=== PATIENT | male | born 1950 | race Caucasian/White ===

== ENCOUNTER 2024-08-08 12:09 | Outpatient (OUT) | payer MEDICARE, SELFPAY ==
--- NOTE | 2024-08-08 12:26 | ECG_ITS ---
The [facility] Test Date: 2024-08-08 Pat Name: SARINA MAGUIRE Department: Room: - Gender: Male [employer]: : 1950 Requested By: ROLY KEE Order Number: [id number] Reading MD: ANDRÉS MAHER Measurements Intervals [place] Rate: 75 P: 56 TX: 168 QRS: -17 QRSD: 109 T: 26 QT: 374 QTc: 418 Interpretive Statements SINUS RHYTHM INCOMPLETE RIGHT BUNDLE BRANCH BLOCK [90+ ms QRS DURATION, TERMINAL R IN V1/V2, 40+ ms S IN I/aVL/V4/V5/V6] No previous ECG available for comparison Electronically Signed On 08-09-2024 18:56:16 EDT by ANDRÉS MAHER
--- NOTE | 2024-08-08 12:26 | XR_ITS ---
The [address] [address] Patient Name: SARINA MAGUIRE MRN: [id number] date: 1950 Sex: M Assigned Patient Location: [facility] Current Patient Location: [facility] Accession/Order Number: [id number] Exam Date: 08/08/2024 13:22 Report Date: 08/08/2024 13:56 At the request of: ROLY KEE Procedure: XR chest 2V EXAM: XR chest 2V HISTORY: Preop exam COMPARISON: 01/12/2020 TECHNIQUE: Upright PA and lateral chest x-ray FINDINGS: Chronic pleural or parenchymal changes are seen at the left lung base. No acute infiltrate, effusion or pneumothorax is identified. The heart is not enlarged and the vasculature is not distended. The osseous structures are grossly intact. XR/XR chest 2V IMPRESSION: Some chronic changes are seen at the left lung base. There is no evidence of an acute infiltrate or cardiac decompensation, the overall appearance of the chest is essentially unchanged. Electronically authenticated by: LILI NELSON Date: 08/08/2024 13:56
[2024-08-08 13:25] LABS: Basophils Percent Auto 0.4 % (0.2-2.0); Eosinophils Absolute Auto 0.1 10^3/uL (0.0-0.7); Eosinophils Percent Auto 1.2 % (0.9-7.0); Hematocrit 42.4 % (42.0-54.0); Hemoglobin 13.9 g/dL (14.0-18.0); Immature Granulocytes Abs Auto 0.01 10^3/uL (0.00-0.03); Immature Granulocytes Pct Auto 0.1 % (0.0-0.5); Lymphocytes Absolute Auto 1.8 10^3/uL (1.2-3.8); Lymphocytes Percent Auto 24.1 % (20.5-60.0); Mean Corpuscular HGB Conc 32.8 g/dL (29.9-35.2); Mean Corpuscular Hemoglobin 30.5 pg (25.9-34.0); Monocytes Absolute Auto 0.6 10^3/uL (0.3-0.8); Monocytes Percent Auto 8.3 % (1.7-12.0); Neutrophils Absolute Auto 4.9 10^3/uL (1.4-6.5); Neutrophils Percent Auto 65.9 % (43.0-75.0); Platelet Count 260 10^3/uL (150-450); Red Blood Count 4.56 10^6/uL (4.70-6.10); Red Cell Distribution Width 13.4 % (11.0-15.0); White Blood Count 7.4 10^3/uL (4.0-11.0)
--- NOTE | 2024-08-08 13:28 | P.GSHP_ITS ---
History of Present Illness History of Present Illness Chief complaint: bph, hx prostate ca, hematuria Narrative: Patient presents for preadmission testing. The patient reports a history of prostate cancer with brachytherapy. The patient states he had an episode of gross hematuria followed by a cystoscopy and is now scheduled for a TURP. The patient states the hematuria has resolved and he denies dysuria, abdominal pain, nausea, vomiting, fever, or any other complaints. Review of Systems ROS Narrative REVIEW OF SYSTEMS: Negative except as stated in HPI, ten or more systems reviewed. Constitutional: No fever, chills, weakness ENT: No sore throat or epistaxis Cardiovascular: No edema, chest pain, palpitations, or activity intolerance Respiratory: No shortness of breath, cough, or wheezing Musculoskeletal: No joint pain or swelling Gastrointestinal: No abdominal pain, constipation, diarrhea, or vomiting Neurological: No numbness, tingling, weakness, or headache Psychiatric: No mood changes PFSH [facility] Medical History (Updated 08/08/24 @ 13:27 by Roslyn Matt NP) Trigger finger ?M65.30 - Trigger finger, unspecified finger (ICD-10) Spondylosis of lumbar region without myelopathy or radiculopathy ?M47.816 - Spondylosis without myelopathy or radiculopathy, lumbar region (ICD-10) Sacroiliitis ?M46.1 - Sacroiliitis, not elsewhere classified (ICD-10) Osteoarthritis ?M19.90 - Unspecified osteoarthritis, unspecified site (ICD-10) Nocturia ?R35.1 - Nocturia (ICD-10) Lumbar stenosis ?M48.061 - Spinal stenosis, lumbar region without neurogenic claudication (ICD-10) Depression ?F32.A - Depression, unspecified (ICD-10) Gross hematuria ?R31.0 - Gross hematuria (ICD-10) Urinary frequency ?R35.0 - Frequency of micturition (ICD-10) Erectile dysfunction ?N52.9 - Male erectile dysfunction, unspecified (ICD-10) Degenerative disc disease Chronic back pain ?M54.9 - Dorsalgia, unspecified (ICD-10) ?G89.29 - Other chronic pain (ICD-10) Prostate cancer ?C61 - Malignant neoplasm of prostate (ICD-10) Arthritis ?M19.90 - Unspecified osteoarthritis, unspecified site (ICD-10) Anemia ?D64.9 - Anemia, unspecified (ICD-10) COVID-19 ?U07.1 - COVID-19 (ICD-10) Asthma ?J45.909 - Unspecified asthma, uncomplicated (ICD-10) BPH with obstruction/lower urinary tract symptoms ?N40.1 - Benign prostatic hyperplasia with lower urinary tract symptoms (ICD- 10) ?N13.8 - Other obstructive and reflux uropathy (ICD-10) Kidney stones ?N20.0 - Calculus of kidney (ICD-10) Seasonal allergies ?J30.2 - Other seasonal allergic rhinitis (ICD-10) GERD (gastroesophageal reflux disease) ?K21.9 - Gastro-esophageal reflux disease without esophagitis (ICD-10) High cholesterol ?E78.00 - Pure hypercholesterolemia, unspecified (ICD-10) Hypertension ?I10 - Essential (primary) hypertension (ICD-10) Coronary artery disease ?I25.10 - Atherosclerotic heart disease of [place] coronary artery without angina pectoris (ICD-10) Pilonidal cyst ?L05.91 - Pilonidal cyst without abscess (ICD-10) History of brachytherapy ?Z92.3 - Personal history of irradiation (ICD-10) Sciatica ?M54.30 - Sciatica, unspecified side (ICD-10) Surgical History (Updated 08/08/24 @ 13:27 by Roslyn Matt NP) H/O cystoscopy ?Z98.890 - Other specified postprocedural states (ICD-10) History of colonoscopy ?Z98.890 - Other specified postprocedural states (ICD-10) History of tonsillectomy ?Z90.89 - Acquired absence of other organs (ICD-10) H/O removal of cyst ?Z98.890 - Other specified postprocedural states (ICD-10) History of heart artery stent (2004) ?Z95.5 - Presence of coronary angioplasty implant and graft (ICD-10) Hx of prostate biopsy ?Z98.890 - Other specified postprocedural states (ICD-10) History of hernia repair ?Z98.890 - Other specified postprocedural states (ICD-10) ?Z87.19 - Personal history of other diseases of the digestive system (ICD-10) History of arthroscopy of knee ?Z98.890 - Other specified postprocedural states (ICD-10) H/O radiofrequency ablation (RFA) of nerve of lumbar spine ?Z98.890 - Other specified postprocedural states (ICD-10) S/P epidural steroid injection ?Z92.241 - Personal history of systemic steroid therapy (ICD-10) History of carpal tunnel release ?Z98.890 - Other specified postprocedural states (ICD-10) History of repair of rotator cuff ?Z98.890 - Other specified postprocedural states (ICD-10) H/O hand surgery ?Z98.890 - Other specified postprocedural states (ICD-10) Family History (Updated 08/08/24 @ 13:01 by Roslyn Matt NP) Other Family history of Alzheimer's disease Family history of diabetes mellitus Family history of hypertension Family history of myocardial infarction Family history of prostate cancer Family history of stroke Social History (Updated 08/08/24 @ 12:49 by Roslyn Matt NP) Within the past year, how often did you have a drink containing alcohol: 2-4 times a month Smoking status: Never smoker Non-prescribed substance use: denies use Highest level of school completed/degree received: high school graduate Meds Home Medications and Allergies Home Medications ?Medication ?Instructions ?Recorded ?Confirmed ?Type albuterol sulfate 90 mcg/actuation 2 inh inhalation Q6H PRN shortness 08/08/24 08/08/24 History aerosol inhaler of breath or wheezing allopurinol 300 mg tablet 300 mg PO DAILY 08/08/24 08/08/24 History amlodipine 5 mg tablet 5 mg PO DAILY 08/08/24 08/08/24 History ascorbic acid (vitamin C) 1,000 mg 1 g PO DAILY 08/08/24 08/08/24 History capsule aspirin 81 mg tablet,delayed 81 mg PO DAILY 08/08/24 08/08/24 History release (Adult Aspirin Regimen) atorvastatin 20 mg tablet 20 mg PO DAILY 08/08/24 08/08/24 History cholecalciferol (vitamin D3) 125 5,000 unit PO DAILY PRN Low 08/08/24 08/08/24 History mcg (5,000 unit) capsule vitamin D diclofenac sodium 75 mg 75 mg PO Q12H 08/08/24 08/08/24 History tablet,delayed release duloxetine 60 mg capsule,delayed 60 mg PO BID 08/08/24 08/08/24 History release fluticasone furoate 200 1 inh inhalation Q24H 08/08/24 08/08/24 History mcg-vilanterol 25 mcg/dose inhalation powder (Breo Ellipta) fluticasone propionate 50 1 spray intranasal DAILY 08/08/24 08/08/24 History mcg/actuation nasal spray,suspension levocetirizine 5 mg tablet (Xyzal) 5 mg PO DAILY 08/08/24 08/08/24 History lisinopril 10 mg tablet 10 mg PO DAILY 08/08/24 08/08/24 History mecobalamin (vitamin B12) 5,000 2,500 mcg PO .Thursday08/08/24 08/08/24 History mcg disintegrating tablet montelukast 10 mg tablet 10 mg PO DAILY 08/08/24 08/08/24 History multivitamin (Daily Multi-Vitamin 1 tab PO DAILY 08/08/24 08/08/24 History tablet) omeprazole 40 mg capsule,delayed 40 mg PO DAILY 08/08/24 08/08/24 History release pregabalin 100 mg capsule 100 mg PO TID 08/08/24 08/08/24 History pyridoxine (vitamin B6) 100 mg 100 mg PO DAILY 08/08/24 08/08/24 History tablet Allergies Allergy/AdvReac Type Severity Reaction Status Date / Time No Known Drug Allergies Allergy Verified 08/08/24 12:45 Exam Narrative Exam Narrative: Constitutional: Awake, alert, comfortable, well-appearing, nontoxic, interactive, vital signs as charted Head: Normocephalic, atraumatic Neck: Supple, normal appearance, normal range of motion, no meningeal signs, no lymphadenopathy Respiratory: No respiratory distress, breath sounds clear Cardiovascular: Regular rate and rhythm, strong and regular heart tones Abdomen: Nontender, normal bowel sounds, soft, no CVA tenderness Musculoskeletal: Normal gait, no swelling or edema Skin: No rashes or induration, no lesions, only visible skin inspected Neuro: No neurological deficits, normal sensation Psychiatric: Oriented ?3, normal affect Assessment and Plan Assessment and Plan (1) BPH with obstruction/lower urinary tract symptoms: (2) Prostate cancer: Plan Cystoscopy/TURP with fulguration scheduled with Dr. Grey August 18, 2024.
[2024-08-08 13:33] LABS: Anion Gap 8.2; Calcium 9.4 mg/dL (8.5-10.1); Chloride 106 mmol/L (98-107); Estimated GFR (African America >60 (>=60); Estimated GFR (Non-African Ame >60 (>=60); Glucose 109 mg/dL (74-106); Potassium 4.2 mmol/L (3.5-5.1); Sodium 138 mmol/L (136-145)
[2024-08-08 13:46] LABS: INR 1.04; Partial Thromboplastin Time 29.7 sec (22.3-36.2)
== END 2024-08-08 12:10 | disposition home or self-care (01) ==
LOC: PST 12:14
PROVIDERS: PCP Family Medicine; Visit Provider Urology
DX: Z01.810 Encounter for preprocedural cardiovascular examination (principal); Z01.812 Encounter for preprocedural laboratory examination; Z01.818 Encounter for other preprocedural examination; N40.1 Benign prostatic hyperplasia with lower urinary tract symptoms; C61 Malignant neoplasm of prostate; J45.909 Unspecified asthma, uncomplicated; E78.00 Pure hypercholesterolemia, unspecified; K21.9 Gastro-esophageal reflux disease without esophagitis
CPT/HCPCS: 71046; 80048; 85025; 85610; 85730; 93005; G0463

== ENCOUNTER 2024-10-07 13:10 | Outpatient (OUT) | payer MEDICARE, SELFPAY ==
--- OUTSIDE RECORDS SUMMARY | 2024-10-07 13:15 | XMS_ITS | CCD ---
Author Organization [facility] ion [facility] Care Team Providers Care Eap Clinician Name Role Phone MAGO RODARTE Attending Unavailable CAYDEN, MAGO Referring Unavailable MAGO RODARTE Attending Unavailable MAGO RODARTE Referring Unavailable RAHRSHANA, MAGO Attending Unavailable PATTERSON III, JULIA R Referring Unavailabl e CLINKER, YESENIA Mckeon Attending Unavailable PATTERSON III, JULIA R Referring Unavailabl e CLINKERYESENIA L Attending Unavailable Daniela GAUTAM Referring Unavailable MAGO RODARTE Attending Unavailable CAYDEN, MAGO Referring Unavailable Daniela GAUTAM Attending Unavailable DAIN ARosalind LEYVA Referring Unavailable PATTERSON III, JULIA R Primary Care Unavailabl e RAHRSHANA, MAGO Attending Unavailable MAGO RODARTE Referring Unavailable Patterson, Julia R Primary Care Provider Patterson, Julia R Primary Care Provider [phone] Patterson, Julia R Primary Care Provider [phone] Patterson, Julia R Primary Care Provider [phone] Unavailable Unavailable Rigo Hassan Unavailable Patterson, Julia R Unavailable Patterson, Julia R Primary Care Provider [phone] JIGNESH PIZANO Referring Unavail able PATTERSON, JULIA R Primary Care Unavailable PIERRE DEL ROSARIO Referring Unavailab le PATTERSON, JULIA R Primary Care Unavailable PIERRE DEL ROSARIO Referring Unavailab le PATTERSON, JULIA R Primary Care Unavailable Leonardo BEAULIEU, Dr. Julia Newby Primary Care Olga Pizano II, Dr. Jignesh Dunham Referring Unavailable Jerica VALADEZ, Dr. Jignesh Dunham Attending Unavailable Patterson III, Julia R Primary Care Physician DO Efrem Esquivel Attending Provider Orzech, Samantha X Admitting Unavailable Orzech, Samantha X Attending Unavailable Orzech, Samantha X Referring Unavailable JAJA MARTINEZ Attending Unavailable MICHELLE, JAJA SIDDIQUI Admitting Unavailable Orzech, Samantha X Attending Unavailable Orzech, Samantha X Admitting Unavailable Orzech, Samantha X Attending Unavailable Lucas, Pascale L Referring Unavailable KEE, Cam R Attending Unavailable Lucas, Pascale L Admitting Unavailable Lucas, Pascale L Attending Unavailable Patterson DO, Julia R Primary Care Provider [phone] FROYLAN CASTANON Referring Unavailable PATTERSON, JULIA R Primary Care Unavailable FROYLAN CATSANON Referring Unavailable PATTERSON, JULIA R Primary Care Unavailable Patterson III, DO Julia R Primary Care Provider MD Froylan Castanon Attending Provider Froylan Castanon Attending Unavailable Froylan Castanon Admitting Unavailable Patterson III, Julia R Primary Care Unavailabl e Jojo Melendrez Primary Care Physician [phone] FROYLAN CASTANON Attending Unavailable PATTERSON, JULIA R Primary Care Unavailable KEEAnitaCam R Attending Unavailable KEE, Cam R Referring Unavailable KEE, Cam R Admitting Unavailable Jojo Melendrez Admitting Unavailable Jojo Melendrez Attending Unavailable Orzech, Samantha X Admitting Unavailable Orzech, Samantha X Attending Unavailable Orzech, Samantha X Referring Unavailable KEE Cam R Attending Unavailable KEE, Cam R Attending Unavailable KEE, Cam R Attending Unavailable KEE, Cam R Attending Unavailable KEE, Cam R Attending Unavailable Allergies Allergy Classification Reported Allergen(s) Allergy Type Date of Onset Reaction(s) Facility (1 source) *Seasonal Propensity to adverse reactions to substance 8 [facility] (3 sources) Hmg-Coa Reductase Inhibitors (Statins); Translations: [statins] Propensity to adverse reactions (disorder) [facility] (1 source) ALLERGIES NOT ON FILE; Translations: [ALLERGIES NOT ON FILE] Propensity to adverse reactions (disorder) [facility] Repository Medications Current Medications Medication Drug Class(es) Dates Sig (Normalized) Sig (Original) [id number] 200 actuat albuterol 0.09 mg/actuat metered dose inhaler (20 sources) beta2-Adrenergic Agonist Start: 04-06-2024 End: 04-25-2024 Albuterol Sulfate Active 2 INH INHALATION Four times daily 3 90 April 25, 2024 8:59am Start: 04-06-2024 End: 04-06-2024 take 2 puff(s) by inhalation four times daily as needed Albuterol Sulfate Discontinued INHALATION April 06, 2024 12:00am April 06, 2024 11:00am FreeTextSi puffs as needed Inhalation up to 4 times/day; Note: Source Status: Continue; Refills: 3; Provider: Sonya Quinteros Start: 04-22-2022 take 2 puff(s) by in halation twice daily albuterol 90 mcg/actuation inhaler Inhale 2 puffs 2 times a day. 04/22/2022 Active Start: 04-22-2022 take 2 puff(s) by in halation four times daily as needed Albuterol Sulfate HFA 108 (90 Base) MCG/ACT 2 puffs as needed Inhalation up to 4 times/day for 90 days Apr, Active Albuterol Sulfat e (PROAIR HFA IN) Inhale 2 puffs into the lungs as needed 0 Active take 1 puff(s) by in halation every six hours as needed for wheezing albuterol 108 (90 Base) MCG/ACT Aero Soln inhaler Inhale 1 puff every 6 hours as needed for Wheezing. 0 Active allopurinol 300 mg oral tablet (20 sources) Xanthine Oxidase Inhibitor Start: 04-21-2022 End: 04-06-2024 take 1 tablet by mouth once daily allopurinol (Zyloprim) 300 mg tablet Take 1 tablet (300 mg) by mouth once daily. 04/21/2022 Active Start: 03-03-2011 allopurinol 30 0 mg, Daily, Refills(s) 0 Start Date: 03/03/11 Status: Ordered amLODIPine 5 mg oral tablet (20 sources) Dihydropyridine Calcium Channel Gautam Start: 04-21-2018 End: 05-13-2025 amLODIPine 5 mg Tab Refills(s) 0 Start Date: 08/28/20 Status: Ordered Ascorbic Acid (20 sources) Vitamin C Start: 06-28-2024 take 1 tablet by mouth once daily Ascorbic Acid (Vitamin C) Active 1 TAB PO Daily June 28, 2024 12:00am FreeTextSi tablet Orally Once a day; Note: Source Status: Taking; Provider: Sonya Sierra ( ) Start: 03-03-2011 Vitamin C 1,00 0 mg, Daily, Refills(s) 0, Prophylaxis Start Date: 03/03/11 Status: Ordered take 1 tablet by juan pablo th once daily ascorbic acid (Vitamin C) 1,000 mg tablet Take 1 tablet (1,000 mg) by mouth once daily. Active take 2 tablets by mo uth once daily Ascorbic Acid (VITAMIN C) 500 MG tablet Take 1,000 mg by mouth daily 0 Active ascorbic acid 60 mg / beta carotene 5000 unt / copper sulfate 40 mg / dl-alpha tocopheryl acetate 30 unt / sodium selenite 0.04 mg / zinc oxide 40 mg oral tablet (2 sources) Vitamin C take 0.5 tablet by mouth twice daily Multiple Vitamins-Minerals (THERAPEUTIC MULTIVITAMIN-MINERALS) tablet Take 0.5 tablets by mouth 2 times daily 0 Active aspirin 81 mg delayed release oral tablet (20 sources) Platelet Aggregation Inhibitor, Nonsteroidal Anti-inflammatory Drug Start: End: 024 take 81 mg by mouth once daily Aspirin Active 81 MG PO Daily April 06, 2024 10:58am Start: 07-01-2017 Delicia Aspirin 81 mg, Oral, MonWedFri, Refills(s) 0, Prophylaxis Start Date: 07/01/17 Status: Ordered take 1 tablet by juan pablo th once daily Aspirin 81 81 MG 1 tablet Orally Once a day Active aspirin 81 MG Ta b Take 81 mg by mouth daily. 3 times a week Thursday, Thursday and Thursday in PM 0 Active atorvastatin 20 mg oral tablet (20 sources) HMG-CoA Reductase Inhibitor Start: 08-08-2013 End: 03-21-2025 take 1 tablet by mouth once daily at bedtime Lipitor 20 mg Tab 20 mg = 1 tab(s), Oral, Once a day (at bedtime), Refills(s) 0, High cholesterol Start Date: 08/08/13 Status: Ordered Breo Ellipta 200 mcg-25 mcg/inh inhalation powder (7 sources) Start: 08-28-2020 Breo Ellipta 200 mcg-25 mcg/inh inhalation powder Refill(s) 0 Start Date: 08/28/20 Status: Ordered Calcium + D 500-1000-40 MG-UNT-MCG (1 source) Calcium + D 500-1000-40 MG-UNT-MCG Orally Active Calcium Carbonate / Vitamin D (12 sources) take 600 mg by mouth once daily Calcium Carbonate-Vitamin D (CALCIUM + D PO) Take 600 mg by mouth nightly 0 Active cholecalciferol 0.125 mg oral capsule (20 sources) Vitamin D Start: 06-28-2024 take 125 ug by mouth once daily Cholecalciferol (Vitamin D3) Active 125 MCG PO Daily June 28, 2024 12:00am takes . and . take 1 capsule by mo uth two times weekly cholecalciferol (Vitamin D-3) 50,000 uni t capsule Take 1 capsule (50,000 Units) by mouth 2 times a week. Active take 1 capsule by mo uth three times weekly cholecalciferol (Vitamin D-3) 50,000 uni t capsule Take 1 capsule (50,000 Units) by mouth 3 (three) times a week. Active Cholecalciferol (VITAMIN D3) 5000 units TABS Take by mouth Twice a Week Takes on . & . 0 Active diclofenac sodium 75 mg delayed release oral tablet (20 sources) Nonsteroidal Anti-inflammatory Drug Start: 08-28-2020 diclofenac sodium 75 mg Oral EC Tab Refills(s) 0 Start Date: 08/28/20 Status: Ordered Diclofenac & Diet Manage Prod 75 mg (1 source) take 2 tablets by mouth twice daily Diclofenac & Diet Manage Prod 75 mg 2 tab Orally bid Active docosahexaenoic acid 120 mg / eicosapentaenoic acid 180 mg oral capsule (5 sources) take 1 capsule by mouth once daily Ivor-3 Fatty Acids (FISH OIL) 1000 MG CAPS Take 1,000 mg by mouth daily 0 Active docosahexaenoic acid 1000 mg / omega-3 acid ethyl esters (prison) 300 mg delayed release oral capsule (1 source) Ivor-3 Fatty Acids (FISH OIL) [address] Take 1 tablet by mouth. 0 Active DULoxetine 60 mg delayed release oral capsule (3 sources) Serotonin and Norepinephrine Reuptake Inhibitor Start: 06-28-2024 take 1 capsule by mouth twice daily DULoxetine (Cymbalta) [address] capsule Take 1 capsule (60 mg) by mouth 2 times a day. 06/28/2024 Active Fluticasone Furoate-Vilanterol (19 sources) Corticosteroid, beta2-Adrenergic Agonist Start: 04-25-2024 Fluticasone Furoate-Vilante rol (Breo Ellipta) 200-25 mcg/dose blister with device Active 1 INH INHALATION Daily 3 90 April 25, 2024 8:56am Start: 04-06-2024 End: 04-25-2024 Fluticasone Furoate-Vilanter ol (Breo Ellipta) 200-25 mcg/dose blister with device Discontinued 1 INH INHALATION Daily April 06, 2024 10:58am April 25, 2024 9:00am Start: 04-06-2024 End: 04-06-2024 take 1 puff(s) by inhalation once daily Fluticasone Furoate-Vilanterol (Breo Ellipta) 200-25 mcg/dose blister with device Discontinued 1 PUFF INHALATION Daily April 06, 2024 12:00am April 06, 2024 11:00am FreeTextSi puff Inhalation Once a day; Note: Source Status: Refill; Refills: 3; Provider: Sonya Quinteros Start: 11-21-2021 take 1 puff(s) by in halation once daily fluticasone furoate-vilanteroL (Breo Ellipta) 200-25 mcg/dose inhaler Inhale 1 puff once daily. 11/21/2021 Active Start: 11-21-2021 fluticasone fu roate-vilanteroL (Breo Ellipta) 200-25 mcg/dose inhaler Inhale once daily. 11/21/2021 Active Start: 08-01-2019 take 1 puff(s) by in halation once daily Breo Ellipta 200-25 MCG/INH 1 puff Inhalation Once a day Jul, Active Fluticasone Furoate-Vilanterol (BREO ELLIPTA IN) (10 sources) Fluticasone Furoate-Vilanterol (BREO ELLIPTA IN) Inhale into the lungs 0 Active levocetirizine dihydrochloride 5 mg oral tablet (20 sources) Histamine-1 Receptor Antagonist Start: 024 take 1 tablet by mouth once daily Levocetirizine (Xyzal) 5 mg tablet Active 5 MG PO Daily June 28, 2024 12:00am Start: 09-28-2017 Xyzal 5 mg, Or al, qPM, Refill(s) 0, Allergy symptoms Start Date: 09/28/17 Status: Ordered take 1 tablet by juan pablo once daily Levocetirizine Dihydrochloride (XYZAL PO) Take 1 tablet by mouth daily. 0 Active 10 ml lidocaine hydrochloride 20 mg/ml injection (2 sources) Antiarrhythmic, Amide Local Anesthetic Start: 03-22-2019 lidocaine 1% (PF) (XYLOCAINE MPF) 1 % injection 5 mL Start: 03-22-2019 lidocaine (PF) 2 % injection 10 mL lisinopril 10 mg oral tablet (20 sources) Angiotensin Converting Enzyme Inhibitor Start: 04-04-2014 End: 03-21-2025 take 1 tablet by mouth once daily lisinopril 10 mg Tab 10 mg = 1 tab(s), Oral, Daily, High blood pressure Start Date: 04/04/14 Status: Ordered montelukast 10 mg oral tablet (20 sources) Leukotriene Receptor Antagonist Start: 04-18-2024 End: 04-25-2024 take 1 tablet by mouth once daily in the evening Montelukast Discontinued 0 .ROUTE .COMPLEX 90 April 18, 2024 8:45am April 25, 2024 9:00am TAKE 1 TABLET BY MOUTH ONCE DAILY IN THE EVENING Start: 05-23-2015 End: 04-18-2024 montelukast 10 mg Tab Refill s(s) 0 Start Date: 08/28/20 Status: Ordered Multi Vitamin+ (7 sources) Start: 12-30-2018 take 1 tablet by mouth once daily Multi Vitamin+ 1 tab, Oral, Daily, Refill(s) 0, Prophylaxis Start Date: 12/30/18 Status: Ordered Multiple Vitamins-Minerals (THERAPEUTIC MULTIVITAMIN-MINERA LS) tablet (10 sources) take 0.5 tablet by mouth twice daily Multiple Vitamins-Minerals (THERAPEUTIC MULTIVITAMIN-MINERA LS) tablet Take 0.5 tablets by mouth 2 times daily 0 Active multivitamin tablet (1 source) take 1 tablet by mouth once daily multivitamin tablet Take 1 tablet by mouth once daily. Active omega-3 acid ethyl esters (prison) 1000 mg oral capsule (7 sources) take 1 capsule by mouth once daily Ivor-3 Fatty Acids (FISH OIL) 1000 MG CAPS Take 1,000 mg by mouth daily 0 Active omeprazole 40 mg delayed release oral capsule (20 sources) Proton Pump Inhibitor Start: 04-06-2024 End: 04-06-2024 take 40 mg by mouth once daily Omeprazole Active 40 MG PO Daily April 06, 2024 11:00am Start: 12-18-2021 take 2 capsules by m outh once daily omeprazole (PriLOSEC) [address] capsule Take 2 capsules (40 mg) by mouth once daily. 12/18/2021 Active Start: 08-28-2020 omeprazole 20 mg Cap-DR Refills(s) 0 Start Date: 08/28/20 Status: Ordered take 1 capsule by mo uth once daily Omeprazole 40 MG Oral Capsule Delayed Release TAKE 1 CAPSULE Daily Quantity: 90 Refills: 3 Ordered: 08-Jul-2023 DO Active pregabalin 100 mg oral capsule (3 sources) Start: 06-28-2024 take 100 mg by mouth three times daily Pregabalin Active 100 MG PO Three times daily June 28, 2024 12:00am ProAir HFA 90 mcg/inh inhalation aerosol (7 sources) Start: 03-20-2020 take 2 puff(s) by inhalation every four hours for wheezing ProAir HFA 90 mcg/inh inhalation aerosol 2 puff(s), Inhalation, q4hr for wheezing, Shortness of breath or wheezing Start Date: 03/20/20 Status: Ordered raNITIdine 150 mg oral tablet (13 sources) Histamine-2 Receptor Antagonist take 1 tablet by mouth twice daily ranitidine (ZANTAC) 150 MG tablet Take 150 mg by mouth 2 times daily 0 Active Senior Tabs (1 source) Senior Tabs Oral ly Active vitamin b12 2.5 mg sublingual tablet (16 sources) Vitamin B12 Start: 06-28-2024 Cyanocobalamin (Vitamin B-12) (Vitamin B-12) 2,500 mcg tablet, sublingual Active 2500 MCG SUBLINGUAL .M-W-F June 28, 2024 12:00am Start: 12-30-2018 Vitamin B12 2, 500 microgram, SubLingual, MonWedFri, Refills(s) 0, Prophylaxis Start Date: 12/30/18 Status: Ordered take 1 tablet by juan pablo th three times weekly cyanocobalamin (Vitamin B-12) 100 mcg tablet Take 1 tablet (100 mcg) by mouth 3 (three) times a week. Active take 1 tablet by juan pablo th every twenty-four hours Vitamin B-12 2500 MCG 1 tablet Orally Once a day Active vitamin b6 100 mg oral tablet (20 sources) Start: 12-30-2018 take 100 mg by mouth once daily Vitamin B6 100 mg, Oral, Daily, Refills(s) 0, Prophylaxis Start Date: 12/30/18 Status: Ordered Vitamin B6 200 MG (1 source) take 1 tablet by mouth once daily Vitamin B6 200 MG 1 tablet Orally Once a day for 30 day(s) 100 mg Active Vitamin C 1000 MG (1 source) take 1 tablet by mouth once daily Vitamin C 1000 MG 1 tablet Orally Once a day Active Vitamin D 63637 U (1 source) Vitamin D 36043 U 1 null Orally for 30 day(s) 5000 MG Active Vitamin D3 (7 sources) Start: 12-30-2018 Vitamin D3 5,0 00 International_Unit, Oral, TueThu, Refills(s) 0 Start Date: 12/30/18 Status: Ordered Completed/Discontinued Medications Medication Drug Class(es) Dates Sig (Normalized) Sig (Original) acetaminophen 325 mg / HYDROcodone bitartrate 5 mg oral tablet (15 sources) Opioid Agonist Start: 03-20-2020 [place] 325 mg-5 mg oral tablet See Instructions, for pain, 12 tab(s), Refill(s) 0, 1-2 tab(s) Oral q4hr PRN Pain. Duration 7 days., [facility] [employer] [facility] #[facility], 167.8, cm, 03/21/20 10:17:00 EDT, Height/Length Measured, 86.3, kg, 03/21/20 10:17:00 EDT, Weight Measured Start Date: 03/21/20 Status: Ordered Start: 06-28-2018 take 1-2 tablets by mouth every four hours as needed for pain hydroCODone-acetaminophen 5-325 MG Tab tablet TAKE 1 TO 2 TABLETS BY MOUTH EVERY 4 HOURS NEEDED FOR PAIN 0 06/28/2018 Active ciprofloxacin 500 mg oral tablet (2 sources) Quinolone Antimicrobial Start: 07-12-2024 take 1 tablet by mouth once daily Cipro 500 mg Tab 500 mg = 1 tab(s), Oral, Daily, Take 1 tablet the day before the procedure and 1 tablet after the procedure, # 2 tab(s), Refills(s) 0, Pharmacy: [facility] #[facility], 167, cm, 06/24/24 13:03:00 EDT, Height/Length Dosing, 88, kg, 06/24/24 13:03:00 EDT, Weight Dosing Start Date: 07/12/24 Status: Ordered fluticasone propionate 0.05 mg/actuat metered dose nasal spray (20 sources) Corticosteroid Start: 04-06-2024 End: 04-06-2024 take 2 spray(s) nasal route once daily Fluticasone Propionate Discontinued 2 SPRAY INTRANASAL Daily April 06, 2024 12:00am April 06, 2024 11:00am FreeTextSi spray in each nostril Nasally Once a day; Note: Source Status: Refill; Refills: 3; Provider: Sonya Quinteros Start: 04-22-2022 End: 04-25-2024 take 1 spray(s) nasal route once daily fluticasone (Flonase) 50 mcg/actuation nasal spray Administer 1 spray into affected nostril(s) once daily. 04/22/2022 Active Start: 04-22-2022 take 1 spray(s) nasa l route once daily Fluticasone Propionate 50 MCG/ACT Nasal Suspension USE 1 SPRAY IN EACH NOSTRIL ONCE DAILY. Quantity: 0 Refills: 0 Ordered: 22-Apr-2022 DO Start : 22-Apr-2022 Active Start: 04-21-2018 fluticasone 50 MCG/ACT Suspension nasal spray Start: 04-24-2015 Flonase 1 spra y(s), Nasal, Daily, Refill(s) 0, Allergy symptoms Start Date: 04/24/15 Status: Ordered Start: 03-14-2015 take 2 spray(s) nasa l route once daily Fluticasone Propionate 50 MCG/ACT 2 spray in each nostril Nasally Once a day for 90 days March, Active 60 actuat fluticasone propionate 0.5 mg/actuat / salmeterol 0.05 mg/actuat dry powder inhaler (2 sources) Corticosteroid, beta2-Adrenergic Agonist End: 01-12-2020 take 1 puff(s) by inhalation every twelve hours fluticasone-salmeterol (ADVAIR) 500-50 MCG/DOSE diskus inhaler Inhale 1 puff into the lungs every 12 hours 0 01/12/2020 Discontinued (Therapy completed) Multi Vitamin Oral Tablet (6 sources) take 1 tablet by mouth once daily Multi Vitamin Oral Tablet TAKE 1 TABLET DAILY. Quantity: 0 Refills: 0 Ordered: 04-Jul-2022 DO Active regadenoson (Lexiscan) injection 0.4 mg (1 source) Start: 08-11-2024 End: 08-11-2024 0.4 mg, intravenous, Once, On Oliva 08/11/24 at 1415, For 1 dose sildenafil 100 mg oral tablet (7 sources) Phosphodiesterase 5 Inhibitor Start: 07-29-2023 take 1 tablet by mouth every hour, then take 1 tablet by mouth every twenty-four hours sildenafil 100 mg Tab 100 mg = 1 tab(s), Oral, As Directed, Take 1 tab by mouth one hour prior to sexual activity. Do NOT exceed 100 mg in 24 hours., # 30 tab(s), Refills(s) 3, Pharmacy: [facility] #16, 167, cm, 07/29/23 13:47:00 EDT, Height/Length Dosing, 88, kg, 07/29/23 13:47:00 EDT, Weight Dosing Start Date: 07/29/23 Status: Ordered Tc-99m tetrofosmin (Myoview) injection 10.6 millicurie (1 source) Start: 08-11-2024 End: 08-11-2024 10.6 millicurie, intravenous, Once in imaging, Starting on Oliva 08/11/24 at 1211, For 1 dose, Administer 45 to 90 minutes prior to imaging unless otherwise indicated. Tc-99m tetrofosmin (Myoview) injection 35.5 millicurie (1 source) Start: 08-11-2024 End: 08-11-2024 35.5 millicurie, intravenous, Once in imaging, Starting on Oliva 08/11/24 at 1411, For 1 dose, Administer 45 to 90 minutes prior to imaging unless otherwise indicated. traMADol hydrochloride 50 mg oral tablet (2 sources) Opioid Agonist End: 01-12-2020 take 2 tablets by mouth every six hours as needed for pain traMADol (ULTRAM) 50 MG tablet Take 100 mg by mouth every 6 hours as needed for Pain 0 01/12/2020 Discontinued (Therapy completed) take 1 tablet by juan pablo th every six hours as needed traMADol 50 MG Tab tablet Take 50 mg by mouth every 6 hours as needed. 0 Active Vitamin B12 TABS (6 sources) Vitamin B12 TABS 1 tablet 3 times a week Quantity: 0 Refills: 0 Ordered: 04-Jul-2022 DO Active Vitamin D3 CAPS (6 sources) Vitamin D3 CAPS 1 tablet 3 times a week Quantity: 0 Refills: 0 Ordered: 04-Jul-2022 DO Active Problems Active Problems Problem Classification Problem Date Documented Date Episodic/Chronic Asthma (13 sources) Moderate persistent asthma; Translations: [Moderate persistent asthma, uncomplicated] Onset: 2 Resolved: 2 Chronic Calculus of urinary tract (7 sources) History of calculus of kidney 09-26-2011 Episodic Cancer of prostate (7 sources) Malignant tumor of prostate 09-26-2011 Chronic Cancer of prostate (8 sources) History of malignant neoplasm of prostate; Translations: [Personal history of malignant neoplasm of prostate] Onset: 4 08-28-2020 Episodic Coronary atherosclerosis and other heart disease (20 sources) Arteriosclerotic vascular disease; Translations: [Cardiovascular disease, unspecified] Onset: 4 04-04-2014 Chronic Coronary atherosclerosis and other heart disease (4 sources) Coronary angioplasty status; Translations: [Coronary angioplasty status] Onset: 4 Episodic Disorders of lipid metabolism (17 sources) Hyperlipidemia; Translations: [Other and unspecified hyperlipidemia] Onset: 4 02-01-2024 Chronic Esophageal disorders (13 sources) Gastroesophageal reflux disease; Translations: [Gastro-esophageal reflux disease without esophagitis] Onset: 2 Resolved: 2 Chronic Essential hypertension (20 sources) Essential hypertension; Translations: [Unspecified essential hypertension] Onset: 4 04-04-2014 Chronic Genitourinary symptoms and ill-defined conditions (20 sources) Increased frequency of urination; Translations: [Nocturia] Onset: 4 08-28-2020 Episodic Hyperplasia of prostate (15 sources) Benign prostatic hypertrophy with outflow obstruction; Translations: [Large prostate ] Onset: 4 08-27-2021 Chronic Osteoarthritis (20 sources) Degenerative joint disease of shoulder region; Translations: [Osteoarthritis of knee] Onset: 8 01-27-2018 Chronic Other connective tissue disease (7 sources) H/O: arthritis 04-04-2014 Episodic Other connective tissue disease (7 sources) Acquired trigger finger 04-04-2014 Episodic Comment on above: left ring finger Other connective tissue disease (1 source) Trigger thumb of left hand; Translations: [Trigger finger of left thumb] Other diseases of kidney and ureters (1 source) Urinary tract obstruction; Translations: [Other obstructive and reflux uropathy] Onset: 4 Episodic Other male genital disorders (15 sources) Impotence; Translations: [Male erectile dysfunction, unspecified] Onset: 4 07-29-2023 Chronic Other nutritional; endocrine; and metabolic disorders (7 sources) Body mass index 30+ - obesity 08-28-2020 Chronic Other nutritional; endocrine; and metabolic disorders (1 source) Body mass index 25-29 - overweight; Translations: [Body Mass Index 26.0-26.9, adult] Episodic Other nutritional; endocrine; and metabolic disorders (2 sources) Overweight; Translations: [Overweight] Episodic Other nutritional; endocrine; and metabolic disorders (9 sources) Overweight in adulthood with body mass index of 25 or more but less than 30; Translations: [Body Mass Index 26.0-26.9, adult] Onset: 4 09-16-2024 Episodic Other nutritional; endocrine; and metabolic disorders (7 sources) History of hypercholesterolemia 04-04-2014 Episodic Other nutritional; endocrine; and metabolic disorders (2 sources) Body mass index (BMI) 28.0-28.9, adult; Translations: [Body mass index (BMI) 28.0-28.9, adult] Onset: 4 Episodic Other screening for suspected conditions (not mental disorders or infectious disease) (1 source) Abnormal result of other cardiovascular function study; Translations: [Abnormal result of other cardiovascular function study] Onset: 4 Episodic Other upper respiratory disease (3 sources) Allergic rhinitis; Translations: [Allergic rhinitis, unspecified] 04-15-2024 Chronic Other upper respiratory disease (3 sources) Allergic rhinitis, unspecified; Translations: [Allergic rhinitis, cause unspecified] Onset: 2 Resolved: 2 Chronic Residual codes; unclassified (1 source) Pain; Translations: [Pain, unspecified] Episodic Residual codes; unclassified (7 sources) Chronic pain 06-09-2017 Episodic Residual codes; unclassified (2 sources) Never smoked tobacco; Translations: [Other specified health status] Onset: 4 09-16-2024 Episodic Residual codes; unclassified (2 sources) Other specified health status; Translations: [Other specified health status] Onset: 4 Episodic Spondylosis; intervertebral disc disorders; other back problems (20 sources) Sacroiliitis, not elsewhere classified; Translations: [Degeneration of lumbar intervertebral disc] Onset: 9 05-27-2017 Chronic Spondylosis; intervertebral disc disorders; other back problems (20 sources) Low back pain; Translations: [Sacrococcygeal disorders, not elsewhere classified] Onset: 8 05-27-2017 Episodic Spondylosis; intervertebral disc disorders; other back problems (2 sources) Spinal stenosis, lumbar region with neurogenic claudication; Translations: [Spinal stenosis, lumbar region with neurogenic claudication] Onset: 8 Unclassified (9 sources) Acute tear of medial meniscus of right knee; Translations: [Acute medial meniscus tear of right knee] Onset: 8 06-16-2018 Unclassified (1 source) Patient encounter status; Translations: [Pre-op chest exam] Unclassified (7 sources) Pre diabetes 1 Onset: 1 04-04-2014 Comment on above: controlle by diet Past or Other Problems Problem Classification Problem Date Documented Da te Episodic/Chronic Joint disorders and dislocations; trauma-related (3 sources) Acute tear of medial meniscus of right knee; Translations: [Other tear of medial meniscus, current injury, right knee, initial encounter] Onset: 06-16-2018 06-16-2018 Episodic Other aftercare (2 sources) Surgical follow-up; Translations: [Surgical Follow-up] Onset: 09-21-2018 Episodic Other connective tissue disease (20 sources) Triggering of digit; Translations: [Trigger finger, right middle finger] Onset: 02-06-2016 02-06-2016 Episodic Other connective tissue disease (12 sources) Full thickness rotator cuff tear; Translations: [Complete rotator cuff tear or rupture of right shoulder, not specified as traumatic] Onset: 01-27-2018 01-27-2018 Episodic Unclassified (6 sources) Never smoked tobacco; Translations: [Never a smoker] Unclassified (1 source) Onset: 09-16-2024 09-16-2024 Results Test Name Value Interpretation Reference Range Facility XR Hip 2-3 Views Lefton 09-10 XR Hip 2-3 Views Left Exam Date/Time: 09/26/2024 12:06 EST Reason for Exam: M54.32 Report IMPRESSION: Advanced degenerative changes left hip. EXAMINATION/TECHNIQUE: XR Hip 2-3 Views Left HISTORY: Left hip pain. COMPARISON: CT 07/04/2024. RESULT: No evidence for acute fracture. No dislocation. Advanced degenerative changes left hip with extensive subchondral cystic change, subchondral sclerosis, and severe joint narrowing superiorly. Degenerative changes are similar to the CT from 07/04/2024. Pubic symphysis is intact. Metallic densities projecting over the prostate. Soft tissues unremarkable. No other significant abnormality. Ordering Provider: Jojo Melendrez FINAL REPORT Dictated: 09/28/2024 1:12 pm Rigoberto Vanessa MD Signed (Electronic Signature): 09/28/2024 1:12 pm Signed by: Rigoberto Vanessa MD Transcribed by: LIBBY Technologist: DIMITRY Technical Comments Radiation Dose: Ka,r in mGy = na DAP = na Normal [facility] XR Spine Lumbosacral Minimum 4 Viewson 09-28-2024 XR Spine Lumbosacral Minimum 4 Views Exam Date/Time: 09/26/2024 12:06 EST Reason for Exam: M54.32 Report IMPRESSION: No acute osseous findings. Multilevel degenerative changes. EXAMINATION/TECHNIQUE: XR Spine Lumbosacral Minimum 4 Views HISTORY: Left-sided hip pain. Back pain. COMPARISON: Radiographs 06/01/2017. RESULT: Lumbar spine: Counting reference of L4-L5 nearest the iliac crest. Mild to moderate dextroscoliosis of the lumbar spine. Straightening of the lumbar lordosis. Grade 1 anterolisthesis of L3 on L4. No evidence for acute fracture. Vertebral body heights appear maintained. Multilevel degenerative changes, especially involving the L3-L4 and L4-L5 levels, with severe disc height loss at these levels, with degenerative changes overall worsened from 2017. Visualized sacrum intact. SI joints grossly intact. Metallic densities projecting over the prostate. Vascular calcifications. Advanced degenerative changes left hip. No other significant abnormality. Ordering Provider: Jojo Melendrez FINAL REPORT Dictated: 09/28/2024 1:09 pm Rigoberto Vanessa MD Signed (Electronic Signature): 09/28/2024 1:09 pm Signed by: Rigoberto Vanessa MD Transcribed by: LIBBY Technologist: DIMITRY Technical Comments Radiation Dose: Ka,r in mGy = na DAP = na Normal [facility] Activated partial thrombopla stin time (aPTT) in platelet poor plasma by coagulation aOrdered By: Froylan Castanon on 08-25-2024 aPTT Coag (PPP) [Time] 35.0 s 25.1-36.5 [facility] Comment on above: A hematocrit value g reater than 55% may lead to inaccurate results in coagulation testing. Patients having hematocrit values >55% require a special collection tube for coagulation studies. Please contact the laboratory at [phone] for redraw instructions. Automated basophil %Ordered By: Froylan Castanon on 08-25-2024 Basophils/100 WBC (Bld) 0.4 % Normal . [facility] Comment on above: Performed By: #### L YTES, LIPID, CREAT, PP, CBC, BUN #### [address] Automated basophil countOrde red By: Froylan Castanon on 08-25-2024 Basophils (Bld) [#/Vol] 0.0 10*3/uL Normal 0.0-0.2 [facility] Comment on above: Result Comment: PERF ORMED BY: [place] [address] PATHOLOGIST [employer] INTERVIEWER REMY KENNEDY M.D. Performed By: #### L YTES, LIPID, CREAT, PP, CBC, BUN #### [address] Automated blood monocyte cou ntOrdered By: Froylan Castanon on 08-25-2024 Monocytes (Bld) [#/Vol] 0.6 10*3/uL Normal 0.0-0.8 [facility] Comment on above: Performed By: #### L YTES, LIPID, CREAT, PP, CBC, BUN #### [address] Automated eosinophil %Ordere d By: Froylan Castanon on 08-25-2024 Eosinophils/100 WBC (Bld) 1.0 % Normal . [facility] Comment on above: Performed By: #### L YTES, LIPID, CREAT, PP, CBC, BUN #### [address] Automated eosinophil countOr dered By: Froylan Castanon on 08-25-2024 Eosinophils (Bld) [#/Vol] 0.1 10*3/uL Normal 0.0-0.45 [facility] Comment on above: Performed By: #### L YTES, LIPID, CREAT, PP, CBC, BUN #### [address] Automated monocyte %Ordered By: Froylan Castanon on 08-25-2024 Monocytes/100 WBC (Bld) 10.2 % Normal . [facility] Comment on above: Performed By: #### L YTES, LIPID, CREAT, PP, CBC, BUN #### [address] Automated neutrophil %Ordere d By: Froylan Castanon on 08-25-2024 Neutrophils/100 WBC (Bld) 66.3 % Normal . [facility] Comment on above: Performed By: #### L YTES, LIPID, CREAT, PP, CBC, BUN #### [address] Carbon dioxide, total [Moles /volume] in Serum or PlasmaOrdered By: Froylan Castanon on 08-25-2024 CO2 [Moles/Vol] 22.6 mmol/L Normal 21.0-31.0 [facility] Comment on above: Performed By: #### L YTES, LIPID, CREAT, PP, CBC, BUN #### [facility] [address] [place] [address] [place] Chloride [Moles/volume] in S divina or PlasmaOrdered By: Froylan Castanon on 08-25-2024 Chloride [Moles/Vol] 110 mmol/L High 98-107 [facility] Comment on above: Performed By: #### L YTES, LIPID, CREAT, PP, CBC, BUN #### [facility] [address] [place] [address] [place] Cholesterol [Mass/volume] in Serum or PlasmaOrdered By: Froylan Castanon on 08-25-2024 Cholesterol [Mass/Vol] 115 mg/dL Low 140-200 [facility] Comment on above: Chol less than 200 m g/dl low riskChol 201-239 mg/dl borderline riskChol 240 mg/dl and greater high risk Result Comment: Chol less than 200 mg/dl low risk Chol 201-239 mg/dl borderline risk Chol 240 mg/dl and greater high risk Performed By: #### L YTES, LIPID, CREAT, PP, CBC, BUN #### [facility] [address] [place] [address] [place] Cholesterol in LDL Calc [Mas s/Vol]Ordered By: Froylan Castanon on 08-25-2024 Cholesterol in LDL [Mass/Vol] 57 mg/dL 0-100 [facility] Comment on above: LDL ATP III CLASSIFI CATIONLDL less than 100 mg/dL OptimalLDL 100-129 mg/dL Near or above optimalLDL 130-159 mg/dL Borderline highLDL 160-189 mg/dL HighLDL greater than 189 mg/dL Very high Cholesterol in VLDL Calc [Ma ss/Vol]Ordered By: Froylan Castanon on 08-25-2024 Cholesterol in VLDL [Mass/Vol] 10 mg/dL [facility] Coagulation Profileon 2023 aPTT Coag (Bld) [Time] 35.0 s Normal 25.1-36.5 [facility] Comment on above: Result Comment: A he matocrit value greater than 55% may lead to inaccurate results in coagulation testing. Patients having hematocrit values >55% require a special collection tube for coagulation studies. Please contact the laboratory at [phone] for redraw instructions. PERFORMED BY: [place] [address] PATHOLOGIST [employer] INTERVIEWER REMY KENNEDY M.D. Performed By: #### L YTES, LIPID, CREAT, PP, CBC, BUN #### [address] Complete Blood Count Auto Di ffon 08-25-2024 Mean Corpuscular HGB Conc 33.7 g/dL Normal 32.5-35.6 [facility] Comment on above: Performed By: #### L YTES, LIPID, CREAT, PP, CBC, BUN #### [address] NRBC% 0.1 /100{WBC} Normal 0-0.5 [facility] Comment on above: Performed By: #### L YTES, LIPID, CREAT, PP, CBC, BUN #### [address] Creatinineon 08-25-2024 Creatinine Clr Calc Pharmacy 80.08 Normal [facility] Comment on above: Performed By: #### L YTES, LIPID, CREAT, PP, CBC, BUN #### [address] GFR/1.73 sq M.predicted MDRD (S/P/Bld) [Vol rate/Area] mL/min/{1.73_m2} Normal [facility] Comment on above: Performed By: #### L YTES, LIPID, CREAT, PP, CBC, BUN #### [address] Creatinine [Mass/volume] in Serum or PlasmaOrdered By: Froylan Castanon on 08-25-2024 Creatinine [Mass/Vol] 0.91 mg/dL Normal 0.70-1.30 [facility] Comment on above: Performed By: #### L YTES, LIPID, CREAT, PP, CBC, BUN #### [facility] [address] ECG 12 lead ECGon 08-25-2024 ECG 12 lead ECG [facility] Main [place] [address] [place] [address] Electrocardiograph Report Signed Patient: Sarina Justice MR#: [id number] : 1950 Acct:[id number] Age/Sex: 74 / M ADM Date: 08/25/24 Loc: Room: Type: [facility] Attending Dr: Froylan Castanon MD Ordering Provider: Froylan Castanon MD, [facility] Date of Service: 08/25/24 ECG/ECG 12 lead ECG: [facility] Copies to: Test Reason : Blood Pressure : */* mmHG Vent. Rate : 94 BPM Atrial Rate : 94 BPM P-R Int : 148 ms QRS Dur : 94 ms QT Int : 366 ms P-R-T Axes : 37 -20 20 degrees QTcB Int : 457 ms Normal sinus rhythm Normal ECG Confirmed by LG QUILES [facility], FROYLAN ([id number]) on 08/25/2024 4:36:04 PM Referred By: Electronically Signed By: FROYLAN CASTANON MD [facility] Transcribed By: MUS Signed By Froylan Castanon MD, [facility] 08/25/24 1636 Normal [facility] Erythrocyte distribution wid th [Ratio] by Automated countOrdered By: Froylan Castanon on 08-25-2024 Erythrocyte distribution width (RBC) [Ratio] 13.9 % Normal 12.0-14.8 [facility] Comment on above: Performed By: #### L YTES, LIPID, CREAT, PP, CBC, BUN #### [facility] [address] Erythrocytes [#/volume] in B lood by Automated countOrdered By: Froylan Castanon on 08-25-2024 RBC (Bld) [#/Vol] 4.55 10*6/uL Normal 3.90-5.60 [facility] Comment on above: Performed By: #### L YTES, LIPID, CREAT, PP, CBC, BUN #### [address] Hematocrit [Volume Fraction] of Blood by Automated countOrdered By: Froylan Castanon on 08-25-2024 Hematocrit (Bld) [Volume fraction] 41.1 % Normal 38.8-50.0 [facility] Comment on above: Performed By: #### L YTES, LIPID, CREAT, PP, CBC, BUN #### [address] Hemoglobin [Mass/volume] in BloodOrdered By: Froylan Castanon on 08-25-2024 Hemoglobin (Bld) [Mass/Vol] 13.8 g/dL Normal 13.0-17.0 [facility] Comment on above: Performed By: #### L YTES, LIPID, CREAT, PP, CBC, BUN #### [address] INR in Platelet poor plasma by Coagulation assayOrdered By: Froylan Castanon on 08-25-2024 INR Coag (PPP) [Relative time] 1.1 {INR} Normal [facility] Comment on above: INR Therapeutic Rang e A) Pre- and Peroperative OAT started two weeks before surgery. NOT HIP SURGERY: 1.5 - 2.5 HIP SURGERY: 2 - 3B) Primary and secondary prevention of venous THROMBOSIS: 2 - 3C) Active venous thrombosis, pulmonary embolismand prevention of recurrent venous thrombosis: 2 - 3D) Prevention of arterial thromboembolismincluding patients with mechanical heart valves: 3 - 4.5 Result Comment: INR Therapeutic Range A) Pre- and Peroperative OAT started two weeks before surgery. NOT HIP SURGERY: 1.5 - 2.5 HIP SURGERY: 2 - 3 B) Primary and secondary prevention of venous THROMBOSIS: 2 - 3 C) Active venous thrombosis, pulmonary embolism and prevention of recurrent venous thrombosis: 2 - 3 D) Prevention of arterial thromboembolism including patients with mechanical heart valves: 3 - 4.5 Performed By: #### L YTES, LIPID, CREAT, PP, CBC, BUN #### [place] [address] [place] Leukocytes [#/volume] correc evie for nucleated erythrocytes in Blood by Automated counOrdered By: Froylan Castanon on 08-25-2024 WBC corrected for nucl RBC Auto (Bld) [#/Vol] 5.9 10*3/uL 4.1-10.5 [facility] Leukocytes [#/volume] in Blo od by Automated countOrdered By: Froylan Castanon on 08-25-2024 WBC (Bld) [#/Vol] 5.9 10*3/uL Normal 4.1-10.5 [facility] Comment on above: Performed By: #### L YTES, LIPID, CREAT, PP, CBC, BUN #### [facility] [address] Lipid Panelon 08-25-2024 LDL Cholesterol,Calculated 57 mg/dL Normal 0-100 [facility] Comment on above: Result Comment: LDL ATP III CLASSIFICATION LDL less than 100 mg/dL Optimal LDL 100-129 mg/dL Near or above optimal LDL 130-159 mg/dL Borderline high LDL 160-189 mg/dL High LDL greater than 189 mg/dL Very high Performed By: #### L YTES, LIPID, CREAT, PP, CBC, BUN #### [facility] [address] Triglyceride w/Reflex 53 mg/dL Normal 0-149 [facility] Comment on above: Result Comment: TRIG ATP III CLASSIFICATION TRIG less than 150 mg/dL Normal TRIG 150-199 mg/dL Borderline high TRIG 200-500 mg/dL High TRIG greater than 500 mg/dL Very high Standard traceable to the Center for Disease Conrtrol and Prevention (CDC) test method. Performed By: #### L YTES, LIPID, CREAT, PP, CBC, BUN #### [facility] [address] [place] [id number] [facility] VLDL CHOLESTEROL 10 mg/dL Normal [facility] Comment on above: Performed By: #### L YTES, LIPID, CREAT, PP, CBC, BUN #### [facility] [address] [place] [id number] [place] Lymphocytes [#/volume] in Bl ood by Automated countOrdered By: Froylan Castanon on 08-25-2024 Lymphocytes (Bld) [#/Vol] 1.3 10*3/uL Normal 1.00-4.8 [facility] Comment on above: Performed By: #### L YTES, LIPID, CREAT, PP, CBC, BUN #### [address] Lymphocytes/100 leukocytes i n Blood by Automated countOrdered By: Froylan Castanon on 08-25-2024 Lymphocytes/100 WBC (Bld) 22.1 % Normal . [facility] Comment on above: Performed By: #### L YTES, LIPID, CREAT, PP, CBC, BUN #### [address] MCH [Entitic mass] by Automa evie countOrdered By: Froylan Castanon on 08-25-2024 MCH (RBC) [Entitic mass] 30.4 pg Normal 27.5-35.2 [facility] Comment on above: Performed By: #### L YTES, LIPID, CREAT, PP, CBC, BUN #### [address] MCHC Auto (RBC) [Mass/Vol]Or dered By: Froylan Castanon on 08-25-2024 MCHC (RBC) [Mass/Vol] 33.7 g/dL 32.5-35.6 [facility] MCV [Entitic volume] by Auto mated countOrdered By: Froylan Castanon on 08-25-2024 MCV (RBC) [Entitic vol] 90.3 fL Normal 83.5-101 [facility] Comment on above: Performed By: #### L YTES, LIPID, CREAT, PP, CBC, BUN #### [facility] [address] [place] [address] Neutrophils [#/volume] in Bl ood by Automated countOrdered By: Froylan Castanon on 08-25-2024 Neutrophils (Bld) [#/Vol] 3.9 10*3/uL Normal 1.8-7.7 [facility] Comment on above: Performed By: #### L YTES, LIPID, CREAT, PP, CBC, BUN #### [facility] [address] No Panel InformationOrdered By: Froylan Castanon on 08-25-2024 Estimated GFR (CKD-EPI) > 60.0 mL/Min [facility] Creatinine Clearance (Chem 80.08 [facility] Nucleated erythrocytes [Pres ence] in Blood by Automated countOrdered By: Froylan Castanon on 08-25-2024 Nucleated RBC Auto Ql (Bld) 0.1 /100{WBC} 0-0.5 [facility] Platelet mean volume [Entiti c volume] in Blood by Automated countOrdered By: Froylan Castanon on 08-25-2024 Platelet mean volume (Bld) [Entitic vol] 7.4 fL Normal 6.6-10.1 [facility] Comment on above: Performed By: #### L YTES, LIPID, CREAT, PP, CBC, BUN #### [facility] [address] [place] [address] Platelets [#/volume] in Bloo d by Automated countOrdered By: Froylan Castanon on 08-25-2024 Platelets (Bld) [#/Vol] 250 10*3/uL Normal 150-450 [facility] Comment on above: Performed By: #### L YTES, LIPID, CREAT, PP, CBC, BUN #### [facility] [address] [place] [address] Potassium [Moles/volume] in Serum or PlasmaOrdered By: Froylan Castanon on 08-25-2024 Potassium [Moles/Vol] 4.2 mmol/L Normal 3.5-5.1 [facility] Comment on above: Performed By: #### L YTES, LIPID, CREAT, PP, CBC, BUN #### [facility] [address] [place] [address] Prothrombin time (PT)Ordered By: Froylan Castanon on 08-25-2024 PT Coag (PPP) [Time] 12.0 s Normal 9.0-12.9 [facility] Comment on above: A hematocrit value g reater than 55% may lead to inaccurate results in coagulation testing. Patients having hematocrit values >55% require a special collection tube for coagulation studies. Please contact the laboratory at [phone] for redraw instructions. Result Comment: A he matocrit value greater than 55% may lead to inaccurate results in coagulation testing. Patients having hematocrit values >55% require a special collection tube for coagulation studies. Please contact the laboratory at [phone] for redraw instructions. Performed By: #### L YTES, LIPID, CREAT, PP, CBC, BUN #### [facility] [address] [place] [address] Serum or plasma anion gap de terminationOrdered By: Froylan Castanon on 08-25-2024 Anion gap [Moles/Vol] 10.6 mmol/L Normal 6.0-15.0 [facility] Comment on above: Performed By: #### L YTES, LIPID, CREAT, PP, CBC, BUN #### [facility] [address] [place] [address] Serum or plasma high density lipoprotein (HDL) cholesterol measurementOrdered By: Froylan Castanon on 08-25-2024 Cholesterol in HDL [Mass/Vol] 47 mg/dL Normal 23-92 [facility] Comment on above: HDL CHOL ATP-III CLA SSIFICATION Cardiovascular RiskHDL > or equal to 60 mg/dL LOWHDL < 40 mg/dL HIGH Result Comment: HDL CHOL ATP-III CLASSIFICATION Cardiovascular Risk HDL > or equal to 60 mg/dL LOW HDL < 40 mg/dL HIGH Performed By: #### L YTES, LIPID, CREAT, PP, CBC, BUN #### [facility] [address] [place] [address] Serum or plasma total choles terol/high density lipoprotein (HDL) cholesterol mass ratOrdered By: Froylan Castanon on 08-25-2024 Cholesterol.total/Chol esterol in HDL [Mass ratio] 2.4 {ratio} Normal <5.0 [facility] Comment on above: Result Comment: PERF ORMED BY: [place] [address] PATHOLOGIST [employer] INTERVIEWER REMY KENNEDY M.D. Performed By: #### L YTES, LIPID, CREAT, PP, CBC, BUN #### [facility] [address] Sodium [Moles/volume] in Ser um or PlasmaOrdered By: Froylan Castanon on 08-25-2024 Sodium [Moles/Vol] 139 mmol/L Normal 136-145 [facility] Comment on above: Performed By: #### L YTES, LIPID, CREAT, PP, CBC, BUN #### [facility] [address] Triglyceride [Mass/volume] i n Serum or PlasmaOrdered By: Froylan Castanon on 08-25-2024 Triglyceride [Mass/Vol] 53 mg/dL 0-149 [facility] Comment on above: TRIG ATP III CLASSIF ICATIONTRIG less than 150 mg/dL NormalTRIG 150-199 mg/dL Borderline highTRIG 200-500 mg/dL High TRIG greater than 500 mg/dL Very highStandard traceable to the Center for Disease Conrtrol and Prevention (CDC) test method. Urea nitrogen [Mass/volume] in Serum or PlasmaOrdered By: Froylan Castanon on 08-25-2024 Urea nitrogen [Mass/Vol] 32 mg/dL High 7-25 [facility] Comment on above: Performed By: #### L YTES, LIPID, CREAT, PP, CBC, BUN #### [facility] [address] [place] Heart Perfusion W stress and W radionuclide Alexi 08-11-2024 Abnormal Lexiscan My oview cardiac perfusion stress test. Small area of moderate ischemia of the infero apical myocardial ischemia by perfusion imaging. No myocardial infarction by perfusion imaging. Normal left ventricular systolic function. Left ventricular ejection fraction 59 %. With abnormal TID index of 1.3 which might reflect more advanced coronary artery disease When compared to previous study the infero apical ischemia and the abnormal TID index are new. Technically suboptimal study secondary to extracardiac tracer uptake and soft tissue attenuation of the inferior wall in addition there may be a technical issue of choosing the apex and the the base when comparing rest and stress images which might create a falsely abnormal TID index Signed by: Sandro Blake 08/11/2024 5:56 PM Dictation workstation: [id number] Interpreted By: Sandro Blake and Beal Gina STUDY: MYOCARDIAL PERFUSION STRESS TEST WITH LEXISCAN Performing facility: [facility] Provider: Froylan Castanon MD, [facility] PCP: Dr. Etta PATTERSON Supervising provider: Sandro Blake MD INDICATION: Pre-operative risk assessment for TURP scheduled at [facility] on 08/18/24. ASCVD, Hx PTCA HISTORY: Gender: M; Age: 74 y/o ; Height: HT 180.3 cm cm; Weight: WT 85.276 kg kg. CAD; High Cholesterol; HTN; Denies smoking. Cardiac catheterization 2004. PTCA 2004. COMPARISON: Previous nuclear testing completed 2007 at [facility]. ACCESSION NUMBER(S): [id number] ORDERING CLINICIAN: FROYLAN CASTANON TECHNIQUE: ONE DAY protocol. Stress injection: Date:08/11/24, 35.5 mCi of Myoview IV 20 seconds after rapid injection of Lexiscan. Rest injection: Date: 08/11/24, 10.6 mCi of Myoview IV at rest. The patient had a rapid injection of 0.4 mg of Lexiscan IV over 10 seconds. Imaging was performed by gated tomographic technique. Reason for Lexiscan: Difficulty on treadmill STRESS TEST DATA: Resting heart rate was 73 BPM. Resting blood pressure was 124/76 mmHg. Peak blood pressure was 122/72 mmHg. Peak heart rate was 93 BPM. TEST TERMINATED DUE TO: Protocol completed FINDINGS: STRESS TEST RESULTS: Resting electrocardiogram revealed normal sinus rhythm. There were no significant ischemic ECG changes or dysrhythmias. The patient did not have chest pains/symptoms during procedure. There was a normal recovery phase. IMAGING RESULTS: Image quality was suboptimal. Rest and stress tomographic images were reviewed and revealed abnormal perfusion. There was evidence of perfusion abnormality with small area of moderate which is reversible on rest images consistent with inferoapical ischemia. There was no evidence myocardial infarction There was not left ventricular dilatation with stress. Overall left ventricular systolic function appeared to be normal LVEF was 59%. TID is 1.3 and is abnormal. There was evidence of diaphragmatic attenuation artifact. [facility] Sandro Blake MD - 08/11/2024 Interpreted By: Sandro Blake and Beal Gina STUDY: MYOCARDIAL PERFUSION STRESS TEST WITH LEXISCAN Performing facility: [facility] Provider: Froylan Castanon MD, [facility] PCP: Dr. Etta PATTERSON Supervising provider: Sandro Blake MD INDICATION: Pre-operative risk assessment for TURP scheduled at [facility] on 08/18/24. ASCVD, Hx PTCA HISTORY: Gender: M; Age: 74 y/o ; Height: HT 180.3 cm cm; Weight: WT 85.276 kg kg. CAD; High Cholesterol; HTN; Denies smoking. Cardiac catheterization 2004. PTCA 2004. COMPARISON: Previous nuclear testing completed 2007 at [facility]. ACCESSION NUMBER(S): [id number] ORDERING CLINICIAN: FROYLAN CASTANON TECHNIQUE: ONE DAY protocol. Stress injection: Date:08/11/24, 35.5 mCi of Myoview IV 20 seconds after rapid injection of Lexiscan. Rest injection: Date: 08/11/24, 10.6 mCi of Myoview IV at rest. The patient had a rapid injection of 0.4 mg of Lexiscan IV over 10 seconds. Imaging was performed by gated tomographic technique. Reason for Lexiscan: Difficulty on treadmill STRESS TEST DATA: Resting heart rate was 73 BPM. Resting blood pressure was 124/76 mmHg. Peak blood pressure was 122/72 mmHg. Peak heart rate was 93 BPM. TEST TERMINATED DUE TO: Protocol completed FINDINGS: STRESS TEST RESULTS: Resting electrocardiogram revealed normal sinus rhythm. There were no significant ischemic ECG changes or dysrhythmias. The patient did not have chest pains/symptoms during procedure. There was a normal recovery phase. IMAGING RESULTS: Image quality was suboptimal. Rest and stress tomographic images were reviewed and revealed abnormal perfusion. There was evidence of perfusion abnormality with small area of moderate which is reversible on rest images consistent with inferoapical ischemia. There was no evidence myocardial infarction There was not left ventricular dilatation with stress. Overall left ventricular systolic function appeared to be normal LVEF was 59%. TID is 1.3 and is abnormal. There was evidence of diaphragmatic attenuation artifact. IMPRESSION: Abnormal Lexiscan Myoview cardiac perfusion stress test. Small area of moderate ischemia of the infero apical myocardial ischemia by perfusion imaging. No myocardial infarction by perfusion imaging. Normal left ventricular systolic function. Left ventricular ejection fraction 59 %. With abnormal TID index of 1.3 which might reflect more advanced coronary artery disease When compared to previous study the infero apical ischemia and the abnormal TID index are new. Technically suboptimal study secondary to extracardiac tracer uptake and soft tissue attenuation of the inferior wall in addition there may be a technical issue of choosing the apex and the the base when comparing rest and stress images which might create a falsely abnormal TID index Signed by: Sandro Blake 08/11/2024 5:56 PM Dictation workstation: [id number] [facility] Work Phone: Radiology Study observation (narrative) [facility] Work Phone: NM Heart Perfusion W stress and W radionuclide IVOrdered By: Sandro Blake on 08-11-2024 [facility] Work Phone: NUCLEAR STRESS TESTon 2023 NUCLEAR STRESS TEST Interpreted By: Sandro Blake and Beal Gina STUDY: MYOCARDIAL PERFUSION STRESS TEST WITH LEXISCAN Performing facility: [facility] Provider: Froylan Castanon MD, [facility] PCP: Dr. Etta PATTERSON Supervising provider: Sandro Blake MD INDICATION: Pre-operative risk assessment for TURP scheduled at [facility] on 08/18/24. ASCVD, Hx PTCA HISTORY: Gender: M; Age: 74 y/o ; Height: HT 180.3 cm cm; Weight: WT 85.276 kg kg. CAD; High Cholesterol; HTN; Denies smoking. Cardiac catheterization 2004. PTCA 2004. COMPARISON: Previous nuclear testing completed 2007 at [facility]. ACCESSION NUMBER(S): [id number] ORDERING CLINICIAN: FROYLAN CASTANON TECHNIQUE: ONE DAY protocol. Stress injection: Date:08/11/24, 35.5 mCi of Myoview IV 20 seconds after rapid injection of Lexiscan. Rest injection: Date: 08/11/24, 10.6 mCi of Myoview IV at rest. The patient had a rapid injection of 0.4 mg of Lexiscan IV over 10 seconds. Imaging was performed by gated tomographic technique. Reason for Lexiscan: Difficulty on treadmill STRESS TEST DATA: Resting heart rate was 73 BPM. Resting blood pressure was 124/76 mmHg. Peak blood pressure was 122/72 mmHg. Peak heart rate was 93 BPM. TEST TERMINATED DUE TO: Protocol completed FINDINGS: STRESS TEST RESULTS: Resting electrocardiogram revealed normal sinus rhythm. There were no significant ischemic ECG changes or dysrhythmias. The patient did not have chest pains/symptoms during procedure. There was a normal recovery phase. IMAGING RESULTS: Image quality was suboptimal. Rest and stress tomographic images were reviewed and revealed abnormal perfusion. There was evidence of perfusion abnormality with small area of moderate which is reversible on rest images consistent with inferoapical ischemia. There was no evidence myocardial infarction There was not left ventricular dilatation with stress. Overall left ventricular systolic function appeared to be normal LVEF was 59%. TID is 1.3 and is abnormal. There was evidence of diaphragmatic attenuation artifact. IMPRESSION: Abnormal Lexiscan Myoview cardiac perfusion stress test. Small area of moderate ischemia of the infero apical myocardial ischemia by perfusion imaging. No myocardial infarction by perfusion imaging. Normal left ventricular systolic function. Left ventricular ejection fraction 59 %. With abnormal TID index of 1.3 which might reflect more advanced coronary artery disease When compared to previous study the infero apical ischemia and the abnormal TID index are new. Technically suboptimal study secondary to extracardiac tracer uptake and soft tissue attenuation of the inferior wall in addition there may be a technical issue of choosing the apex and the the base when comparing rest and stress images which might create a falsely abnormal TID index Signed by: Sandro Blake 08/11/2024 5:56 PM Dictation workstation: [id number] [facility] Main OR Intraoperative Recor thu 08-02-2024 Main OR Intraoperative Record Main OR Intraoperative Record IntraOp Document Type FTURO Summary Primary Physician: Cam KEE MD Finalized Date/Time: 08/02/24 13:48:04 Pt. Name: SARINA JUSTICE/Sex: 1950 Male Med Rec #: [id number] Physician: Cam KEE MD Financial #: [id number] Pt. Type: O Room/Bed: / Admit/Disch: 08/02/24 12:18:59 - Institution: Case Times FTURO Entry 1 Patient Times In Room 08/02/24 13:29:00 Out Room 08/02/24 13:50:00 Procedure Times Start 08/02/24 13:36:00 Stop 08/02/24 13:45:00 Anesthesia Times Last Modified By: Sherry BURCH, Florina Sutton 08/02/24 13:45:46 Case Attendance FTURO Entry 1 Entry 2 Entry 3 Case Attendee CHILANGO QUILES, Cam Powell RN, Florina Matta CST, Trinidad Sutton Role Performed Surgeon - Primary Stationary Engineer Supervisor - Primary Scrub - Primary Time In 08/02/24 13:29:00 08/02/24 13:29:00 08/02/24 13:29:00 Time Out 08/02/24 13:50:00 08/02/24 13:50:00 08/02/24 13:50:00 Procedure CYSTOSCOPY LOCAL(.) CYSTOSCOPY LOCAL(.) CYSTOSCOPY LOCAL(.) Comments Last Modified By: Sherry BURCH, Florina Powell RN, Florina Powell RN, Florina Sutton 08/02/24 Carole Sutton 08/02/24 Carole Sutton 08/02/24 13:45:50 13:45:50 13:45:50 Surgical Procedures FTURO Entry 1 Procedure Description Procedure CYSTOSCOPY LOCAL Modifiers . Surgeon Description CYSTOSCOPY Primary Procedure Yes Primary Surgeon CHILANGO QUILES, Cam Newby Start 08/02/24 13:36:00 Stop 08/02/24 13:45:00 Anesthesia Type Local Surgical Service Urology Wound Class 2 - Clean-Contaminated Last Modified By: Sherry BURCH, Florina Sutton 08/02/24 13:45:49 General Case Data FTURO Pre-Care Text: Classifies surgical wound, implements aseptic technique, initiates traffic control Entry 1 Case Information OR URO 1 FT Case Level None Wound Class 2 - Clean-Contaminated Specialty Urology Preop Diagnosis GROSS HEMATURIA Postop Same As Preop Yes Postop Diagnosis GROSS HEMATURIA Outcomes Met? Yes Last Modified By: Sherry BURCH, Florina Sutton 08/02/24 13:29:42 Post-Care Text: The patient is free from signs and symptoms of infection EU IntraOp - FTURO Pre-Care Text: Implements protective measures prior to operative or invasive procedure, confirms identity before the operative or invasive procedure, verifies operative procedure, surgical site, and laterality Entry 1 EU Perioperative Protocols Procedure(s) CYSTOSCOPY LOCAL(.) Patient Identity Birthday, ID Band Verified (select at Check, Patient least 2): Participation Consents / H and P H&P, Surgery/Procedure Operative Site N/A Verified Consent Marking Verified Surgical Site Yes Laterality Verified n/a Verified Procedure Verified Yes Correct Patient Yes Position Verified Availability Equipment, Medication Time Out Cam KEE MD, Verified (If Participants Florina Powell RN Applicable) Carole Sutton, Trinidad Matta CST Time Out Complete 08/02/24 13:35:00 Allergies Reviewed? Yes Allergies Reviewed Self/Patient With Body Position Supine Prep Area PENIS Prep Agents Betadine Solution Skin. Condition Unable to Visualize Description PARTIALLY CLOTHED Additional None Specimens Collected Vitals - EU Blood Pressure 132/78 Pulse 85 bpm Respirations 18 br/min SPO2 96 % I&O - EU Outcomes Met? Yes Last Modified By: Florina Powell RN 08/02/24 13:35:30 Post-Care Text: The patient is free from signs and symptoms of injury caused by extraneous objects Sign Out FTURO Entry 1 Before Patient Leaves OR Nurse verbally Yes Nurse verbally Yes confirms with the confirms with the team the name of team that the procedure(s) instrument, sponge, recorded and needle counts are correct (or N/A) Nurse verbally n/a Nurse verbally n/a confirms with the confirms with the team how the team whether there specimen is labeled are any equipment (including patient problems to be name), if applicable addressed Sign Out Complete 08/02/24 13:45:00 Last Modified By: Florina Powell RN 08/02/24 13:45:48 Case Comments Finalized By: Florina Powell RN Document Signatures Signed By: Florina Powell RN 08/02/24 13:48 Normal [facility] Main OR Preoperative Recordo n 08-02-2024 Main OR Preoperative Record Main OR Preoperative Record Holding Area Document Type FTURO Summary Primary Physician: Cam KEE MD Finalized Date/Time: 08/02/24 13:14:27 Pt. Name: SARINA JUSTICE D.O.B./Sex: 1950 Male Med Rec #: [id number] Physician: Cam KEE MD Financial #: [id number] Pt. Type: O Room/Bed: / Admit/Disch: 08/02/24 12:18:59 - Institution: Case Times Holding FTURO Pre-Care Text: Verifies consent for planned procedure, identifies individual values and wishes concerning care, includes family members in perioperative teaching Secures patient's records' belongings, and valuables, maintains patient's dignity and privacy, and maintains patient confidentiality Entry 1 In Holding 08/02/24 13:09:00 Outcomes Met? Yes Last Modified By: Norma Mast LPN 08/02/24 13:09:40 Post-Care Text: The patient participates in decisions affecting his or her perioperative plan of care The patient's right to privacy is maintained Surgery Checklist FTURO Entry 1 Patient Birthday, ID Band Procedure History and Physical, Identification: Check, Patient Verification: Surgical Consent, With Participation Patient NPO after Midnight: n/a Personal Items: Glasses Limitations: up ad marya Complaints of Pain: No Skin Integrity Intact, Croom, Warm, & Dry Vitals - EU Blood Pressure 132/78 Pulse 85 bpm Respirations 18 br/min SPO2 96 % Additional None Specimens Collected Last Modified By: Norma Mast LPN 08/02/24 13:14:19 Finalized By: Norma Mast LPN Document Signatures Signed By: Norma Mast LPN 08/02/24 13:14 Normal [facility] Operative Reporton Operative Report Operative Report Patient: SARINA JUSTICE Age: 74 years Sex: Male : 1950 Associated Diagnoses: None Author: Cam KEE MD Procedure Operative Information Details: Date/ Time: 08/02/2024 13:53:00. Pre-Op Dx: Gross Hematuria - R31.0, Hx of Prostate CA - Z85.46. Post-Op Dx: Same. Anesthesia Type: Local. Procedure: Local Cystoscopy. Complications: None. Risks/Benefits/Informed Consent: Surgical risks, benefits, details of the procedure have been explained to the patient, Full informed consent has been obtained. Intraoperative Information Prepped: Patient is brought back to the endoscopy suite, Patient is placed in supine position, Patient prepped in the usual fashion with Betadine solution, 2% Xylocaine Jelly is placed per Urethra, After waiting several minutes the Cystoscope is introduced. The Urethra is: Normal. The Prostatic Urethra is: Moderate bilobar regrowth. Patchy friable areas that are bleeding.. The Bladder is: Trabeculated (Moderate (2), No bladder tumors., Prostate nodules protruding into the bladder). The ureteral orifices: Show efflux of clear urine. Devices Implanted: None. Removal: Cystoscope is removed, The patient tolerated it well. Postoperative Information Discharge: Patient is discharged home with antibiotic coverage, Follow up arranged. He is getting scheduled for cystoscopy and transurethral resection of prostate lesions and fulguration. Normal [facility] Comment on above: Result Comment: Elec tronically Signed By: CHILANGO QUILES, Cam De Leon.[email or web address]\Date and Time Signed: 08/02/24 13:56 EDT Reminderson 08-02-2024 Reminders Reminders From: Slime Ayala To: EU - Recalls [place]; Sent: 08/02/2024 14:51:32 EDT Show up: 05/09/2025 14:51:00 EDT Subject: KUB Due Date/Time: 06/05/2025 14:51:00 EDT Reminder/Recall Patient had Cysto 08/02/24, PRW wanted to check KUB 07/2025 due to kidney stone ([facility]) Normal [facility] Reminders Reminders From: Slime Ayala To: EU - Recalls [place]; Sent: 08/02/2024 14:50:44 EDT Show up: 11/09/2024 14:50:00 EST Subject: ct scan of chest Due Date/Time: 12/05/2024 14:50:00 EST Reminder/Recall Pt needs Ct scan of chest at [facility] due to lung nodule in January 2025 Normal [facility] CT Urogramon 07-08-2024 CT Urogram Exam Date/Time: 07/04/2024 13:55 EDT Reason for Exam: R31.0;Hematuria Report IMPRESSION: NONSPECIFIC AREA OF IRREGULARITY OF THE URINARY BLADDER WALL ADJACENT TO THE PROSTATE MAY REPRESENT THE NODULAR PROSTATE INDENTING UPON THE URINARY BLADDER HOWEVER BLADDER WALL MALIGNANCY CANNOT BE EXCLUDED. 4 MM NONOBSTRUCTING LEFT RENAL CALCULUS. NONSPECIFIC 7 MM LEFT LOWER LOBE NODULE. FOLLOW-UP CT OF THE CHEST WITHOUT CONTRAST IN 6 MONTHS IS RECOMMENDED. EXAM: CT Urogram History: Hematuria. History of prostate cancer. Technique: Multiple contiguous axial images were obtained of the abdomen and pelvis from the level of the lung bases through the ischial tuberosities without and with contrast. Multiplanar reformats were obtained. Delayed images were obtained. Unless otherwise stated, incidental findings identified in this report do not require routine follow-up imaging. Comparison: None available Findings: Nonspecific 7 mm left lower lobe nodule as seen on axial series 5 image 10. The liver, gallbladder, spleen, stomach, pancreas, and adrenal glands are within normal limits. Precontrast images demonstrated a 4 mm nonobstructing left renal calculus. The kidneys enhance uniformly. No enhancing solid or cystic renal lesion. The kidneys excrete contrast symmetrically. No hydronephrosis. Urinary bladder is well distended. Prostate brachytherapy seeds are present. The prostate measures approximately 3.7 x 5.7 x 4 cm. There is an area irregularity of the urinary bladder wall adjacent to the prostate that may represent prostate nodules indenting upon the urinary bladder however urinary bladder mass cannot be excluded. Abdominal aorta is nonaneurysmal. Atherosclerotic calcification of the abdominal aorta. No retroperitoneal or abdominal/pelvic lymphadenopathy. No small bowel obstruction. No overt colonic mass or pericolonic inflammation. Appendix is within normal limits. No free fluid or free air. No acute osseous abnormality. Dextroscoliosis and degenerative changes of the lumbar Report spine. Advanced degenerative changes of the left hip. No definitive bone lesion. All CT scans at this facility use dose modulation, iterative reconstruction, and/or weight based dosing when appropriate to reduce radiation dose to as low as reasonably achievable. Ordering Provider: Samantha Keyes FINAL REPORT Dictated: 07/08/2024 10:28 am Danny Albert DO Signed (Electronic Signature): 07/08/2024 10:28 am Signed by: Danny Albert DO Transcribed by: LIBBY Technologist: FENG Technical Comments GFR (mL/min/1/73m2) 69 Contrast: Isovue 300 Contrast amount in ml's: 100 Normal [facility] CHEMISTRYOrdered By: SYSTEM SYSTEM on 07-04-2024 Creatinine [Mass/Vol] 1.1 mg/dL Normal 0.5 - 1.3 mg/dL Remisol Chem eGFR 69 mL/min/1.73 m2 Normal >=59mL/min /1.73 m2 Remisol Chem Creatinineon 07-04-2024 Creatinine [Mass/Vol] 1.1 mg/dL Normal 0.5-1.3 [facility] Comment on above: Performed By: #### 2 [id number] #### [facility] [address] [place] [address] eGFRon 07-04-2024 eGFR 69 mL/min/1.73 m2 Normal >=59 [facility] Comment on above: Order Comment: Order added by Discern Expert. Performed By: #### 1 [id number] #### [facility] [address] [id number] [facility] Fish and Urine Cyt o ([facility])on 07-01-2024 UVFISH & UC Diagnosis Info Invalid Interpretation Code [facility] Comment on above: Result Comment: A:Ur ine,Urine:Voided Diagnosis Summary - Negative for dysplastic cells or malignancy. Reactive urothelial cells present. Adequate but limited cellularity for evaluation. Diagnosis Summary - The [facility] FISH study detected normal copy numbers for chromosomes 3, 7, 17, and 9p21. No evidence of aneuploidy for chromosomes 3, 7, or 17 or deletion of the 9p21 locus was found in cells present in this specimen. These findings should be correlated with cytology and cystoscopy results.* Microscopic Notes - Microscopic Notes - Abnormal cells 9p21 deletions: Abnormal cells aneploid events: Total cells analyzed: Hematuria: Gross Description Site ID:A color Yellow fixative Alcohol Received 90 mls of clear yellow fluid with the patient's name and, Urine on the vial. Electronically signed by : on: 07/01/2024 16:16:49 Performed By: #### 1 [id number] #### [facility] [address] [place] [address] Ambulatory Visit Summaryon 0 06-24-2024 Ambulatory Visit Summary Ambulatory Visit Summary SARINA JUSTICE :1950 Visit Date:06/24/2024 Ambulatory Visit Instructions Your Diagnosis Frequency of urination Nocturia Gross hematuria Your Care Team Attending Physician - JOSE DE JESUS Keyes APRN, Samantha Mathis Primary Care Physician - Julia Patterson III, DO Referring Physician - Pascale Lucas CNP This Is Your Medications List Contact prescribing physician if questions or concerns acetaminophen-hydrocodone ([place] 325 mg-5 mg oral tablet) acetaminophen-hydrocodone ([place] 325 mg-5 mg oral tablet) albuterol (ProAir HFA 90 mcg/inh inhalation aerosol) allopurinol amlodipine (amLODIPine 5 mg Tab) ascorbic acid (Vitamin C) aspirin (Delicia Aspirin) atorvastatin (Lipitor 20 mg Tab) cholecalciferol (Vitamin D3) cyanocobalamin (Vitamin B12) diclofenac (diclofenac sodium 75 mg Oral EC Tab) fluticasone nasal (Flonase) fluticasone-vilanterol (Breo Ellipta 200 mcg-25 mcg/inh inhalation powder) levocetirizine (Xyzal) lisinopril (lisinopril 10 mg Tab) montelukast (montelukast 10 mg Tab) multivitamin (Multi Vitamin+) omeprazole (omeprazole 20 mg Cap-DR) pyridoxine (Vitamin B6) sildenafil (sildenafil 100 mg Tab) Procedures Performed Release of trigger finger (03/21/2020), Repair of rotator cuff of shoulder (01/27/2018), transforaminal epidural steroid injection (01/11/2018), Left Transforaminal Epidural Steroid Injection (12/21/2017), Left L3 L4 Transforminal epidural steroid injection (09/28/2017), TFESI (06/17/2017), Injection of sacroiliac joint using fluoroscopic guidance (11/17/2016), right middle and ring finger trigger finger release (02/06/2016), Injection of sacroiliac joint using fluoroscopic guidance (06/08/2015), Injection of sacroiliac joint using fluoroscopic guidance (01/01/2015), Injection of sacroiliac joint using fluoroscopic guidance (12/06/2014), Injection of facet joint using fluoroscopic guidance (11/06/2014), Injection of facet joint using fluoroscopic guidance (09/11/2014), Epidural injection of lumbar spine using fluoroscopic guidance (07/19/2014), left ring finger trigger release (04/17/2014), Brachytherapy implant (10/10/2011), Epidural injection of lumbar spine using fluoroscopic guidance (07/16/2011), Epidural injection of cervical spine using fluoroscopic guidance (03/10/2011), Repair of right inguinal hernia (05/2007), prostate surgery (2006), heart stent (2004), Bilateral inguinal hernia repair, Colonoscopy, Hernia Surgery x3, History of coronary artery disease with stent placement, Pilonidal cyst.., Release of Carpal Tunnel, Tonsillectomy. Discharge Vitals Blood Pressure 126/80 Height 167 cm Height 66 in Weight 88 kg Weight 193.6 lb BMI 31.55 Medications What How Much When Why Instructions Unchanged acetaminophen-hydrocodone ([place] 325 mg-5 mg oral tablet) See instructions Trigger finger, left middle finger 1-2 tab(s) Oral q4hr PRN Pain. Duration 7 days. Contact prescribing physician if questions or concerns Unchanged acetaminophen-hydrocodone ([place] 325 mg-5 mg oral tablet) See instructions Trigger finger, left middle finger 1-2 tab(s) Oral q4hr PRN Pain. Duration 7 days. Contact prescribing physician if questions or concerns Unchanged albuterol (ProAir HFA 90 mcg/ inh inhalation aerosol) 2 Puffs Inhalation Every 4 hours as needed for for wheezing Contact prescribing physician if questions or concerns Unchanged allopurinol 300 Milligram Every day Contact prescribing physician if questions or concerns Unchanged amlodipine (amLODIPine 5 mg Tab) Contact prescribing physician if questions or concerns Unchanged ascorbic acid (Vitamin C) 1,000 Milligram Every day Contact prescribing physician if questions or concerns Unchanged aspirin (Delicia Aspirin) 81 Milligram By Mouth Thursday Contact prescribing physician if questions or concerns Unchanged atorvastatin (Lipitor 20 mg Tab) 1 Tablets By Mouth Once a day (at bedtime) Contact prescribing physician if questions or concerns Unchanged cholecalciferol (Vitamin D3) 5,000 International unit By Mouth Thursday & Contact prescribing physician if questions or concerns Unchanged cyanocobalamin (Vitamin B12) 2,500 Microgram Sublingual Thursday Contact prescribing physician if questions or concerns Unchanged diclofenac (diclofenac sodium 75 mg Oral EC Tab) Contact prescribing physician if questions or concerns Unchanged fluticasone nasal (Flonase) 1 Sprays Nasal Inhalation Every day Contact prescribing physician if questions or concerns Unchanged fluticasone-vilanterol (Breo Ellipta 200 mcg-25 mcg/ inh inhalation powder) Contact prescribing physician if questions or concerns Unchanged levocetirizine (Xyzal) 5 Milligram By Mouth Once a day (in the evening) Contact prescribing physician if questions or concerns Unchanged lisinopril (lisinopril 10 mg Tab) 1 Tablets By Mouth Every day Contact prescribing physician if questions o (more content not included)... Normal [facility] Fish and Urine Cyt o ([facility])on 06-24-2024 [facility] Method of Extraction Voided Normal [facility] Comment on above: Performed By: #### 1 [id number] #### [facility] [address] [place] [address] [facility]UC Number of Jars 1 Invalid Interpretation Code [facility] Comment on above: Performed By: #### 1 [id number] #### [facility] [address] [place] [address] [facility] Specimen Clean Catch Normal [facility] Comment on above: Performed By: #### 1 [id number] #### [facility] [address] [place] [address] UVUC Type of Service Technical Only Normal [facility] Comment on above: Performed By: #### 1 [id number] #### [facility] [address] [place] [address] XR Abdomen 1 Viewon 05-31-20 24 XR Abdomen 1 View Exam Date/Time: 05/27/2024 14:38 EDT Reason for Exam: R31.0 Report IMPRESSION: POSSIBLE TINY LEFT RENAL CALCULI. EXAMINATION: XR Abdomen 1 View HISTORY: Kidney stones TECHNIQUE: Frontal view of the abdomen and pelvis COMPARISON: FINDINGS: A few tiny foci of increased density project over the expected location of the left renal shadow which is obscured by bowel contents. No calcifications identified along the expected course of either ureter or over the right renal shadow. Prostate brachytherapy seeds are noted. Nonobstructive bowel gas pattern. No evidence of free air. No acute osseous abnormality. Degenerative changes of the spine Ordering Provider: Pascale Lucas FINAL REPORT Dictated: 05/31/2024 5:07 pm Danny Albert DO Signed (Electronic Signature): 05/31/2024 5:07 pm Signed by: Danny Albert DO Transcribed by: LIBBY Technologist: SHANDA Technical Comments Radiation Dose: Ka,r in mGy = . DAP = . Normal [facility] Elida 09-07-2023 ALT No additional P-5'-P [Catalytic activity/Vol] 30 Int._Unit/L Normal 6-46 [facility] Comment on above: Performed By: #### 2 [id number], 0101169, [id number], [id number], [id number] #### [facility] [address] [place] [address] April 09-07-2023 AST [Catalytic activity/Vol] 22 Int._Unit/L Normal 5-43 [facility] Comment on above: Performed By: #### 2 069568, 1952470, [id number], 6593708, 8498037 #### [facility] [address] [place] [address] BMPon 09-07-2023 Anion gap [Moles/Vol] 6 mmol/L Normal 6-16 [facility] Comment on above: Performed By: #### 2 104434, 1712332, [id number], 7292757, 6157296 #### [facility] [address] [place] [address] Calcium [Mass/Vol] 9.4 mg/dL Normal 8.9-11.1 [facility] Comment on above: Performed By: #### 2 460871, 1439719, 45354494, 2369427, 8696815 #### [facility] [address] [place] [address] Chloride [Moles/Vol] 109 mmol/L Normal 101-111 [facility] Comment on above: Performed By: #### 2 695845, 0590435, 89381700, 6285851, 4390825 #### [facility] [address] [place] [address] CO2 [Moles/Vol] 26 mmol/L Normal 21-31 [facility] Comment on above: Performed By: #### 2 928102, 0825535, 93428681, 8292015, 3550842 #### [facility] [address] [place] [address] Creatinine [Mass/Vol] 0.8 mg/dL Normal 0.5-1.3 [facility] Comment on above: Performed By: #### 2 566024, 4670786, 37292704, 1756153, 6058568 #### [facility] [address] [place] [address] Glucose [Mass/Vol] 110 mg/dL Normal 55-199 [facility] Comment on above: Result Comment: If t his glucose result represents a fasting glucose, interpretation should refer to the following reference range: 55-99 mg/dL Performed By: #### 2 366181, 3194353, 83271539, 3556717, 9140756 #### [facility] [address] [place] [address] Potassium [Moles/Vol] 4.1 mmol/L Normal 3.5-5.3 [facility] Comment on above: Performed By: #### 2 480833, 3858079, 42239498, 2578973, 4346301 #### [facility] [address] [place] [address] Sodium [Moles/Vol] 137 mmol/L Normal 135-145 [facility] Comment on above: Performed By: #### 2 467074, 0028203, 37676577, 7886710, 0464710 #### [facility] [address] [place] [address] Urea nitrogen [Mass/Vol] 26 mg/dL High 5-21 [facility] Comment on above: Performed By: #### 2 593468, 2451822, 97340313, 2644835, 2396967 #### [facility] [address] [place] [address] Urea nitrogen/Creatinine [Mass ratio] 32 No Units High 08-28 [facility] Comment on above: Performed By: #### 2 243538, 4488903, 59562797, 7055024, 5845065 #### [facility] [address] [place] [address] CHEMISTRYOrdered By: SYSTEM SYSTEM on 09-07-2023 ALT No additional P-5'-P [Catalytic activity/Vol] 30 [iU]/d Normal 6 - 46 Int._Unit/ L [facility] Anion gap [Moles/Vol] 6 mmol/L Normal 6 - 16 mEq/L [facility] AST [Catalytic activity/Vol] 22 [iU]/d Normal 5 - 43 Int._Unit/ L [facility] Calcium [Mass/Vol] 9.4 mg/dL Normal 8.9 - 11. 1 mg/dL [facility] Chloride [Moles/Vol] 109 mmol/L Normal 101 - 1 11 mmol/L [facility] Cholesterol [Mass/Vol] 151 mg/dL Normal 120 - 200 mg/dL [facility] Cholesterol in HDL [Mass/Vol] 57 mg/dL Invalid Interpretation Code [facility] Comment on above: Interpretive Data: H DL > or equal to 60 mg/dL: Low cardiovascular risk HDL < 40 mg/dL : High cardiovascular risk Cholesterol in LDL [Mass/Vol] 82 mg/dL Normal <=129mg/dL [facility] Cholesterol in VLDL [Mass/Vol] 10 mg/dL Normal 7 - 40 mg/dL [facility] CO2 [Moles/Vol] 26 mmol/L Normal 21 - 31 mmol/L [facility] Creatinine [Mass/Vol] 0.8 mg/dL Normal 0.5 - 1.3 mg/dL [facility] GFR/1.73 sq M.predicted among non-blacks MDRD (S/P/Bld) [Vol rate/Area] 92 mL/min/1.73 m2 Normal >=59mL/min /1.73 m2 [facility] Comment on above: Interpretive Data: C hronic kidney disease could be indicated at eGFR's of less than 60 mL/min/1.73m2. Kidney failure is indicated at less than 15 mL/min/1.73m2. Glucose [Mass/Vol] 110 mg/dL Normal 55 - 199 mg/dL [facility] Comment on above: Interpretive Data: I f this glucose result represents a fasting glucose, interpretation should refer to the following reference range: 55-99 mg/dL Potassium [Moles/Vol] 4.1 mmol/L Normal 3.5 - 5.3 mmol/L [facility] Sodium [Moles/Vol] 137 mmol/L Normal 135 - 145 mmol/L [facility] Triglyceride [Mass/Vol] 52 mg/dL Normal <=149mg/dL [facility] Urea nitrogen [Mass/Vol] 26 mg/dL High 5 - 21 mg/dL [facility] Urea nitrogen/Creatinine [Mass ratio] 32 mg/mg High 10 - 20 [facility] Consent for Treatmenton 08-11 Consent for Treatment [id number] Normal [facility] Lipid Panelon 09-07-2023 Cholesterol [Mass/Vol] 151 mg/dL Normal 120-200 [facility] Comment on above: Performed By: #### 2 978157, 8265977, 33183633, 0382966, 9348489 #### [facility] [address] [place] [address] Cholesterol in HDL [Mass/Vol] 57 mg/dL Invalid Interpretation Code [facility] Comment on above: Result Comment: HDL > or equal to 60 mg/dL: Low cardiovascular risk HDL < 40 mg/dL : High cardiovascular risk Performed By: #### 2 204350, 3989122, 86735635, 0522427, 0491525 #### [facility] [address] [place] [address] Cholesterol in LDL [Mass/Vol] 82 mg/dL Normal <=129 [facility] Comment on above: Performed By: #### 2 253090, 3156933, 38311869, 1217531, 1055758 #### [facility] [address] [place] [address] Cholesterol in VLDL [Mass/Vol] 10 mg/dL Normal 7-40 [facility] Comment on above: Performed By: #### 2 661442, 1912753, 29383648, 3756772, 5055734 #### [facility] [address] [place] [address] Triglyceride [Mass/Vol] 52 mg/dL Normal <=149 [facility] Comment on above: Performed By: #### 2 990052, 4539256, 05407668, 6013494, 8956195 #### [facility] [address] [place] [address] Physician Orderon 09-07-2023 Physician Order [id number] Normal [facility] eGFRon 09-07-2023 GFR/1.73 sq M.predicted among non-blacks MDRD (S/P/Bld) [Vol rate/Area] 92 mL/min/1.73 m2 Normal >=59 [facility] Comment on above: Order Comment: Order added by Discern Expert. Result Comment: Doctor Of [facility] dilan kidney disease could be indicated at eGFR's of less than 60 mL/min/1.73m2. Kidney failure is indicated at less than 15 mL/min/1.73m2. Performed By: #### 2 271841, 3087693, 67880260, 1976327, 1181239 #### [facility] [address] [place] [address] Office Visit (Cardiology)on 07-08-2023 Follow-up visit Diagnoses/Problems Assessed ASCVD (arteriosclerotic cardiovascular disease) (429.2,440.9) (I25.10) History of PTCA (V45.82) (Z98.61) Essential hypertension (401.9) (I10) Hyperlipidemia (272.4) (E78.5) Overweight with body mass index (BMI) of 26 to 26.9 in adult (278.02,V85.22) (E66.3,Z68.26) Never a smoker Orders ASCVD (arteriosclerotic cardiovascular disease) Renew: Aspirin 81 MG Oral Tablet Delayed Release; TAKE 1 TABLET DAILY Essential hypertension Renew: amLODIPine Besylate 5 MG Oral Tablet; Take 1 tablet by mouth daily Renew: Lisinopril 10 MG Oral Tablet; Take 1 tablet daily Hyperlipidemia Renew: Atorvastatin Calcium 20 MG Oral Tablet; TAKE 1 TABLET BY MOUTH AT BEDTIME Overweight with body mass index (BMI) of 26 to 26.9 in adult Healthy Weight Tips; Status:Complete; Done: [id number] Some eating tips that can help you lose weight.; Status:Complete; Done: [id number] SocHx: Never a smoker Tobacco Use Screening; Status:Complete; Done: 14Mxw5605 Patient Instructions Please bring all medicines, vitamins, and herbal supplements with you when you come to the office. Prescriptions will not be filled unless you are compliant with your follow up appointments or have a follow up appointment scheduled as per instruction of your physician. Refills should be requested at the time of your visit. Follow up in 1 year. Chief Complaint SARINA JUSTICE is being seen for an annual follow-up of. History of Present Illness Patient returns in follow-up of problems as noted. In the interim he is done well. I cannot elicit angina CHF or arrhythmia symptomatology. The symptoms of coronary disease that preceded his diagnosis and subsequent PTCA were discussed and he is having no such symptoms and because of this we believe he is stable. Management of risk factors hypertension and hyperlipidemia appears to be satisfactory because of this no adjustments are made. We did as before advocate the merits of diet and weight loss. Surgical History Problems History of Complete colonoscopy History of Hand surgery History of Hernia repair History of Knee surgery History of Shoulder surgery History of Trigger finger repair Current Meds Medication NameInstruction Albuterol Sulfate HFA 108 (90 Base) MCG/ACT Inhalation Aerosol SolutionINHALE 2 PUFFS Twice daily Allopurinol 300 MG Oral TabletTAKE 1 TABLET DAILY. amLODIPine Besylate 5 MG Oral TabletTake 1 tablet by mouth daily Aspirin 81 MG Oral Tablet Delayed ReleaseTAKE 1 TABLET DAILY. Atorvastatin Calcium 20 MG Oral TabletTAKE 1 TABLET BY MOUTH AT BEDTIME Breo Ellipta 200-25 MCG/INH AEPBINHALE 1 PUFFS Daily Diclofenac Sodium 75 MG Oral Tablet Delayed ReleaseTake 1 tablet twice daily Fluticasone Propionate 50 MCG/ACT Nasal SuspensionUSE 1 SPRAY IN EACH NOSTRIL ONCE DAILY. Lisinopril 10 MG Oral TabletTake 1 tablet daily Montelukast Sodium 10 MG Oral TabletTAKE 1 TABLET AT BEDTIME. Multi Vitamin Oral TabletTAKE 1 TABLET DAILY. Omeprazole 40 MG Oral Capsule Delayed ReleaseTAKE 1 CAPSULE Daily Vitamin B12 TABS1 tablet 3 times a week Vitamin B6 100 MG Oral TabletTAKE 1 TABLET DAILY DIRECTED. Vitamin C 1000 MG Oral TabletTAKE 1 TABLET DAILY. Vitamin D3 CAPS1 tablet 3 times a week Xyzal Allergy 24HR 5 MG Oral TabletTAKE 1 TABLET DAILY. Allergies Medication No Known Drug Allergies Recorded By: Kelli Herrmann; 02/18/2022 10:05:06 AM Social History Problems Alcohol use (V49.89) (Z78.9) Caffeine use (V49.89) (Z78.9) Never a smoker No illicit drug use Review of Systems Constitutional: not feeling tired. Eyes: no eyesight problems. ENT: no hearing loss and no nosebleeds. Cardiovascular: no intermittent leg claudication and as noted in HPI. Respiratory: no chronic cough and no shortness of breath. Gastrointestinal: no change in bowel habits and no blood in stools. Genitourinary: no urinary frequency and no hematuria. Skin: no skin rashes. Neurological: no seizures and no frequent falls. Psychiatric: no depression and not suicidal. All other systems have been reviewed and are negative for complaint. Vitals Vital Signs Recorded: [id number] 11:02AM Heart Rate82, R Radial Kvtugdem962, RUE, Sitting Qdwkmxqvd27, RUE, Sitting Height5 ft 11 in Gglwif967 lb BMI Ailwsvgvcb77.22 kg/m2 BSA Calculated2.05 Tobacco Useb) No PHQ-2 #1. Over the last 2 weeks have you felt down, depressed or hopeless? (If yes, answer PHQ-9 below)No PHQ-2 #2. Over the last 2 weeks have you felt little interest or pleasure in doing things? (If yes, answer PHQ-9 below)No Falls Screening (Age 18+)a) No falls within the last year Physical Exam Constitutional: alert and in no acute distress. Eyes: no erythema, swelling or discharge from the eye . Neck: neck is supple, symmetric, trachea midline, no masses and no thyromegaly . Pulmonary: no increased work of breathing or signs of respiratory distress and lungs clear to auscultation. Cardiovascu (more content not included)... Normal [place] Tobacco Screening.on 023 Adult depression screening assessment No [facility] 600 DO Work Phone: Fall risk assessment a) No falls within the last year [facility] FlorentinReuben 600 DO Work Phone: Tobacco use status [facility] b) [facility]: XR HIP 2-3 VW W PELVIS LEFTo n 07-09-2022 XR HIP 2-3 VW W PELVIS LEFT EXAM: XR HIP 2-3 VW W PELVIS LEFT HISTORY: R52. Left hip pain. 72-year-old male. COMPARISON: None. TECHNIQUE: AP pelvis, 2 images. 2 views left hip. FINDINGS: Brachytherapy seed implants in the prostate. Mild degenerative change opposite right hip. Moderate degenerative change left hip with diffuse joint space narrowing. No erosion. Femoral head remains rounded. IMPRESSION: Osteoarthritic changes mainly left hip. Femoral head remains rounded. Interpreted by: Angelo Kay Jr., MD Signed by: Angelo Kay Jr., MD 07/09/22 Final result Normal [facility] Osteoarthritic changes mainly left hip. Femoral head remains rounded. [facility] EXAM: XR HIP 2-3 VW W PELVIS LEFT HISTORY: R52. Left hip pain. 72-year-old male. COMPARISON: None. TECHNIQUE: AP pelvis, 2 images. 2 views left hip. FINDINGS: Brachytherapy seed implants in the prostate. Mild degenerative change opposite right hip. Moderate degenerative change left hip with diffuse joint space narrowing. No erosion. Femoral head remains rounded. [facility] Angelo Kay Jr., MD - 07/09/2022 EXAM: XR HIP 2-3 VW W PELVIS LEFT HISTORY: R52. Left hip pain. 72-year-old male. COMPARISON: None. TECHNIQUE: AP pelvis, 2 images. 2 views left hip. FINDINGS: Brachytherapy seed implants in the prostate. Mild degenerative change opposite right hip. Moderate degenerative change left hip with diffuse joint space narrowing. No erosion. Femoral head remains rounded. IMPRESSION: Osteoarthritic changes mainly left hip. Femoral head remains rounded. [facility] Work Phone: Radiology Study observation (narrative) [employer] Phone: XR HIP 2-3 VW W PELVIS LEFTO rdered By: Angelo Kay on 07-09-2022 [employer] Phone: Tobacco Screening.on 022 Adult depression screening assessment No [facility]ray 600 DO Work Phone: Fall risk assessment a) No falls within the last year [facility] 600 DO Work Phone: Tobacco use status CPHS b) No [facility] 600 DO Work Phone: April 07-24-2021 AST [Catalytic activity/Vol] 17 U/L Normal <40 [facility] Comment on above: Performed By: #### Z FAST, AST #### [facility] [address] [place] [address] Jigman: Godwin Salazar MD #### LIPR #### [facility] [address] [place] [address] Jigman: Rashaad Nielsen MD ASTOrdered By: Jignesh lee on 07-24-2021 AST [Catalytic activity/Vol] 17 U/L <40 [facility] Phone: [facility] Phone: Lipid PanelOrdered By: Mateo Pizano on 07-24-2021 Cholesterol [Mass/Vol] 119 mg/dL <200 [facility] Phone: Comment on above: Cholesterol Guidelines: <200 Desirable 200-240 Borderline >240 Undesirable Cholesterol in HDL [Mass/Vol] 43 mg/dL >40 [facility] Phone: Comment on above: HDL Guidelines: <40 Undesirable 40-59 Borderline >59 Desirable Cholesterol in LDL [Mass/Vol] 63 mg/dL 0 - 130 mg/dL [facility] Phone: Comment on above: LDL Guidelines: <100 Desirable 100-129 Near to/above Desirable 130-159 Borderline >159 Undesirable Direct (measured) LDL and calculated LDL are not interchangeable tests. Cholesterol in VLDL [Mass/Vol] NOT REPORTED 1 - 30 mg/dL [facility] Phone: Cholesterol.total/Chol esterol in HDL [Mass ratio] 2.8 {ratio} <5 [facility] Phone: Triglyceride [Mass/Vol] 63 mg/dL <150 [facility] Phone: Comment on above: Triglyceride Guidelines: <150 Desirable 150-199 Borderline 200-499 High >499 Very high Based on AHA Guidelines for fasting triglyceride, August 2012. [facility] Phone: Lipid Profileon 07-24-2021 Cholesterol [Mass/Vol] 119 mg/dL Normal <200 [facility] Comment on above: Result Comment: Cholesterol Guidelines: <200 Desirable 200-240 Borderline >240 Undesirable Performed By: #### Z FAST, AST #### [facility] [address], [place] [id number] Jigman: Godwin Salazar MD #### LIPR #### [facility], [place] [id number] Jigman: Rashaad Nielsen MD Cholesterol in HDL [Mass/Vol] 43 mg/dL Normal >40 [facility] Comment on above: Result Comment: HDL Guidelines: <40 Undesirable 40-59 Borderline >59 Desirable Performed By: #### Z FAST, AST #### [facility] [address] [place] [address] Jigman: Gdowin Salazar MD #### LIPR #### [facility] [address] [place] [address] [id number] Jigman: Rashaad Nielsen MD Cholesterol in LDL [Mass/Vol] 63 mg/dL Normal 0-130 [facility] Comment on above: Result Comment: LDL Guidelines: <100 Desirable 100-129 Near to/above Desirable 130-159 Borderline >159 Undesirable Direct (measured) LDL and calculated LDL are not interchangeable tests. Performed By: #### Z FAST, AST #### [facility] [address], [place] [id number] Jigman: Godwin Salazar MD #### LIPR #### [facility] [address], [place] [id number] Jigman: Rashaad Nielsen MD Cholesterol.total/Chol esterol in HDL [Mass ratio] 2.8 {ratio} Normal <5 [facility] Comment on above: Performed By: #### [place] FAST, AST #### [facility] [address], [place] [id number] Jigman: Godwin Salazar MD #### LIPR #### [facility] [address], [place] [id number] Jigman: Rashaad Nielsen MD Triglyceride [Mass/Vol] 63 mg/dL Normal <150 [facility] Comment on above: Result Comment: Triglyceride Guidelines: <150 Desirable 150-199 Borderline 200-499 High >499 Very high Based on AHA Guidelines for fasting triglyceride, August 2012. Performed By: #### [place] FAST, AST #### [facility] [address], [place] [id number] Jigman: Godwin Salazar MD #### LIPR #### [facility] [address] [place] [address] Jigman: Rashaad Nielsen MD Cholesterol,VLDL NOT REPORTED Normal 1-30 [facility] Comment on above: Performed By: #### [place] FAST, AST #### [facility] [address], [place] [id number] Jigman: Godwin Salazar MD #### LIPR #### [facility] [address], [place] [id number] Jigman: Rashaad Nielsen MD Patient Fasting?Ordered By: Jignesh Pizano on 07-24-2021 Patient Fasting? yes [facility] Work Phone: [facility] Work Phone: Patient fasting?on 1 Patient fasting? yes Normal [facility] Comment on above: Performed By: #### Z FAST, AST #### [facility] [address] [place] [address] Jigman: Godwin Salazar MD #### LIPR #### [facility] [address] [place] [address] Jigman: Rashaad Nielsen MD Glucose, randomon 09-26-2020 Glucose [Mass/Vol] 106 mg/dL High 70 - 99 mg/dL [place] Interpretation and review of laboratory results Abnormal [place] Basic Metabolic Panelon Anion gap [Moles/Vol] 12 mmol/L 9 - 17 mmol/L [place] Bun/Cre Ratio 29 High [place] Calcium [Mass/Vol] 10.0 mg/dL 8.6 - 10. 4 mg/dL [place] Chloride [Moles/Vol] 105 mmol/L 98 - 10 7 mmol/L [place] CO2 [Moles/Vol] 24 mmol/L 20 - 31 mmol/L [place] Creatinine [Mass/Vol] 1.08 mg/dL 0.7 - 1.2 mg/dL [place] GFR >60 >60 mL/min [place] GFR Non- >60 >60 mL/min [place] GFR/1.73 sq M predicted among non-blacks MDRD (S/P/Bld) [Vol rate/Area] NOT REPORTED [place] GFR/1.73 sq M predicted among non-blacks MDRD (S/P/Bld) [Vol rate/Area] [place] Comment on above: Average GFR for 70 o r more years old: 75 mL/min/1.73sq m Chronic Kidney Disease: <60 mL/min/1.73sq m Kidney failure: <15 mL/min/1.73sq m eGFR calculated using average adult body mass. Additional eGFR calculator available at: http://www.[employer]/multiple_crcl_2012.htm Glucose [Mass/Vol] 141 mg/dL High 70 - 99 mg/dL [place] Interpretation and review of laboratory results Abnormal [place] Potassium [Moles/Vol] 4.3 mmol/L 3.7 - 5.3 mmol/L [place] Sodium [Moles/Vol] 141 mmol/L 135 - 144 mmol/L [place] Urea nitrogen [Mass/Vol] 31 mg/dL High 8 - 23 mg/dL [place] CBCon 01-12-2020 Erythrocyte distribution width (RBC) [Ratio] 14.1 % 12.1 - 15.2 % [place] Hematocrit (Bld) [Volume fraction] 45.8 % 41 - 53 % [place] Hemoglobin (Bld) [Mass/Vol] 15.1 g/dL 13.5 - 17.5 g/dL [place] MCH (RBC) [Entitic mass] 30.4 pg 26 - 34 pg [place] MCHC (RBC) [Mass/Vol] 33.0 g/dL 31 - 3 7 g/dL [place] MCV (RBC) [Entitic vol] 92.1 fL 80 - 100 fL [place] Platelet mean volume (Bld) [Entitic vol] NOT REPORTED 6 - 12 fL [place] Platelets (Bld) [#/Vol] 279 10*3/uL [place] RBC (Bld) [#/Vol] 4.97 10*6/uL 4.5 - 5.9 m/uL [place] WBC (Bld) [#/Vol] NOT REPORTED per 100 WBC [place] WBC (Bld) [#/Vol] 6.3 10*3/uL [place] XR CHEST STANDARD (2 VW)on 0 01-12-2020 No evidence of acute disease in the chest or change from 01/13/2018. [employer] [place] [facility] CHEST, 2 VIEWS, 2019: CLINICAL HISTORY: Pre-op chest radiograph. TECHNIQUE: PA and lateral views of the chest. COMPARISON: 01/13/2018. FINDINGS: Cardiac size is upper range of normal. Pulmonary vascularity is normal. There is mild streaky opacity in the left lung base, unchanged and compatible with scar. The lungs are otherwise clear. The costophrenic angles are sharp. There is moderate atherosclerotic calcification and mild tortuosity of the thoracic aorta, unchanged. [facility] [employer] [place] [facility] [place], M[facility] Incoming Radiant Results From [employer] - 01/12/2020 9:46 PM EST CHEST, 2 VIEWS, 01/12/2020: CLINICAL HISTORY: Pre-op chest radiograph. TECHNIQUE: PA and lateral views of the chest. COMPARISON: 01/13/2018. FINDINGS: Cardiac size is upper range of normal. Pulmonary vascularity is normal. There is mild streaky opacity in the left lung base, unchanged and compatible with scar. The lungs are otherwise clear. The costophrenic angles are sharp. There is moderate atherosclerotic calcification and mild tortuosity of the thoracic aorta, unchanged. IMPRESSION: No evidence of acute disease in the chest or change from 01/13/2018. [facility] [place] [facility] (MIN 3 VIEWS)on 01-11-2020 1. Subtle transverse lucency through the midpole of the scaphoid is suggestive of an underlying acute or subacute fracture without complete fracture healing. Clinical correlation for point tenderness is recommended. 2. Mild degenerative changes in the hand. [employer] [place] EXAM: XR HAND LEFT ( MIN 3 VIEWS) HISTORY: M65.312 COMPARISON: 12/26/2017 wrist radiographs. TECHNIQUE: 4 views of the left hand were obtained. FINDINGS: There is a subtle transverse lucency through the midpole of the scaphoid seen on 2 views which appears to be new when compared to 2018 radiographs. A small sclerotic focus of the radial aspect of the scaphoid is unchanged. There is no significant displacement. Remaining osseous structures are intact without acute fracture or dislocation. Mild joint space narrowing and osteophyte formation is present at the first interphalangeal joint, second and third metacarpophalangeal joints, and additional mild degenerative changes throughout the interphalangeal joints. Osseous structures are diffusely demineralized. Visualized soft tissues appear unremarkable. No radiopaque foreign body. [employer] Tye, Mh[employer] Incoming Radiant Results From [employer] - 01/11/2020 11:27 AM EST EXAM: XR HAND LEFT (MIN 3 VIEWS) HISTORY: M65.312 COMPARISON: 12/26/2017 wrist radiographs. TECHNIQUE: 4 views of the left hand were obtained. FINDINGS: There is a subtle transverse lucency through the midpole of the scaphoid seen on 2 views which appears to be new when compared to 2018 radiographs. A small sclerotic focus of the radial aspect of the scaphoid is unchanged. There is no significant displacement. Remaining osseous structures are intact without acute fracture or dislocation. Mild joint space narrowing and osteophyte formation is present at the first interphalangeal joint, second and third metacarpophalangeal joints, and additional mild degenerative changes throughout the interphalangeal joints. Osseous structures are diffusely demineralized. Visualized soft tissues appear unremarkable. No radiopaque foreign body. IMPRESSION: 1. Subtle transverse lucency through the midpole of the scaphoid is suggestive of an underlying acute or subacute fracture without complete fracture healing. Clinical correlation for point tenderness is recommended. 2. Mild degenerative changes in the hand. [employer], REJI Vital Signs Date Time Vital Sign Value Performing Clinician Tejinderi cynthia 09-16-2024 14:01-0500 Diastolic blood pressure 76 mm[Hg] Froylan Castanon MD Work Phone: [facility] 09-16-2024 14:01-0500 Systolic blood pressure 134 mm[Hg] Froylan Castanon MD Work Phone: [facility] 09-16-2024 13:38-0500 Body height 180.3 cm Froylan Castanon MD Work Phone: [facility] 09-16-2024 13:38-0500 Body mass index (BMI) [Ratio] 28.17 kg/m2 Froylan Castanon MD Work Phone: [facility] 09-16-2024 13:38-0500 Body weight 91.63 kg Froylan Castanon MD Work Phone: [facility] 09-16-2024 13:38-0500 Heart rate 88 /min Froylan Castanon MD Work Phone: [facility] 08-25-2024 16:10-0400 Diastolic blood pressure 74 mm[Hg] DO Julia Patterson III Work Phone: [facility] 08-25-2024 16:10-0400 Heart rate 88 /min DO Julia Patterson III Work Phone: [facility] 08-25-2024 16:10-0400 Respiratory rate 16 /min DO Julia Patterson III Work Phone: [facility] 08-25-2024 16:10-0400 SaO2% (BldA) [Mass fraction] 97 % DO Julia Patterson III Work Phone: [facility] 08-25-2024 16:10-0400 Systolic blood pressure 142 mm[Hg] DO Julia Patterson III Work Phone: [facility] 08-25-2024 11:04-0400 Body height 180.34 cm DO Julia Patterson III Work Phone: [facility] 08-25-2024 11:04-0400 Body temperature 98.8 [degF] DO Julia Patterson III Work Phone: [facility] 08-25-2024 11:04-0400 Body weight 92 kg DO Julia Patterson III Work Phone: [facility] 08-11-2024 12:59-0400 Diastolic blood pressure 76 mm[Hg] Frida 1 [facility] 08-11-2024 12:59-0400 Heart rate 73 /min Frida 1 [facility] 08-11-2024 12:59-0400 Systolic blood pressure 124 mm[Hg] Frida 1 [facility] 06-28-2024 14:03-0400 Body height 180.34 cm DO W Idris Esquivel Work Phone: [facility] 06-28-2024 14:03-0400 Body mass index (BMI) [Ratio] 27.1 kg/m2 DO W Idris Esquivel Work Phone: [facility] 06-28-2024 14:03-0400 Body temperature 98.8 [degF] DO W Idris Schulerdon Work Phone: [facility] 06-28-2024 14:03-0400 Body weight 88.45 kg DO W Idris Schulerdon Work Phone: [facility] 06-28-2024 14:03-0400 Diastolic blood pressure 74 mm[Hg] DO W Idris Schulerdon Work Phone: [facility] 06-28-2024 14:03-0400 Heart rate 99 /min DO W Idris Schulerdon Work Phone: [facility] 06-28-2024 14:03-0400 Respiratory rate 20 /min DO W Idris Esquivel Work Phone: [facility] 06-28-2024 14:03-0400 SaO2% (BldA) [Mass fraction] 95 % DO W Idris Esquivel Work Phone: [facility] 06-28-2024 14:03-0400 Systolic blood pressure 116 mm[Hg] DO W Idris Schulerdon Work Phone: [facility] 06-24-2024 12:59-0400 Blood Pressure Location Samantha Orzech [facility] 06-24-2024 12:59-0400 Diastolic blood pressure 80 mm[Hg] Samantha Orzech [facility] 06-24-2024 12:59-0400 Systolic blood pressure 126 mm[Hg] Samantha Orzech [facility] 07-08-2023 11:02-0400 Body height 180.34 cm Julia R Patterson Work Phone: [facility] 600 DO Work Phone: 07-08-2023 11:02-0400 Body mass index (BMI) [Ratio] 26.22 kg/m2 Julia R Patterson Work Phone: [facility] 600 DO Work Phone: 07-08-2023 11:02-0400 Body surface area Derived from formula 2.05 m2 Julia R Patterson Work Phone: [facility] 600 DO Work Phone: 07-08-2023 11:02-0400 Body weight 85.28 kg Julia R Patterson Work Phone: [facility] 600 DO Work Phone: 07-08-2023 11:02-0400 Diastolic blood pressure 70 mm[Hg] Julia R Patterson Work Phone: [facility] 600 DO Work Phone: 07-08-2023 11:02-0400 Heart rate 82 /min Julia R Patterson Work Phone: [facility] 600 DO Work Phone: 07-08-2023 11:02-0400 Systolic blood pressure 130 mm[Hg] Julia R Patterson Work Phone: [facility] 600 DO Work Phone: 07-04-2022 10:55-0400 Body height 180.34 cm Julia R Patterson Work Phone: [facility] 600 DO Work Phone: 07-04-2022 10:55-0400 Body mass index (BMI) [Ratio] 26.36 kg/m2 Julia R Patterson Work Phone: [facility] 600 DO Work Phone: 07-04-2022 10:55-0400 Body surface area Derived from formula 2.06 m2 Julia Patterson Work Phone: [facility] 600 DO Work Phone: 07-04-2022 10:55-0400 Body weight 85.73 kg Julia Patterson Work Phone: [facility] 600 DO Work Phone: 07-04-2022 10:55-0400 Diastolic blood pressure 78 mm[Hg] Julia Patterson Work Phone: [facility] 600 DO Work Phone: 07-04-2022 10:55-0400 Heart rate 86 /min Julia Patterson Work Phone: [facility] 600 DO Work Phone: 07-04-2022 10:55-0400 Systolic blood pressure 126 mm[Hg] Julia Patterson Work Phone: [facility] 600 DO Work Phone: 04-22-2022 14:15-0400 Body height 177.8 cm Rigo Hassan Other [employer] [facility] Other 04-22-2022 14:15-0400 Body mass index (BMI) [Ratio] 27.26 kg/m2 Rigo Hassan Other [employer] Other 04-22-2022 14:15-0400 Body temperature 97.1 [degF] Rigo Hassan Other [employer] Other 04-22-2022 14:15-0400 Body weight 86.18 kg Rigo Guerrerono Other [employer] Other 04-22-2022 14:15-0400 Diastolic blood pressure 79 mm[Hg] Rigo Hassan Other [facility] Other 04-22-2022 14:15-0400 Respiratory rate 20 /min Rigo Guerrerono Other [employer] Other 04-22-2022 14:15-0400 SaO2% (BldA) [Mass fraction] 95 % Rigo Hassan Other [facility] Other 04-22-2022 14:15-0400 Systolic blood pressure 133 mm[Hg] Rigo Guerrerono Other [employer] Other Encounters Encounter Date Encounter Type Care Provider Facility Start: 09-26-2024 End: 09-26-2024 ambulatory Jojo Melendrez Facility[facility] Start: 09-26-2024 End: 09-26-2024 Patient encounter procedure Jojo Melendrez [facility] Start: 09-16-2024 End: 09-16-2024 Office outpatient visit 25 minutes Froylan Castanon MD Work Phone: [facility] Comment on above: ASCVD (arteriosclero tic cardiovascular disease); Essential hypertension; History of PTCA; Mixed hyperlipidemia; BMI 28.0-28.9,adult; Never smoked tobacco Start: 09-16-2024 End: 09-16-2024 ambulatory FROYLAN CASTANON [facility] Ambulatory Start: 09-09-2024 ambulatory Cam Allan ty:EU Yahir Start: 08-25-2024 End: 08-25-2024 [facility] Work Phone: [facility] Work Phone: Start: 08-25-2024 End: 08-25-2024 ambulatory DO Julia Patterson III Work Phone: [facility] Work Phone: Start: 08-22-2024 ambulatory Cam KEE Facili ty:[facility] Start: 08-11-2024 End: 08-11-2024 Patient encounter status Frida [address] [place] [address] Work Phone: Start: 08-11-2024 End: 08-11-2024 Subsequent hospital visit by physician Frida Gonzalez [place] [facility] Comment on above: Preop cardiovascular exam; ASCVD (arteriosclerotic cardiovascular disease); History of PTCA Start: 08-11-2024 End: 08-11-2024 ambulatory [facility] Start: 08-11-2024 End: 08-11-2024 Encounter for preprocedural cardiovascular examination [facility] Start: 08-02-2024 End: 08-02-2024 ambulatory Cam KEE Facility:[facility] Start: 08-02-2024 End: 08-02-2024 Patient encounter procedure Cam KEE [facility] Start: 07-04-2024 End: 07-04-2024 ambulatory Samantha X Orzech Facility:[facility] Start: 07-04-2024 End: 07-04-2024 Patient encounter procedure Samantha X Orzech [facility] Start: 06-28-2024 End: 06-28-2024 ambulatory DO Efrem Esquivel Work Phone: [facility] Work Phone: Start: 06-28-2024 End: 06-28-2024 Patient encounter procedure DO Efrem Esquivel Work Phone: [facility] Work Phone: Start: 06-24-2024 End: 06-24-2024 ambulatory Samantha X Orzech Facility:[facility] Start: 06-24-2024 End: 06-24-2024 Lab Drop off Samantha X Orzech [facility] Start: 06-24-2024 End: 06-24-2024 ambulatory Samantha X Orzech Facility:[facility] Start: 06-24-2024 End: 06-24-2024 Patient encounter procedure Samantha X Orzech [facility] Start: 05-27-2024 End: 05-27-2024 ambulatory Pascale Lucas Facility:[facility] Start: 05-27-2024 End: 05-27-2024 Patient encounter procedure Pascale Lucas [facility] Start: 09-16-2023 ambulatory Cam Allan ty: Shirin Start: 09-07-2023 End: 09-07-2023 ambulatory JAJA MARTINEZ Facility:[facility] Start: 09-07-2023 End: 09-07-2023 Patient encounter procedure JAJA MARTINEZ [facility] Start: 08-06-2023 AUDIT Julia harkins Work Phone: [facility] 600 DO Work Phone: Start: 07-08-[address] Julia Patterson III Facility: Start: 05-14-2023 Rx Renewal Julai Sher rs Work Phone: [facility] 250 DO Work Phone: Start: 12-30-2022 Rx Renewal Julia Sher rs Work Phone: [facility] 250 DO Work Phone: Start: 10-28-2022 Rx Renewal Julia R Christos rs Work Phone: [facility] 250 DO Work Phone: Start: 07-09-2022 End: 07-12-2022 ambulatory PIERRE DEL ROSARIO [facility] Start: 07-09-2022 End: 07-12-2022 ambulatory PIERRE DEL ROSARIO [facility] Start: 07-09-2022 End: 07-11-2022 Subsequent hospital visit by physician [facility] Additional Xray At [facility] Comment on above: Pain Start: 07-09-2022 End: 07-11-2022 Subsequent hospital visit by physician Julia Patterson Work Phone: [facility] Start: 07-04-2022 Office outpatient vi sit 25 minutes Julia Patterson Work Phone: [facility] 600 DO Work Phone: Start: 06-23-2022 Rx Renewal Jignesh sage MD Work Phone: [facility] 250 DO Work Phone: Start: 04-22-2022 End: 04-22-2022 ambulatory Rigo Hassan Other [facility] Other Start: 04-22-2022 Office outpatient vi sit 15 minutes Rigo Sonya [facility] Start: 04-21-2022 Telephone encounter Jignesh Aguirre MD Work Phone: [facility] 250 DO Work Phone: Start: 02-18-2022 Rx Renewal Jignesh sage MD Work Phone: [facility] 250 DO Work Phone: Start: 07-24-2021 End: 07-25-2021 ambulatory JIGNESH DUNHAM [facility] Start: 07-24-2021 End: 07-24-2021 Subsequent hospital visit by physician Julia Patterson Work Phone: [facility] Start: 09-26-2020 End: 09-26-2020 Subsequent hospital visit by physician Julia Patterson [facility] Start: 05-09-2020 End: 05-09-2020 Subsequent hospital visit by physician Julia Patterson [facility] Start: 01-12-2020 End: 01-14-2020 Subsequent hospital visit by physician Piper Howard [facility] Comment on above: Arrived Pre-op chest exam Start: 01-11-2020 End: 01-13-2020 Subsequent hospital visit by physician Piper Additional Xray At [facility] Comment on above: Trigger finger of le ft thumb; Trigger finger, left middle finger Start: 03-28-2019 End: 03-28-2019 Letter encounter Provider Elvia [facility] Start: 03-07-2019 Patient encounter procedure Daniela LEYVA [facility] Start: 01-21-2019 [facility] Start: 11-19-2018 Patient encounter procedure [facility] Start: 09-21-2018 Patient encounter procedure [facility] Start: 08-31-2018 Patient encounter procedure [facility] Start: 08-24-2018 Patient encounter procedure [facility] Start: 08-03-2018 Patient encounter procedure [facility] Start: 06-29-2018 Patient encounter procedure [facility] Start: 03-07-2005 Evaluation and management of inpatient DO Efrem Esquivel Work Phone: [facility] Short Stay Procedures Date Procedure Procedure Detail Performing Clinician Start: 08-25-2024 CL Coronary Angio DO Jennifer Patterson III Work Phone: Start: 08-11-2024 Cv strs tst xers&/or rx cont ecg trcg only Froylan Castanon MD Work Phone: Start: 02-01-2024 History of percutane ous transluminal coronary angioplasty History of PTCA Frida 1 Start: 07-09-2022 Radex hip unilateral with pelvis 2-3 views Pierre Del Rosario DO Work Phone: Start: 07-24-2021 Lipid panel Jignesh Pizano MD Work Phone: Start: 07-24-2021 PATIENT FASTING? Leigh wilkins Cam Pizano MD Work Phone: Start: 07-24-2021 Transferase aspartat e amino ast sgot Jignesh Pizano MD Work Phone: Start: 09-26-2020 Glucose quantitative blood xcpt reagent strip Julia Patterson Work Phone: Start: 05-09-2020 [object Object] Julia Patterson Comment on above: The Kalina ECLIA as say is used. Results obtained with different assay methods cannot be used interchangeably. Start: 05-09-2020 Assay of prostate sp ecific antigen complexed Danny Brown Work Phone: Start: 03-21-2020 Release of trigger finger JAJA MARTINEZ Comment on above: left middle Start: 01-12-2020 Radiologic exam ches t 2 views Pierre Del Rosario Other Phone: Start: 01-12-2020 Basic metabolic pane l calcium total Pierre Del Rosario Other Phone: Start: 01-12-2020 Blood count complete automated Pierre Del Rosario Other Phone: Start: 01-11-2020 Radex hand minimum 3 views Pierre Del Rosario Other Phone: Start: 01-27-2018 Repair of musculoten dinous cuff of shoulder JAJA MARTINEZ Comment on above: right shoulder Start: 01-11-2018 transforaminal epidu ral steroid injection 3 JAJA MARTINEZ Comment on above: left L3+L4 80% relie f for 2 weeks Start: 12-21-2017 Left Transforaminal Epidural Steroid Injection 4 JAJA MARTINEZ Comment on above: left approx 40-50 % relief Start: 09-28-2017 Left L3 L4 Transform inal epidural steroid injection 5 JAJA MARTINEZ Comment on above: 90% relief and still working Start: 06-17-2017 TFESI 6 JAJA Ridley Comment on above: Left L3-L4--75% reli ef still today. Start: 11-17-2016 Injection of sacroil iac joint using fluoroscopic guidance JAJA MARTINEZ Comment on above: 60% relief B/L Start: 02-06-2016 right middle and rin g finger trigger finger release JAJA MARTINEZ Start: 06-08-2015 Injection of sacroil iac joint using fluoroscopic guidance JAJA MARTINEZ Comment on above: Bilateral SIJI... 70 % relief still at OV Start: 01-01-2015 Injection of sacroil iac joint using fluoroscopic guidance JAJA MARTINEZ Comment on above: BILATERAL Start: 12-06-2014 Injection of sacroil iac joint using fluoroscopic guidance JAJA MARTINEZ Comment on above: BILATERAL Start: 11-06-2014 Injection of facet j oint using fluoroscopic guidance JAJA MARTINEZ Comment on above: BILATERAL L3-S1 Start: 09-11-2014 Injection of facet j oint using fluoroscopic guidance JAJA MARTINEZ Comment on above: BILATERAL L3-S1 Start: 07-19-2014 Epidural injection o f lumbar spine using fluoroscopic guidance JAJA MARTINEZ Comment on above: L5-S1 Start: 04-17-2014 left ring finger tri gger release JAJA MARTINEZ Start: 10-10-2011 Brachytherapy implan t (physical object) JAJA MARTINEZ Start: 07-16-2011 Epidural injection o f lumbar spine using fluoroscopic guidance JAJA MARTINEZ Comment on above: RIGH TL5-S1 Start: 03-10-2011 Epidural injection o f cervical spine using fluoroscopic guidance JAJA MARTINEZ Comment on above: RIGHT C7-T1 Start: 05-09-2007 Repair of right ingu inal hernia JAJA MARTINEZ Start: 11-09-2006 prostate surgery JAJA MARTINEZ Start: 11-09-2004 heart stent JAJA Ridley Bilateral inguinal h ernia repair JAJA MARTINEZ Comment on above: , 1994 Colonoscopy JAJA MARTINEZ Comment on above: 05/2007, 12/31/2018 Cyst - pilonidal (disorder) JAJA MARTINEZ Decompression of med han nerve JAJA MARTINEZ Hernia repair Jignesh sage MD Work Phone: Hernia Surgery x3 JAJA CALIT [place] History of percutane ous transluminal coronary angioplasty History of PTCA Jignesh Pizano MD Work Phone: History of percutane ous transluminal coronary angioplasty History of PTCA Frida 1 History of percutane ous transluminal coronary angioplasty History of PTCA Froylan Castanon MD Work Phone: History of placement of stent for coronary artery disease JAAJ MARTINEZ Comment on above: 2004 Operative procedure on hand Jignesh Pizano MD Work Phone: Operative procedure on knee Jignesh Pizano MD Work Phone: Release of trigger finger Evelin Pizano MD Work Phone: Repair of shoulder Jignesh Garcia MD Work Phone: Tonsillectomy JAJA MARTINEZ Total colonoscopy Jignesh Aguirre MD Work Phone: Plan of Treatment Date Care Activity Detail Author Start: 06-15-2025 End: 06-15-2025 Patient encounter procedure 06/15/2025 10:00 AM EDT Office Visit [place] [address] [place] [id number] Froylan Castanon MD [address] [facility] [address] [place], [place] [id number] [facility] Start: 10-31-2024 ambulatory Ambulatory Facility:E U Yahir Start: 10-21-2024 ambulatory Ambulatory Facility:E U [facility] Start: 10-18-2024 ambulatory Ambulatory Facility:C [id number] Start: 09-16-2024 End: 09-16-2024 Patient encounter procedure 09/16/2024 1:40 PM EST Office Visit [facility] [address] [facility] [address] [place] [id number] Froylan Castanon MD [address] [facility] [address] [place], [place] [id number] [facility] Start: 08-25-2024 End: 08-25-2024 [facility] Start: 07-10-2024 COVID-19 Vaccine ( season) COVID-19 Vaccine ( season) [facility] Start: 07-10-2024 COVID-19 Vaccine ( season) COVID-19 Vaccine ( season) [facility] Start: 07-10-2024 Influenza vaccination Influenza Vacc ine (#1) [facility] Start: 07-06-2024 FUV, Provider: Jignesh Pizano, Status: Pen, Time: 11:40 AM FUV, Provider: Jignesh Pizano, Status: Pen, Time: 11:40 AM [facility] 600 DO Work Phone: Start: 07-08-2023 FUV, Provider: Jignesh Pizano, Status: Pen, Time: 10:20 AM FUV, Provider: Jignesh Pizano, Status: Pen, Time: 10:20 AM [facility] 600 DO Work Phone: Start: 2023 RSV High Risk: (Elde rly (60+) or Population) (1 - 1-dose 75+ series) RSV High Risk: (Elderly (60+) or Population) (1 - 1-dose 75+ series) [facility] Start: 07-24-2022 Lipid panel [facility] Start: 07-10-2022 Influenza vaccination Flu vaccine (# 1) [facility] Start: 07-04-2022 FUV, Provider: Jignesh Pizano, Status: Pen, Time: 10:30 AM FUV, Provider: Jignesh Pizano, Status: Pen, Time: 10:30 AM [facility] 250 DO Work Phone: Start: 06-11-2022 FUV, Provider: Jignesh Pizano, Status: Pen, Time: 11:00 AM FUV, Provider: Jignesh Pizano, Status: Pen, Time: 11:00 AM [facility] 250 DO Work Phone: Start: 02-26-2022 COVID-19 Vaccine (4 - Booster for Pfizer series) COVID-19 Vaccine (4 - Booster for Pfizer series) [facility] Start: 07-10-2021 Influenza vaccination Flu vaccine (# 1) [facility] Work Phone: Start: 01-11-2021 Creatinine measurement Creatinine mo nitoring [place] Start: 01-11-2021 Creatinine monitoring Creatinine mon itoring [place] Start: 01-11-2021 Potassium monitoring Potassium monit oring [place] Start: 07-10-2020 Influenza vaccination Flu vaccine (# 1) [place] Start: 01-25-2020 End: 01-25-2020 Hospital Encounter [facility] Comment on above: 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 Start: 07-10-2019 Influenza vaccination O [facility] Start: 06-17-2019 End: 06-17-2019 Office Visit 06/17/2019 Office Visit Anesthesiology Pain Mgt Yesenia Kimball, ASSOCIATE PROJECT MANAGER-BUFFET WAITER/WAITRESS [address] [place] [address] [phone] [facility] Start: 05-01-2019 Annual Wellness Visi t (AWV) Annual Wellness Visit (AWV) [place] Start: 03-28-2019 End: 03-28-2019 Office Visit 03/28/2019 Office Visit Anesthesiology Pain Mgt Thang Gautam MD [address] [place] [address] Arrived [facility] Procedural Pain Management Comment on above: Arrived Start: 03-26-2016 Pneumococcal 65+ yea rs Vaccine (2 - PCV) Pneumococcal 65+ years Vaccine (2 - PCV) [facility] Start: 03-26-2016 Pneumococcal Vaccine : 65+ Years (2 of 2 - PCV) Pneumococcal Vaccine: 65+ Years (2 of 2 - PCV) [facility] Start: 08-07-2015 Lipid panel Lipid screen [place], [place] Start: 08-07-2015 Lipid screen Lipid screen [place], [place] Start: 2013 Pneumococcal vaccination PNEUMOCOCCAL VACCINE SERIES (1 of 2 - PCV13) [facility] Start: 2008 RSV patient s and/or patients aged 60+ years (1 - 1-dose 60+ series) RSV patients and/or patients aged 60+ years (1 - 1-dose 60+ series) [facility] Start: 1998 Colon cancer screen colonoscopy Colon cancer screen colonoscopy [place], [place] Start: 1998 Prostate specific antigen measurement PROSTATE CANCER SCREENING DISCUSSION [facility] Start: 1998 Protein mass conc COLON CANCER SCREENING DISCUSSION [facility] Start: 1998 Screening for malign ant neoplasm of colon Colon cancer screen colonoscopy [place] Start: 1998 Shingles Vaccine (1 of 2) Shingles Vaccine (1 of 2) [facility] Start: 1998 Zoster vaccine hzv l ady for subcutaneous use ZOSTER (SHINGLES) VACCINE (1 of 2) [facility] Start: 1998 Zoster Vaccines (1 o f 2) Zoster Vaccines (1 of 2) [facility] Start: 1993 Screening for malign ant neoplasm of colon [facility] Start: 1988 Fasting lipid profile LIPID SCREENIN G [facility] Start: 1970 DTaP/Tdap/Td Vaccine s (1 - Tdap) DTaP/Tdap/Td Vaccines (1 - Tdap) [facility] Start: 1967 DTaP/Tdap/Td vaccine (1 - Tdap) DTaP/Tdap/Td vaccine (1 - Tdap) [facility] Start: 1967 Third diphtheria, tetanus and acellular pertussis (DTaP) vaccination TDAP (ADULT) [facility] Start: 1966 Hepatitis C screening Hepatitis C Sc reening [facility] Start: 1966 Tetanus vaccination TETANUS [facility] Start: 1960 COVID-19 Vaccine (1) COVID-19 Vaccin e (1) [facility] Work Phone: Start: 1960 Depression Screen Depression Screen [facility] Start: 1959 DTaP/Tdap/Td vaccine (1 - Tdap) DTaP/Tdap/Td vaccine (1 - Tdap) [facility] Start: 1948 Annual Wellness Visi t (AWV) Annual Wellness Visit (AWV) [facility] Start: 1948 Hepatitis C antibody , confirmatory test HEPATITIS C VIRUS SCREENING [facility] Start: 1948 Lipid panel Lipid Panel [facility] Start: 1948 Medicare Annual Wellness Visit Medicare Annual Wellness Visit (AWV) [facility] EKG 12 lead EKG 12 lead ECG Routine 01/12/2020 11:28 AM EST [facility] Immunizations Immunization Date Immunization Notes Care Provider Cass reyes 08-06-2023 influenza virus vaccine, unspecified formulation Frida 1 [facility] Work Phone: 08-01-2022 Fluzone High-Dose Quadrivalent 0.7 ML Intramuscular Suspension Prefilled Syringe Julia Patterson Work Phone: [facility] [address] DO Work Phone: 08-01-2022 influenza virus vaccine, unspecified formulation JAJA MARTINEZ [facility] 08-01-2022 influenza, high dose seasonal, preservative-free Frida 1 [facility] Work Phone: 10-28-2021 COVID-19 Vaccine Pfi zer - Documentation Purposes Only Rigo Hassan Other [facility] 08-13-2021 influenza virus vaccine, unspecified formulation JAJA MARTINEZ [facility] 08-13-2021 influenza, high dose seasonal, preservative-free Jignesh Pizano MD Work Phone: [facility] 01-04-2021 Pfizer-BioNTech COVID-19 Vacc 30 MCG/0.3ML Intramuscular Suspension Jignesh Pizano MD Work Phone: [facility] 12-14-2020 COVID-19 Vaccine Pfi zer - Documentation Purposes Only Rigo Hassan Other [facility] 08-07-2020 influenza virus vaccine, unspecified formulation JAJA MARTINEZ [facility] 08-07-2020 influenza, high dose seasonal, preservative-free Jignesh Pizano MD Work Phone: [facility] 08-03-2020 influenza virus vaccine, unspecified formulation JAJA MARTINEZ [facility] 07-10-2020 influenza virus vaccine, unspecified formulation Jignesh Pizano MD Work Phone: [facility] 09-23-2019 influenza, high dose seasonal, preservative-free Frida 1 [facility] Work Phone: 08-09-2019 influenza, high dose seasonal, preservative-free Jignesh Pizano MD Work Phone: [place] [address] DO Work Phone: 08-16-2018 influenza virus vaccine, unspecified formulation JAJA MARTINEZ [facility] 08-09-2018 influenza virus vaccine, unspecified formulation Jignesh Pizano MD Work Phone: [place] [address] DO Work Phone: 09-01-2017 influenza, injectabl e, quadrivalent, preservative free Jignesh Pizano MD Work Phone: [place] [address] DO Work Phone: 09-01-2017 influenza virus vaccine, unspecified formulation [facility] 08-11-2017 influenza, high dose seasonal, preservative-free Jignesh Pizano MD Work Phone: [place] [address] DO Work Phone: 09-01-2016 influenza virus vaccine, unspecified formulation JAJA MARTINEZ [facility] 09-01-2016 influenza, injectabl e, quadrivalent, preservative free Jignesh Pizano MD Work Phone: [place] [address] DO Work Phone: 08-09-2016 influenza virus vaccine, unspecified formulation Jignesh Pizano MD Work Phone: [place] [address] DO Work Phone: 08-14-2015 influenza virus vaccine, unspecified formulation JAJA MARTINEZ [facility] 08-09-2015 influenza virus vaccine, unspecified formulation Jignesh Pizano MD Work Phone: [place] [address] DO Work Phone: 03-26-2015 pneumococcal conjuga te vaccine, 7 valent Jignesh Pizano MD Work Phone: [place] [address] DO Work Phone: 03-09-2015 pneumococcal conjuga te vaccine, 7 valent Jignesh Pizano MD Work Phone: [place] [address] DO Work Phone: 11-10-2014 pneumococcal polysaccharide vaccine, 23 valent Rigo Hassan Other [facility] 08-09-2014 influenza virus vaccine, unspecified formulation Jignesh Pizano MD Work Phone: [place] [address] DO Work Phone: 08-08-2014 influenza virus vaccine, unspecified formulation JAJA MARTINEZ [facility] 07-29-2013 influenza virus vaccine, unspecified formulation JAJA MARTINEZ [facility] 07-29-2013 influenza, injectabl e, quadrivalent, preservative free Jignesh Pizano MD Work Phone: [place] [address] DO Work Phone: 07-28-2012 influenza virus vaccine, unspecified formulation JAJA MARTINEZ [facility] 07-28-2012 influenza, injectabl e, quadrivalent, preservative free Jignesh Pizano MD Work Phone: [place] [address] DO Work Phone: 07-30-2011 influenza virus vaccine, unspecified formulation JAJA MARTINEZ [facility] 07-30-2011 influenza, injectabl e, quadrivalent, preservative free Jignesh Pizano MD Work Phone: [facility] 250 DO Work Phone: 10-30-2009 novel [id number], preservative-free, injectable Jignesh Pizano MD Work Phone: [facility] 250 DO Work Phone: influenza virus vaccine, unspecified formulation Jignesh Pizano MD Work Phone: [place] [address] DO Work Phone: Comment on above: 2012Aug [id number] pneumococcal polysaccharide vaccine, 23 valent Jignesh Pizano MD Work Phone: [place] [address] DO Work Phone: Comment on above: 2012 2007 2004 Payers Date Payer Category Payer Self-pay 2023 Medicare supplementa l policy (as second payer) [facility] [id number] 2023 Unknown 2013 Unknown [id number] 2013 Medicare [id number] 2013 Medicare [id number] 2013 Medicare [id number] [id number]. [id number] 2013 Medicare [id number] 1948 Unknown [id number] 2.16.840.1.231029.3.579. 2.983 1948 Unknown [id number] 2.16.840.1.206607.3.579. 2.983 1948 Unknown [id number] 2.16.840.1.389473.3.579. 2.174 1948 Unknown [id number] 2.16.840.1.365415.3.579. 2.174 1948 Unknown [id number] 2.16.840.1.446929.3.579. 2.174 1948 Unknown [id number] 2.16.840.1.971146.3.579. 2.356 1948 Unknown [id number] 2.16.840.1.870669.3.579. 2.727 1948 Unknown [id number] 2.16.840.1.143799.3.579. 2.727 1948 Unknown [id number] 2.16.840.1.482886.3.579. 2.727 1948 Unknown [id number] 2.16.840.1.015630.3.579. 2.727 1948 Unknown [id number] 2.16.840.1.772923.3.579. 2.727 1948 Unknown [id number] 2.16.840.1.774332.3.579. 2.727 1948 Unknown [id number] 2.16.840.1.031888.3.579. 2.1246 1948 Unknown [id number] 2.16.840.1.402743.3.579. 2.1246 1948 Unknown [id number] 2.16.840.1.252870.3.579. 2.1246 1948 Unknown [id number] 2.16.840.1.433066.3.579. 2.1246 1948 Unknown [id number] 2.16.840.1.400199.3.579. 2.1246 1948 Unknown [id number] 2.16.840.1.918187.3.579. 2.1244 1948 Unknown [id number] 2.16.840.1.980084.3.579. 2.727 1948 Unknown [id number] 2.16.840.1.980985.3.579. 2.727 1948 Unknown [id number] 2.16.840.1.970854.3.579. 2.727 1948 Unknown [id number] 2.16.840.1.751679.3.579. 2.727 1948 Unknown [id number] 2.16.840.1.085163.3.579. 2.727 1948 Unknown [id number] 2.16.840.1.234986.3.579. 2.727 Unknown [id number] 2.16.840.1.445933.3.579. 2.531 Social History Date Type Detail Facility Start: 01-21-2019 End: 06-24-2024 Tobacco smoking status NCIS Never smoker [facility] Start: 1950 Sex Assigned At Not on file [facility] Start: 01-12-2020 Alcohol intake Current non-dr services advisor of alcohol (finding) [place] Start: 01-12-2020 End: 09-16-2024 Tobacco use and exposure Never used [place] Start: 09-16-2024 Alcohol use Alcohol use -[place] [facility] DO Work Phone: Start: 09-16-2024 Sex Assigned At F [facility] Tobacco smoking status Never [facility] Start: 1950 Sex Assigned At Male F [facility] Start: 02-01-2024 Tobacco smoking stat us NHIS Tobacco smoking consumption unknown [facility] Work Phone: Start: 08-01-2024 End: 09-16-2024 Exposure to SARS-CoV-2 (event) Not sure [facility] Start: 09-16-2024 Alcoholic beverage intake Ex-drinker (finding) [facility] Work Phone: Medical Equipment Procedure Code Equipment Code Equipment Origin al Text Equipment Identifier Dates [place] Suture [employer]ivel[employer] 4.75 X 19.1 Biocomposite Min 5ea [id number] Start: 01-27-2018 Goals Date Patient Goal Desired Activity /State Functional Status Date Assessment Result Facility 08-02-2024 Functional Status N/A [facility] 06-24-2024 Functional Status N/A [facility] Clinical Notes 04-22-2022 to 09-16-2024 Froylan Castanon MD - 09/16/2024 1:40 PM ESTPatient Instructions Note Date & Type Note Facility 09-16-2024 History of Present illness Narrative Subjective aSrina Justice is a 74 y.o. male Chief Complaint Annual Exam HPI 74-year-old male who has previously followed with Dr. Pizano. Recently had a cardiac catheterization August 2024 for abnormal nuclear stress test which revealed widely patent stent in the left circumflex with no significant disease otherwise noted. He is known to have preserved ejection fraction by nuclear study August 2024 at 59%. Patient has history of hypertension hyperlipidemia which have been under control. He is nondiabetic and non-smoker. His body mass index places him in the mild overweight range. He maintains active lifestyle. He came with his today who is a new patient of mine that I acquired this past summer. They live in [facility]. Review of system is normal physical examination is unremarkable. Medical therapy was reviewed and the cardiac cath findings were reviewed with him and his as well. Assessment/recommendations: 1-CAD status post PCI of the left circumflex. Cardiac catheterization August 2024 revealed widely patent stent no disease otherwise as noted. Ejection fraction normal. Will continue antiplatelet therapy and aggressive lipid management. 2-essential hypertension, currently under control on amlodipine and lisinopril. Renal function is normal. 3-dyslipidemia on 20 mg daily of atorvastatin, LDL cholesterol around 40 mg/dL which is excellent. 4-slight overweight, encouraged the patient for more activities and cutting back on calories to bring his BMI down. Patient was advised to follow-up with me in the office in 9 months Review of Systems All other systems reviewed and are negative. Vitals: 09/16/24 1338 09/16/24 1401 BP: 142/76 134/76 BP Location: Right arm Patient Position: Sitting Pulse: 88 Weight: 91.6 kg (202 lb) Height: 1.803 m (5' 11 ) Objective Physical Exam Constitutional: Appearance: Normal appearance. HENT: Nose: Nose normal. Neck: Vascular: No carotid bruit. Cardiovascular: Rate and Rhythm: Normal rate. Pulses: Normal pulses. Heart sounds: Normal heart sounds. Pulmonary: Effort: Pulmonary effort is normal. Abdominal: General: Bowel sounds are normal. Palpations: Abdomen is soft. Musculoskeletal: General: Normal range of motion. Cervical back: Normal range of motion. Right lower leg: No edema. Left lower leg: No edema. Skin: General: Skin is warm and dry. Neurological: General: No focal deficit present. Mental Status: He is alert. Psychiatric: Mood and Affect: Mood normal. Behavior: Behavior normal. Thought Content: Thought content normal. Judgment: Judgment normal. Allergies Patient has no known allergies. Current Medications Current Outpatient Medications: albuterol 90 mcg/actuation inhaler, Inhale 2 puffs 2 times a day., Disp: , Rfl: allopurinol (Zyloprim) 300 mg tablet, Take 1 tablet (300 mg) by mouth once daily., Disp: , Rfl: amLODIPine (Norvasc) 5 mg tablet, Take 1 tablet (5 mg) by mouth once daily., Disp: 90 tablet, Rfl: 3 ascorbic acid (Vitamin C) 1,000 mg tablet, Take 1 tablet (1,000 mg) by mouth once daily., Disp: , Rfl: aspirin 81 mg EC tablet, Take 1 tablet (81 mg) by mouth once daily., Disp: , Rfl: atorvastatin (Lipitor) 20 mg tablet, Take 1 tablet (20 mg) by mouth once daily at bedtime., Disp: 90 tablet, Rfl: 3 cholecalciferol (Vitamin D-3) 50,000 unit capsule, Take 1 capsule (50,000 Units) by mouth 2 times a week., Disp: , Rfl: cyanocobalamin (Vitamin B-12) 100 mcg tablet, Take 1 tablet (100 mcg) by mouth 3 (three) times a week., Disp: , Rfl: diclofenac (Voltaren) 75 mg EC tablet, Take 1 tablet (75 mg) by mouth 2 times a day., Disp: , Rfl: DULoxetine (Cymbalta) [address] capsule, Take 1 capsule (60 mg) by mouth 2 times a day., Disp: , Rfl: fluticasone (Flonase) 50 mcg/actuation nasal spray, Administer 1 spray into affected nostril(s) once daily., Disp: , Rfl: fluticasone furoate-vilanteroL (Breo Ellipta) 200-25 mcg/dose inhaler, Inhale 1 puff once daily., Disp: , Rfl: levocetirizine (Xyzal) 5 mg tablet, Take 1 tablet (5 mg) by mouth once daily., Disp: , Rfl: lisinopril 10 mg tablet, Take 1 tablet (10 mg) by mouth once daily., Disp: 90 tablet, Rfl: 3 montelukast (Singulair) 10 mg tablet, Take 1 tablet (10 mg) by mouth once daily at bedtime., Disp: , Rfl: multivitamin tablet, Take 1 tablet by mouth once daily., Disp: , Rfl: omeprazole (PriLOSEC) [address] capsule, Take 2 capsules (40 mg) by mouth once daily., Disp: , Rfl: pregabalin (Lyrica) 100 mg capsule, Take 1 capsule (100 mg) by mouth 3 times a day., Disp: , Rfl: pyridoxine (Vitamin B-6) 100 mg tablet, Take 1 tablet (100 mg) by mouth once daily., Disp: , Rfl: Assessment/Plan 1. ASCVD (arteriosclerotic cardiovascular disease) Follow Up In Cardiology 2. Essential hypertension 3. History of PTCA 4. Mixed hyperlipidemia 5. BMI 28.0-28.9,adult 6. Never smoked tobacco Scribe Attestation By signing my name below, Kimberly Alfaro LPN , Scribe attest that this documentation has been prepared under the direction and in the presence of Froylan Castanon MD. Provider Attestation - Scribe documentation All medical record entries made by the Scribe were at my direction and personally dictated by me. I have reviewed the chart and agree that the record accurately reflects my personal performance of the history, physical exam, discussion and plan. documented in this encounter [facility] Work Phone: 09-16-2024 Instructions Kimberly Oconnell LPN - 09/16/2024 1:40 PM EST Please bring all medicines, vitamins, and herbal supplements with you when you come to the office. Prescriptions will not be filled unless you are compliant with your follow up appointments or have a follow up appointment scheduled as per instruction of your physician. Refills should be requested at the time of your visit. BMI was above normal measurement. Current weight: 91.6 kg (202 lb) Weight change since last visit (-) denotes wt loss 14 lbs Weight loss needed to achieve BMI 25: 23.1 Lbs Weight loss needed to achieve BMI 30: -12.6 Lbs Provided instructions on dietary changes Provided instructions on exercise. 5 month visit Same medications documented in this encounter [facility] Work Phone: 08-25-2024 Discharge summary Note Date/Time August 25, 2024 1:28pm [place] [address] Discharge Summary Signed Patient: Sarina Justice MR#: [id number] : 1950 Acct:[id number] Age/Sex: 74 / M Adm Date: 4 Loc: Room: Attending Dr: Froylan Castanon MD Copies to: Froylan Castanon MD, [facility] Julia Patterson III, DO~ Providers Date of Discharge: 08/25/24 Discharging Provider: Froylan Castanon Primary Care Provider: Julia Patterson III Discharge Diagnosis Final Diagnosis Final Discharge Diagnosis: Coronary artery disease with patent stent in the left circumflex Dyslipidemia Essential hypertension Summary Hospital Course Hospital course: Outpatient procedure Time Spent with Patient Time spent providing/coordinating discharge services (# min): 20 Surgeries and Procedures Operation Date: 08/25/24 12:45 Actual Procedures p CL Coronary Angio - Froylan Castanon MD Discharge Plan Discharge Plan Patient Disposition: Home Activity: Ambulate as Tolerated Diet: Low-Fat, Low-Sodium and Low-Cholesterol Additional Instructions: DISCHARGE INSTRUCTIONS FOR CARDIAC ANALYTICAL CHEMISTRY TEACHER PROCEDURE: Heart Cath The following instructions have been prepared to help you care for yourself, or be cared for upon your return home. 1. You were given conscious sedation. Do not operate a vehicle, power tools, make important decisions, or drink alcohol for 24 hours. You might be drowsy orlight headed. Return to the Emergency Room if you have trouble breathing, walking or nausea and vomiting. 2. FOR BLEEDING: Apply continuous pressure to the site and call 911. 3. Operative Site Care: Keep the dressing clean and dry. You may change the dressing only if soiled or wet. You may remove the dressing the following morning. You may wash over the puncture site in the shower. If the puncture site is at the wrist no soaking for 3 days. Some bruising or slight swelling may be present. -Signs of infection are redness, warmth, swelling, getting more sore, colored drainage, fever or chills. -Should the arm or leg become cold, numb, blue or white, call the electrical prospecting observer immediately. 4. ACTIVITY: You are advised to go directly home from the hospital. Restrict your activities for the rest of the day. Resume light or normal activities tomorrow. Do not engage in any activity that will stress the puncture site. Avoid heavy lifting (over 15 lbs.), straining or bending at the catheter site for 48 hours after discharge. If the puncture site is at the wrist do not manipulate wrist for 24 hours and no lifting more than 3 lbs for 3 days. 5. DIET:You may eat your regular diet when you desire. 6. MEDICATIONS: Resume your daily prescription schedule. Prescriptions may be sent with you if needed. Use as directed. When taking pain medications, you may experience dizziness or drowsiness. Do not drink alcohol or drive when taking pain medications. 7. If you should experience episodes of angina e.g. chest discomfort, heaviness, tightness, pressure, burning, with or without radiation to the neck, jaws, arms, or back- Use 1 Nitrostat under your tongue every 5-10 minutes, and up to 3 tablets. If no relief- Call 911 and go to the nearest Emergency Room. -Notify the office for recurrent angina, chest pain or other concerns. You may NOT drive yourself home! Follow the medication instructions provided on your discharge. If the dosages and instructions on this sheet differ from the dosage and instructions on the bottle, follow the instructions on the bottle. [facility] is not responsible for incorrect prescription information provided by thepatient during their visit. Do not stop your medications without consulting your health care provider. Please take the list with you to your next doctor's appointment. Instructions: Know your Meds Prescriptions: Continued fluticasone furoate-vilanterol [Breo Ellipta] 200-25 mcg/dose blister with device 1 inh inhalation DAILY 90 Days Qty: 3 3RF fluticasone propionate 50 mcg/actuation spray,suspension 2 spray intranasal DAILY 90 Days Qty: 3 3RF albuterol sulfate 90 mcg/actuation HFA aerosol inhaler 2 inh inhalation QID PRN (Reason: shortness of breath or wheezing) 90 Days Qty: 3 3RF montelukast 10 mg tablet 10 mg PO DAILY 90 Days Qty: 90 3RF allopurinol 300 mg tablet 300 mg PO DAILY amlodipine 5 mg tablet 5 mg PO DAILY aspirin 81 mg tablet,delayed release (DR/EC) 81 mg PO DAILY atorvastatin 20 mg tablet 20 mg PO DAILY lisinopril 10 mg tablet 10 mg PO DAILY omeprazole 40 mg capsule,delayed release(DR/EC) 40 mg PO DAILY diclofenac sodium 75 mg tablet,delayed release (DR/EC) 75 mg PO BID duloxetine 60 mg capsule,delayed release(DR/EC) 60 mg PO BID pregabalin 100 mg capsule 100 mg PO TID levocetirizine [Xyzal] 5 mg tablet 5 mg PO DAILY cholecalciferol (vitamin D3) 125 mcg (5,000 unit) capsule 125 mcg PO DAILY Rx Instructions: takes . and Thurs. ascorbic acid (vitamin C) 1,000 mg tablet 1 tab PO DAILY Rx Instructions: FreeTextSi tablet Orally Once a day; Note: Source Status: Taking; Provider: Sonya Sierra ( ) cyanocobalamin (vitamin B-12) [Vitamin B-12] 2,500 mcg tablet, sublingual 2,500 mcg sublingual .M-W- pyridoxine (vitamin B6) 100 mg tablet 100 mg PO DAILY Exam Physical Exam Vital Signs: Temp Pulse Resp BP Pulse Ox O2 Del Method 98.8 F 94 18 149/85 H 94 L Room Air 08/25/24 11:04 08/25/24 11:04 08/25/24 11:04 08/25/24 11:04 08/25/24 11:04 08/25/24 11:30 Diagnostic Studies Completed and Pending Studies Pending studies at discharge: 08/25/24 11:02 ECG 12 lead ECG Stat Labs on day of discharge: 08/25/24 11:00: Corrected WBC 5.9, Uncorrected WBC Count 5.9, RBC 4.55, Hgb 13.8, Hct 41.1, MCV 90.3, MCH 30.4, MCHC 33.7, RDW 13.9, Plt Count 250, MPV 7.4,Neut % (Auto) 66.3, Lymph % (Auto) 22.1, [place] % (Auto) 10.2, Eos % (Auto) 1.0, Baso % (Auto) 0.4, Nucleat RBC Rel Count 0.1, Neut # (Auto) 3.9, Lymph # (Auto) 1.3, [place] # (Auto) 0.6, Eos # (Auto) 0.1, Baso # (Auto) 0.0, PT 12.0, INR 1.1, APTT 35.0, PHA Creatinine Clear 80.08, Sodium 139, Potassium 4.2, Chloride 110 H, Carbon Dioxide 22.6, Anion Gap 10.6, BUN 32 H, Creatinine 0.91, Est GFR (CKD-EPI) > 60.0, Triglycerides 53, Cholesterol 115 L, LDL Cholesterol, Calc 57, VLDLCholesterol 10, HDL Cholesterol 47, Cholesterol/HDL Ratio 2.4 Documented By: Froylan Castanon MD, FACC 4 [id number] Signed By: <Electronically signed by MD RADHAMES Castanon> 08/25/24 1328 [facility] Work Phone: [phone] [facility]-24-2024 Hospital Discharge instructions Patient Education 08/02/2024 13:47:43 EU - Cystoscopy Discharge Instructions (CUSTOM) Cystoscopy Voiding after the procedure: there may be some pain, burning, urgency, frequency and blood tinged urine following the procedure. These symptoms usually resolve within 2-5 days. Drink the amount of fluid it takes to keep the urine pink to yellow or clear in color. Drinking enough water and fluids will help to ease any discomfort after your procedure. If you are having problems that seem out of the ordinary, please call. If unable to contact your physician and you feel it is an emergency, go to the nearest emergency room or call 911 Diet you may resume your normal diet. Activity you may resume your normal activities Call if you have a fever over 100 degrees. Follow Up Care 07/15/2024 15:52:56 With:Cam KEE Address: [address] [place] [address] Business (1) When: Unknown Comments:Office will call to schedule follow up [facility] 09-24-2024 NoteProgress Note-Physician Patient: SARINA JUSTICE Age: 74 years Sex: Male : 1950 Associated Diagnoses: None Author: CHILANGO QUILES, Cam Kumari X this gentleman has been having intermittent blood and clots within the urine for the last 2 months. Cystoscopy today revealed bladder nodules near the bladder neck which seem to be originating fromthe prostate. Also regrowth within the prostate lateral lobes has areas that are oozing. Review of Systems ROS reviewed as documented in chart Health Status Allergies: Allergic Reactions (Selected) No Known Allergies Current medications: Home Medications (21) Active allopurinol 300 mg, Daily amLODIPine 5 mg Tab Delicia Aspirin 81 mg, Oral, MonWedFri Breo Ellipta 200 mcg-25 mcg/inh inhalation powder Cipro 500 mg Tab 500 mg = 1 tab(s), Oral, Daily diclofenac sodium 75 mg Oral EC Tab Flonase 1 spray(s), Nasal, Daily Lipitor 20 mg Tab 20 mg = 1 tab(s), Oral, Once a day (at bedtime) lisinopril 10 mg Tab 10 mg = 1 tab(s), Oral, Daily montelukast 10 mg Tab Multi Vitamin+ 1 tab, Oral, Daily [place] 325 mg-5 mg oral tablet See Instructions, PRN [place] 325 mg-5 mg oral tablet See Instructions, PRN omeprazole 20 mg Rico- ProAir HFA 90 mcg/inh inhalation aerosol 2 puff(s), PRN, Inhalation, q4hr sildenafil 100 mg Tab 100 mg = 1 tab(s), Oral, As Directed Vitamin B12 2,500 microgram, SubLingual, MonWedFri Vitamin B6 100 mg, Oral, Daily Vitamin C 1,000 mg, Daily Vitamin D3 5,000 International_Unit, Oral, TueThu Xyzal 5 mg, Oral, qPM Problem list: All Problems Obesity / SNOMED CT [id number] / Possible HTN - Hypertension / SNOMED CT 0185583482 / Confirmed History of hypercholesterolemia / SNOMED CT 2496349138 / Confirmed CAD - Coronary artery disease / SNOMED CT 5728374082 / Confirmed H/O: arthritis / SNOMED CT 786463684 / Confirmed Acid reflux / SNOMED CT 114862327 / Confirmed Asthma / SNOMED CT 338255183 / Confirmed Pre diabetes / Confirmed controlle by diet Trigger finger / SNOMED CT 2130703055 / Confirmed left ring finger Enlarged prostate / SNOMED CT 921951282 / Confirmed Osteoarthritis / SNOMED CT 1747612717 / Confirmed Sacroiliitis / SNOMED CT 3524680379 / Confirmed Spondylosis of lumbar region without myelopathy or radiculopathy / SNOMED CT 97399170 / Confirmed Lumbar radiculitis / SNOMED CT 162395861 / Confirmed DDD (degenerative disc disease), lumbar / SNOMED CT 21005854 / Confirmed Lumbar stenosis / SNOMED CT 77856080 / Confirmed Chronic pain / SNOMED CT 066774513 / Confirmed Personal history of prostate cancer / SNOMED CT 1622497047 / Confirmed BMI 31.0-31.9,adult / SNOMED CT 516985901 / Confirmed Frequency of urination / SNOMED CT 669507844 / Confirmed Nocturia / SNOMED CT 426117896 / Confirmed BPH with urinary obstruction / SNOMED CT 3965878927 / Confirmed ED (erectile dysfunction) / SNOMED CT 6640894776 / Confirmed Erectile dysfunction following radiation therapy / SNOMED CT 8874938887 / Confirmed Gross hematuria / SNOMED CT 955626719 / Confirmed Histories Past Medical History: Active Pre diabetes: Onset on 01/08/2011 at 60 years. Comments: 10/10/2011 EST 7:53 EST - [employer], Libra controlle by diet HTN - Hypertension (5759634714) History of hypercholesterolemia (5936654095) CAD - Coronary artery disease (7927717695) H/O: arthritis (981614945) Acid reflux (151774249) Asthma (782390941) Trigger finger (0245772159) Comments: 04/04/2014 EDT 9:07 EDT - Rona BURCH, BSN, [place] left ring finger Resolved CA - Cancer of prostate (1759999047): Resolved. History of kidney stone (7711239434): Resolved. Family History: Dementia Mother Asthma Brother Hypertension Father Congenital heart disease Father Diabetes mellitus type 2 Mother Osteoporosis Mother Heart failure Mother Migraine Mother Stroke Mother Hyperthyroidism Mother Acute myocardial infarction Father Hyperlipidemia Father Alzheimer's disease Mother Cardiac arrest Father Procedure history: Release of trigger finger (452259606) on 03/21/2020 at 69 Years. Comments: 03/21/2020 15:21 EDT - Mary Ann Moran RN left middle Repair of rotator cuff of shoulder (6932948639) on 01/27/2018 at 67 Years. Comments: 02/02/2018 11:38 EDT Rosita Ceja RN right shoulder transforaminal epidural steroid injection on 01/11/2018 at 67 Years. Comments: 02/02/2018 11:33 Rosita Magaña RN left L3+L4 80% relief for 2 weeks Left Transforaminal Epidural Steroid Injection on 12/21/2017 at 67 Years. Comments: 01/05/2018 9:39 EST - Pascale Samaniego RN left approx 40-50 % relief Left L3 L4 Transforminal epidural steroid injection on 09/28/2017 at 67 Years. Comments: 10/06/2017 9:51 CHICO Norwood RN, Kiki 90% relief and still working TFESI on 06/17/2017 at 67 Years. Comments: 07/01/2017 8:11 EDT - [employer]., (more content not included)...[facility]:Result Comment: Electronically Signed By: Cam KEE MD\.br\Date and Time Signed: 08/02/24 14:00 [id number] Evaluation + Plan noteExtracted from: Title:Urology Progress Note Author:CHILANGO QUILES, Gabino Newby Date:08/02/24 Impression and Plan Impression: #1. This gentleman's gross hematuria seems to be from the prostate itself and possibly the portion of the prostate which is protruding into the bladder. Plan: #1. He is getting scheduled for cystoscopy, fulguration of prostate, transurethral resection of bladder lesions and prostate regrowth under anesthesia. Future Appointments Appointment Date:08/22/2024 10:30:00 AM Scheduled Provider: Location:[facility] Appointment Type:URO Nurse Visit Appointment Date:09/09/2024 10:45:00 AM Scheduled Provider:Cam KEE MD Location:[facility] Appointment Type:URO Office Visit [facility] [id number] NotePatient Education Custom Cystoscopy ? Voiding after the procedure: there may be some pain, burning, urgency, frequency and blood tingedurine following the procedure. These symptoms usually resolve within 2-5 days. Drink the amount of fluid it takes to keep the urine pink to yellow or clear in color. Drinking enough water and fluids will help to ease any discomfort after your procedure. ? If you are having problems that seem out of the ordinary, please call. ? If unable to contact your physician and you feel it is an emergency, go to the nearest emergency room or call 911 ? Diet ? you may resume your normal diet. ? Activity ? you may resume your normal activities ? Call if you have a fever over 100 degrees.[facility] 06-24-2024 Hospital Discharge instructions Patient Education 06/24/2024 13:57:43 Hematuria, Adult Hematuria, Adult Hematuria is blood in the urine. Blood may be visible in the urine, or it may be identified with a test. This condition can be caused by infections of the bladder, urethra, kidney, or prostate. Otherpossible causes include: Kidney stones. Cancer of the urinary tract. Too much calcium in the urine. Conditions that are passed from parent to child (inherited conditions). Exercise that requires a lot of energy. Infections can usually be treated with medicine, and a kidney stone usually will pass through your urine. If neither of these is the cause of your hematuria, more tests may be needed to identify the cause of your symptoms. It is very important to tell your health care provider about any blood in your urine, even if it ispainless or the blood stops without treatment. Blood in the urine, when it happens and then stops and then happens again, can be a symptom of a very serious condition, including cancer. There is no pain in the initial stages of many urinary cancers. Follow these instructions at home: Medicines Take umdl-uyv-uywnlsc and prescription medicines only as told by your health care provider. If you were prescribed an antibiotic medicine, take it as told by your health care provider. Do notstop taking the antibiotic even if you start to feel better. Eating and drinking Drink enough fluid to keep your urine pale yellow. It is recommended that you drink 3 4 quarts (2.83.8 L) a day. If you have been diagnosed with an infection, drinking cranberry juice in addition tolarge amounts of water is recommended. Avoid caffeine, tea, and carbonated beverages. These tend to irritate the bladder. Avoid alcohol because it may irritate the prostate (in males). General instructions If you have been diagnosed with a kidney stone, follow your health care provider's instructions about straining your urine to catch the stone. Empty your bladder often. Avoid holding urine for long periods of time. If you are female: ?After a bowel movement, wipe from front to back and use each piece of toilet paper only once. ?Empty your bladder before and after sex. Pay attention to any changes in your symptoms. Tell your health care provider about any changes or any new symptoms. It is up to you to get the results of any tests. Ask your health care provider, or the department that is doing the test, when your results will be ready. Keep all follow-up visits. This is important. Contact a health care provider if: You develop back pain. You have a fever or chills. You have nausea or vomiting. Your symptoms do not improve after 3 days. Your symptoms get worse. Get help right away if: You develop severe vomiting and are unable to take medicine without vomiting. You develop severe pain in your back or abdomen even though you are taking medicine. You pass a large amount of blood in your urine. You pass blood clots in your urine. You feel very weak or like you might faint. You faint. Summary Hematuria is blood in the urine. It has many possible causes. It is very important that you tell your health care provider about any blood in your urine, even ifit is painless or the blood stops without treatment. Take wpub-xre-lqxntff and prescription medicines only as told by your health care provider. Drink enough fluid to keep your urine pale yellow. This information is not intended to replace advice given to you by your health care provider. Make sure you discuss any questions you have with your health care provider. Document Revised: 06/26/2021 Document Reviewed: 06/26/2021 [employer] Patient Education 2022 [employer]. 06/24/2024 13:57:39 Benign Prostatic Hyperplasia Benign Prostatic Hyperplasia Benign prostatic hyperplasia (BPH) is an enlarged prostate gland that is caused by the normal agingprocess. The prostate may get bigger as a man gets older. The condition is not caused by cancer. The prostate is a walnut-sized gland that is involved in the production of semen. It is located in front of the rectum and below the bladder. The bladder stores urine. The urethra carries stored urine ou t of the body. An enlarged prostate can press on the urethra. This can make it harder to pass urine. The buildup of urine in the bladder can cause infection. Back pressure and infection may progress to bladder damage and kidney (renal) failure. What are the causes? This condition is part of the normal aging process. However, not all men develop problems from thiscondition. If the prostate enlarges away from the urethra, urine flow will not be blocked. If it enlarges toward the urethra and compresses it, there will be problems passing urine. What increases the risk? This condition is more likely to develop in men older than 50 years. What are the signs or symptoms? Symptoms of this condition include: Getting up often during the night to urinate. Needing to urinate frequently during the day. Difficulty starting urine flow. Decrease in size and strength of your urine stream. Leaking (dribbling) after urinating. Inability to pass urine. This needs immediate treatment. Inability to completely empty your bladder. Pain when you pass urine. This is more common if there is also an infection. Urinary tract infection (UTI). How is this diagnosed? This condition is diagnosed based on your medical history, a physical exam, and your symptoms. Tests will also be done, such as: A post-void bladder scan. This measures any amount of urine that may remain in your bladder after you finish urinating. A digital rectal exam. In a rectal exam, your health care provider checks your prostate by putting a lubricated, gloved finger into your rectum to feel the back of your prostate gland. This exam detects the size of your gland and any abnormal lumps or growths. An exam of your urine (urinalysis). A prostate specific antigen (PSA) screening. This is a blood test used to screen for prostate cancer. An ultrasound. This test uses sound waves to electronically produce a picture of your prostate gland. Your health care provider may refer you to a specialist in kidney and prostate diseases (urologist). How is this treated? Once symptoms begin, your health care provider will monitor your condition (active surveillance or watchful waiting). Treatment for this condition will depend on the severity of your condition. Treatment may include: Observation and yearly exams. This may be the only treatment needed if your condition and symptoms are mild. Medicines to relieve your symptoms, including: ?Medicines to shrink the prostate. ?Medicines to relax the muscle of the prostate. Surgery in severe cases. Surgery may include: ?Prostatectomy. In this procedure, the prostate tissue is removed completely through an open incision or with a laparoscope or robotics. ?Transurethral resection of the prostate (TURP). In this procedure, a tool is inserted through the opening at the tip of the penis (urethra). It is used to cut away tissue of the inner core of the prostate. The pieces are removed through the same opening of the penis. This removes the blockage. ?Transurethral incision (TUIP). In this procedure, small cuts are made in the prostate. This lessens the prostate's pressure on the urethra. ?Transurethral microwave thermotherapy (TUMT). This procedure uses microwaves to create heat. The heat destroys and removes a small amount of prostate tissue. ?Transurethral needle ablation (TUNA). This procedure uses radio frequencies to destroy and remove a small amount of prostate tissue. ?Interstitial laser coagulation (ILC). This procedure uses a laser to destroy and remove a small amount of prostate tissue. ?Transurethral electrovaporization (TUVP). This procedure uses electrodes to destroy and remove a small amount of prostate tissue. ?Prostatic urethral lift. This procedure inserts an implant to push the lobes of the prostate away from the urethra. Follow these instructions at home: Take jmks-ilo-vgubxuj and prescription medicines only as told by your health care provider. Monitor your symptoms for any changes. Contact your health care provider with any changes. Avoid drinking large amounts of liquid before going to bed or out in public. Avoid or reduce how much caffeine or alcohol you drink. Give yourself time when you urinate. Keep all follow-up visits. This is important. Contact a health care provider if: You have unexplained back pain. Your symptoms do not get better with treatment. You develop side effects from the medicine you are taking. Your urine becomes very dark or has a bad smell. Your lower abdomen becomes distended and you have trouble passing urine. Get help right away if: You have a fever or chills. You suddenly cannot urinate. You feel light-headed or very dizzy, or you faint. There are large amounts of blood or clots in your urine. Your urinary problems become hard to manage. You develop moderate to severe low back or flank pain. The flank is the side of your body between the ribs and the hip. These symptoms may be an emergency. Get help right away. Call 911. Do not wait to see if the symptoms will go away. Do not drive yourself to the hospital. Summary Benign prostatic hyperplasia (BPH) is an enlarged prostate that is caused by the normal aging process. It is not caused by cancer. An enlarged prostate can press on the urethra. This can make it hard to pass urine. This condition is more likely to develop in men older than 50 years. Get help right away if you suddenly cannot urinate. This information is not intended to replace advice given to you by your health care provider. Make sure you discuss any questions you have with your health care provider. Document Revised: 05/14/2022 Document Reviewed: 05/14/2022 Elsevier Patient Education 2022 [employer]. Follow Up Care 06/20/2024 16:12:54 With:CHILANGO QUILES, Cam Newby, URL Address: [address] [place], [place] [id number]- When: Unknown Comments:Cystoscopy [facility] 08-16-2024 Evaluation + Plan note Future Scheduled Tests Radiology* CT Urogram 06/24/24 [facility] 08-16-2024 Evaluation + Plan note Diagnostic Tests Pending * UroVysion Fish and Urine Cyto ([facility]) 06/24/24 Future Scheduled Tests Radiology* CT Urogram 06/24/24 [facility] 08-16-2024 NoteUrology Office/Clinic Note Chief Complaint referral HPI Staff Pt. Pt was last seen on 07/29/23.pt here with referral, for gross hematuria. Previous DX: BPH w/urinary obstruction, enlarged prostate, nocturia, HX of prostate cancer. S/P Brachytherapy 10/10/11. PSA 0.3 done 08/13/21.Viagra or Cialis? pt states he has been urinating blood, he did get US and was told possible kidney stone. pt describes passing blood clots, he was told to come see urology for further tests Dysuria: _no, just clots Incomplete bladder emptying: _ Hematuria: _yes, pt states he feels he was urinating pure blood. Frequency: _no Urgency: _no Nocturia: _1x Stream: _normal Leaking: _no Post void dripping: _no Wearing pads/ Depends: _no Urge incontinence: _no Stress incontinence: _no Incontinence without Sensory Awareness: _no Abdominal pain: no Flank pain: _no Sexual complaints: _no History of Present Illness I have reviewed and verified the staff HPI to be accurate for this encounter. Portions of this record may have been created with voice recognition artificial intelligence software, specifically [email or web address], [employer] and or [employer] [place]. Substitutions may have occurred due to the inherent limitations of voice recognition and artificial intelligence software. Review of Systems PHQ Score Initial Depression Screen Score: 0 SCORE Physical Exam Vitals & Measurements BP: 126/80 HT: 66 in HT: 167 cm WT: 88 kg WT: 193.6 lb BMI: 31.55 General: Well developed, well nourished, in no acute distress. Genitourinary: Flank Pain: none. Bladder: nonpalpable. Assessment/Plan PRW pt 1. Gross hematuria (R31.0: Gross hematuria) States he started with gross hematuria in mid May, passing small clots. Painless. No significant change in his urinary symptoms at that time. Denies any symptoms of prostatitis. Last time he saw hematuria was last weekend, which was just a few small clots. KUB 05/23/2024 with possible left-sided punctate calculi. No passing of stone that he is aware of. Discussed potential etiologies and implications of hematuria with patient. These include: Prostaticdisease (prostatitis, BPH, cancer), trauma (recent catheterization, etc), Tumor (renal, urothelial,prostatic, urethral, etc), infection/inflammation (UTI, cystitis, recent catheterization, interstitial cystitis, radiation), stones, period/menses (pseudohematuria), obstructive uropathy (urolithiasis, stricture, etc), nephritis (glomeurlonephritis, Alport's syndrome, Mathur's IgA nephropathy, interstitial nephritis, etc), Tuberculosis, thrombosis (renal vein thrombosis, renal infarct, pseudoaneurysm, etc) and hematologic (bleeding disorders, anticoagulation, sickle cells disease, etc) We discussed further workup including additional urine studies, imaging of upper tract, cystoscopy. Patient is willing to move forward The risks and benefits for cystoscopy have been discussed. The risks include bleeding, infection, and irritation of the bladder and urinary channel, among others. The patient, after being informed ofprocedural details and after questions have been answered, wishes to proceed. Will order Local anesthesia. Increase fluid intake, avoid bladder irritants ER for fever, NV, severe flank pain, inability to urinate, urine that is [place] to black in color Patient verbalized understanding -Urine for FISH/cytology today -CTU at [facility] -Schedule cystoscopy with PRW Ordered: Body Mass Index (BMI) documented 3008F CT Urogram Current tobacco non-user 1036F Depression Screening Negative 3352F Influenza immunization status assessed 1030F Medication list documented in medical record 1159F Most recent diastolic blood pressure 80-89 mm Hg 3079F Patient screen for fall risk: no falls in last year or 1 fall with no injury in last year 1101F Review of all meds by a prescribing practitioner or clinical pharmacist documented in EHR 1160F Systolic BP <130 mm Hg (Most Recent) 3074F Urnls Dip Stick Auto w/o Microscopy POC 00728 2. Personal history of prostate cancer (Z85.46: Personal history of malignant neoplasm of prostate) TRUS/bx 08/13/11 - Saltese 6 (3+3) x 2 cores, about 10% involved in each core. HGPIN x 1 core. S/P brachytherapy 10/10/11. [1] Last PSA documented 08/13/21 - 0.3 [2] We did discuss possible prostate related changes causing hematuria secondary to seed implant 3. BPH with urinary obstruction (N40.1: Benign prostatic hyperplasia with lower urinary tract symptoms) IPSS 7 Not currently on any prostate medications 4. ED (erectile dysfunction) (N52.9: Male erectile dysfunction, unspecified) Previously prescribed sildenafil 100 mg as needed Not addressed at today's visit Other obstructive and reflux uropathy (N13.8: Other obstructive and reflux uropathy) Follow-up With When Contact Information CHILANGO QUILES, Cam Newby, URL [address] [place] [address]- Additional Instructions (more content not included)...[facility] HospitalComment on above:Result Comment: Electronically Signed By: JOSE DE JESUS Keyes APRN, Samantha Mathis\.br\Date and Time Signed: 06/24/24 13:58 [id number] Note Patient Education Urology Hematuria, Adult Hematuria is blood in the urine. Blood may be visible in the urine, or it may be identified with a test. This condition can be caused by infections of the bladder, urethra, kidney, or prostate. Otherpossible causes include: ? Kidney stones. ? Cancer of the urinary tract. ? Too much calcium in the urine. ? Conditions that are passed from parent to child (inherited conditions). ? Exercise that requires a lot of energy. Infections can usually be treated with medicine, and a kidney stone usually will pass through your urine. If neither of these is the cause of your hematuria, more tests may be needed to identify the cause of your symptoms. It is very important to tell your health care provider about any blood in your urine, even if it ispainless or the blood stops without treatment. Blood in the urine, when it happens and then stops and then happens again, can be a symptom of a very serious condition, including cancer. There is no pain in the initial stages of many urinary cancers. Follow these instructions at home: Medicines ? Take avuw-dfm-wvigndn and prescription medicines only as told by your health care provider. ? If you were prescribed an antibiotic medicine, take it as told by your health care provider. Do not stop taking the antibiotic even if you start to feel better. Eating and drinking ? Drink enough fluid to keep your urine pale yellow. It is recommended that you drink 3?4 quarts (2.8?3.8 L) a day. If you have been diagnosed with an infection, drinking cranberry juice in addition to large amounts of water is recommended. ? Avoid caffeine, tea, and carbonated beverages. These tend to irritate the bladder. ? Avoid alcohol because it may irritate the prostate (in males). General instructions ? If you have been diagnosed with a kidney stone, follow your health care provider's instructions about straining your urine to catch the stone. ? Empty your bladder often. Avoid holding urine for long periods of time. ? If you are female: ? After a bowel movement, wipe from front to back and use each piece of toilet paper only once. ? Empty your bladder before and after sex. ? Pay attention to any changes in your symptoms. Tell your health care provider about any changes or any new symptoms. ? It is up to you to get the results of any tests. Ask your health care provider, or the departmentthat is doing the test, when your results will be ready. ? Keep all follow-up visits. This is important. Contact a health care provider if: ? You develop back pain. ? You have a fever or chills. ? You have nausea or vomiting. ? Your symptoms do not improve after 3 days. ? Your symptoms get worse. Get help right away if: ? You develop severe vomiting and are unable to take medicine without vomiting. ? You develop severe pain in your back or abdomen even though you are taking medicine. ? You pass a large amount of blood in your urine. ? You pass blood clots in your urine. ? You feel very weak or like you might faint. ? You faint. Summary ? Hematuria is blood in the urine. It has many possible causes. ? It is very important that you tell your health care provider about any blood in your urine, even if it is painless or the blood stops without treatment. ? Take janx-ozu-tnptwhf and prescription medicines only as told by your health care provider. ? Drink enough fluid to keep your urine pale yellow. This information is not intended to replace advice given to you by your health care provider. Make sure you discuss any questions you have with your health care provider. Document Revised: 06/26/2021 Document Reviewed: 06/26/2021 [employer] Patient Education ? 2022 [employer]. Benign Prostatic Hyperplasia Benign prostatic hyperplasia (BPH) is an enlarged prostate gland that is caused by the normal agingprocess. The prostate may get bigger as a man gets older. The condition is not caused by cancer. The prostate is a walnut-sized gland that is involved in the production of semen. It is located in front of the rectum and below the bladder. The bladder stores urine. The urethra carries stored urine ou t of the body. An enlarged prostate can press on the urethra. This can make it harder to pass urine. The buildup of urine in the bladder can cause infection. Back pressure and infection may progress to bladder damage and kidney (renal) failure. What are the causes? This condition is part of the normal aging process. However, not all men develop problems from thiscondition. If the prostate enlarges away from the urethra, urine flow will not be blocked. If it enlarges toward the urethra and compresses it, there will be problems passing urine. What increases the risk? This condition is more likely to develop in men older than 50 years. What are the signs or symptoms? Symptoms of this condition include: ? Getting up (more content not included)...[facility]06-14-2022 Evaluation note* Encounter Date Diagnosis Assessment Notes Treatment Notes Treatment Clinical Notes Apr, Asthma, moderate persistent (ICD-10 - J45.40) Apr, Allergic rhinitis (ICD-10 - J30.9) Apr, Gastroesophageal ref lux disease (ICD-10 - K21.9) garbs Other Evaluation + Plan note No data available for this section [facility] Appointments Appointment Date:10/21/2024 09:00:00 AM Scheduled Provider: [place] [place] Appointment Type:URO Nurse Visit Appointment Date:10/31/2024 10:00:00 AM Scheduled Provider:Cam KEE MD Location:[facility] [place] Appointment Type:URO Office Visit [facility] Evaluation note* Diagnosis Pain Generalized pain documented in this encounter [facility] Work Phone: evaluation note* Diagnosis Onset Date Resolution Status Allergic rhinitis acute Asthma, moderate persistent acute Gastroesophageal reflux disease [facility] Work Phone: Evaluation note* Diagnosis Preop cardiovascular exam Pre-operative cardiovascular examination ASCVD (arteriosclerotic cardiovascular disease) Unspecified cardiovascular disease History of PTCA Postsurgical percutaneous transluminal coronary angioplasty status documented in this encounter [facility] Work Phone: Evaluation note* Diagnosis ASCVD (arteriosclerotic cardiovascular disease) Unspecified cardiovascular disease Essential hypertension Unspecified essential hypertension History of PTCA Postsurgical percutaneous transluminal coronary angioplasty status Mixed hyperlipidemia BMI 28.0-28.9,adult Never smoked tobacco documented in this encounter [facility] Work Phone: History general Narrative - Reported* Type Description Date Medical History allergic rhinitis Medical History asthma Surgical History Procedure:Hernia repair;Disease : 2006 Surgical History shoulder rt. Surgical History Procedure:prostate laser proced ure;Disease: 2006 Surgical History rt. knee arthroscopy Surgical History Procedure:colonoscopy;Disease: 2006 Surgical History Procedure:heart stent;Disease: 2004 Surgical History Procedure:Sinus surgery;Disease : 2008 Surgical History Procedure:hernia repair;Disease : 1994 Surgical History Procedure:hernia repair;Disease : 1983 Surgical History Procedure:cyst removed from bas e of spine;Disease: 1971 Surgical History LRF Trigger Release - MTP 4 Surgical History Rt CTR - MTP 09/11/08 Surgical History Lt CTR - MTP 09/25/08 Surgical History RMF/RRF Trigger Release - MTP Surgical History RT Shoulder Scope w/ RCR- MTP Surgical History Rt Knee Arthroscopy - MTP 8 Surgical History LMF trigger release [facility] [place] Hospital[place] History as above garbs Other History of Present illness NarrativePatient returns in follow-up of problems as noted. He is doing well. He denies any the symptomatology to proceed his original diagnosis of coronary disease and subsequent PTCA. Management of risk factors including hypertension and hyperlipidemia is reviewed and felt to be adequate. He is noted to have a slight increased body mass index and the merits of diet exercise and weight loss were discussed. He is anticipating possible left hip surgery and I advised him to keep us appraised of that circumstance. Advised him that its been 17 years since his coronary disease has been evaluated and if he is going for surgery we may wish to perform a stress test prior to surgery. 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 1. You were given conscious sedation. Do not operate a vehicle, power tools, make important decisions, or drink alcohol for 24 hours. You might be drowsy or light headed. Return to the Emergency Room if you have trouble breathing, walking or nausea and vomiting. 2. FOR BLEEDING: Apply continuous pressure to the site and call 911. 3. Operative Site Care: Keep the dressing clean and dry. You may change the dressing only if soiled or wet. You may remove the dressing the following morning. You may wash over the puncture site in the shower. If the puncture site is at the wrist no soaking for 3 days. Some bruising or slight swelling may be present. -Signs of infection are redness, warmth, swelling, getting more sore, colored drainage, fever or chills. -Should the arm or leg become cold, numb, blue or white, call the electrical prospecting observer immediately. 4. ACTIVITY: You are advised to go directly home from the hospital. Restrict your activities for the rest of the day. Resume light or normal activities tomorrow. Do not engage in any activity that will stress the puncture site. Avoid heavy lifting (over 15 lbs.), straining or bending at the catheter site for 48 hours after discharge. If the puncture site is at the wrist do not manipulate wrist for 24 hours and no lifting more than 3 lbs for 3 days. 5. DIET:You may eat your regular diet when you desire. 6. MEDICATIONS: Resume your daily prescription schedule. Prescriptions may be sent with you if needed. Use as directed. When taking pain medications, you may experience dizziness or drowsiness. Do not drink alcohol or drive when taking pain medications. 7. If you should experience episodes of angina e.g. chest discomfort, heaviness, tightness, pressure, burning, with or without radiation to the neck, jaws, arms, or back- Use 1 Nitrostat under your tongue every 5-10 minutes, and up to 3 tablets. If no relief- Call 911 and go to the nearest Emergency Room. -Notify the office for recurrent angina, chest pain or other concerns. You may NOT drive yourself home! Follow the medication instructions provided on your discharge. If the dosages and instructions on this sheet differ from the dosage and instructions on the bottle, follow the instructions on the bottle. [facility] is not responsible for incorrect prescription information provided by the patient during their visit. Do not stop your medications without consulting your health care provider. Please take the list with you to your next doctor's appointment.[facility] Work Phone: Progress note No data available for this section [facility] Summary Purpose Family History No Family History Records FoundUnknown Family Member Name Dates Details Family history of arterioscl erotic cardiovascular disease: Father(V17.49, Z82.49) Status:Active Unknown Family Member Name Dates Details Family history of arterioscl erotic cardiovascular disease: Father(V17.49, Z82.49) Status:Active Unknown Family Member Name Dates Details Family history of arterioscl erotic cardiovascular disease: Father(V17.49, Z82.49) Status:Active Unknown Family Member Name Dates Details Family history of arterioscl erotic cardiovascular disease: Father(V17.49, Z82.49) Status:Active Unknown Family Member Name Dates Details Family history of arterioscl erotic cardiovascular disease: Father(V17.49, Z82.49) Status:Active Unknown Family Member Name Dates Details Family history of arterioscl erotic cardiovascular disease: Father(V17.49, Z82.49) Status:Active Unknown Family Member Name Dates Details Family history of arterioscl erotic cardiovascular disease: Father(V17.49, Z82.49) Status:Active Unknown Family Member Name Dates Details Family history of arterioscl erotic cardiovascular disease: Father(V17.49, Z82.49) Status:Active Relationship Condition Age at Onset Recorded Date/T miranda father Heart disease Unknown Hypertension Unknown Unknown grandparent Malignant neoplasm Unknown Diabetes mellitus Unknown mother Diabetes mellitus Unknown History of stroke Unknown Advance Directives No Advanced Directives Records FoundDocuments on File Type Date Recorded Patient Personnel Supervisor Expl anation Advance Directives and Living Will Power of Associate Financial Advisor Latest Code Status on File Code Status Date Activated Date Inactivated Comments Full Code 06/16/2018 7:50 AM 06/16/2018 11:13 AM Full Code 06/16/2018 6:11 AM 06/16/2018 7:50 AM Full Code 01/27/2018 1:27 PM 01/27/2018 4:34 PM Full Code 01/27/2018 10:07 AM 01/27/2018 1:27 PM Full Code 02/06/2016 12:12 PM 02/06/2016 2:59 PM Documents on File Type Date Recorded Patient Personnel Supervisor Expl anation ACP-Advance Directive ACP-Power of Associate Financial Advisor Advance Directive Response Recorded Date/ Time Advance Directives No March 11, 2024 9:06am Assessments Diagnosis Trigger finger of left thumb Trigger finger, left middle finger Diagnosis Pre-op chest exam Pre-operative respiratory examination Chief Complaint * WITH SPOUSE. * SARINA JUSTICE is being seen for an annual follow-up of. Chief Complaint and Reason for Visit Chief Complaint ^ 1 year f/u Reason for Visit Allergic rhinitis Asthma, moderate persistent Gastroesophageal reflux disease Chief Complaint ^ 1 year f/u Abnormal Stress, ASCVD Reason for Visit Allergic rhinitis Asthma, moderate persistent Gastroesophageal reflux disease Reason for Referral Specialty Diagnoses / Procedures Referred By Contac t Referred To Contact Radiology Diagnoses Preop cardiovascular exam ASCVD (arteriosclerotic cardiovascular disease) History of PTCA Procedures Nuclear Stress Test CHG MYOCARDIAL SPECT MULTIPLE STUDIES Froylan Castanon MD [address] [facility] [address] [place] [address] Referral ID Status Reason Start Date Expiration Date V isits Requested Visits Authorized [id number] Authorized 08/03/2024 08/03/2025 5 5 Additional Source Comments (unrecognized sect ion and content) No Status Records FoundNo Status Records FoundNo Status Records FoundNo Status Records FoundNo Status Records FoundNo Status Records FoundNo Status Records FoundNo Status Records FoundNo Status Records FoundNo Status Records FoundNo Status Records FoundNo Status Records Found INFORMATION SOURCE (unrecogn ized section and content) DATE CREATED AUTHOR 01/22/2019 [facility] DATE CREATED AUTHOR AUTHOR'S ORGANIZ ATION 03/11/2019 [facility] DATE CREATED AUTHOR AUTHOR'S ORGANIZ ATION 07/12/2022 [facility] DATE CREATED AUTHOR AUTHOR'S ORGANIZ ATION 07/09/2023 [facility] DATE CREATED AUTHOR AUTHOR'S ORGANIZ ATION 07/09/2023 [facility] DATE CREATED AUTHOR AUTHOR'S ORGANIZ ATION 07/05/2024 [facility] DATE CREATED AUTHOR AUTHOR'S ORGANIZ ATION 08/05/2024 [facility] DATE CREATED AUTHOR AUTHOR'S ORGANIZ ATION 08/25/2024 [facility] DATE CREATED AUTHOR AUTHOR'S ORGANIZ ATION 09/08/2024 [facility] DATE CREATED AUTHOR AUTHOR'S ORGANIZ ATION 09/29/2024 [facility] DATE CREATED AUTHOR AUTHOR'S ORGANIZ ATION 10/04/2024 [facility] REASON FOR VISIT (unrecogniz ed section and content) Specialty Diagnoses / Procedures Referred By Contac t Referred To Contact Radiology Diagnoses Preop cardiovascular exam ASCVD (arteriosclerotic cardiovascular disease) History of PTCA Procedures Nuclear Stress Test CHG MYOCARDIAL SPECT MULTIPLE STUDIES Froylan Castanon MD [address] [facility] [address] [place] [address] Referral ID Status Reason Start Date Expiration Date V isits Requested Visits Authorized [id number] Authorized 08/03/2024 08/03/2025 5 5 Reason Comments Annual Exam Care Teams (unrecognized sec tion and content) Eap Clinician Relationship Specialty Start Date End Date Julia Patterson [address] [place] [phone] PCP - General 03/08/13 Eap Clinician Relationship Specialty Start Date End Date Julia Patterson [address] [place] [phone] PCP - General 03/08/13 Team Status: Active Member Role Status Dates Julia Patterson III , Primary Care Provider Active Team Status: Active Member Role Status Dates Efrem Esquivel DO Attending Provider Active S tart: March 07, 2005 Team Status: Inactive Member Role Status Dates Julia Patterson III , Primary Care Provider Active Start: June 28, 2024 End: June 28, 2024 Rigo Hassan MD Attending Provider Active Start: June 28, 2024 End: June 28, 2024 Eap Clinician Relationship Specialty Start Date End Date Julia Patterson DO [address] [place] [phone] PCP - General Family Medicine 08/04/24 Eap Clinician Relationship Specialty Start Date End Date Julia Patterson DO [address] [phone] PCP - General Family Medicine 08/04/24 Eap Clinician Relationship Specialty Start Date End Date Julia Patterson DO [address] [place] [phone] PCP - General Family Medicine 08/04/24 Eap Clinician Relationship Specialty Start Date End Date Julia Patterson DO [address] [place] [phone] PCP - General Family Medicine 08/04/24 Team Status: Inactive Member Role Status Dates Julia Patterson III, DO Primary Care Provider Active Start: August 25, 2024 End: August 25, 2024 Froylan Castanon MD Attending Provider Active St art: August 25, 2024 End: August 25, 2024 Eap Clinician Relationship Specialty Start Date End Date Julia Patterson DO [address] [facility] [place] [phone] PCP - General Family Medicine 08/04/24 Goals (unrecognized section and content) Goals may be documented in a n alternate section FOR RECORDS PERTAINING TO PATIENTS WHO ARE OR HAVE BEEN ENROLLED IN A CHEMICAL DEPENDENCY/SUBSTANCEABUSE PROGRAM, SOME INFORMATION MAY BE OMITTED. This clinical summary was aggregated from multiple sources. Caution should be exercised in using it in the provision of clinical care. This summary normalizes information from multiple sources, and as a consequence, information in this document may materially change the coding, format and clinical context of patient data. In addition, data may be omitted in some cases. CLINICAL DECISIONS SHOULD BE BASED ON THE PRIMARY CLINICAL RECORDS. [facility] [employer] provides no warranty or guarantee of the accuracy or completeness of information in this document.
[2024-10-07 14:26] LABS: Basophils Percent Auto 0.4 % (0.2-2.0); Eosinophils Absolute Auto 0.1 10^3/uL (0.0-0.7); Eosinophils Percent Auto 0.9 % (0.9-7.0); Hematocrit 40.5 % (42.0-54.0); Hemoglobin 13.6 g/dL (14.0-18.0); Immature Granulocytes Abs Auto 0.06 10^3/uL (0.00-0.03); Immature Granulocytes Pct Auto 0.7 % (0.0-0.5); Lymphocytes Absolute Auto 1.5 10^3/uL (1.2-3.8); Lymphocytes Percent Auto 17.9 % (20.5-60.0); Mean Corpuscular HGB Conc 33.6 g/dL (29.9-35.2); Mean Corpuscular Hemoglobin 30.2 pg (25.9-34.0); Mean Platelet Volume 10.1 fL (9.5-13.5); Monocytes Percent Auto 11.9 % (1.7-12.0); Neutrophils Absolute Auto 5.6 10^3/uL (1.4-6.5); Neutrophils Percent Auto 68.2 % (43.0-75.0); Platelet Count 263 10^3/uL (150-450); Red Cell Distribution Width 13.4 % (11.0-15.0); White Blood Count 8.2 10^3/uL (4.0-11.0)
== END 2024-10-07 13:11 | disposition home or self-care (01) ==
LOC: PST 13:12
PROVIDERS: Visit Provider Urology
DX: Z01.812 Encounter for preprocedural laboratory examination (principal); Z01.818 Encounter for other preprocedural examination; N32.89 Other specified disorders of bladder; N40.0 Benign prostatic hyperplasia without lower urinary tract symptoms
CPT/HCPCS: 80048; 85025; 85610; 85730; G0463

== ENCOUNTER 2024-10-18 12:07 | Day surgery (SDC) | payer MEDICARE, SELFPAY ==
[2024-10-07 13:45] VITALS: BP 164/76; PULSE 104; TEMP 36.4; O2SAT 97; BMI 28.1
--- NOTE | 2024-10-07 14:11 | P.GSHP_ITS ---
History of Present Illness History of Present Illness Chief complaint: GROSS HEMATURIA Narrative: Mr. Justice presents to preadmission testing for complaints of gross hematuria he has been evaluated by Dr. Grey and is scheduled on October 18, 2024 to undergo cystoscopy TURP and fulguration. Review of Systems ROS Narrative REVIEW OF SYSTEMS: Negative except as stated in HPI, ten or more systems reviewed. Constitutional: No fever, chills, weakness ENT: No sore throat or epistaxis Cardiovascular: No edema, chest pain, palpitations, or activity intolerance Respiratory: No shortness of breath, cough, or wheezing Musculoskeletal: Complaints of intermittent left sacroiliac joint pain but reports no associated weakness or swelling Gastrointestinal: No abdominal pain, constipation, diarrhea, or vomiting Genitourinary: No complaints of gross hematuria or dysuria at this time Neurological: No numbness, tingling, weakness, or headache Psychiatric: No mood changes [facility] Medical History (Updated 08/08/24 @ 13:27 by Roslyn Matt NP) Trigger finger ?M65.30 - Trigger finger, unspecified finger (ICD-10) Spondylosis of lumbar region without myelopathy or radiculopathy ?M47.816 - Spondylosis without myelopathy or radiculopathy, lumbar region (ICD-10) Sacroiliitis ?M46.1 - Sacroiliitis, not elsewhere classified (ICD-10) Osteoarthritis ?M19.90 - Unspecified osteoarthritis, unspecified site (ICD-10) Nocturia ?R35.1 - Nocturia (ICD-10) Lumbar stenosis ?M48.061 - Spinal stenosis, lumbar region without neurogenic claudication (ICD-10) Depression ?F32.A - Depression, unspecified (ICD-10) Gross hematuria ?R31.0 - Gross hematuria (ICD-10) Urinary frequency ?R35.0 - Frequency of micturition (ICD-10) Erectile dysfunction ?N52.9 - Male erectile dysfunction, unspecified (ICD-10) Degenerative disc disease Chronic back pain ?M54.9 - Dorsalgia, unspecified (ICD-10) ?G89.29 - Other chronic pain (ICD-10) Prostate cancer ?C61 - Malignant neoplasm of prostate (ICD-10) Arthritis ?M19.90 - Unspecified osteoarthritis, unspecified site (ICD-10) Anemia ?D64.9 - Anemia, unspecified (ICD-10) COVID-19 ?U07.1 - COVID-19 (ICD-10) Asthma ?J45.909 - Unspecified asthma, uncomplicated (ICD-10) BPH with obstruction/lower urinary tract symptoms ?N40.1 - Benign prostatic hyperplasia with lower urinary tract symptoms (ICD- 10) ?N13.8 - Other obstructive and reflux uropathy (ICD-10) Kidney stones ?N20.0 - Calculus of kidney (ICD-10) Seasonal allergies ?J30.2 - Other seasonal allergic rhinitis (ICD-10) GERD (gastroesophageal reflux disease) ?K21.9 - Gastro-esophageal reflux disease without esophagitis (ICD-10) High cholesterol ?E78.00 - Pure hypercholesterolemia, unspecified (ICD-10) Hypertension ?I10 - Essential (primary) hypertension (ICD-10) Coronary artery disease ?I25.10 - Atherosclerotic heart disease of [place] coronary artery without ang zara pectoris (ICD-10) Pilonidal cyst ?L05.91 - Pilonidal cyst without abscess (ICD-10) History of brachytherapy ?Z92.3 - Personal history of irradiation (ICD-10) Sciatica ?M54.30 - Sciatica, unspecified side (ICD-10) Surgical History (Updated 08/08/24 @ 13:27 by Roslyn Matt NP) H/O cystoscopy ?Z98.890 - Other specified postprocedural states (ICD-10) History of colonoscopy ?Z98.890 - Other specified postprocedural states (ICD-10) History of tonsillectomy ?Z90.89 - Acquired absence of other organs (ICD-10) H/O removal of cyst ?Z98.890 - Other specified postprocedural states (ICD-10) History of heart artery stent (2004) ?Z95.5 - Presence of coronary angioplasty implant and graft (ICD-10) Hx of prostate biopsy ?Z98.890 - Other specified postprocedural states (ICD-10) History of hernia repair ?Z98.890 - Other specified postprocedural states (ICD-10) ?Z87.19 - Personal history of other diseases of the digestive system (ICD-10) History of arthroscopy of knee ?Z98.890 - Other specified postprocedural states (ICD-10) H/O radiofrequency ablation (RFA) of nerve of lumbar spine ?Z98.890 - Other specified postprocedural states (ICD-10) S/P epidural steroid injection ?Z92.241 - Personal history of systemic steroid therapy (ICD-10) History of carpal tunnel release ?Z98.890 - Other specified postprocedural states (ICD-10) History of repair of rotator cuff ?Z98.890 - Other specified postprocedural states (ICD-10) H/O hand surgery ?Z98.890 - Other specified postprocedural states (ICD-10) Family History (Updated 08/08/24 @ 13:01 by Roslyn Matt NP) Other Family history of Alzheimer's disease Family history of diabetes mellitus Family history of hypertension Family history of myocardial infarction Family history of prostate cancer Family history of stroke Social History (Updated 10/07/24 @ 13:45 by Zhane Zelaya) Within the past year, how often did you have a drink containing alcohol: 2-4 times a month Smoking status: Never smoker Non-prescribed substance use: denies use Previous occupational history: retired Highest level of school completed/degree received: high school graduate Meds Home Medications and Allergies Home Medications ?Medication ?Instructions ?Recorded ?Confirmed ?Type albuterol sulfate 90 mcg/actuation 2 inh inhalation Q6H PRN shortness 08/08/24 10/07/24 History aerosol inhaler of breath or wheezing allopurinol 300 mg tablet 300 mg PO DAILY 08/08/24 10/07/24 History amlodipine 5 mg tablet 5 mg PO DAILY 08/08/24 10/07/24 History ascorbic acid (vitamin C) 1,000 mg 1 g PO DAILY 08/08/24 10/07/24 History capsule aspirin 81 mg tablet,delayed 81 mg PO DAILY 08/08/24 10/07/24 History release (Adult Aspirin Regimen) atorvastatin 20 mg tablet 20 mg PO DAILY 08/08/24 10/07/24 History cholecalciferol (vitamin D3) 125 5,000 unit PO DAILY PRN Low 08/08/24 10/07/24 History mcg (5,000 unit) capsule vitamin D diclofenac sodium 75 mg 75 mg PO Q12H 08/08/24 10/07/24 History tablet,delayed release duloxetine 60 mg capsule,delayed 60 mg PO BID 08/08/24 10/07/24 History release fluticasone furoate 200 1 inh inhalation Q24H 08/08/24 10/07/24 History mcg-vilanterol 25 mcg/dose inhalation powder (Breo Ellipta) fluticasone propionate 50 1 spray intranasal DAILY 08/08/24 10/07/24 History mcg/actuation nasal spray,suspension levocetirizine 5 mg tablet (Xyzal) 5 mg PO DAILY 08/08/24 10/07/24 History lisinopril 10 mg tablet 10 mg PO DAILY 08/08/24 10/07/24 History mecobalamin (vitamin B12) 5,000 2,500 mcg PO .Thursday08/08/24 10/07/24 History mcg disintegrating tablet montelukast 10 mg tablet 10 mg PO BID 08/08/24 10/07/24 History multivitamin (Daily Multi-Vitamin 1 tab PO DAILY 08/08/24 10/07/24 History tablet) omeprazole 40 mg capsule,delayed 40 mg PO DAILY 08/08/24 10/07/24 History release pregabalin 100 mg capsule 100 mg PO TID 08/08/24 10/07/24 History pyridoxine (vitamin B6) 100 mg 100 mg PO DAILY 08/08/24 10/07/24 History tablet Allergies Allergy/AdvReac Type Severity Reaction Status Date / Time No Known Drug Allergies Allergy Verified 10/07/24 13:41 Exam Narrative Exam Narrative: Constitutional: Awake, alert, comfortable, well-appearing, nontoxic, interactive, vital signs as charted Head: Normocephalic, atraumatic Eyes: Conjunctiva and lids normal to inspection, pupils normal ENT: naris patent, posterior oropharynx clear, oral mucosa moist Neck: Supple, normal appearance, normal range of motion, no meningeal signs, no lymphadenopathy no bruit Respiratory: No respiratory distress, breath sounds clear Cardiovascular: Regular rate and rhythm, strong and regular heart tones Abdomen: Nontender, normal bowel sounds, soft, no CVA tenderness Musculoskeletal: Normal gait, no swelling or edema Skin: No rashes or induration, no lesions, only visible skin inspected Neuro: No neurological deficits, normal sensation Psychiatric: Oriented ?3, normal affect Constitutional Vital Signs, click to edit/add: Last Vital Signs Temp 97.5 F L 10/07/24 13:45 Pulse 104 H 10/07/24 13:45 Resp 18 10/07/24 13:45 BP 164/76 H 10/07/24 13:45 Pulse Ox 97 10/07/24 13:45 O2 Del Method Room Air 10/07/24 13:45 Assessment and Plan Assessment and Plan (1) Gross hematuria: Plan Recent history of gross hematuria plan is to move forward with cystoscopy and TURP fulguration schedule with Dr. Grey on October 18, 2024
[2024-10-18] VITALS (11 sets, daily range): BP systolic 108–155; BP diastolic 70–82; PULSE 90–105; TEMP 36.4–36.7; O2SAT 92–99; BMI 28.1
[2024-10-18 12:31] LABS: Anion Gap 13.7; BUN Creatinine Ratio 22.6; Calcium 9.7 mg/dL (8.5-10.1); Carbon Dioxide 23.7 mmol/L (21.0-32.0); Chloride 107 mmol/L (98-107); Estimated GFR (African America >60 (>=60 mL/min/1.73m^2); Estimated GFR (Non-African Ame >60 (>=60 mL/min/1.73m^2); Glucose 120 mg/dL (74-106); Potassium 4.4 mmol/L (3.5-5.1); Sodium 140 mmol/L (136-145)
--- OUTSIDE RECORDS SUMMARY | 2024-10-18 12:32 | XMS_ITS | CCD ---
Author Organization [facility] ion [facility] Care Team Providers Care Senior Software Systems Engineer Name Role Phone MAGO RODARTE Attending Unavailable [...] Unavailable Patterson, Julia R Primary Care Provider [phone] Patterson, Julia R Primary Care Provider [phone] Patterson, Julia R Primary Care Provider [phone] Patterson, Julia R Primary Care Provider [phone] Unavailable Unavailable Rigo Hassan Unavailable Patterson, Julia R Unavailable Patterson, Julia R Primary Care Provider [phone] JIGNESH PIZANO Referring Unavail able PATTERSON, JULIA [...] Care Physician DO Efrem Esquivel Attending Provider [phone] Orzech, Samantha X Admitting Unavailable Orzech, Samantha [...] Patterson DO, Julia R Primary Care Provider FROYLAN CASTANON Referring Unavailable PATTERSON, JULIA R Primary Care Unavailable FROYLAN CASTANON Referring Unavailable PATTERSON, JULIA R Primary Care Unavailable Patterson III, DO Julia R Primary Care Provider MD Froylan Castanon Attending Provider Froylan Castanon Attending Unavailable Froylan Castanon Admitting Unavailable Patterson III, Julia R Primary Care Unavailabl e Jojo Melendrez Primary Care Physician [phone] FROYLAN CASTANON Attending Unavailable PATTERSON, JULIA R [...] Propensity to adverse reactions to substance [address] [facility] (3 sources) Hmg-Coa Reductase Inhibitors (Statins); Translations: [statins] Propensity to adverse reactions (disorder) [facility] Repository (1 source) ALLERGIES NOT ON FILE; Translations: [ALLERGIES NOT ON FILE] Propensity to adverse reactions (disorder) [facility] Repository Medications Current Medications Medication Drug Class(es) Dates Sig (Normalized) Sig (Original) [id number] 200 actuat albuterol 0.09 mg/actuat metered dose [...] take 1 capsule by mouth once daily [place]-3 Fatty Acids (FISH OIL) 1000 MG CAPS Take 1,000 mg by mouth daily 0 Active docosahexaenoic acid 1000 mg / omega-3 acid ethyl esters (residential) 300 mg delayed release oral capsule (1 source) [place]-3 Fatty Acids (FISH OIL) 1000 MG Cap [...] once daily. Active omega-3 acid ethyl esters (residential) 1000 mg oral capsule (7 sources) take 1 capsule by mouth once daily [place]-3 Fatty Acids (FISH OIL) 1000 MG CAPS [...] Orally Once a day Active Vitamin D 13530 U (1 source) Vitamin D 31576 U 1 null Orally for 30 day(s) 5000 MG Active Vitamin D3 (7 sources) Start: 12-30-2018 Vitamin D3 5,0 00 International_Unit, Oral, TueThu, Refills(s) 0 Start Date: 12/30/18 Status: Ordered Completed/Discontinued Medications Medication Drug Class(es) Dates Sig (Normalized) Sig (Original) acetaminophen 325 mg / HYDROcodone bitartrate 5 mg oral tablet (15 sources) Opioid Agonist Start: 03-20-2020 Angora 325 mg-5 mg oral tablet See Instructions, for pain, 12 tab(s), Refill(s) 0, 1-2 tab(s) Oral q4hr PRN Pain. Duration 7 days., [facility], 167.8, cm, 03/21/20 10:17:00 EDT, [...] procedure, # 2 tab(s), Refills(s) 0, Pharmacy: [facility], 167, cm, 06/24/24 13:03:00 EDT, Height/Length [...] hours., # 30 tab(s), Refills(s) 3, Pharmacy: [facility], 167, cm, 07/29/23 13:47:00 EDT, Height/Length [...] mGy = na DAP = na Normal [facility] XR Spine Lumbosacral Minimum 4 Viewson [...] mGy = na DAP = na Normal [facility] Activated partial thrombopla stin time (aPTT) in platelet poor plasma by coagulation aOrdered By: Froylan Castanon on 08-25-2024 aPTT Coag (PPP) [Time] 35.0 s 25.1-36.5 [facility] Comment on above: A hematocrit value g reater than 55% may lead to inaccurate results in coagulation testing. Patients having hematocrit values >55% require a special collection tube for coagulation studies. Please contact the laboratory at [phone] for redraw instructions. Automated basophil %Ordered By: Froylan Castanon on 08-25-2024 Basophils/100 WBC (Bld) 0.4 % Normal . [facility] Comment on above: Performed By: #### L YTES, LIPID, CREAT, PP, CBC, BUN #### [address] Automated basophil countOrde red By: Froylan Castanon on 08-25-2024 Basophils (Bld) [#/Vol] 0.0 10*3/uL Normal 0.0-0.2 [facility] Comment on above: Result Comment: PERF ORMED BY: [place] [address] PATHOLOGIST SENIOR PRODUCTION MANAGER REMY KENNEDY M.D. Performed By: #### L YTES, LIPID, CREAT, PP, CBC, BUN #### [address] Automated blood monocyte cou ntOrdered By: Froylan Castanon on 08-25-2024 Monocytes (Bld) [#/Vol] 0.6 10*3/uL Normal 0.0-0.8 [facility] Comment on above: Performed By: #### L YTES, LIPID, CREAT, PP, CBC, BUN #### [address] Automated eosinophil %Ordere d By: Froylan Castanon on 08-25-2024 Eosinophils/100 WBC (Bld) 1.0 % Normal . [facility] Comment on above: Performed By: #### L YTES, LIPID, CREAT, PP, CBC, BUN #### [address] Automated eosinophil countOr dered By: Froylan Castanon on 08-25-2024 Eosinophils (Bld) [#/Vol] 0.1 10*3/uL Normal 0.0-0.45 [facility] Comment on above: Performed By: #### L YTES, LIPID, CREAT, PP, CBC, BUN #### [address] Automated monocyte %Ordered By: Froylan Castanon on 08-25-2024 Monocytes/100 WBC (Bld) 10.2 % Normal . [facility] Comment on above: Performed By: #### L YTES, LIPID, CREAT, PP, CBC, BUN #### [address] Automated neutrophil %Ordere d By: Froylan Castanon on 08-25-2024 Neutrophils/100 WBC (Bld) 66.3 % Normal . [facility] Comment on above: Performed By: #### L YTES, LIPID, CREAT, PP, CBC, BUN #### [address] Carbon dioxide, total [Moles /volume] in Serum or PlasmaOrdered By: Froylan Castanon on 08-25-2024 CO2 [Moles/Vol] 22.6 mmol/L Normal 21.0-31.0 [facility] Comment on above: Performed By: #### L YTES, LIPID, CREAT, PP, CBC, BUN #### [facility] [address] [place] [address] [place] Chloride [Moles/volume] in S divina or PlasmaOrdered By: Froylan Castanon on 08-25-2024 Chloride [Moles/Vol] 110 mmol/L High 98-107 [facility] Comment on above: Performed By: #### L YTES, LIPID, CREAT, PP, CBC, BUN #### [facility] [address] [place] [address] [place] Cholesterol [Mass/volume] in Serum or PlasmaOrdered By: Froylan Castanon on 08-25-2024 Cholesterol [Mass/Vol] 115 mg/dL Low 140-200 [facility] Comment on above: Chol less than 200 m g/dl low riskChol 201-239 mg/dl borderline riskChol 240 mg/dl and greater high risk Result Comment: Chol less than 200 mg/dl low risk Chol 201-239 mg/dl borderline risk Chol 240 mg/dl and greater high risk Performed By: #### L YTES, LIPID, CREAT, PP, CBC, BUN #### [facility] [address] [place] [address] [place] Cholesterol in LDL Calc [Mas s/Vol]Ordered By: Froylan Castanon on 08-25-2024 Cholesterol in LDL [Mass/Vol] 57 mg/dL 0-100 [facility] Comment on above: LDL ATP III CLASSIFI CATIONLDL less than 100 mg/dL OptimalLDL 100-129 mg/dL Near or above optimalLDL 130-159 mg/dL Borderline highLDL 160-189 mg/dL HighLDL greater than 189 mg/dL Very high Cholesterol in VLDL Calc [Ma ss/Vol]Ordered By: Froylan Castanon on 08-25-2024 Cholesterol in VLDL [Mass/Vol] 10 mg/dL [facility] Coagulation Profileon 2023 aPTT Coag (Bld) [Time] 35.0 s Normal 25.1-36.5 [facility] Comment on above: Result Comment: A he matocrit value greater than 55% may lead to inaccurate results in coagulation testing. Patients having hematocrit values >55% require a special collection tube for coagulation studies. Please contact the laboratory at [phone] for redraw instructions. PERFORMED BY: [place] [address] PATHOLOGIST SENIOR PRODUCTION MANAGER REMY KENNEDY M.D. Performed By: #### L YTES, LIPID, CREAT, PP, CBC, BUN #### [address] Complete Blood Count Auto Di ffon 08-25-2024 Mean Corpuscular HGB Conc 33.7 g/dL Normal 32.5-35.6 [facility] Comment on above: Performed By: #### L YTES, LIPID, CREAT, PP, CBC, BUN #### [address] NRBC% 0.1 /100{WBC} Normal 0-0.5 [facility] Comment on above: Performed By: #### L YTES, LIPID, CREAT, PP, CBC, BUN #### [address] Creatinineon 08-25-2024 Creatinine Clr Calc Pharmacy 80.08 Normal [facility] Comment on above: Performed By: #### L YTES, LIPID, CREAT, PP, CBC, BUN #### [address] GFR/1.73 sq M.predicted MDRD (S/P/Bld) [Vol rate/Area] mL/min/{1.73_m2} Normal [facility] Comment on above: Performed By: #### L YTES, LIPID, CREAT, PP, CBC, BUN #### [address] Creatinine [Mass/volume] in Serum or PlasmaOrdered By: Froylan Castanon on 08-25-2024 Creatinine [Mass/Vol] 0.91 mg/dL Normal 0.70-1.30 [facility] Comment on above: Performed By: #### L YTES, LIPID, CREAT, PP, CBC, BUN #### [facility] [address] ECG 12 lead ECGon 08-25-2024 ECG 12 lead ECG [facility] [place] [address] [place] [address] Electrocardiograph Report Signed Patient: Sarina Justice MR#: [id number] : 1950 Acct:[id number] Age/Sex: 74 / M ADM Date: 08/25/24 Loc: Room: Type: [facility] Attending Dr: Froylan Castanon MD Ordering Provider: Froylan Castanon MD, [facility] Date of Service: 08/25/24 ECG/ECG 12 lead ECG: [facility] Copies to: Test Reason : Blood Pressure : */* mmHG Vent. Rate : 94 BPM Atrial Rate : 94 BPM P-R Int : 148 ms QRS Dur : 94 ms QT Int : 366 ms P-R-T Axes : 37 -20 20 degrees QTcB Int : 457 ms Normal sinus rhythm Normal ECG Confirmed by LG QUILES [facility], FROYLAN ([id number]) on 08/25/2024 4:36:04 PM Referred By: Electronically Signed By: FROYLAN CASTANON MD [facility] Transcribed By: MUS Signed By Froylan Castanon MD, [facility] 08/25/24 1636 Normal [facility] Erythrocyte distribution wid th [Ratio] by Automated countOrdered By: Froylan Castanon on 08-25-2024 Erythrocyte distribution width (RBC) [Ratio] 13.9 % Normal 12.0-14.8 [facility] Comment on above: Performed By: #### L YTES, LIPID, CREAT, PP, CBC, BUN #### [facility] [address] Erythrocytes [#/volume] in B lood by Automated countOrdered By: Froylan Castanon on 08-25-2024 RBC (Bld) [#/Vol] 4.55 10*6/uL Normal 3.90-5.60 [facility] Comment on above: Performed By: #### L YTES, LIPID, CREAT, PP, CBC, BUN #### [address] Hematocrit [Volume Fraction] of Blood by Automated countOrdered By: Froylan Castanon on 08-25-2024 Hematocrit (Bld) [Volume fraction] 41.1 % Normal 38.8-50.0 [facility] Comment on above: Performed By: #### L YTES, LIPID, CREAT, PP, CBC, BUN #### [address] Hemoglobin [Mass/volume] in BloodOrdered By: Froylan Castanon on 08-25-2024 Hemoglobin (Bld) [Mass/Vol] 13.8 g/dL Normal 13.0-17.0 [facility] Comment on above: Performed By: #### L YTES, LIPID, CREAT, PP, CBC, BUN #### [address] INR in Platelet poor plasma by Coagulation assayOrdered By: Froylan Castanon on 08-25-2024 INR Coag (PPP) [Relative time] 1.1 {INR} Normal [facility] Comment on above: INR Therapeutic Rang e [...] YTES, LIPID, CREAT, PP, CBC, BUN #### [place] [address] [place] Leukocytes [#/volume] correc evie for nucleated erythrocytes in Blood by Automated counOrdered By: Froylan Castanon on 08-25-2024 WBC corrected for nucl RBC Auto (Bld) [#/Vol] 5.9 10*3/uL 4.1-10.5 [facility] Leukocytes [#/volume] in Blo od by Automated countOrdered By: Froylan Castanon on 08-25-2024 WBC (Bld) [#/Vol] 5.9 10*3/uL Normal 4.1-10.5 [facility] Comment on above: Performed By: #### L YTES, LIPID, CREAT, PP, CBC, BUN #### [facility] [address] Lipid Panelon 08-25-2024 LDL Cholesterol,Calculated 57 mg/dL Normal 0-100 [facility] Comment on above: Result Comment: LDL ATP III CLASSIFICATION LDL less than 100 mg/dL Optimal LDL 100-129 mg/dL Near or above optimal LDL 130-159 mg/dL Borderline high LDL 160-189 mg/dL High LDL greater than 189 mg/dL Very high Performed By: #### L YTES, LIPID, CREAT, PP, CBC, BUN #### [facility] [address] Triglyceride w/Reflex 53 mg/dL Normal 0-149 [facility] Comment on above: Result Comment: TRIG ATP III CLASSIFICATION TRIG less than 150 mg/dL Normal TRIG 150-199 mg/dL Borderline high TRIG 200-500 mg/dL High TRIG greater than 500 mg/dL Very high Standard traceable to the Center for Disease Conrtrol and Prevention (CDC) test method. Performed By: #### L YTES, LIPID, CREAT, PP, CBC, BUN #### [facility] [address] [place] [id number] [facility] VLDL CHOLESTEROL 10 mg/dL Normal [facility] Comment on above: Performed By: #### L YTES, LIPID, CREAT, PP, CBC, BUN #### [facility] [address] [place] [id number] [place] Lymphocytes [#/volume] in Bl ood by Automated countOrdered By: Froylan Castanon on 08-25-2024 Lymphocytes (Bld) [#/Vol] 1.3 10*3/uL Normal 1.00-4.8 [facility] Comment on above: Performed By: #### L YTES, LIPID, CREAT, PP, CBC, BUN #### [address] Lymphocytes/100 leukocytes i n Blood by Automated countOrdered By: Froylan Castanon on 08-25-2024 Lymphocytes/100 WBC (Bld) 22.1 % Normal . [facility] Comment on above: Performed By: #### L YTES, LIPID, CREAT, PP, CBC, BUN #### [address] MCH [Entitic mass] by Automa evie countOrdered By: Froylan Castanon on 08-25-2024 MCH (RBC) [Entitic mass] 30.4 pg Normal 27.5-35.2 [facility] Comment on above: Performed By: #### L YTES, LIPID, CREAT, PP, CBC, BUN #### [address] MCHC Auto (RBC) [Mass/Vol]Or dered By: Froylan Castanon on 08-25-2024 MCHC (RBC) [Mass/Vol] 33.7 g/dL 32.5-35.6 [facility] MCV [Entitic volume] by Auto mated countOrdered By: Froylan Castanon on 08-25-2024 MCV (RBC) [Entitic vol] 90.3 fL Normal 83.5-101 [facility] Comment on above: Performed By: #### L YTES, LIPID, CREAT, PP, CBC, BUN #### [facility] [address] [place] [address] Neutrophils [#/volume] in Bl ood by Automated countOrdered By: Froylan Castanon on 08-25-2024 Neutrophils (Bld) [#/Vol] 3.9 10*3/uL Normal 1.8-7.7 [facility] Comment on above: Performed By: #### L YTES, LIPID, CREAT, PP, CBC, BUN #### [facility] [address] No Panel InformationOrdered By: Froylan Castanon on 08-25-2024 Estimated GFR (CKD-EPI) > 60.0 mL/Min [facility] Creatinine Clearance (Chem 80.08 [facility] Nucleated erythrocytes [Pres ence] in Blood by Automated countOrdered By: Froylan Castanon on 08-25-2024 Nucleated RBC Auto Ql (Bld) 0.1 /100{WBC} 0-0.5 [facility] Platelet mean volume [Entiti c volume] in Blood by Automated countOrdered By: Froylan Castanon on 08-25-2024 Platelet mean volume (Bld) [Entitic vol] 7.4 fL Normal 6.6-10.1 [facility] Comment on above: Performed By: #### L YTES, LIPID, CREAT, PP, CBC, BUN #### [facility] [address] [place] [address] Platelets [#/volume] in Bloo d by Automated countOrdered By: Froylan Castanon on 08-25-2024 Platelets (Bld) [#/Vol] 250 10*3/uL Normal 150-450 [facility] Comment on above: Performed By: #### L YTES, LIPID, CREAT, PP, CBC, BUN #### [facility] [address] [place] [address] Potassium [Moles/volume] in Serum or PlasmaOrdered By: Froylan Castanon on 08-25-2024 Potassium [Moles/Vol] 4.2 mmol/L Normal 3.5-5.1 [facility] Comment on above: Performed By: #### L YTES, LIPID, CREAT, PP, CBC, BUN #### [facility] [address] [place] [address] Prothrombin time (PT)Ordered By: Froylan Castanon on 08-25-2024 PT Coag (PPP) [Time] 12.0 s Normal 9.0-12.9 [facility] Comment on above: A hematocrit value g reater than 55% may lead to inaccurate results in coagulation testing. Patients having hematocrit values >55% require a special collection tube for coagulation studies. Please contact the laboratory at [phone] for redraw instructions. Result Comment: A he matocrit value greater than 55% may lead to inaccurate results in coagulation testing. Patients having hematocrit values >55% require a special collection tube for coagulation studies. Please contact the laboratory at [phone] for redraw instructions. Performed By: #### L YTES, LIPID, CREAT, PP, CBC, BUN #### [facility] [address] [place] [address] Serum or plasma anion gap de terminationOrdered By: Froylan Castanon on 08-25-2024 Anion gap [Moles/Vol] 10.6 mmol/L Normal 6.0-15.0 [facility] Comment on above: Performed By: #### L YTES, LIPID, CREAT, PP, CBC, BUN #### [facility] [address] [place] [address] Serum or plasma high density lipoprotein (HDL) cholesterol measurementOrdered By: Froylan Castanon on 08-25-2024 Cholesterol in HDL [Mass/Vol] 47 mg/dL Normal 23-92 [facility] Comment on above: HDL CHOL ATP-III CLA SSIFICATION Cardiovascular RiskHDL > or equal to 60 mg/dL LOWHDL < 40 mg/dL HIGH Result Comment: HDL CHOL ATP-III CLASSIFICATION Cardiovascular Risk HDL > or equal to 60 mg/dL LOW HDL < 40 mg/dL HIGH Performed By: #### L YTES, LIPID, CREAT, PP, CBC, BUN #### [facility] [address] [place] [address] Serum or plasma total choles terol/high density lipoprotein (HDL) cholesterol mass ratOrdered By: Froylan Castanon on 08-25-2024 Cholesterol.total/Chol esterol in HDL [Mass ratio] 2.4 {ratio} Normal <5.0 [facility] Comment on above: Result Comment: PERF ORMED BY: [place] [address] PATHOLOGIST SENIOR PRODUCTION MANAGER REYM KENNEDY M.D. Performed By: #### L YTES, LIPID, CREAT, PP, CBC, BUN #### [facility] [address] Sodium [Moles/volume] in Ser um or PlasmaOrdered By: Froylan Castanon on 08-25-2024 Sodium [Moles/Vol] 139 mmol/L Normal 136-145 [facility] Comment on above: Performed By: #### L YTES, LIPID, CREAT, PP, CBC, BUN #### [facility] [address] Triglyceride [Mass/volume] i n Serum or PlasmaOrdered By: Froylan Castanon on 08-25-2024 Triglyceride [Mass/Vol] 53 mg/dL 0-149 [facility] Comment on above: TRIG ATP III CLASSIF ICATIONTRIG less than 150 mg/dL NormalTRIG 150-199 mg/dL Borderline highTRIG 200-500 mg/dL High TRIG greater than 500 mg/dL Very highStandard traceable to the Center for Disease Conrtrol and Prevention (CDC) test method. Urea nitrogen [Mass/volume] in Serum or PlasmaOrdered By: Froylan Castnaon on 08-25-2024 Urea nitrogen [Mass/Vol] 32 mg/dL High 7-25 [facility] Comment on above: Performed By: #### L YTES, LIPID, CREAT, PP, CBC, BUN #### [facility] [address] [place] Heart Perfusion W stress and [...] Sandro Blake 08/11/2024 5:56 PM Dictation workstation: [id number] Interpreted By: Sandro Blake and Beal Gina STUDY: MYOCARDIAL PERFUSION STRESS TEST WITH LEXISCAN Performing facility: [facility] Provider: Froylan Castanon MD, [facility] PCP: Dr. Etta PATTERSON Supervising provider: Sandro Blake MD INDICATION: Pre-operative risk assessment for TURP scheduled at [facility] on 08/18/24. ASCVD, Hx PTCA HISTORY: Gender: M; Age: 74 y/o ; Height: HT 180.3 cm cm; Weight: WT 85.276 kg kg. CAD; High Cholesterol; HTN; Denies smoking. Cardiac catheterization 2004. PTCA 2004. COMPARISON: Previous nuclear testing completed 2007 at [facility]. ACCESSION NUMBER(S): [id number] ORDERING CLINICIAN: FROYLAN CASTANON TECHNIQUE: ONE DAY [...] evidence of diaphragmatic attenuation artifact. [facility] Sanrdo Blake MD - 08/11/2024 Interpreted By: Sandro Blake and Beal Gina STUDY: MYOCARDIAL PERFUSION STRESS TEST WITH LEXISCAN Performing facility: [facility] Provider: Froylan Castanon MD, [facility] PCP: Dr. Etta PATTERSON Supervising provider: Sandro Blake MD INDICATION: Pre-operative risk assessment for TURP scheduled at [facility] on 08/18/24. ASCVD, Hx PTCA HISTORY: Gender: M; Age: 74 y/o ; Height: HT 180.3 cm cm; Weight: WT 85.276 kg kg. CAD; High Cholesterol; HTN; Denies smoking. Cardiac catheterization 2004. PTCA 2004. COMPARISON: Previous nuclear testing completed 2007 at [facility]. ACCESSION NUMBER(S): [id number] ORDERING CLINICIAN: FROYLAN CASTANON TECHNIQUE: ONE DAY [...] Sandro Blake 08/11/2024 5:56 PM Dictation workstation: [id number] [facility] Work Phone: Radiology Study observation (narrative) [facility] Work Phone: [place] Heart Perfusion W stress and W radionuclide IVOrdered By: Sandro Blake on 08-11-2024 [facility] Work Phone: NUCLEAR STRESS TESTon 2023 NUCLEAR STRESS TEST Interpreted By: Sandro Blake and Beal Gina STUDY: MYOCARDIAL PERFUSION STRESS TEST WITH LEXISCAN Performing facility: [facility] Provider: Froylan Castanon MD, [facility] PCP: Dr. Etta PATTERSON Supervising provider: Sandro Blake MD INDICATION: Pre-operative risk assessment for TURP scheduled at [facility] on 08/18/24. ASCVD, Hx PTCA HISTORY: Gender: M; Age: 74 y/o ; Height: HT 180.3 cm cm; Weight: WT 85.276 kg kg. CAD; High Cholesterol; HTN; Denies smoking. Cardiac catheterization 2004. PTCA 2004. COMPARISON: Previous nuclear testing completed 2007 at [facility]. ACCESSION NUMBER(S): [id number] ORDERING CLINICIAN: FROYLAN CASTANON TECHNIQUE: ONE DAY [...] Sandro Blake 08/11/2024 5:56 PM Dictation workstation: [id number] [facility] Main OR Intraoperative Recor thu 08-02-2024 Main OR Intraoperative Record Main OR Intraoperative Record IntraOp Document Type FTURO Summary Primary Physician: Cam KEE MD Finalized Date/Time: 08/02/24 13:48:04 Pt. Name: SARINA JUSTICE/Sex: 1950 Male Med Rec #: [id number] Physician: Cam KEE MD Financial #: [id number] Pt. Type: O Room/Bed: / Admit/Disch: 08/02/24 [...] Trinidad Sutton Role Performed Surgeon - Primary Rework Operator - Primary Scrub - Primary Time In [...] By: Florina Powell RN 08/02/24 13:48 Normal [facility] Main OR Preoperative Recordo n 08-02-2024 Main OR Preoperative Record Main OR Preoperative Record Holding Area Document Type FTURO Summary Primary Physician: Cam KEE MD Finalized Date/Time: 08/02/24 13:14:27 Pt. Name: SARINA JUSTICE D.O.B./Sex: 1950 Male Med Rec #: [id number] Physician: Cam KEE MD Financial #: [id number] Pt. Type: O Room/Bed: / Admit/Disch: 08/02/24 [...] Complaints of Pain: No Skin Integrity Intact, [place], Warm, & Dry Vitals - EU Blood Pressure 132/78 Pulse 85 bpm Respirations 18 br/min SPO2 96 % Additional None Specimens Collected Last Modified By: Norma Mast LPN 08/02/24 13:14:19 Finalized By: Norma Mast LPN Document Signatures Signed By: Norma Mast LPN 08/02/24 13:14 Normal [facility] Operative Reporton Operative Report Operative Report [...] resection of prostate lesions and fulguration. Normal [facility] Comment on above: Result Comment: Elec [...] check KUB 07/2025 due to kidney stone ([facility]) Normal [facility] Reminders Reminders From: Slime Ayala To: EU - Recalls [place]; Sent: 08/02/2024 14:50:44 EDT Show up: 11/09/2024 14:50:00 EST Subject: ct scan of chest Due Date/Time: 12/05/2024 14:50:00 EST Reminder/Recall Pt needs Ct scan of chest at [facility] due to lung nodule in January 2025 Normal [facility] CT Urogramon 07-08-2024 CT Urogram Exam [...] 300 Contrast amount in ml's: 100 Normal [facility] CHEMISTRYOrdered By: SYSTEM SYSTEM on 07-04-2024 Creatinine [Mass/Vol] 1.1 mg/dL Normal 0.5 - 1.3 mg/dL Remisol Chem eGFR 69 mL/min/1.73 m2 Normal >=59mL/min /1.73 m2 Remisol Chem Creatinineon 07-04-2024 Creatinine [Mass/Vol] 1.1 mg/dL Normal 0.5-1.3 [facility] Comment on above: Performed By: #### [id number] #### [facility] Laboratory [address] [place] [address] eGFRon 07-04-2024 eGFR 69 mL/min/1.73 m2 Normal >=59 [facility] Comment on above: Order Comment: Order added by Discern Expert. Performed By: #### 1 [id number] #### [facility] Laboratory [address] [id number] [facility] Urine Cyt o ([facility])on 07-01-2024 UVFISH & UC Diagnosis Info Invalid Interpretation Code [facility] Comment on above: Result Comment: A:Ur [...] on: 07/01/2024 16:16:49 Performed By: #### 1 [id number] #### [facility] [address] [place] [address] Ambulatory Visit Summaryon 0 06-24-2024 Ambulatory Visit [...] prescribing physician if questions or concerns acetaminophen-hydrocodone (Angora 325 mg-5 mg oral tablet) acetaminophen-hydrocodone (Angora 325 mg-5 mg oral tablet) albuterol (ProAir [...] How Much When Why Instructions Unchanged acetaminophen-hydrocodone (Angora 325 mg-5 mg oral tablet) See instructions Trigger finger, left middle finger 1-2 tab(s) Oral q4hr PRN Pain. Duration 7 days. Contact prescribing physician if questions or concerns Unchanged acetaminophen-hydrocodone (Angora 325 mg-5 mg oral tablet) See instructions [...] questions o (more content not included)... Normal [facility] Fish [facility] Urine Cyt o ([facility])on 06-24-2024 UVUC Method of Extraction Voided Normal [facility] Comment on above: Performed By: #### 1 [id number] #### [facility] [address] [place] [address] UVUC Number of Jars 1 Invalid Interpretation Code [facility] Comment on above: Performed By: #### 1 [id number] #### [facility] [address] [place] [address] [facility] Specimen Clean Catch Normal [facility] Comment on above: Performed By: #### 1 [id number] #### [facility] [address] [place] [address] UVUC Type of Service Technical Only Normal [facility] Comment on above: Performed By: #### 1 [id number] #### [facility] [address] [place] [address] XR Abdomen 1 Viewon 05-31-20 24 XR [...] mGy = . DAP = . Normal [facility] Elida 09-07-2023 ALT No additional P-5'-P [Catalytic activity/Vol] 30 Int._Unit/L Normal 6-46 [facility] Comment on above: Performed By: #### 2 [id number], [id number], [id number], [id number], [id number] #### [facility] [address] [place] [address] April 09-07-2023 AST [Catalytic activity/Vol] 22 Int._Unit/L Normal 5-43 [facility] Comment on above: Performed By: #### 2 774286, 8809826, [id number], [id number], [id number] #### [facility] [address] [place] [address] BMPon 09-07-2023 Anion gap [Moles/Vol] 6 mmol/L Normal 6-16 [facility] Comment on above: Performed By: #### 2 327643, 0770602, [id number], 3059926, [id number] #### [facility] [address] [place] [address] Calcium [Mass/Vol] 9.4 mg/dL Normal 8.9-11.1 [facility] Comment on above: Performed By: #### 2 015418, 1317436, 82503159, 7552321, 7147942 #### [facility] [address] [place] [address] Chloride [Moles/Vol] 109 mmol/L Normal 101-[address] [facility] Comment on above: Performed By: #### 2 220369, 0833444, 68983886, 9297275, 2182636 #### [facility] [address] [place] [address] CO2 [Moles/Vol] 26 mmol/L Normal 21-31 [facility] Comment on above: Performed By: #### 2 482260, 9874641, 64822563, 9365143, 4225637 #### [facility] [address] [place] [address] Creatinine [Mass/Vol] 0.8 mg/dL Normal 0.5-1.3 [facility] Comment on above: Performed By: #### 2 978136, 6290764, 09041280, 8380018, 0389627 #### [facility] [address] [place] [address] Glucose [Mass/Vol] 110 mg/dL Normal 55-199 [facility] Comment on above: Result Comment: If t his glucose result represents a fasting glucose, interpretation should refer to the following reference range: 55-99 mg/dL Performed By: #### 2 941185, 5112831, 72404915, 1672714, 5684189 #### [facility] [address] [place] [address] Potassium [Moles/Vol] 4.1 mmol/L Normal 3.5-5.3 [facility] Comment on above: Performed By: #### 2 440051, 0998849, 72027923, 3336521, 9877185 #### [facility] [address] [place] [address] Sodium [Moles/Vol] 137 mmol/L Normal 135-145 [facility] Comment on above: Performed By: #### 2 960323, 1678540, 99792096, 9549525, 3844864 #### [facility] [address] [place] [address] Urea nitrogen [Mass/Vol] 26 mg/dL High 5-21 [facility] Comment on above: Performed By: #### 2 917266, 8702372, 21785319, 1773469, 5275959 #### [facility] [address] [place] [address] Urea nitrogen/Creatinine [Mass ratio] 32 No Units High 08-28 [facility] Comment on above: Performed By: #### 2 017858, 6585060, 52301231, 5135409, 2400697 #### [facility] [address] [place] [address] CHEMISTRYOrdered By: SYSTEM SYSTEM on 09-07-2023 ALT [...] 92 mL/min/1.73 m2 Normal >=59mL/min /1.73 m2 [facility] S Comment on above: Interpretive Data: C hronic kidney disease could be indicated at eGFR's of less than 60 mL/min/1.73m2. Kidney failure is indicated at less than 15 mL/min/1.73m2. Glucose [Mass/Vol] 110 mg/dL Normal 55 - 199 mg/dL [facility]isol Comment on above: Interpretive Data: I f this glucose result represents a fasting glucose, interpretation should refer to the following reference range: 55-99 mg/dL Potassium [Moles/Vol] 4.1 mmol/L Normal 3.5 - 5.3 mmol/L [facility] Sodium [Moles/Vol] 137 mmol/L Normal 135 - 145 mmol/L [facility] Triglyceride [Mass/Vol] 52 mg/dL Normal <=149mg/dL [facility] Urea nitrogen [Mass/Vol] 26 mg/dL High 5 - 21 mg/dL [facility] Remisol Urea nitrogen/Creatinine [Mass ratio] 32 mg/mg High 10 - 20 [facility] Remisol Consent for Treatmenton 08-11 Consent for Treatment [id number] Normal [facility] Lipid Panelon 09-07-2023 Cholesterol [Mass/Vol] 151 mg/dL Normal 120-200 [facility] Comment on above: Performed By: #### 2 471826, 8138361, 62255309, 6608051, 4809047 #### [facility] [address] [place] [address] Cholesterol in HDL [Mass/Vol] 57 mg/dL Invalid Interpretation Code [facility] Comment on above: Result Comment: HDL > or equal to 60 mg/dL: Low cardiovascular risk HDL < 40 mg/dL : High cardiovascular risk Performed By: #### 2 322177, 1703005, 71291434, 1316081, 9019666 #### [facility] [address] [place] [address] Cholesterol in LDL [Mass/Vol] 82 mg/dL Normal <=129 [facility] Comment on above: Performed By: #### 2 626205, 4867881, 03816701, 6307654, 3029843 #### [facility] [address] [place] [address] Cholesterol in VLDL [Mass/Vol] 10 mg/dL Normal 7-40 [facility] Comment on above: Performed By: #### 2 187567, 3838614, 38175714, 1708836, 1927684 #### [facility] [address] [place] [address] Triglyceride [Mass/Vol] 52 mg/dL Normal <=149 [facility] Comment on above: Performed By: #### 2 006690, 9879025, 12864560, 8134231, 3416549 #### [facility] [address] [place] [address] Physician Orderon 09-07-2023 Physician Order [id number] Normal [facility] eGFRon 09-07-2023 GFR/1.73 sq M.predicted among non-blacks MDRD (S/P/Bld) [Vol rate/Area] 92 mL/min/1.73 m2 Normal >=59 [facility] Comment on above: Order Comment: Order added by Discern Expert. Result Comment: Youth Officer dilan kidney disease could be indicated at eGFR's of less than 60 mL/min/1.73m2. Kidney failure is indicated at less than 15 mL/min/1.73m2. Performed By: #### 2 696863, 4636113, 54939321, 2982064, 5822999 #### [facility] [address] [place] [address] Office Visit (Cardiology)on 07-08-2023 Follow-up visit Diagnoses/Problems [...] in adult Healthy Weight Tips; Status:Complete; Done: [id number] Some eating tips that can help you lose weight.; Status:Complete; Done: [id number] SocHx: Never a smoker Tobacco Use Screening; Status:Complete; Done: [id number] Patient Instructions Please bring all medicines, vitamins, [...] negative for complaint. Vitals Vital Signs Recorded: [id number] 11:02AM Heart Rate82, R Radial Gbynlkif947, RUE, Sitting Qnbcujpif35, RUE, Sitting Height5 ft 11 in Xgzluv413 lb BMI Cpkawtviaq27.22 kg/m2 BSA Calculated2.05 Tobacco Useb) No PHQ-2 [...] auscultation. Cardiovascu (more content not included)... Normal [employer] Tobacco Screening.on 023 Adult depression screening assessment No [facility] 600 DO Work Phone: Fall risk assessment a) No falls within the last year [facility]orentin[facility] 600 DO Work Phone: Tobacco use status [facility] b) No [facility]: XR HIP 2-3 [...] Kay Jr., MD 07/09/22 Final result Normal [facility] Osteoarthritic changes mainly left hip. Femoral head remains rounded. [facility] EXAM: XR HIP 2-3 VW W PELVIS LEFT HISTORY: R52. Left hip pain. 72-year-old male. COMPARISON: None. TECHNIQUE: AP pelvis, 2 images. 2 views left hip. FINDINGS: Brachytherapy seed implants in the prostate. Mild degenerative change opposite right hip. Moderate degenerative change left hip with diffuse joint space narrowing. No erosion. Femoral head remains rounded. [facility] Angelo Kay Jr., MD [...] mainly left hip. Femoral head remains rounded. [facility] Work Phone: Radiology Study observation (narrative) [employer] Phone: XR HIP 2-3 VW W PELVIS LEFTO rdered By: Angelo Kay on 07-09-2022 [employer] Phone: Tobacco Screening.on 022 Adult depression screening assessment No [facility] [employer] 600 DO Work Phone: Fall risk assessment a) No falls within the last year [facility] 600 DO Work Phone: Tobacco use status [facility]PHS b) No [facility] 600 DO Work Phone: April 07-24-2021 AST [Catalytic activity/Vol] 17 U/L Normal <40 [facility] Comment on above: Performed By: #### Z FAST, AST #### [facility] [address] [place] [address] Wheel Truing Machine Tender: Godwin Salazar MD #### LIPR #### [facility] [address] [place] [address] Wheel Truing Machine Tender: Rashaad Nielsen MD ASTOrdered By: Jignesh lee on 07-24-2021 AST [Catalytic activity/Vol] 17 U/L <40 [employer] Phone: [employer] Phone: Lipid PanelOrdered By: Mateo Pizano on 07-24-2021 Cholesterol [Mass/Vol] 119 mg/dL <200 [email or web address] Phone: Comment on above: Cholesterol Guidelines: <200 Desirable 200-240 Borderline >240 Undesirable Cholesterol in HDL [Mass/Vol] 43 mg/dL >40 [employer] Phone: Comment on above: HDL Guidelines: <40 Undesirable 40-59 Borderline >59 Desirable Cholesterol in LDL [Mass/Vol] 63 mg/dL 0 - 130 mg/dL [employer] Phone: Comment on above: LDL Guidelines: <100 Desirable 100-129 Near to/above Desirable 130-159 Borderline >159 Undesirable Direct (measured) LDL and calculated LDL are not interchangeable tests. Cholesterol in VLDL [Mass/Vol] NOT REPORTED 1 - 30 mg/dL [email or web address] Phone: Cholesterol.total/Chol esterol in HDL [Mass ratio] 2.8 {ratio} <5 [employer] Phone: Triglyceride [Mass/Vol] 63 mg/dL <150 [employer] Phone: Comment on above: Triglyceride Guidelines: <150 Desirable 150-199 Borderline 200-499 High >499 Very high Based on AHA Guidelines for fasting triglyceride, August 2012. [employer] Phone: Lipid Profileon 07-24-2021 Cholesterol [Mass/Vol] 119 mg/dL Normal <200 [facility] Comment on above: Result Comment: Cholesterol Guidelines: <200 Desirable 200-240 Borderline >240 Undesirable Performed By: #### Z FAST, AST #### [facility] [address] [place], [place] [id number] Wheel [employer]ing Machine Tender: Godwin Salazar MD #### LIPR #### [facility] [place], [place] [id number] Wheel Truing Machine Tender: Rashaad Nielsen MD Cholesterol in HDL [Mass/Vol] 43 mg/dL Normal >40 [facility] Comment on above: Result Comment: HDL Guidelines: <40 Undesirable 40-59 Borderline >59 Desirable Performed By: #### Z FAST, AST #### [facility] [address] [place] [address] Wheel Truing Machine Tender: Godwin Salazar MD #### LIPR #### [facility] [address] [place] [address] [id number] [employer] Machine Tender: Rashaad Nielsen MD Cholesterol in LDL [Mass/Vol] 63 mg/dL Normal 0-130 [facility] Comment on above: Result Comment: LDL Guidelines: <100 Desirable 100-129 Near to/above Desirable 130-159 Borderline >159 Undesirable Direct (measured) LDL and calculated LDL are not interchangeable tests. Performed By: #### Z FAST, AST #### [facility] [address] [place], [place] [id number] [employer]ing Machine Tender: Godwin Salazar MD #### LIPR #### [facility] [address] [place], [place] [id number] [employer]ing Machine Tender: Rashaad Nielsen MD Cholesterol.total/Chol esterol in HDL [Mass ratio] 2.8 {ratio} Normal <5 [facility] Comment on above: Performed By: #### [place] FAST, AST #### [facility] [address] [place], [place] [id number] Wheel [employer]ing Machine Tender: Godwin Salazar MD #### LIPR #### [facility] [address] [place], [place] 0[address] Wheel Truing Machine Tender: Rashaad Neilsen MD Triglyceride [Mass/Vol] 63 mg/dL Normal <150 [facility] Comment on above: Result Comment: Triglyceride Guidelines: <150 Desirable 150-199 Borderline 200-499 High >499 Very high Based on AHA Guidelines for fasting triglyceride, August 2012. Performed By: #### [place] FAST, AST #### [facility] [address] [place], [place] [id number] Wheel [employer]ing Machine Tender: Godwin Salazar MD #### LIPR #### [facility] [address] [place] [address] Wheel Truing Machine Tender: Rashaad Nielsen MD Cholesterol,VLDL NOT REPORTED Normal 1-30 [facility] Comment on above: Performed By: #### [place] FAST, AST #### [facility] [address] [place], [place] [id number] [employer] Machine Tender: Godwin Salazar MD #### LIPR #### [facility] [address] [place], [place] [address] Wheel [employer]ing Machine Tender: Rashaad Nielsen MD Patient Fasting?Ordered By: Jignesh Pizano on 07-24-2021 Patient Fasting? yes [facility] Work Phone: [facility] Work Phone: Patient fasting?on 1 Patient fasting? yes Normal [facility] Comment on above: Performed By: #### Z FAST, AST #### [facility] [address] [place] [address] Wheel Truing Machine Tender: Godwin Salazar MD #### LIPR #### [facility] [address] [place] [address] Wheel Truing Machine Tender: Rashaad Nielsen MD Glucose, randomon 09-26-2020 Glucose [Mass/Vol] 106 mg/dL High 70 - 99 mg/dL [place], [place] Interpretation and review of laboratory results Abnormal [place] Basic Metabolic Panelon Anion gap [Moles/Vol] 12 mmol/L 9 - 17 mmol/L [place] Bun/Cre Ratio 29 [place], [place] Calcium [Mass/Vol] 10.0 mg/dL 8.6 - 10. 4 mg/dL [place] Chloride [Moles/Vol] 105 mmol/L 98 - 10 7 mmol/L [place] CO2 [Moles/Vol] 24 mmol/L 20 - 31 mmol/L [place] Creatinine [Mass/Vol] 1.08 mg/dL 0.7 - 1.2 mg/dL [place] GFR >60 >60 mL/min [place] GFR Non- >60 >60 mL/min [place] GFR/1.73 sq M predicted among non-blacks MDRD (S/P/Bld) [Vol rate/Area] NOT REPORTED [place] GFR/1.73 sq M predicted among non-blacks MDRD (S/P/Bld) [Vol rate/Area] [place] Comment on above: Average GFR for 70 o r more years old: 75 mL/min/1.73sq m Chronic Kidney Disease: <60 mL/min/1.73sq m Kidney failure: <15 mL/min/1.73sq m eGFR calculated using average adult body mass. Additional eGFR calculator available at: http://www.[employer]/multiple_crcl_2012.htm Glucose [Mass/Vol] 141 mg/dL High 70 - 99 mg/dL [place] Interpretation and review of laboratory results Abnormal [place] Potassium [Moles/Vol] 4.3 mmol/L 3.7 - 5.3 mmol/L [place] Sodium [Moles/Vol] 141 mmol/L 135 - 144 mmol/L [place] Urea nitrogen [Mass/Vol] 31 mg/dL High 8 - 23 mg/dL [place] [facility]Con 01-12-2020 Erythrocyte distribution width (RBC) [Ratio] 14.1 % 12.1 - 15.2 % [place] Hematocrit (Bld) [Volume fraction] 45.8 % 41 - 53 % [place] Hemoglobin (Bld) [Mass/Vol] 15.1 g/dL 13.5 - 17.5 g/dL [place] MCH (RBC) [Entitic mass] 30.4 pg 26 - 34 pg [place] MCHC (RBC) [Mass/Vol] 33.0 g/dL 31 - 3 7 g/dL [place] MCV (RBC) [Entitic vol] 92.1 fL 80 - 100 fL [place] Platelet mean volume (Bld) [Entitic vol] NOT REPORTED 6 - 12 fL [place], [place] Platelets (Bld) [#/Vol] 279 10*3/uL [place] RBC (Bld) [#/Vol] 4.97 10*6/uL 4.5 - 5.9 m/uL [place] WBC (Bld) [#/Vol] NOT REPORTED per 100 WBC [place] WBC (Bld) [#/Vol] 6.3 10*3/uL [place] XR CHEST STANDARD (2 VW)on 0 01-12-2020 No evidence of acute disease in the chest or change from 01/13/2018. [employer] [place] IN CHEST, 2 VIEWS, 2019: CLINICAL HISTORY: Pre-op [...] mild tortuosity of the thoracic aorta, unchanged. [facility] [employer] [place] Tye, [employer] Incoming Radiant Results From [employer] - 01/12/2020 9:46 PM EST CHEST, 2 [...] in the chest or change from 01/13/2018. [facility] [place] [facility] HAND LEFT (MIN 3 VIEWS)on 01-11-2020 1. Subtle transverse lucency through the midpole of the scaphoid is suggestive of an underlying acute or subacute fracture without complete fracture healing. Clinical correlation for point tenderness is recommended. 2. Mild degenerative changes in the hand. [employer] [place] IN EXAM: XR HAND LEFT ( MIN 3 [...] tissues appear unremarkable. No radiopaque foreign body. [employer] Tye, [employer] Incoming Radiant Results From [employer]ogu[employer] - 01/11/2020 11:27 AM EST EXAM: XR [...] 2. Mild degenerative changes in the hand. [employer], REJI Vital Signs Date Time Vital Sign Value Performing Clinician Tejinderi cynthia 09-16-2024 14:01-0500 Diastolic blood pressure 76 mm[Hg] Froylan Castanon MD Work Phone: [facility] 09-16-2024 14:01-0500 Systolic blood pressure 134 mm[Hg] Froylan Castanon MD Work Phone: [facility] 09-16-2024 13:38-0500 Body height 180.3 cm Froylan Castanon MD Work Phone: [facility] 09-16-2024 13:38-0500 Body mass index (BMI) [Ratio] 28.17 kg/m2 Froylan Castanon MD Work Phone: [facility] 09-16-2024 13:38-0500 Body weight 91.63 kg Froylan Castanon MD Work Phone: [facility] 09-16-2024 13:38-0500 Heart rate 88 /min Froylan Castanon MD Work Phone: [facility] 08-25-2024 16:10-0400 Diastolic blood pressure 74 mm[Hg] DO Julia Patterson III Work Phone: [facility] 08-25-2024 16:10-0400 Heart rate 88 /min DO Julia Patterson III Work Phone: [facility] 08-25-2024 16:10-0400 Respiratory rate 16 /min DO Julia Patterson III Work Phone: [facility] 08-25-2024 16:10-0400 SaO2% (BldA) [Mass fraction] 97 % DO Julia Patterson III Work Phone: [facility] 08-25-2024 16:10-0400 Systolic blood pressure 142 mm[Hg] DO Julia Patterson III Work Phone: [facility] 08-25-2024 11:04-0400 Body height 180.34 cm DO Julia Patterson III Work Phone: [facility] 08-25-2024 11:04-0400 Body temperature 98.8 [degF] DO Julia Patterson III Work Phone: [facility] 08-25-2024 11:04-0400 Body weight 92 kg DO Julia Patterson III Work Phone: [facility] 08-11-2024 12:59-0400 Diastolic blood pressure 76 mm[Hg] Frida 1 [facility] 08-11-2024 12:59-0400 Heart rate 73 /min Frida 1 [facility] 08-11-2024 12:59-0400 Systolic blood pressure 124 mm[Hg] Frida 1 [facility] 06-28-2024 14:03-0400 Body height 180.34 cm DO W Idris Esquivel Work Phone: [facility] 06-28-2024 14:03-0400 Body mass index (BMI) [Ratio] 27.1 kg/m2 DO W Idris Esquivel Work Phone: [facility] 06-28-2024 14:03-0400 Body temperature 98.8 [degF] DO W Idris Schulerdon Work Phone: [facility] 06-28-2024 14:03-0400 Body weight 88.45 kg DO W Idris Schulerdon Work Phone: [facility] 06-28-2024 14:03-0400 Diastolic blood pressure 74 mm[Hg] DO W Idris Schulerdon Work Phone: [facility] 06-28-2024 14:03-0400 Heart rate 99 /min DO W Idris Schulerdon Work Phone: [facility] 06-28-2024 14:03-0400 Respiratory rate 20 /min DO W Idris Esquivel Work Phone: [facility] 06-28-2024 14:03-0400 SaO2% (BldA) [Mass fraction] 95 % DO W Idris Esquivel Work Phone: [facility] 06-28-2024 14:03-0400 Systolic blood pressure 116 mm[Hg] DO W Idris Schulerdon Work Phone: [facility] 06-24-2024 12:59-0400 Blood Pressure Location Samantha Orzech [facility] 06-24-2024 12:59-0400 Diastolic blood pressure 80 mm[Hg] Samantha Orzech [facility] 06-24-2024 12:59-0400 Systolic blood pressure 126 mm[Hg] Samantha Orzech [facility] 07-08-2023 11:02-0400 Body height 180.34 cm Julia R Patterson Work Phone: [facility] [employer] 600 DO Work Phone: 07-08-2023 11:02-0400 Body mass index (BMI) [Ratio] 26.22 kg/m2 Julia R Patterson Work Phone: [facility] [employer] 600 DO Work Phone: 07-08-2023 11:02-0400 Body surface area Derived from formula 2.05 m2 Julia R Patterson Work Phone: [facility] [employer] 600 DO Work Phone: 07-08-2023 11:02-0400 Body weight 85.28 kg Julia R Patterson Work Phone: [facility] [employer] 600 DO Work Phone: 07-08-2023 11:02-0400 Diastolic blood pressure 70 mm[Hg] Julia R Patterson Work Phone: [facility] [employer] 600 DO Work Phone: 07-08-2023 11:02-0400 Heart rate 82 /min Julia R Patterson Work Phone: [facility] [employer] 600 DO Work Phone: 07-08-2023 11:02-0400 Systolic blood pressure 130 mm[Hg] Julia R Patterson Work Phone: [facility] [employer] 600 DO Work Phone: 07-04-2022 10:55-0400 Body height 180.34 cm Julia R Patterson Work Phone: [facility] [employer] 600 DO Work Phone: 07-04-2022 10:55-0400 Body mass index (BMI) [Ratio] 26.36 kg/m2 Julia R Patterson Work Phone: [facility] [employer] 600 DO Work Phone: 07-04-2022 10:55-0400 Body surface area Derived from formula 2.06 m2 Julia Patterson Work Phone: [facility] [employer] 600 DO Work Phone: 07-04-2022 10:55-0400 Body weight 85.73 kg Julia Patterson Work Phone: [facility] [employer] 600 DO Work Phone: 07-04-2022 10:55-0400 Diastolic blood pressure 78 mm[Hg] Julia Patterson Work Phone: [facility] [employer] 600 DO Work Phone: 07-04-2022 10:55-0400 Heart rate 86 /min Julia Patterson Work Phone: [facility] [employer] 600 DO Work Phone: 07-04-2022 10:55-0400 Systolic blood pressure 126 mm[Hg] Julia Patterson Work Phone: [facility] [employer] 600 DO Work Phone: 04-22-2022 14:15-0400 Body height 177.8 cm Rigo Hassan Other [employer] [facility] [employer] Other 04-22-2022 14:15-0400 Body mass index (BMI) [Ratio] 27.26 kg/m2 Rigo Hassan Other [employer] Other 04-22-2022 14:15-0400 Body temperature 97.1 [degF] Rigo Hassan Other [employer] Other 04-22-2022 14:15-0400 Body weight 86.18 kg Rigo Guerrerono Other [employer] Other 04-22-2022 14:15-0400 Diastolic blood pressure 79 mm[Hg] Rigo Hassan Other [employer] Other 04-22-2022 14:15-0400 Respiratory rate 20 /min Rigo Guerrerono Other [employer] Other 04-22-2022 14:15-0400 SaO2% (BldA) [Mass fraction] 95 % Rigo Hassan Other [employer] Other 04-22-2022 14:15-0400 Systolic blood pressure 133 mm[Hg] Rigo Guerrerono Other [employer] Other Encounters Encounter Date Encounter Type Care Provider Facility Start: 09-26-2024 End: 09-26-2024 ambulatory Jojo Melendrez Facility[facility] Start: 09-26-2024 End: 09-26-2024 Patient encounter procedure Jojo Melendrez [facility] Start: 09-16-2024 End: 09-16-2024 Office outpatient visit 25 minutes Froylan Castanon MD Work Phone: [facility] Comment on above: ASCVD (arteriosclero tic cardiovascular disease); Essential hypertension; History of PTCA; Mixed hyperlipidemia; BMI 28.0-28.9,adult; Never smoked tobacco Start: 09-16-2024 End: 09-16-2024 ambulatory FROYLAN CASTANON [facility] Start: 09-09-2024 ambulatory Cam Allan ty:EU Yahir Start: 08-25-2024 End: 08-25-2024 [facility] Work Phone: [facility] Work Phone: Start: 08-25-2024 End: 08-25-2024 ambulatory DO Julia Patterson III Work Phone: [facility] Work Phone: Start: 08-22-2024 ambulatory Cam KEE [place] Start: 08-11-2024 End: 08-11-2024 Patient encounter status Frida [address] [place] [address] Work Phone: Start: 08-11-2024 End: 08-11-2024 Subsequent hospital visit by physician Frida Gonzalez N[facility] Comment on above: Preop cardiovascular exam; ASCVD (arteriosclerotic cardiovascular disease); History of PTCA Start: 08-11-2024 End: 08-11-2024 ambulatory [facility] Start: 08-11-2024 End: 08-11-2024 Encounter for preprocedural cardiovascular examination [facility] Start: 08-02-2024 End: 08-02-2024 ambulatory Cam KEE Facility:[facility] Start: 08-02-2024 End: 08-02-2024 Patient encounter procedure Cam KEE [facility] Start: 07-04-2024 End: 07-04-2024 ambulatory Samantha X Orzech Facility:[facility] Start: 07-04-2024 End: 07-04-2024 Patient encounter procedure Samantha X Orzech [facility] Start: 06-28-2024 End: 06-28-2024 ambulatory DO Efrem Esquivel Work Phone: [facility] Work Phone: Start: 06-28-2024 End: 06-28-2024 Patient encounter procedure DO Efrem Esquivel Work Phone: [facility] Work Phone: Start: 06-24-2024 End: 06-24-2024 ambulatory Samantha X Orzech Facility:[facility] Start: 06-24-2024 End: 06-24-2024 Lab Drop off Samantha X Orzech [facility] Start: 06-24-2024 End: 06-24-2024 ambulatory Samantha X Orzech Facility:[facility] Start: 06-24-2024 End: 06-24-2024 Patient encounter procedure Samantha X Orzech [facility] Start: 05-27-2024 End: 05-27-2024 ambulatory Pascale Lucas Facility:[facility] Start: 05-27-2024 End: 05-27-2024 Patient encounter procedure Pascale Lucas [facility] Start: 09-16-2023 ambulatory Cam Allan ty: Shirin Start: 09-07-2023 End: 09-07-2023 ambulatory JAJA MARTINEZ Facility:[facility] Start: 09-07-2023 End: 09-07-2023 Patient encounter procedure JAJA MARTINEZ [facility] Start: 08-06-2023 AUDIT Julia harkins Work Phone: [facility] 600 DO Work Phone: Start: 07-08-[address] Julia Patterson III Facility: Start: 05-14-2023 Rx Renewal Julia Sher rs Work Phone: [facility] 250 DO Work Phone: Start: 12-30-2022 Rx Renewal Julia Sher rs Work Phone: [facility] 250 DO Work Phone: Start: 10-28-2022 Rx Renewal Julia R Christos rs Work Phone: [facility] 250 DO Work Phone: Start: 07-09-2022 End: 07-12-2022 ambulatory PIERRE DEL ROSARIO [facility] Start: 07-09-2022 End: 07-12-2022 ambulatory PIERRE DEL ROSARIO [facility] Start: 07-09-2022 End: 07-11-2022 Subsequent hospital visit by physician Bertrand [facility] Additional Xray At [facility] Comment on above: Pain Start: 07-09-2022 End: 07-11-2022 Subsequent hospital visit by physician Julia Patterson Work Phone: [facility] Start: 07-04-2022 Office outpatient vi sit 25 minutes Julia Patterson Work Phone: [facility] 600 DO Work Phone: Start: 06-23-2022 Rx Renewal Jignesh sage MD Work Phone: [facility] 250 DO Work Phone: Start: 04-22-2022 End: 04-22-2022 ambulatory Rigo Hassan Other [facility] [employer] Other Start: 04-22-2022 Office outpatient vi sit 15 minutes Rigo Sonya [facility] Start: 04-21-2022 Telephone encounter Jignesh Aguirre MD Work Phone: [facility] 250 DO Work Phone: Start: 02-18-2022 Rx Renewal Jignesh sage MD Work Phone: [facility] 250 DO Work Phone: Start: 07-24-2021 End: 07-25-2021 ambulatory JIGNESH DUNHAM [facility] Start: 07-24-2021 End: 07-24-2021 Subsequent hospital visit by physician Julia Patterson Work Phone: [facility] Start: 09-26-2020 End: 09-26-2020 Subsequent hospital visit by physician Julia Patterson [facility] Start: 05-09-2020 End: 05-09-2020 Subsequent hospital visit by physician Julia Patterson [facility] Start: 01-12-2020 End: 01-14-2020 Subsequent hospital visit by physician Piper Howard [facility] Comment on above: Arrived Pre-op chest exam Start: 01-11-2020 End: 01-13-2020 Subsequent hospital visit by physician Piper Additional Xray At [facility] Comment on above: Trigger finger of le ft thumb; Trigger finger, left middle finger Start: 03-28-2019 End: 03-28-2019 Letter encounter Provider [facility] Start: 03-07-2019 Patient encounter procedure Daniela LEYVA [facility] Start: 01-21-2019 [facility] Start: 11-19-2018 Patient encounter procedure [facility] Start: 09-21-2018 Patient encounter procedure [facility] Start: 08-31-2018 Patient encounter procedure [facility] Start: 08-24-2018 Patient encounter procedure [facility] Start: 08-03-2018 Patient encounter procedure [facility] Start: 06-29-2018 Patient encounter procedure [facility] Start: 03-07-2005 Evaluation and management of inpatient DO Efrem Esquivel Work Phone: [facility] Short Stay Procedures Date Procedure [...] placement of stent for coronary artery disease JAJA MARTINEZ Comment on above: 2004 Operative procedure [...] procedure 06/15/2025 10:00 AM EDT Office Visit [place] [address] [place] [id number] Froylan Castanon MD [address] [facility] [place], [place] [id number] [facility] Start: 10-31-2024 ambulatory Ambulatory Facility:E U Yahir Start: 10-21-2024 ambulatory Ambulatory Facility:E U Reuben Start: 10-18-2024 ambulatory Ambulatory Facility:C [id number] Start: 09-16-2024 End: 09-16-2024 Patient encounter procedure 09/16/2024 1:40 PM EST Office Visit [facility] [address] [facility] [address] [place] [id number] Froylan Castanon MD [address] [facility] [place], [place] [id number] [facility] Start: 08-25-2024 End: 08-25-2024 [facility] Start: 07-10-2024 COVID-19 Vaccine ( season) COVID-19 Vaccine ( season) [facility] Start: 07-10-2024 COVID-19 Vaccine ( season) COVID-19 Vaccine ( season) [facility] Start: 07-10-2024 Influenza vaccination Influenza Vacc ine (#1) [facility] Start: 07-06-2024 FUV, Provider: Jignesh Pizano, Status: Pen, Time: 11:40 AM FUV, Provider: Jignesh Pizano, Status: Pen, Time: 11:40 AM [facility] 600 DO Work Phone: Start: 07-08-2023 FUV, Provider: Jignesh Pizano, Status: Pen, Time: 10:20 AM FUV, Provider: Jignesh Pizano, Status: Pen, Time: 10:20 AM [facility] 600 DO Work Phone: Start: 2023 RSV High Risk: (Elde rly (60+) or Population) (1 - 1-dose 75+ series) RSV High Risk: (Elderly (60+) or Population) (1 - 1-dose 75+ series) [facility] Start: 07-24-2022 Lipid panel [facility] Start: 07-10-2022 Influenza vaccination Flu vaccine (# 1) [facility] Start: 07-04-2022 FUV, Provider: Jignesh Pizano, Status: Pen, Time: 10:30 AM FUV, Provider: Jignesh Pizano, Status: Pen, Time: 10:30 AM [facility] Work Phone: Start: 06-11-2022 FUV, Provider: Jignesh Pizano, Status: Pen, Time: 11:00 AM FUV, Provider: Jignesh Pizano, Status: Pen, Time: 11:00 AM [facility] Work Phone: Start: 02-26-2022 COVID-19 Vaccine (4 - Booster for Pfizer series) COVID-19 Vaccine (4 - Booster for Pfizer series) [facility] Start: 07-10-2021 Influenza vaccination Flu vaccine (# 1) [facility] Work Phone: Start: 01-11-2021 Creatinine measurement Creatinine mo nitoring [place], [place] Start: 01-11-2021 Creatinine monitoring Creatinine mon itoring [place] Start: 01-11-2021 Potassium monitoring Potassium monit oring [place] Start: 07-10-2020 Influenza vaccination Flu vaccine (# 1) [place] Start: 01-25-2020 End: 01-25-2020 Hospital Encounter [facility] Comment on above: 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 Start: 07-10-2019 Influenza vaccination [facility] Start: 06-17-2019 End: 06-17-2019 Office Visit 06/17/2019 Office Visit Anesthesiology Pain Mgt Yesenia Kimball, HYDROELECTRIC POWERPLANT SUPERVISOR-X RAY CONTROL EQUIPMENT REPAIRER [address] [place] [address] [phone] [facility] Start: 05-01-2019 Annual Wellness Visi t (AWV) Annual Wellness Visit (AWV) [place] Start: 03-28-2019 End: 03-28-2019 Office Visit 03/28/2019 Office Visit Anesthesiology Pain Mgt Thang Gautam MD [address] [place] [address] Arrived [facility] Procedural Pain Management Comment on above: Arrived Start: 03-26-2016 Pneumococcal 65+ yea rs Vaccine (2 - PCV) Pneumococcal 65+ years Vaccine (2 - PCV) [facility] Start: 03-26-2016 Pneumococcal Vaccine : 65+ Years (2 of 2 - PCV) Pneumococcal Vaccine: 65+ Years (2 of 2 - PCV) [facility] Start: 08-07-2015 Lipid panel Lipid screen [place], [place] Start: 08-07-2015 Lipid screen Lipid screen [place], [place] Start: 2013 Pneumococcal vaccination PNEUMOCOCCAL VACCINE SERIES (1 of 2 - PCV13) [facility] Start: 2008 RSV patient s and/or patients aged 60+ years (1 - 1-dose 60+ series) RSV patients and/or patients aged 60+ years (1 - 1-dose 60+ series) [facility] Start: 1998 Colon cancer screen colonoscopy Colon cancer screen colonoscopy [place], [place] Start: 1998 Prostate specific antigen measurement PROSTATE CANCER SCREENING DISCUSSION [facility] Start: 1998 Protein mass conc COLON CANCER SCREENING DISCUSSION [facility] Start: 1998 Screening for malign ant neoplasm of colon Colon cancer screen colonoscopy [place], [place] Start: 1998 Shingles Vaccine (1 of 2) Shingles Vaccine (1 of 2) [facility] Start: 1998 Zoster vaccine hzv l ady for subcutaneous use ZOSTER (SHINGLES) VACCINE (1 of 2) [facility] Start: 1998 Zoster Vaccines (1 o f 2) Zoster Vaccines (1 of 2) [facility] Start: 1993 Screening for malign ant neoplasm of colon [facility] Start: 1988 Fasting lipid profile LIPID SCREENIN G [facility] Start: 1970 DTaP/Tdap/Td Vaccine s (1 - Tdap) DTaP/Tdap/Td Vaccines (1 - Tdap) [facility] Start: 1967 DTaP/Tdap/Td vaccine (1 - Tdap) DTaP/Tdap/Td vaccine (1 - Tdap) [facility] Start: 1967 Third diphtheria, tetanus and acellular pertussis (DTaP) vaccination TDAP (ADULT) [facility] Start: 1966 Hepatitis C screening Hepatitis C Sc reening [facility] Start: [address] [facility] Start: 1960 COVID-19 Vaccine (1) COVID-19 Vaccin e (1) [facility] Work Phone: Start: 1960 Depression Screen Depression Screen [facility] Start: 1959 DTaP/Tdap/Td vaccine (1 - Tdap) DTaP/Tdap/Td vaccine (1 - Tdap) [facility] Start: 1948 Annual Wellness Visi t (AWV) Annual Wellness Visit (AWV) [facility] Start: 1948 Hepatitis C antibody , confirmatory test HEPATITIS C VIRUS SCREENING [facility] Start: 1948 Lipid panel Lipid Panel [facility] Start: 1948 Medicare Annual Wellness Visit Medicare Annual Wellness Visit (AWV) [facility] EKG 12 lead EKG 12 lead ECG Routine 01/12/2020 11:28 AM EST [facility] Work [facility]: Immunizations Immunization Date Immunization Notes Care Provider Cass reyes 08-06-2023 influenza virus vaccine, unspecified formulation Frida 1 [facility] Work Phone: 08-01-2022 Fluzone High-Dose Quadrivalent 0.7 ML Intramuscular Suspension Prefilled Syringe Julia Patterson Work Phone: [facility] 600 DO Work Phone: 08-01-2022 influenza virus vaccine, unspecified formulation JAJA MARTINEZ [facility] 08-01-2022 influenza, high dose seasonal, preservative-free Frida 1 [facility] Work Phone: 10-28-2021 COVID-19 Vaccine Pfi zer - Documentation Purposes Only Rigo Hassan Other [facility] 08-13-2021 influenza virus vaccine, unspecified formulation JAJA MARTINEZ [facility] 08-13-2021 influenza, high dose seasonal, preservative-free Jignesh Pizano MD Work Phone: [facility] 01-04-2021 Pfizer-BioNTech COVID-19 Vacc 30 MCG/0.3ML Intramuscular Suspension Jignesh Pizano MD Work Phone: [facility] 12-14-2020 COVID-19 Vaccine Pfi zer - Documentation Purposes Only Rigo Hassan Other [facility] 08-07-2020 influenza virus vaccine, unspecified formulation JAJA MARTINEZ [facility] 08-07-2020 influenza, high dose seasonal, preservative-free Jignesh Pizano MD Work Phone: [facility] 08-03-2020 influenza virus vaccine, unspecified formulation JAJA MARTINEZ [facility] 07-10-2020 influenza virus vaccine, unspecified formulation Jignesh Pizano MD Work Phone: [facility] 09-23-2019 influenza, high dose seasonal, preservative-free Frida 1 [facility] Work Phone: 08-09-2019 influenza, high dose seasonal, preservative-free Jignesh Pizano MD Work Phone: [place] [address] DO Work Phone: 08-16-2018 influenza virus vaccine, unspecified formulation JAJA MARTINEZ [facility] 08-09-2018 influenza virus vaccine, unspecified formulation Jignesh Pizano MD Work Phone: [place] [address] DO Work Phone: 09-01-2017 influenza, injectabl e, quadrivalent, preservative free Jignesh Pizano MD Work Phone: [place] [address] DO Work Phone: 09-01-2017 influenza virus vaccine, unspecified formulation [facility] 08-11-2017 influenza, high dose seasonal, preservative-free Jignesh Pizano MD Work Phone: [place] [address] DO Work Phone: 09-01-2016 influenza virus vaccine, unspecified formulation JAJA MARTINEZ [facility] 09-01-2016 influenza, injectabl e, quadrivalent, preservative free Jignesh Pizano MD Work Phone: [place] [address] DO Work Phone: 08-09-2016 influenza virus vaccine, unspecified formulation Jignesh Pizano MD Work Phone: [place] [address] DO Work Phone: 08-14-2015 influenza virus vaccine, unspecified formulation JAJA MARTINEZ [facility] 08-09-2015 influenza virus vaccine, unspecified formulation Jignesh Pizano MD Work Phone: [place] [address] DO Work Phone: 03-26-2015 pneumococcal conjuga te vaccine, 7 valent Jignesh Pizano MD Work Phone: [place] [address] DO Work Phone: 03-09-2015 pneumococcal conjuga te vaccine, 7 valent Jignesh Pizano MD Work Phone: [place] [address] DO Work Phone: 11-10-2014 pneumococcal polysaccharide vaccine, 23 valent Rigo Hassan Other [facility] 08-09-2014 influenza virus vaccine, unspecified formulation Jignesh Pizano MD Work Phone: [place] [address] DO Work Phone: 08-08-2014 influenza virus vaccine, unspecified formulation JAJA MARTINEZ [facility] 07-29-2013 influenza virus vaccine, unspecified formulation JAJA MARTINEZ [facility] 07-29-2013 influenza, injectabl e, quadrivalent, preservative free Jignesh Pizano MD Work Phone: [place] [address] DO Work Phone: 07-28-2012 influenza virus vaccine, unspecified formulation JAJA MARTINEZ [facility] 07-28-2012 influenza, injectabl e, quadrivalent, preservative free Jignesh Pizano MD Work Phone: [place] [address] DO Work Phone: 07-30-2011 influenza virus vaccine, unspecified formulation JAJA MARTINEZ [facility] 07-30-2011 influenza, injectabl e, quadrivalent, preservative free Jignesh Pizano MD Work Phone: [facility] 250 DO Work Phone: 10-30-2009 novel [id number], preservative-free, injectable Jignesh Pizano MD Work Phone: [facility] 250 DO Work Phone: influenza virus vaccine, unspecified formulation Jignesh Pizano MD Work Phone: [place] [address] DO Work Phone: Comment on above: 2012Aug [id number] pneumococcal polysaccharide vaccine, 23 valent Jignesh Pizano MD Work Phone: [place] [address] DO Work Phone: Comment on above: 2012 2007 2004 Payers Date Payer Category Payer Self-pay 2023 Medicare supplementa l policy (as second payer) [facility] [id number] 2023 Unknown 2013 Unknown [id number] 2013 Medicare [id number] 2013 Medicare xxxxxxxxxxx [id number] 2013 Medicare [id number]. [id number]. [id number] 2013 Medicare [id number] 1948 Unknown [id number] 2.16.840.1.197549.3.579. 2.983 1948 Unknown [id number] 2.16.840.1.388878.3.579. 2.983 1948 Unknown [id number] 2.16.840.1.536656.3.579. 2.174 1948 Unknown [id number] 2.16.840.1.001851.3.579. 2.174 1948 Unknown [id number] 2.16.840.1.815347.3.579. 2.174 1948 Unknown [id number] 2.16.840.1.527430.3.579. 2.356 1948 Unknown [id number] 2.16.840.1.824285.3.579. 2.727 1948 Unknown [id number] 2.16.840.1.542247.3.579. 2.727 1948 Unknown [id number] 2.16.840.1.140540.3.579. 2.727 1948 Unknown [id number] 2.16.840.1.230711.3.579. 2.727 1948 Unknown [id number] 2.16.840.1.615423.3.579. 2.727 1948 Unknown [id number] 2.16.840.1.735196.3.579. 2.727 1948 Unknown [id number] 2.16.840.1.706757.3.579. 2.1246 1948 Unknown [id number] 2.16.840.1.507727.3.579. 2.1246 1948 Unknown [id number] 2.16.840.1.930508.3.579. 2.1246 1948 Unknown [id number] 2.16.840.1.280187.3.579. 2.1246 1948 Unknown [id number] 2.16.840.1.113746.3.579. 2.1246 1948 Unknown [id number] 2.16.840.1.482949.3.579. 2.1244 1948 Unknown [id number] 2.16.840.1.696671.3.579. 2.727 1948 Unknown [id number] 2.16.840.1.958035.3.579. 2.727 1948 Unknown [id number] 2.16.840.1.057366.3.579. 2.727 1948 Unknown [id number] 2.16.840.1.552201.3.579. 2.727 1948 Unknown [id number] 2.16.840.1.483070.3.579. 2.727 1948 Unknown [id number] 2.16.840.1.818236.3.579. 2.727 Unknown [id number] 2.16.840.1.136227.3.579. 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-dr manager retail store of alcohol (finding) [place] Start: 01-12-2020 End: 09-16-2024 Tobacco use and exposure Never used [place] Start: 09-16-2024 Alcohol use Alcohol use [place] [facility] [address] DO Work Phone: Start: 09-16-2024 Sex Assigned At F [facility] Tobacco smoking status Never [facility] Start: 1950 Sex Assigned At Male F [facility] Start: 02-01-2024 Tobacco smoking stat us NHIS Tobacco smoking consumption unknown [facility] Work Phone: Start: 08-01-2024 End: 09-16-2024 Exposure to SARS-CoV-2 (event) Not sure [facility] Start: 09-16-2024 Alcoholic beverage intake Ex-drinker (finding) [facility] Work Phone: Medical Equipment Procedure Code Equipment Code Equipment Origin al Text Equipment Identifier Dates Gypsum Suture Swivelock 4.75 X 19.1 Biocomposite Min 5ea [id number] Start: 01-27-2018 Goals Date Patient Goal Desired Activity /State Functional Status Date Assessment Result Facility 08-02-2024 Functional Status N/A [facility] 06-24-2024 Functional Status N/A [facility] Clinical Notes 04-22-2022 to 09-16-2024 Froylan Castanon MD - 09/16/2024 1:40 PM ESTPatient Instructions Note Date & Type Note Facility 09-16-2024 History of Present illness Narrative Subjective Sarina Justice is a 74 y.o. male Chief [...] acquired this past summer. They live in [place]. Review of system is normal physical examination [...] discussion and plan. documented in this encounter [facility] Work Phone: 09-16-2024 Instructions Kimberly Oconnell LPN [...] visit Same medications documented in this encounter [facility] Work Phone: 08-25-2024 Discharge summary Note Date/Time August 25, 2024 1:28pm [place] [address] Discharge Summary Signed Patient: Sarina Justice MR#: [id number] : 1950 Acct:[id number] Age/Sex: 74 / M Adm Date: 4 Loc: Room: Attending Dr: Froylan Castanon MD Copies to: Froylan Castanon MD, [facility] Julia Patterson III, DO~ Providers Date of [...] Low-Cholesterol Additional Instructions: DISCHARGE INSTRUCTIONS FOR CARDIAC MACHINE FILLER PROCEDURE: Heart Cath The following instructions have [...] cold, numb, blue or white, call the salesman/owner immediately. 4. ACTIVITY: You are advised to [...] bottle, follow the instructions on the bottle. [facility] is not responsible for incorrect prescription information [...] % (Auto) 66.3, Lymph % (Auto) 22.1, [place] % (Auto) 10.2, Eos % (Auto) 1.0, Baso % (Auto) 0.4, Nucleat RBC Rel Count 0.1, Neut # (Auto) 3.9, Lymph # (Auto) 1.3, [place] # (Auto) 0.6, Eos # (Auto) 0.1, [...] signed by MD RADHAMES Castanon> 08/25/24 1328 [facility] Work Phone: 1(208) 244-467210-17-2024 [facility] Discharge instructions Patient Education 08/02/2024 13:47:43 [...] Up Care 07/15/2024 15:52:56 With:Cam KEE Address: [address] [place] [address] Business (1) When: Unknown Comments:Office will call to schedule follow up [facility] 09-24-2024 NoteProgress Note-Physician Patient: SARINA JUSTICE Age: [...] Tab Multi Vitamin+ 1 tab, Oral, Daily Angora 325 mg-5 mg oral tablet See Instructions, PRN Angora 325 mg-5 mg oral tablet See Instructions, [...] list: All Problems Obesity / SNOMED CT [id number] / Possible HTN - Hypertension / SNOMED CT [id number] / Confirmed History of hypercholesterolemia / SNOMED CT [id number] / Confirmed CAD - Coronary artery disease / SNOMED CT 2538310426 / Confirmed H/O: arthritis / SNOMED CT 210292202 / Confirmed Acid reflux / SNOMED CT 329509479 / Confirmed Asthma / SNOMED CT 775039327 / Confirmed Pre diabetes / Confirmed controlle by diet Trigger finger / SNOMED CT 9264967325 / Confirmed left ring finger Enlarged prostate / SNOMED CT 504485417 / Confirmed Osteoarthritis / SNOMED CT 3554795145 / Confirmed Sacroiliitis / SNOMED CT 3699817255 / Confirmed Spondylosis of lumbar region without myelopathy or radiculopathy / SNOMED CT 79427760 / Confirmed Lumbar radiculitis / SNOMED CT 970461382 / Confirmed DDD (degenerative disc disease), lumbar / SNOMED CT 63288050 / Confirmed Lumbar stenosis / SNOMED CT 01942162 / Confirmed Chronic pain / SNOMED CT 587481611 / Confirmed Personal history of prostate cancer / SNOMED CT 4128345968 / Confirmed BMI 31.0-31.9,adult / SNOMED CT 062184248 / Confirmed Frequency of urination / SNOMED CT 847093117 / Confirmed Nocturia / SNOMED CT 231701855 / Confirmed BPH with urinary obstruction / SNOMED CT 1453350786 / Confirmed ED (erectile dysfunction) / SNOMED CT 6961647948 / Confirmed Erectile dysfunction following radiation therapy / SNOMED CT 8872597382 / Confirmed Gross hematuria / SNOMED CT 225125248 / Confirmed Histories Past Medical History: Active Pre diabetes: Onset on 01/08/2011 at 60 years. 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 History of kidney stone (9818349633): Resolved. Family History: Dementia Mother Asthma Brother Hypertension Father Congenital heart disease Father Diabetes mellitus type 2 Mother Osteoporosis Mother Heart failure Mother Migraine Mother Stroke Mother Hyperthyroidism Mother Acute myocardial infarction Father Hyperlipidemia Father Alzheimer's disease Mother Cardiac arrest Father Procedure history: Release of trigger finger (872886256) on 03/21/2020 at 69 Years. Comments: 03/21/2020 15:21 EDT - Mary Ann Moran RN left middle Repair of rotator cuff of shoulder (8765062722) on 01/27/2018 at 67 Years. Comments: 02/02/2018 [...] Years. 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., (more content not included)...[facility]:Result Comment: Electronically Signed By: Cam KEE MD\.br\Date and Time Signed: 08/02/24 14:00 [id number] Evaluation + Plan noteExtracted from: Title:Urology Progress [...] Appointments Appointment Date:08/22/2024 10:30:00 AM Scheduled Provider: Location:[facility] Appointment Type:URO Nurse Visit Appointment Date:09/09/2024 10:45:00 AM Scheduled Provider:Cam KEE MD Location:[facility] Appointment Type:URO Office Visit [facility] [phone] NotePatient Education Custom Cystoscopy ? Voiding after [...] if you have a fever over 100 degrees.[facility] 06-24-2024 Hospital Discharge instructions Patient Education [...] Follow these instructions at home: Medicines Take bani-zpu-inyshwk and prescription medicines only as told by [...] or the blood stops without treatment. Take iezr-knp-udzdgpt and prescription medicines only as told by your health care provider. Drink enough fluid to keep your urine pale yellow. This information is not intended to replace advice given to you by your health care provider. Make sure you discuss any questions you have with your health care provider. Document Revised: 06/26/2021 Document Reviewed: 06/26/2021 [employer]intin Patient Education 2022 [employer]. 06/24/2024 13:57:39 Benign Prostatic Hyperplasia Benign Prostatic [...] urethra. Follow these instructions at home: Take mgkm-rba-qnrmcne and prescription medicines only as told by [...] Document Reviewed: 05/14/2022 Elsevier Patient Education 2022 [employer]. Follow Up Care 06/20/2024 16:12:54 With:CHILANGO QUILES, Cam Newby, URL Address: [address] [place], [place] [id number]- When: Unknown Comments:Cystoscopy [facility] 08-16-2024 Evaluation + Plan note Future Scheduled Tests Radiology* CT Urogram 06/24/24 [facility] 08-16-2024 Evaluation + Plan note Diagnostic Tests Pending * UroVysion Fish and Urine Cyto ([facility]) 06/24/24 Future Scheduled Tests Radiology* CT Urogram 06/24/24 [facility] 08-16-2024 NoteUrology Office/Clinic Note Chief Complaint referral [...] with voice recognition artificial intelligence software, specifically [employer], [employer] and or In[employer]. Substitutions may have occurred due to the [...] understanding -Urine for FISH/cytology today -CTU at [facility] -Schedule cystoscopy with PRW Ordered: Body [...] Urnls Dip Stick Auto w/o Microscopy POC 00863 2. Personal history of prostate cancer (Z85.46: Personal history of malignant neoplasm of prostate) TRUS/bx 08/13/11 - [place] 6 (3+3) x 2 cores, about 10% [...] Information CHILANGO QUILES, Cam Newby, URL [address] [place] [address]- Additional Instructions (more content not included)...[facility] HospitalComment on above:Result Comment: Electronically Signed By: JOSE DE JESUS Keyes APRN, Samantha Mathis\.br\Date and Time Signed: 06/24/24 13:58 [id number] Note Patient Education Urology Hematuria, Adult Hematuria [...] these instructions at home: Medicines ? Take klhx-nqp-healrui and prescription medicines only as told by [...] the blood stops without treatment. ? Take vgxw-nth-wydkfxx and prescription medicines only as told by your health care provider. ? Drink enough fluid to keep your urine pale yellow. This information is not intended to replace advice given to you by your health care provider. Make sure you discuss any questions you have with your health care provider. Document Revised: 06/26/2021 Document Reviewed: 06/26/2021 [employer]intin Patient Education ? 2022 [employer]. Benign Prostatic Hyperplasia Benign prostatic hyperplasia (BPH) [...] include: ? Getting up (more content not included)...[facility] note* Encounter Date Diagnosis Assessment Notes Treatment Notes Treatment Clinical Notes Apr, Asthma, moderate persistent (ICD-10 - J45.40) Apr, Allergic rhinitis (ICD-10 - J30.9) Apr, Gastroesophageal ref lux disease (ICD-10 - K21.9) Zite Other Evaluation + Plan note No data available for this section [facility] Future Appointments Appointment Date:10/21/2024 09:00:00 AM Scheduled Provider: Location:[facility] [place] Appointment Type:URO Nurse Visit Appointment Date:10/31/2024 10:00:00 AM Scheduled Provider:Cam KEE MD Location:[facility] [place] Appointment Type:URO Office Visit [facility] Evaluation note* Diagnosis Pain Generalized pain documented in this encounter [facility] Work Phone: evaluation note* Diagnosis Onset Date Resolution Status Allergic rhinitis acute Asthma, moderate persistent acute Gastroesophageal reflux disease [facility] Work Phone: Evaluation note* Diagnosis Preop cardiovascular exam Pre-operative cardiovascular examination ASCVD (arteriosclerotic cardiovascular disease) Unspecified cardiovascular disease History of PTCA Postsurgical percutaneous transluminal coronary angioplasty status documented in this encounter [facility] Work Phone: Evaluation note* Diagnosis ASCVD (arteriosclerotic cardiovascular disease) Unspecified cardiovascular disease Essential hypertension Unspecified essential hypertension History of PTCA Postsurgical percutaneous transluminal coronary angioplasty status Mixed hyperlipidemia BMI 28.0-28.9,adult Never smoked tobacco documented in this encounter [facility] Work Phone: History general Narrative - Reported* [...] MTP 8 Surgical History LMF trigger release [facility] Hospitalization History as above Zite Other History of Present illness NarrativePatient returns [...] us if a plan of surgery is implemented.[facility] Work Phone: Hospital Discharge instructions No data available for this section [facility] Additional Instructions DISCHARGE INSTRUCTIONS FOR CARDIAC MACHINE FILLER PROCEDURE: Heart Cath The following instructions have [...] cold, numb, blue or white, call the salesman/owner immediately. 4. ACTIVITY: You are advised to [...] bottle, follow the instructions on the bottle. [facility] is not responsible for incorrect prescription information provided by the patient during their visit. Do not stop your medications without consulting your health care provider. Please take the list with you to your next doctor's appointment.[facility] Work Phone: Progress note No data available for this section [facility] Summary Purpose Family History No Family History [...] FoundDocuments on File Type Date Recorded Patient Assistant Store Manager Operations Expl anation Advance Directives and Living Will Power of Painter Set Latest Code Status on File Code Status Date Activated Date Inactivated Comments Full Code 06/16/2018 7:50 AM 06/16/2018 11:13 AM Full Code 06/16/2018 6:11 AM 06/16/2018 7:50 AM Full Code 01/27/2018 1:27 PM 01/27/2018 4:34 PM Full Code 01/27/2018 10:07 AM 01/27/2018 1:27 PM Full Code 02/06/2016 12:12 PM 02/06/2016 2:59 PM Documents on File Type Date Recorded Patient Assistant Store Manager Operations Expl anation ACP-Advance Directive ACP-Power of Painter Set Advance Directive Response Recorded Date/ Time Advance [...] SPECT MULTIPLE STUDIES Froylan Castanon MD [address] [facility] [address] [place] [address] Referral ID Status Reason Start Date Expiration Date V isits Requested Visits Authorized [id number] Authorized 08/03/2024 08/03/2025 5 5 Additional Source [...] CREATED AUTHOR AUTHOR'S ORGANIZ ATION 03/11/2019 [facility] DATE CREATED AUTHOR AUTHOR'S ORGANIZ ATION 07/12/2022 [facility] DATE CREATED AUTHOR AUTHOR'S ORGANIZ ATION 07/09/2023 [facility] DATE CREATED AUTHOR AUTHOR'S ORGANIZ ATION 07/09/2023 [facility] DATE CREATED AUTHOR AUTHOR'S ORGANIZ ATION 07/05/2024 [facility] DATE CREATED AUTHOR AUTHOR'S ORGANIZ ATION 08/05/2024 [facility] DATE CREATED AUTHOR AUTHOR'S ORGANIZ ATION 08/25/2024 [facility] DATE CREATED AUTHOR AUTHOR'S ORGANIZ ATION 09/08/2024 [facility] DATE CREATED AUTHOR AUTHOR'S ORGANIZ ATION 09/29/2024 [facility] DATE CREATED AUTHOR AUTHOR'S ORGANIZ ATION 10/04/2024 [facility] REASON FOR VISIT (unrecogniz ed section and content) Specialty Diagnoses / Procedures Referred By Contac t Referred To Contact Radiology Diagnoses Preop cardiovascular exam ASCVD (arteriosclerotic cardiovascular disease) History of PTCA Procedures Nuclear Stress Test CHG MYOCARDIAL SPECT MULTIPLE STUDIES Froylan Castanon MD [address] [facility] [address] [place] [address] Referral ID Status Reason Start Date Expiration Date V isits Requested Visits Authorized [id number] Authorized 08/03/2024 08/03/2025 5 5 Reason Comments Annual Exam Care Teams (unrecognized sec tion and content) Senior Software Systems Engineer Relationship Specialty Start Date End Date Julia Patterson [address] [place] [phone] PCP - General 03/08/13 Senior Software Systems Engineer Relationship Specialty Start Date End Date Julia Patterson [address] [place] [phone] PCP - General 03/08/13 Team Status: Active [...] June 28, 2024 End: June 28, 2024 Senior Software Systems Engineer Relationship Specialty Start Date End Date Julia Patterson DO [address] [place] [phone] PCP - General Family Medicine 08/04/24 Senior Software Systems Engineer Relationship Specialty Start Date End Date Julia Patterson DO [address] [place] [phone] PCP - General Family Medicine 08/04/24 Senior Software Systems Engineer Relationship Specialty Start Date End Date Julia Patterson DO [address] [place] [phone] PCP - General Family Medicine 08/04/24 Senior Software Systems Engineer Relationship Specialty Start Date End Date Julia Patterson DO [address] [place] [phone] PCP - General Family Medicine 08/04/24 Team Status: Inactive Member Role Status Dates Julia Patterson III, DO Primary Care Provider Active Start: August 25, 2024 End: August 25, 2024 Froylan Castanon MD Attending Provider Active St art: August 25, 2024 End: August 25, 2024 Senior Software Systems Engineer Relationship Specialty Start Date End Date Julia Patterson DO [address] [facility] [place] [phone] PCP - General Family Medicine 08/04/24 Goals [...] BE BASED ON THE PRIMARY CLINICAL RECORDS. [facility] [employer] provides no warranty or guarantee of the accuracy or completeness of information in this document.
[2024-10-18 12:34] LABS: INR 1.01; Prothrombin Time 10.7 sec (9.0-11.6)
[2024-10-18] MEDS: LACTATED RINGER'S SOLUTION 1,000 ML 50 ML IV (13:32)
[2024-10-18] MEDS: LEVOFLOXACIN IN DEXTROSE 5 % 500 MG/100 ML PREMIX 100 MG IV (14:04)
--- NOTE | 2024-10-18 14:54 | P.URON_ITS ---
Urology Surgery Operative Note Operative Note Procedure Date: 10/18/24 Time Out Performed: yes Pre-op Diagnosis: Gross hematuria; bleeding prostate Post-op Diagnosis: same as pre-op Procedures performed: 1. Cystoscopy. 2. Mini transurethral resection of prostate. 3. Coagulation of prostate Anesthesia: DARNELL Primary Surgeon: Cam Grey Complications: None Estimated blood loss (mL): 5 Findings: Mildly bleeding prostate. Prostate nodules protruding into the bladder which were bleeding. Specimens: Prostate nodule tissue Drains: 22 Slovenian three-way coud? in the bladder taped to traction and CBI. Indications for Procedures: This gentleman has a history of prostate cancer for which she had brachytherapy in 2010. For the last few months, he has been experiencing gross hematuria intermittently. Cystoscopy revealed that he had several areas from the prostate that were bleeding and he had prostatic nodular growth protruding into the elva dder posteriorly which was also bleeding. He now presents for cystoscopy, transurethral resection of the prostate and fulguration of the prostate. He has signed an informed consent after risks were explained. Some of these include bleeding, infection, anesthesia, urinary incontinence both temporary and permanent, erectile dysfunction and possible need for further operations to name a few. Detailed description of Procedure: The patient was brought to the operating room and placed on the operating room table in the supine position. SCDs were placed on the lower extremities and turned on and functioning during the entire case. Timeout was done by all parties in the room. We all agreed upon the patient's identification and the planned procedures for this patient. Genn. anesthesia was then administered. The patient was then repositioned into the modified dorsal lithotomy position. All pressure points were satisfactorily padded. Genitalia were sterilely prepped and draped in usual fashion. I started by passing a 26 Slovenian Olympus resectoscope with the visual obturator per urethra and into the bladder. I then removed the obturator and passed a resectoscope and standard bipolar loop electrode into the sheath. I identified the ureteral orifices. I looked at the entire bladder and there was no evidence of any tumors or bleeding areas of the mucosa. I then identified the nodular area posteriorly from the prostatic urethra into the bladder neck and the trigone. This area was bleeding some. I uniformly resected this area down. I then coagulated the area. I then evaluated the rest of the prostate. There were a couple areas that were bleeding on the right lateral lobe region. These were thoroughly coagulated. Smaller bleeders were noted on the left lateral lobe and anteriorly. I used the coagulation electrode to thoroughly coagulate these areas. I also used the coagulation electrode for the resection area. Upon completion there was no more bleeding. The orifices effluxed clear urine. The Ilich evacuator was used to get the prostate chips out and these were sent for permanent sections. After verifying that there was no bleeding I then removed the scope. A 22 Slovenian three-way coud? Buenrostro was placed in the bladder. It was irrigated manually to verify correct placement. 30 cc of fluid was placed in the balloon. It was taped to traction and CBI was started. It irrigated clear. The anesthetic was then reversed. He was then transferred to a gurconcordia bed and wheeled to PACU in stable condition. Urinary Catheter Management Urinary Catheter Management 3-way Urethral: Cath placed during this visit: no
[2024-10-18] MEDS: 0.9 % SODIUM CHLORIDE 1,000 ML 80 ML IV (15:03)
[2024-10-18] MEDS: SOLIFENACIN SUCCINATE 10 MG TABLET PO (15:10)
[2024-10-18] MEDS: SODIUM CHLORIDE IRRIG SOLUTION 3,000 ML 3000 ML IRR ×2 (16:54→21:13)
[2024-10-18] MEDS: CEFAZOLIN SODIUM/DEXTROSE,ISO 1 GM/50 ML PREMIX IV ×2 (17:01→23:49)
[2024-10-19] MEDS: 0.9 % SODIUM CHLORIDE 1,000 ML 80 ML IV (03:12)
[2024-10-19 05:25] VITALS: BP 144/75; PULSE 104; TEMP 36.9; O2SAT 91
--- NOTE | 2024-10-19 06:26 | PC.NURSE ---
0500- traction released 0600- CBI discontinued and leg bag placed. Pt assisted to walk the halls with RN and aide. pt now sitting in recliner with call light in reach and denies needs at this time.
[2024-10-19] MEDS: SOLIFENACIN SUCCINATE 10 MG TABLET PO (08:24)
[2024-10-19 08:31] VITALS: BP 131/72; PULSE 118; TEMP 36.8; O2SAT 90
== END 2024-10-19 08:55 | disposition home or self-care (01) ==
LOC: SURGOUT 12:08 → MS 15:27
PROVIDERS: Visit Provider Urology
PROC: (CPT 52601; principal; 2024-10-18 13:30)
DX: R31.0 Gross hematuria (principal); N42.1 Congestion and hemorrhage of prostate; C61 Malignant neoplasm of prostate; K21.9 Gastro-esophageal reflux disease without esophagitis; N32.89 Other specified disorders of bladder; I25.10 Atherosclerotic heart disease of native coronary artery without angina pectoris; N52.9 Male erectile dysfunction, unspecified; E78.00 Pure hypercholesterolemia, unspecified; Z87.442 Personal history of urinary calculi; Z95.5 Presence of coronary angioplasty implant and graft; I10 Essential (primary) hypertension; J45.909 Unspecified asthma, uncomplicated
CPT/HCPCS: 52601; 36415; 80048; 85610; 85730; 88307; 88341; 88342; 96365; 96366; J0131; J0690; J1100; J1171; J2250; J2405; J2704; J3010

== ENCOUNTER 2024-11-11 13:10 | Outpatient (OUT) | payer MEDICARE, SELFPAY ==
--- OUTSIDE RECORDS SUMMARY | 2024-11-11 13:16 | XMS_ITS | CCD ---
Author Organization [facility] Care Team Providers Care Natural Resource Economist Name Role Phone MAGO RODARTE Attending Unavailable CAYDEN, MAGO Referring Unavailable RAHRMAGO SALDANA Attending Unavailable HRSHANA, MAGO Referring Unavailable RAHRMAGO SALDANA Attending Unavailable PATTERSON III, JULIA R Referring Unavailabl e CLINKERYESENIA Attending Unavailable PATTERSON III, JULIA R Referring Unavailabl e CLINKERYESENIA Attending Unavailable Daniela GAUTAM Referring Unavailable MAGO RODARTE Attending Unavailable CAYDEN, MAGO Referring Unavailable Daniela GAUTAM Attending Unavailable DAIN ARosalind LEYVA Referring Unavailable PATTERSON III, JULIA R Primary Care Unavailabl e RAMAGO CRAIG Attending Unavailable CAYDEN, MAGO Referring Unavailable Patterson, Julia R Primary Care Provider [phone] Patterson, Julia R Primary Care Provider [phone] Patterson, Julia R Primary Care Provider [phone] Patterson, Julia R Primary Care Provider [phone] Unavailable Unavailable Rigo Hassan Unavailable [phone] Patterson, Julia R Unavailable Patterson, Julia R Primary Care Provider [phone] JIGNESH PIZANO Referring Unavail able PATTERSON, JULIA R Primary Care Unavailable PIERRE DEL ROSARIO Referring Unavailab le PATTERSON, JULIA R Primary Care Unavailable PIERRE DEL ROSARIO Referring Unavailab le PATTERSON, JULIA R Primary Care Unavailable Leonardo BEAULIEU, Dr. Julia Newby Primary Care Unacarrie Pizano II, Dr. Jignesh Levy Referring Unavailable Jerica VALADEZ, Dr. Jignesh Levy Attending Unavailable Patterson III, Julia R Primary Care Physician DO Efrem Esquivel Attending Provider [phone] Orzech, Samantha X Admitting Unavailable Orzech, Samantha X Attending Unavailable Orzech, Samantha X Referring Unavailable Patterson DO, Julia R Primary Care Provider FROYLAN CASTANON Referring Unavailable PATTERSON, JULIA R Primary Care Unavailable CASTANONFROYLAN SMITH Referring Unavailable PATTERSON, JULIA R Primary Care Unavailable Patterson III, DO Julia R Primary Care Provider MD Froylan Castanon Attending Provider [phone] Jojo Melendrez Primary Care Physician [phone] FROYLAN CASTANON Attending Unavailable PATTERSON, JULIA R Primary Care Unavailable Castanon, Froylan Attending Unavailable Patterson III, Julia R Primary Care Unavailabl e Lg, Froylan Admitting Unavailable Kee, Cam Admitting Unavailable Kee, Cam Attending Unavailable Patterson III, Julia R Primary Care Unavailabl e KEE, Cam R Attending Unavailable KEE, Cam R Attending Unavailable KEE, Cam R Attending Unavailable KEE, Cam R Attending Unavailable KEE, Cam R Attending Unavailable KEE, Cam R Admitting Unavailable KEE, Cam R Attending Unavailable KEE, Cam R Referring Unavailable Orzech, Samantha X Admitting Unavailable Orzech, Samantha X Attending Unavailable Orzech, Samantha X Referring Unavailable Jojo Melendrez Admitting Unavailable Jojo Melendrez Attending Unavailable KEE, Cam R Attending Unavailable KEE, Cam R Attending Unavailable Lucas, Pascale L Admitting Unavailable Lucas, Pascale L Attending Unavailable Orzech, Samantha X Attending Unavailable Orzech, Samantha X Admitting Unavailable Orzech, Samantha X Attending Unavailable Lucas, Pascale L Referring Unavailable Allergies Allergy Classification Reported Allergen(s) Allergy Type Date of Onset Reaction(s) Facility (1 source) *Seasonal Propensity to adverse reactions to substance 8 [facility] (3 sources) Hmg-Coa Reductase Inhibitors (Statins); Translations: [statins] Propensity to adverse reactions (disorder) [facility] (1 source) ALLERGIES NOT ON FILE; Translations: [ALLERGIES NOT ON FILE] Propensity to adverse reactions (disorder) [facility] Repository Medications Current Medications Medication Drug Class(es) Dates Sig (Normalized) Sig (Original) [id number] 200 actuat albuterol 0.09 mg/actuat metered dose [...] Dihydropyridine Calcium Channel Gautam Start: 04-21-2018 End: 03-21-2025 amLODIPine 5 mg Tab Refills(s) 0 Start [...] daily. Active take 2 tablets by mo [facility] once daily Ascorbic Acid (VITAMIN C) 500 [...] Breo Ellipta 200 mcg-25 mcg/inh inhalation powder (9 sources) Start: 08-28-2020 Breo Ellipta 200 mcg-25 [...] and . take 1 capsule by mo ut two times weekly cholecalciferol (Vitamin D-3) 50,000 [...] take 1 capsule by mouth once daily [place]-3 Fatty Acids (FISH OIL) 1000 MG CAPS Take 1,000 mg by mouth daily 0 Active docosahexaenoic acid 1000 mg / omega-3 acid ethyl esters (mcc) 300 mg delayed release oral capsule (1 source) [place]-3 Fatty Acids (FISH OIL) [address] Take 1 tablet by mouth. 0 Active DULoxetine 60 mg delayed release oral capsule (4 sources) Serotonin and Norepinephrine Reuptake Inhibitor Start: 10-31-2024 duloxetine 60 mg oral delayed release capsule 60 mg = 1 cap(s), Refills(s) 0 Start Date: 10/31/24 Status: Ordered Start: 06-28-2024 take 1 capsule by mo ut twice daily DULoxetine (Cymbalta) [address] capsule Take 1 capsule (60 mg) by mouth 2 times a day. 06/28/2024 Active Fluticasone Furoate-Vilanterol (19 sources) Corticosteroid, beta2-Adrenergic Agonist Start: 04-25-2024 Fluticasone Furoate-Vilanterol (Breo Ellipta) 200-25 mcg/dose blister [...] Note: Source Status: Refill; Refills: 3; Provider: Snoya Quinteros Start: 11-21-2021 take 1 puff(s) by [...] tablet by juan pablo th once daily Levocetirizine Dihydrochloride (XYZAL PO) Take [...] Start Date: 08/28/20 Status: Ordered Multi Vitamin+ (9 sources) Start: 12-30-2018 take 1 tablet by [...] once daily. Active omega-3 acid ethyl esters (mcc) 1000 mg oral capsule (7 sources) take 1 capsule by mouth once daily [place]-3 Fatty Acids (FISH OIL) 1000 MG CAPS Take 1,000 mg by mouth daily 0 Active omeprazole 40 mg delayed release oral capsule (20 sources) Proton Pump Inhibitor Start: 04-06-2024 End: 04-06-2024 take 40 mg by mouth once daily Omeprazole Active 40 MG PO Daily April 06, 2024 11:00am Start: 12-18-2021 take 2 capsules by m out once daily omeprazole (PriLOSEC) [address] capsule Take 2 capsules (40 mg) by mouth once daily. 12/18/2021 Active Start: 08-28-2020 omeprazole 20 mg Cap-DR Refills(s) 0 Start Date: 08/28/20 Status: Ordered take 1 capsule by mo ut once daily Omeprazole 40 MG Oral Capsule Delayed Release TAKE 1 CAPSULE Daily Quantity: 90 Refills: 3 Ordered: 08-Jul-2023 DO Active pregabalin 100 mg oral capsu le (4 sources) Start: 10-31-2024 pregabalin 100 mg Cap 100 mg = 1 cap(s), Refills(s) 0 Start Date: 10/31/24 Status: Ordered Start: 06-28-2024 take 100 mg by mouth three times daily Pregabalin Active 100 MG PO Three times daily June 28, 2024 12:00am ProAir HFA 90 mcg/inh inhalation aerosol (9 sources) Start: 03-20-2020 take 2 puff(s) by [...] Active Senior Tabs (1 source) Senior Tabs Orally Active traMADol hydrochloride 50 mg oral tablet (3 sources) Opioid Agonist Start: 10-31-2024 traMADOL 50 mg Tab 50 mg = 1 tab(s), Refills(s) 0 Start Date: 10/31/24 Status: Ordered End: 01-12-2020 take 2 tablets by mouth [...] every 6 hours as needed. 0 Active vitamin b12 2.5 mg sublingual tablet (18 sources) Vitamin B12 Start: 06-28-2024 Cyanocobalamin (Vitamin [...] Active take 1 tablet by juan pablo every twenty-four hours Vitamin B-12 2500 MCG [...] Orally Once a day Active Vitamin D 84096 U (1 source) Vitamin D 13172 U 1 null Orally for 30 day(s) 5000 MG Active Vitamin D3 (9 sources) Start: 12-30-2018 Vitamin D3 5,0 00 International_Unit, Oral, TueThu, Refills(s) 0 Start Date: 12/30/18 Status: Ordered Completed/Discontinued Medications Medication Drug Class(es) Dates Sig (Normalized) Sig (Original) acetaminophen 325 mg / HYDROcodone bitartrate 5 mg oral tablet (17 sources) Opioid Agonist Start: 03-20-2020 Wilbur 325 mg-5 mg oral tablet See Instructions, for pain, 12 tab(s), Refill(s) 0, 1-2 tab(s) Oral q4hr PRN Pain. Duration 7 days., [facility], 167.8, cm, 03/21/20 10:17:00 EDT, Height/Length Measured, 86.3, kg, 03/21/20 10:17:00 EDT, Weight Measured Start Date: 03/21/20 Status: Ordered Start: 06-28-2018 take 1-2 tablets by mouth every four hours as needed for pain hydroCODone-acetaminophen 5-325 MG Tab tablet TAKE 1 TO 2 TABLETS BY MOUTH EVERY 4 HOURS NEEDED FOR PAIN 0 06/28/2018 Active ciprofloxacin 500 mg oral tablet (3 sources) Quinolone Antimicrobial Start: 07-12-2024 take 1 tablet by mouth once daily Cipro 500 mg Tab 500 mg = 1 tab(s), Oral, Daily, Take 1 tablet the day before the procedure and 1 tablet after the procedure, # 2 tab(s), Refills(s) 0, Pharmacy: [facility], 167, cm, 06/24/24 13:03:00 EDT, Height/Length [...] 1 dose sildenafil 100 mg oral tablet (9 sources) Phosphodiesterase 5 Inhibitor Start: 07-29-2023 take 1 tablet by mouth every hour, then take 1 tablet by mouth every twenty-four hours sildenafil 100 mg Tab 100 mg = 1 tab(s), Oral, As Directed, Take 1 tab by mouth one hour prior to sexual activity. Do NOT exceed 100 mg in 24 hours., # 30 tab(s), Refills(s) 3, Pharmacy: [facility], 167, cm, 07/29/23 13:47:00 EDT, Height/Length [...] minutes prior to imaging unless otherwise indicated. Vitamin B12 TABS (6 sources) Vitamin B12 TABS 1 tablet 3 times a week Quantity: 0 Refills: 0 Ordered: 04-Jul-2022 DO Active Vitamin D3 CAPS (6 sources) Vitamin D3 CAPS 1 tablet 3 times a week Quantity: 0 Refills: 0 Ordered: 04-Jul-2022 DO Active Problems Active Problems Problem Classification Problem Date Documented Date Episodic/Chronic Asthma (15 sources) Moderate persistent asthma; Translations: [Moderate persistent asthma, uncomplicated] Onset: 2 Resolved: 2 Chronic Calculus of urinary tract (11 sources) History of calculus of kidney; Translations: [Kidney stone] Onset: 4 09-26-2011 Episodic Cancer of bladder (2 sources) Malignant tumor of urinary bladder; Translations: [Malignant neoplasm of bladder, unspecified] Onset: 4 Chronic Cancer of prostate (9 sources) Malignant tumor of prostate 09-26-2011 Chronic Cancer of prostate (11 sources) History of malignant neoplasm of prostate; [...] hyperlipidemia] Onset: 4 02-01-2024 Chronic Esophageal disorders (15 sources) Gastroesophageal reflux disease; Translations: [Gastro-esophageal reflux disease without esophagitis] Onset: 2 Resolved: 2 Chronic Essential hypertension (20 sources) Essential hypertension; Translations: [Unspecified essential hypertension] Onset: 4 04-04-2014 Chronic Genitourinary symptoms and ill-defined conditions (20 sources) Increased frequency of urination; Translations: [Nocturia] Onset: 4 08-28-2020 Episodic Hyperplasia of prostate (20 sources) Benign prostatic hypertrophy with outflow obstruction; Translations: [Large prostate ] Onset: 4 08-27-2021 Chronic Osteoarthritis (20 sources) Degenerative joint disease of shoulder region; Translations: [Osteoarthritis of knee] Onset: 8 01-27-2018 Chronic Other connective tissue disease (9 sources) H/O: arthritis 04-04-2014 Episodic Other connective tissue disease (9 sources) Acquired trigger finger 04-04-2014 Episodic Comment on above: left ring finger Other connective tissue disease (1 source) Trigger thumb of left hand; Translations: [Trigger finger of left thumb] Other diseases of kidney and ureters (1 source) Urinary tract obstruction; Translations: [Other obstructive and reflux uropathy] Onset: 4 Episodic Other male genital disorders (20 sources) Impotence; Translations: [Male erectile dysfunction, unspecified] Onset: 4 07-29-2023 Chronic Other nutritional; endocrine; and metabolic disorders (9 sources) Body mass index 30+ - obesity [...] nutritional; endocrine; and metabolic disorders (9 sources) History of hypercholesterolemia 04-04-2014 Episodic Other [...] Translations: [Pain, unspecified] Episodic Residual codes; unclassified (9 sources) Chronic pain 06-09-2017 Episodic Residual codes; [...] encounter status; Translations: [Pre-op chest exam] Unclassified (9 sources) Pre diabetes 1 Onset: 1 04-04-2014 [...] Test Name Value Interpretation Reference Range Facility Ambulatory Visit Summaryon 1 01-01-2024 Ambulatory Visit Summary Ambulatory Visit Summary JUSTICE SARINA Herman :1950 Visit Date:10/31/2024 Ambulatory Visit Instructions Your Diagnosis Bladder cancer BPH with urinary obstruction Personal history of prostate cancer Kidney stone ED (erectile dysfunction) Your Care Team Attending Physician - Cam KEE MD Primary Care Physician - Jojo Melendrez DO This Is Your Medications List sildenafil (sildenafil 100 mg Tab) Contact prescribing physician if questions or concerns albuterol (ProAir HFA 90 mcg/inh inhalation aerosol) allopurinol amlodipine (amLODIPine 5 mg Tab) ascorbic acid (Vitamin C) aspirin (Delicia Aspirin) atorvastatin (Lipitor 20 mg Tab) cholecalciferol (Vitamin D3) cyanocobalamin (Vitamin B12) diclofenac (diclofenac sodium 75 mg Oral EC Tab) duloxetine (duloxetine 60 mg oral delayed release capsule) fluticasone nasal (Flonase) fluticasone-vilanterol (Breo Ellipta 200 mcg-25 mcg/inh inhalation powder) levocetirizine (Xyzal) lisinopril (lisinopril 10 mg Tab) montelukast (montelukast 10 mg Tab) multivitamin (Multi Vitamin+) omeprazole (omeprazole 20 mg Cap-DR) pregabalin (pregabalin 100 mg Cap) pyridoxine (Vitamin B6) tramadol (traMADOL 50 mg Tab) Procedures Performed TURP - Transurethral resection of prostate (10/18/2024), Release of trigger finger (03/21/2020), Repair of [...] Release of Carpal Tunnel, Tonsillectomy. Discharge Vitals Temperature (Temporal Artery) 37 ???C Heart Rate (Peripheral) 67 Respiratory Rate 17 Blood Pressure 132/80 Height 167 cm Height 66 in Weight 90.8 kg Weight 200.179 lb BMI 32.56 What to do next Scheduled Follow-Up Appointments Thursday 11:15 AM EST With: Cam KEE MD Where: [facility] [address] [facility] [place] [address]- You Need to Schedule the Following Appointments Follow Up with Cam KEE MD, URL When: Where: [facility] [address], [place] [address]- [phone] Medications What How Much When Instructions Unchanged sildenafil (sildenafil 100 mg Tab) 1 Tablets By Mouth As Directed Take 1 tab by mouth one hour prior to sexual activity. Do NOT exceed 100 mg in 24 hours. Unchanged albuterol (ProAir HFA 90 mcg/ inh [...] prescribing physician if questions or concerns Unchanged duloxetine (duloxetine 60 mg oral delayed release capsule) 1 Capsules Contact prescribing physician if questions or concerns Unchanged fluticasone nasal (Flonase) 1 Sprays Nasal Inhalation Opal (more content not included)... Normal [facility] Urology Office/Clinic Noteon 10-31-2024 Urology Office/Clinic Note Urology Office/Clinic Note Chief Complaint PO TURP HPI Staff 74yr old male pt here to review path from TURP done 10/18/24. Previous Dx: gross hematuria, personal history of prostate cancer, BPH with urinary obstruction, Dysuria: denies Incomplete bladder emptying: denies Hematuria: denies Frequency: denies Urgency: denies Nocturia: denies Stream: no straining Leaking: denies Post void dripping: denies Wearing pads/ Depends: denies Urge incontinence: denies Stress incontinence: denies Incontinence without Sensory Awareness: denies Abdominal pain: denies Flank pain: denies Sexual complaints: denies History of Present Illness Tests reviewed: reviewed UA, operative note, path report I have reviewed the previous health record information and history for this patient from Dr. Kee and Samantha Keeys NP. I have reviewed and verified the staff HPI to be accurate for this encounter. Review of Systems PHQ Score Initial Depression Screen Score: 1 SCORE ROS - Provider Constitutional: denies weight loss, denies hot flashes. Eyes: denies eye problems. Gastrointestinal: denies nausea, denies vomiting. Cardiovascular: denies chest pain or angina. Integumentary: no dryness Musculoskeletal: denies musculoskeletal symptoms. ENMT: denies otolaryngeal symptoms. Respiratory: no shortness of breath. Heme/Lymph: denies easy bleeding tendency, denies easy bruising tendency. Psychiatric: no confusion, no anxiety. Genitourinary: See HPI. Physical Exam Vitals & Measurements T: 37 ???C(Temporal Artery) HR: 67(Peripheral) RR: 17 BP: 132/80 HT: 66 in HT: 167 cm WT: 90.8 kg WT: 200.179 lb BMI: 32.56 General Appearance: alert, no distress, well nourished, well developed male. Assessment/Plan 1. Bladder cancer (C67.9: Malignant neoplasm of bladder, unspecified) Started with gross hematuria in mid May, passing small clots. Painless. No significant change in his urinary symptoms at that time. Neg FISH/Cytology 06/24/24. CTU 07/04/24 [facility] - Nonspecific area of irregularity of urinary bladder wall adjacent to the prostate that may represent prostate nodules indenting upon urinary bladder however urinary bladder mass cannot be excluded. Prostate brachytherapy seeds present. S/p Cysto 08/02/24 - Moderate bilobar regrowth. Patchy friable areas that are bleeding. No bladder tumors. Prostate nodules protruding into bladder. S/p Mini TURP 10/18/24 - Invasive high grade carcinoma with glandular and squamous differentiation consistent with bladder origin. No muscularis propria present. I had a long session of counseling with the patient today. The pathology report reveals that bladder cancer is present, and I discussed the nature of this cancer in detail, including the grade of the cancer and the apparent stage, utilizing diagrams. Given grade and lack of muscle in specimen, advised pt a re resection will need done to further evaluate invasion. Briefly discussed treatment options and risks/benefits which are dependent on staging. -Will schedule Cysto with re resection. The procedure risks, benefits, details, and treatment alternatives have been discussed with the patient. These include bleeding -- sometimes to the point of hemorrhaging, infection, risk of bladder perforation, recurrence of bladder tumor in 60-70% of patients, need for indwelling catheter for a variable amount of time, as well as the rare risk of needing an open operation to repair the bladder, among others. Additional therapy as well as follow-up bladder evaluation will most likely be required. Full informed consent has been obtained. Will order General anesthesia. 2. BPH with urinary obstruction (N40.1: Benign prostatic hyperplasia with lower urinary tract symptoms) S/p Mini TURP 10/18/24 - 0.7g removed. Benign prostate tissue. Not taking any prostate medications. UA today shows trace-intact blood and small leuks, expected PO. Reviewed pathology report, no prostatic adenocarcinoma id'd. -Cont sx monitoring 3. Personal history of prostate cancer (Z85.46: Personal history of malignant neoplasm of prostate) TRUS/bx 08/13/11 - Rosa 6 (3+3) x 2 cores, about 10% involved in each core. HGPIN x 1 core. S/P brachytherapy 10/10/11. Last PSA documented 08/13/21 - 0.3 4. Kidney stone (N20.0: Calculus of kidney) KUB 05/23/2024 - possible left-sided punctate calculi. CTU 07/04/24 [facility] - 4 mm nonobstructing L renal calculus. No hydro. 5. ED (erectile dysfunction) (N52.9: Male erectile dysfunction, unspecified) Previously prescribed sildenafil 100 mg as needed Follow-up With When Contact Information CHILANGO QUILES, Cam Newby, URL [facility] [address], [place] [address]- [phone] Additional Instructions: sched TURBT Patient Education Transurethral Resection of Bladder Tumor Bladder Cancer IAlly, personally scribed for Dr. Kee on 10/31/2024 11:11:44. . Doc (more content not included)... Normal [facility] Comment on above: Result Comment: Elec tronically Signed By: Cam KEE MD\.br\Date and Time Signed: 10/31/24 11:15 EST\.br\Electronically Co-Signed By: Ally Mason\.br\Date and Time Co-Signed: 10/31/24 11:12 EST Ambulatory Visit Summaryon 1 12-22-2023 Ambulatory Visit Summary Ambulatory Visit Summary SARINA JUSTICE Herman :1950 Visit Date:10/21/2024 Ambulatory Visit Instructions Your Care Team Attending Physician - Cam KEE MD Primary Care Physician - Jojo Melendrez DO This Is Your Medications List acetaminophen-hydrocodone (Wilbur 325 mg-5 mg oral tablet) acetaminophen-hydrocodone (Wilbur 325 mg-5 mg oral tablet) albuterol (ProAir HFA 90 mcg/inh inhalation aerosol) allopurinol amlodipine (amLODIPine 5 mg Tab) ascorbic acid (Vitamin C) aspirin (Delicia Aspirin) atorvastatin (Lipitor 20 mg Tab) cholecalciferol (Vitamin D3) ciprofloxacin (Cipro 500 mg Tab) cyanocobalamin (Vitamin B12) diclofenac (diclofenac sodium 75 [...] Pilonidal cyst.., Release of Carpal Tunnel, Tonsillectomy. What to do next Scheduled Follow-Up Appointments Thursday 10:00 AM EST With: CHILANGO QUILES, Cam Newby Where: [facility] [address] [address]- Medications What How Much When Why Instructions Unchanged acetaminophen-hydrocodone (Wilbur 325 mg-5 mg oral tablet) See instructions Trigger finger, left middle finger 1-2 tab(s) Oral q4hr PRN Pain. Duration 7 days. Unchanged acetaminophen-hydrocodone (Wilbur 325 mg-5 mg oral tablet) See instructions Trigger finger, left middle finger 1-2 tab(s) Oral q4hr PRN Pain. Duration 7 days. Unchanged albuterol (ProAir HFA 90 mcg/ inh inhalation aerosol) 2 Puffs Inhalation Every 4 hours as needed for for wheezing Unchanged allopurinol 300 Milligram Every day Unchanged amlodipine (amLODIPine 5 mg Tab) Unchanged ascorbic acid (Vitamin C) 1,000 Milligram Every day Unchanged aspirin (Delicia Aspirin) 81 Milligram By Mouth Thursday Unchanged atorvastatin (Lipitor 20 mg Tab) 1 Tablets By Mouth Once a day (at bedtime) Unchanged cholecalciferol (Vitamin D3) 5,000 International unit By Mouth Thursday & Unchanged ciprofloxacin (Cipro 500 mg Tab) 1 Tablets By Mouth Every day Take 1 tablet the day before the procedure and 1 tablet after the procedure Unchanged cyanocobalamin (Vitamin B12) 2,500 Microgram Sublingual Thursday Unchanged diclofenac (diclofenac sodium 75 mg Oral EC Tab) Unchanged fluticasone nasal (Flonase) 1 Sprays Nasal Inhalation Every day Unchanged fluticasone-vilanterol (Breo Ellipta 200 mcg-25 mcg/ inh inhalation powder) Unchanged levocetirizine (Xyzal) 5 Milligram By Mouth Once a day (in the evening) Unchanged lisinopril (lisinopril 10 mg Tab) 1 Tablets By Mouth Every day Unchanged montelukast (montelukast 10 mg Tab) Unchanged multivitamin (Multi Vitamin+) 1 tab By Mouth Every day Unchanged omeprazole (omeprazole 20 mg Cap-DR) Unchanged pyridoxine (Vitamin B6) 100 Milligram By Mouth Every day Unchanged sildenafil (sildenafil 100 mg Tab) 1 Tablets By Mouth As Directed Take 1 tab by mouth one hour prior to sexual activity. Do NOT exceed 100 mg in 24 hours. Allergies No Known Allergies Problems Ongoing - Any problem that you are currently receiving treatment for. Acid reflux Asthma BMI 31.0-31.9,adult BPH with urinary obstruction CAD - Coronary artery disease Chronic pain DDD (degenerative disc disease), lumbar ED (erectile dysfunc (more content not included)... Normal [facility] 10-18-2024 L ----- Specimen: [id number] Received: 10/19/24 Status: ISABELLA Calvert Num: [id number] Spec Type: Surgical Subm Dr: Cam Kee MD Tissues: A Prostate - Tur (PROSTATE TISSUE) Procedures: SYNAP, S 100, HE/4, Gross/Micro L4, CHROM A, CK5 6, CK20, CK 7, p63, NKX3.1, GATA3, p40 Age/ Patient Sex Location Account Attending Physician Sarina Justice 74/M [facility]ELL [id number] Cam Kee MD SPEC NUM: [id number] RECD: 10/19/24 STATUS: ISABELLA CALVERT NUM: [id number] INESSA: 10/18/[address]: Cam Kee MD ENTERED: 10/19/[address]: Ketan [place] SPEC TYPE: Surgical DEPT: RADHA SHANKAR ENTERED BY: [id number] RECV BY: [id number] ORDERED: SYNAP, S 100, HE/4, Gross/Micro L4, CHROM A, CK5 6, CK20, CK 7, p63, NKX3.1, GATA3, p40 ORDERED: SYNAP, S 100, HE/4, Gross/Micro L4, CHROM A, CK5 6, CK20, CK 7, p63, NKX3.1, GATA3, p40 COMMENTS: @ Previously cancelled by [id number] on 10/19/24 at 1607. @ Uncancelled by [id number] on 10/19/24 at 1609. @ Specimen Rejected Previously [reject]. @ Previous Rejection Reason [reason]. @ Previous Specimen Condition [condition]. Pathological Diagnosis Prostate tissue and bladder nodule, transurethral resection: - Fragment of invasive high grade carcinoma with glandular and squamous differentiation consistent with bladder origin. - No muscularis propria present. - Benign prostate tissue with glandular and stromal hyperplasia. - See Comment. Comment: Immunohistochemical stains were performed on the tissue block with appropriate staining controls. Tumor cells are positive for LOLIS--3, CK7, CK5/6, P40 and p63, and are negative for CK20, NKX3.1, S100, Synaptophysin and Chromogranin. Immunostains support the above diag nosis. Deeper sections for microscopic examination were performed and yielded no additional findings.. Specimen: [id number] Received: 10/19/24 Status: ISABELLA Karina Num: [id number] Spec Type: Surgical Subm Dr: Cam Kee MD Tissues: A Prostate - Tur (PROSTATE TISSUE) Procedures: SYNAP, S 100, HE/4, Gross/Micro L4, CHROM A, CK5 6, CK20, CK 7, p63, NKX3.1, GATA3, p40 Patient: Sarina Justice [id number] (Continued) Specimen: [id number] Received: 10/19/24 (Continued) Signed (signature on file) Gene Carr MD 10/21/24 1351 Specimen: [id number] Received: 10/19/24 Status: ISABELLA Calvert Num: [id number] Spec Type: Surgical Subm Dr: Cam Kee MD Tissues: A Prostate - Tur (PROSTATE TISSUE) Procedures: SYNAP, S 100, HE/4, Gross/Micro L4, CHROM A, CK5 6, CK20, CK 7, p63, NKX3.1, GATA3, p40 Patient: Sarina Justice [id number] (Continued) Specimen: [id number] Received: 10/19/24 (Continued) Clinical Information Gross hematuria, bladder nodules Gross Description Part A is received in formalin labeled with the patients name, date of , and prostate tissue are 0.7 grams of ramirez-kahn to pink, rubbery tissue chips, 2.5 x 1.4 x 0.3 cm in aggregate. The specimen is filtered and entirely submitted in a single cassette. (1, ns, [id number] A) Microscopic Description Microscopic examination is performed. CPT Codes 56658, 83161, 29855 x9 Specimen: [id number] Received: 10/19/24 Status: ISABELLA Calvert Num: [id number] Spec Type: Surgical Subm Dr: Cam Kee MD Tissues: A Prostate - Tur (PROSTATE TISSUE) Procedures: SYNAP, S 100, HE/4, Gross/Micro L4, CHROM A, CK5 6, CK20, CK 7, p63, NKX3.1, GATA3, p40 Patient: Sarina Justice [id number] (Continued) Signed (signature on file) Gene Carr MD 10/21/24 1351 Normal [facility] XR Hip 2-3 Views Lefton 09-10 XR [...] mGy = na DAP = na Normal [facility] XR Spine Lumbosacral Minimum 4 Viewson 09-28-2024 [...] REPORT Dictated: 09/28/2024 1:09 pm Rigoberto Vanessa MD. Signed (Electronic Signature): 09/28/2024 1:09 pm Signed by: Rigoberto Vanessa MD Transcribed by: LIBBY Technologist: DIMIRTY Technical Comments Radiation Dose: Ka,r in mGy = na DAP = na Normal [facility] Activated partial thrombopla stin time (aPTT) in platelet poor plasma by coagulation aOrdered By: Froylan Castanon on 08-25-2024 aPTT Coag (PPP) [Time] 35.0 s 25.1-36.5 [facility] Comment on above: A hematocrit value g reater than 55% may lead to inaccurate results in coagulation testing. Patients having hematocrit values >55% require a special collection tube for coagulation studies. Please contact the laboratory at [phone] for redraw instructions. Automated basophil %Ordered By: Froylan Castanon on 08-25-2024 Basophils/100 WBC (Bld) 0.4 % Normal . [facility] Comment on above: Performed By: #### L YTES, LIPID, CREAT, PP, CBC, BUN #### [facility] [address] Automated basophil countOrde red By: Froylan Castanon on 08-25-2024 Basophils (Bld) [#/Vol] 0.0 10*3/uL Normal 0.0-0.2 [facility] Comment on above: Result Comment: PERF ORMED BY: [place] [address] PATHOLOGIST STONE DERRICKMAN [employer]IGGER REMY KENNEDY M.D. Performed By: #### L YTES, LIPID, CREAT, PP, CBC, BUN #### [address] Automated blood monocyte cou ntOrdered By: Frolyan Castanon on 08-25-2024 Monocytes (Bld) [#/Vol] 0.6 10*3/uL Normal 0.0-0.8 [facility] Comment on above: Performed By: #### L YTES, LIPID, CREAT, PP, CBC, BUN #### [address] Automated eosinophil %Ordere d By: Froylan Castanon on 08-25-2024 Eosinophils/100 WBC (Bld) 1.0 % Normal . [facility] Comment on above: Performed By: #### L YTES, LIPID, CREAT, PP, CBC, BUN #### [address] Automated eosinophil countOr dered By: Froylan Castanon on 08-25-2024 Eosinophils (Bld) [#/Vol] 0.1 10*3/uL Normal 0.0-0.45 [facility] Comment on above: Performed By: #### L YTES, LIPID, CREAT, PP, CBC, BUN #### [address] Automated monocyte %Ordered By: Froylan Castanon on 08-25-2024 Monocytes/100 WBC (Bld) 10.2 % Normal . [facility] Comment on above: Performed By: #### L YTES, LIPID, CREAT, PP, CBC, BUN #### [address] [place] [address] [place] Automated neutrophil %Ordere d By: Froylan Castanon on 08-25-2024 Neutrophils/100 WBC (Bld) 66.3 % Normal . [facility] Comment on above: Performed By: #### L YTES, LIPID, CREAT, PP, CBC, BUN #### [address] Carbon dioxide, total [Moles /volume] in Serum or PlasmaOrdered By: Froylan Castanon on 08-25-2024 CO2 [Moles/Vol] 22.6 mmol/L Normal 21.0-31.0 [facility] Comment on above: Performed By: #### L YTES, LIPID, CREAT, PP, CBC, BUN #### [place] [address] [place] Chloride [Moles/volume] in S divina or PlasmaOrdered By: Froylan Castanon on 08-25-2024 Chloride [Moles/Vol] 110 mmol/L High 98-107 [facility] Comment on above: Performed By: #### L YTES, LIPID, CREAT, PP, CBC, BUN #### [facility] [address] [place] [address] [place] Cholesterol [Mass/volume] in Serum or PlasmaOrdered By: Froylan Castanon on 08-25-2024 Cholesterol [Mass/Vol] 115 mg/dL Low 140-200 [facility] Comment on above: Chol less than 200 m g/dl low riskChol 201-239 mg/dl borderline riskChol 240 mg/dl and greater high risk Result Comment: Chol less than 200 mg/dl low risk Chol 201-239 mg/dl borderline risk Chol 240 mg/dl and greater high risk Performed By: #### L YTES, LIPID, CREAT, PP, CBC, BUN #### [facility] [address] [place] [address] [place] Cholesterol in LDL Calc [Mas s/Vol]Ordered By: Froylan Castanon on 08-25-2024 Cholesterol in LDL [Mass/Vol] 57 mg/dL 0-100 [facility] Comment on above: LDL ATP III CLASSIFI CATIONLDL less than 100 mg/dL OptimalLDL 100-129 mg/dL Near or above optimalLDL 130-159 mg/dL Borderline highLDL 160-189 mg/dL HighLDL greater than 189 mg/dL Very high Cholesterol in VLDL Calc [Ma ss/Vol]Ordered By: Froylan Castanon on 08-25-2024 Cholesterol in VLDL [Mass/Vol] 10 mg/dL [facility] Coagulation Profileon 2023 aPTT Coag (Bld) [Time] 35.0 s Normal 25.1-36.5 [facility] Comment on above: Result Comment: A he matocrit value greater than 55% may lead to inaccurate results in coagulation testing. Patients having hematocrit values >55% require a special collection tube for coagulation studies. Please contact the laboratory at [phone] for redraw instructions. PERFORMED BY: [place] [address] PATHOLOGIST [employer]ONE [employer]IG[employer] REMY KENNEDY M.D. Performed By: #### L YTES, LIPID, CREAT, PP, CBC, BUN #### [address] Complete Blood Count Auto Di ffon 08-25-2024 Mean Corpuscular HGB Conc 33.7 g/dL Normal 32.5-35.6 [facility] Comment on above: Performed By: #### L YTES, LIPID, CREAT, PP, CBC, BUN #### [address] NRBC% 0.1 /100{WBC} Normal 0-0.5 [facility] Comment on above: Performed By: #### L YTES, LIPID, CREAT, PP, CBC, BUN #### [facility] [address] [place] [address] Creatinineon 08-25-2024 Creatinine Clr Calc Pharmacy 80.08 Normal [facility] Comment on above: Performed By: #### L YTES, LIPID, CREAT, PP, CBC, BUN #### [address] GFR/1.73 sq M.predicted MDRD (S/P/Bld) [Vol rate/Area] mL/min/{1.73_m2} Normal [facility] Comment on above: Performed By: #### L YTES, LIPID, CREAT, PP, CBC, BUN #### [facility] [address] Creatinine [Mass/volume] in Serum or PlasmaOrdered By: Froylan Castanon on 08-25-2024 Creatinine [Mass/Vol] 0.91 mg/dL Normal 0.70-1.30 [facility] Comment on above: Performed By: #### L YTES, LIPID, CREAT, PP, CBC, BUN #### [facility] [address] ECG 12 lead ECGon 08-25-2024 ECG 12 lead ECG [facility] [place] [address] [place] [address] Electrocardiograph Report Signed Patient: Sarina Justice MR#: [id number] : 1950 Acct:[id number] Age/Sex: 74 / M ADM Date: 08/25/24 Loc: Room: Type: [facility] Attending Dr: Froylan Castanon MD Ordering Provider: Froylan Castanon MD, [facility] Date of Service: 08/25/24 ECG/ECG 12 lead ECG: [facility] Copies to: Test Reason : Blood Pressure : */* mmHG Vent. Rate : 94 BPM Atrial Rate : 94 BPM P-R Int : 148 ms QRS Dur : 94 ms QT Int : 366 ms P-R-T Axes : 37 -20 20 degrees QTcB Int : 457 ms Normal sinus rhythm Normal ECG Confirmed by LG QUILES [facility], FROYLAN ([id number]) on 08/25/2024 4:36:04 PM Referred By: Electronically Signed By: FROYLAN CASTANON MD [facility] Transcribed By: MUS Signed By Froylan Castanon MD, [facility] 08/25/24 1636 Normal [facility] Erythrocyte distribution wid th [Ratio] by Automated countOrdered By: Froylan Castanon on 08-25-2024 Erythrocyte distribution width (RBC) [Ratio] 13.9 % Normal 12.0-14.8 [facility] Comment on above: Performed By: #### L YTES, LIPID, CREAT, PP, CBC, BUN #### [address] Erythrocytes [#/volume] in B lood by Automated countOrdered By: Froylan Castanon on 08-25-2024 RBC (Bld) [#/Vol] 4.55 10*6/uL Normal 3.90-5.60 [facility] Comment on above: Performed By: #### L YTES, LIPID, CREAT, PP, CBC, BUN #### [address] Hematocrit [Volume Fraction] of Blood by Automated countOrdered By: Froylan Castanon on 08-25-2024 Hematocrit (Bld) [Volume fraction] 41.1 % Normal 38.8-50.0 [facility] Comment on above: Performed By: #### L YTES, LIPID, CREAT, PP, CBC, BUN #### [address] Hemoglobin [Mass/volume] in BloodOrdered By: Froylan Castanon on 08-25-2024 Hemoglobin (Bld) [Mass/Vol] 13.8 g/dL Normal 13.0-17.0 [facility] Comment on above: Performed By: #### L YTES, LIPID, CREAT, PP, CBC, BUN #### [address] INR in Platelet poor plasma by Coagulation assayOrdered By: Froylan Castanon on 08-25-2024 INR Coag (PPP) [Relative time] 1.1 {INR} Normal [facility] Comment on above: INR Therapeutic Rang [...] YTES, LIPID, CREAT, PP, CBC, BUN #### [facility] [address] Leukocytes [#/volume] correc evie for nucleated erythrocytes in Blood by Automated counOrdered By: Froylan Castanon on 08-25-2024 WBC corrected for nucl RBC Auto (Bld) [#/Vol] 5.9 10*3/uL 4.1-10.5 [facility] Leukocytes [#/volume] in Blo od by Automated countOrdered By: Froylan Castanon on 08-25-2024 WBC (Bld) [#/Vol] 5.9 10*3/uL Normal 4.1-10.5 [facility] Comment on above: Performed By: #### L YTES, LIPID, CREAT, PP, CBC, BUN #### [facility] [address] Lipid Panelon 08-25-2024 LDL Cholesterol,Calculated 57 mg/dL Normal 0-100 [facility] Comment on above: Result Comment: LDL ATP III CLASSIFICATION LDL less than 100 mg/dL Optimal LDL 100-129 mg/dL Near or above optimal LDL 130-159 mg/dL Borderline high LDL 160-189 mg/dL High LDL greater than 189 mg/dL Very high Performed By: #### L YTES, LIPID, CREAT, PP, CBC, BUN #### [facility] [address] Triglyceride w/Reflex 53 mg/dL Normal 0-149 [facility] Comment on above: Result Comment: TRIG ATP III CLASSIFICATION TRIG less than 150 mg/dL Normal TRIG 150-199 mg/dL Borderline high TRIG 200-500 mg/dL High TRIG greater than 500 mg/dL Very high Standard traceable to the Center for Disease Conrtrol and Prevention (CDC) test method. Performed By: #### L YTES, LIPID, CREAT, PP, CBC, BUN #### [address] VLDL CHOLESTEROL 10 mg/dL Normal [facility] Comment on above: Performed By: #### L YTES, LIPID, CREAT, PP, CBC, BUN #### [address] Lymphocytes [#/volume] in Bl ood by Automated countOrdered By: Froylan Castanon on 08-25-2024 Lymphocytes (Bld) [#/Vol] 1.3 10*3/uL Normal 1.00-4.8 [facility] Comment on above: Performed By: #### L YTES, LIPID, CREAT, PP, CBC, BUN #### [address] Lymphocytes/100 leukocytes i n Blood by Automated countOrdered By: Froylan Castanon on 08-25-2024 Lymphocytes/100 WBC (Bld) 22.1 % Normal . [facility] Comment on above: Performed By: #### L YTES, LIPID, CREAT, PP, CBC, BUN #### [address] MCH [Entitic mass] by Automa evie countOrdered By: Froylan Castanon on 08-25-2024 MCH (RBC) [Entitic mass] 30.4 pg Normal 27.5-35.2 [facility] Comment on above: Performed By: #### L YTES, LIPID, CREAT, PP, CBC, BUN #### [address] MCHC Auto (RBC) [Mass/Vol]Or dered By: Froylan Castanon on 08-25-2024 MCHC (RBC) [Mass/Vol] 33.7 g/dL 32.5-35.6 [facility] MCV [Entitic volume] by Auto mated countOrdered By: Froylan Castanon on 08-25-2024 MCV (RBC) [Entitic vol] 90.3 fL Normal 83.5-101 [facility] Comment on above: Performed By: #### L YTES, LIPID, CREAT, PP, CBC, BUN #### [facility] [address] Neutrophils [#/volume] in Bl ood by Automated countOrdered By: Froylan Castanon on 08-25-2024 Neutrophils (Bld) [#/Vol] 3.9 10*3/uL Normal 1.8-7.7 [facility] Comment on above: Performed By: #### L YTES, LIPID, CREAT, PP, CBC, BUN #### [facility] [address] [place] [address] No Panel InformationOrdered By: Froylan Castanon on 08-25-2024 Estimated GFR (CKD-EPI) > 60.0 mL/Min [facility] Creatinine Clearance (Chem 80.08 [facility] Nucleated erythrocytes [Pres ence] in Blood by Automated countOrdered By: Froylan Castanon on 08-25-2024 Nucleated RBC Auto Ql (Bld) 0.1 /100{WBC} 0-0.5 [facility] Platelet mean volume [Entiti c volume] in Blood by Automated countOrdered By: Froylan Castanon on 08-25-2024 Platelet mean volume (Bld) [Entitic vol] 7.4 fL Normal 6.6-10.1 [facility] Comment on above: Performed By: #### L YTES, LIPID, CREAT, PP, CBC, BUN #### [facility] [address] [place] [address] Platelets [#/volume] in Bloo d by Automated countOrdered By: Froylan Castanon on 08-25-2024 Platelets (Bld) [#/Vol] 250 10*3/uL Normal 150-450 [facility] Comment on above: Performed By: #### L YTES, LIPID, CREAT, PP, CBC, BUN #### [facility] [address] [place] [address] Potassium [Moles/volume] in Serum or PlasmaOrdered By: Froylan Castanon on 08-25-2024 Potassium [Moles/Vol] 4.2 mmol/L Normal 3.5-5.1 [facility] Comment on above: Performed By: #### L YTES, LIPID, CREAT, PP, CBC, BUN #### [facility] [address] Prothrombin time (PT)Ordered By: Froylan Castanon on 08-25-2024 PT Coag (PPP) [Time] 12.0 s Normal 9.0-12.9 [facility] Comment on above: A hematocrit value g reater than 55% may lead to inaccurate results in coagulation testing. Patients having hematocrit values >55% require a special collection tube for coagulation studies. Please contact the laboratory at [phone] for redraw instructions. Result Comment: A he matocrit value greater than 55% may lead to inaccurate results in coagulation testing. Patients having hematocrit values >55% require a special collection tube for coagulation studies. Please contact the laboratory at [phone] for redraw instructions. Performed By: #### L YTES, LIPID, CREAT, PP, CBC, BUN #### [facility] [address] [place] [address] Serum or plasma anion gap de terminationOrdered By: Froylan Castanon on 08-25-2024 Anion gap [Moles/Vol] 10.6 mmol/L Normal 6.0-15.0 [facility] Comment on above: Performed By: #### L YTES, LIPID, CREAT, PP, CBC, BUN #### [facility] [address] [place] [address] Serum or plasma high density lipoprotein (HDL) cholesterol measurementOrdered By: Froylan Castanon on 08-25-2024 Cholesterol in HDL [Mass/Vol] 47 mg/dL Normal 23-92 [facility] Comment on above: HDL CHOL ATP-III CLA SSIFICATION Cardiovascular RiskHDL > or equal to 60 mg/dL LOWHDL < 40 mg/dL HIGH Result Comment: HDL CHOL ATP-III CLASSIFICATION Cardiovascular Risk HDL > or equal to 60 mg/dL LOW HDL < 40 mg/dL HIGH Performed By: #### L YTES, LIPID, CREAT, PP, CBC, BUN #### [facility] [address] Serum or plasma total choles terol/high density lipoprotein (HDL) cholesterol mass ratOrdered By: Froylan Castanon on 08-25-2024 Cholesterol.total/Chol esterol in HDL [Mass ratio] 2.4 {ratio} Normal <5.0 [facility] Comment on above: Result Comment: PERF ORMED BY: [place] [address] PATHOLOGIST STONE [employer]ERRICK[employer] RIGGER REMY KENNEDY M.D. Performed By: #### L YTES, LIPID, CREAT, PP, CBC, BUN #### [address] Sodium [Moles/volume] in Ser um or PlasmaOrdered By: Froylan Castanon on 08-25-2024 Sodium [Moles/Vol] 139 mmol/L Normal 136-145 [facility] Comment on above: Performed By: #### L YTES, LIPID, CREAT, PP, CBC, BUN #### [address] Triglyceride [Mass/volume] i n Serum or PlasmaOrdered By: Froylan Castanon on 08-25-2024 Triglyceride [Mass/Vol] 53 mg/dL 0-149 [facility] Comment on above: TRIG ATP III CLASSIF ICATIONTRIG less than 150 mg/dL NormalTRIG 150-199 mg/dL Borderline highTRIG 200-500 mg/dL High TRIG greater than 500 mg/dL Very highStandard traceable to the Center for Disease Conrtrol and Prevention (CDC) test method. Urea nitrogen [Mass/volume] in Serum or PlasmaOrdered By: Froylan Castanon on 08-25-2024 Urea nitrogen [Mass/Vol] 32 mg/dL High 7-25 [facility] Comment on above: Performed By: #### L YTES, LIPID, CREAT, PP, CBC, BUN #### [facility] [address] [place] Heart Perfusion W stress and [...] Sandro Blake 08/11/2024 5:56 PM Dictation workstation: [id number] Interpreted By: Sandro Blake and Beal Gina STUDY: MYOCARDIAL PERFUSION STRESS TEST WITH LEXISCAN Performing facility: [facility] Provider: Froyaln Castanon MD, [facility] PCP: Dr. Etta PATTERSON Supervising provider: Sandro Blake MD INDICATION: Pre-operative risk assessment for TURP scheduled at [facility] on 08/18/24. ASCVD, Hx PTCA HISTORY: Gender: M; Age: 74 y/o ; Height: HT 180.3 cm cm; Weight: WT 85.276 kg kg. CAD; High Cholesterol; HTN; Denies smoking. Cardiac catheterization 2004. PTCA 2004. COMPARISON: Previous nuclear testing completed 2007 at [facility]. ACCESSION NUMBER(S): [id number] ORDERING CLINICIAN: FROYLAN CASTANON TECHNIQUE: ONE DAY [...] There was evidence of diaphragmatic attenuation artifact. [facility] MD - 08/11/2024 Interpreted By: Sandro Blake and Beal Gina STUDY: MYOCARDIAL PERFUSION STRESS TEST WITH LEXISCAN Performing facility: [facility] Provider: Froylan Castanon MD, [facility] PCP: Dr. Etta PATTERSON Supervising provider: Sandro Blake MD INDICATION: Pre-operative risk assessment for TURP scheduled at [facility] on 08/18/24. ASCVD, Hx PTCA HISTORY: Gender: M; Age: 74 y/o ; Height: HT 180.3 cm cm; Weight: WT 85.276 kg kg. CAD; High Cholesterol; HTN; Denies smoking. Cardiac catheterization 2004. PTCA 2004. COMPARISON: Previous nuclear testing completed 2007 at [facility]. ACCESSION NUMBER(S): [id number] ORDERING CLINICIAN: FROYLAN CASTANON TECHNIQUE: ONE DAY [...] Sandro Blake 08/11/2024 5:56 PM Dictation workstation: [id number] [facility] Work Phone: Radiology Study observation (narrative) [facility] Work Phone: [place] Heart Perfusion W stress and W radionuclide IVOrdered By: Sandro Blake on 08-11-2024 [facility] Work Phone: NUCLEAR STRESS TESTon 2023 NUCLEAR STRESS TEST Interpreted By: Sandro Blake and Beal Gina STUDY: MYOCARDIAL PERFUSION STRESS TEST WITH LEXISCAN Performing facility: [facility] Provider: Froylan Castanon MD, [facility] PCP: Dr. Etta PATTERSON Supervising provider: Sandro Blake MD INDICATION: Pre-operative risk assessment for TURP scheduled at [facility] on 08/18/24. ASCVD, Hx PTCA HISTORY: Gender: M; Age: 74 y/o ; Height: HT 180.3 cm cm; Weight: WT 85.276 kg kg. CAD; High Cholesterol; HTN; Denies smoking. Cardiac catheterization 2004. PTCA 2004. COMPARISON: Previous nuclear testing completed 2007 at [facility]. ACCESSION NUMBER(S): [id number] ORDERING CLINICIAN: FROYLAN CASTANON TECHNIQUE: ONE DAY [...] Sandro Blake 08/11/2024 5:56 PM Dictation workstation: [id number] [facility] Main OR Intraoperative Recor thu 08-02-2024 Main OR Intraoperative Record Main OR Intraoperative Record IntraOp Document Type FTURO Summary Primary Physician: Cam KEE MD Finalized Date/Time: 08/02/24 13:48:04 Pt. Name: SARINA JUSTICE Herman Napier/Sex: 1950 Male Med Rec #: [id number] Physician: Cam KEE MD Financial #: [id number] Pt. Type: O Room/Bed: / Admit/Disch: 08/02/24 12:18:59 - Institution: Case Times FTURO Entry 1 Patient Times In Room 08/02/24 13:29:00 Out Room 08/02/24 13:50:00 Procedure Times Start 08/02/24 13:36:00 Stop 08/02/24 13:45:00 Anesthesia Times Last Modified By: Sherry BURCH, Florina Sutton 08/02/24 13:45:46 Case Attendance FTURO Entry 1 Entry 2 Entry 3 Case Attendee Cam KEE MD, RN, Florina Matta CST, Trinidad Sutton Role Performed Surgeon - Primary Cover Mat Machine Operator - Primary Scrub - Primary Time In 08/02/24 13:29:00 08/02/24 13:29:00 08/02/24 13:29:00 Time Out 08/02/24 13:50:00 08/02/24 13:50:00 08/02/24 13:50:00 Procedure CYSTOSCOPY LOCAL(.) CYSTOSCOPY LOCAL(.) CYSTOSCOPY LOCAL(.) Comments Last Modified By: Sherry BURCH, Folrina Powell RN, Florina Powell RN, Florina Sutton 08/02/24 Carole Sutton 08/02/24 Carole P 08/02/24 13:45:50 13:45:50 13:45:50 Surgical Procedures FTURO Entry 1 Procedure Description Procedure CYSTOSCOPY LOCAL Modifiers . Surgeon Description CYSTOSCOPY Primary Procedure Yes Primary Surgeon Cam KEE MD Start 08/02/24 13:36:00 Stop 08/02/24 13:45:00 Anesthesia [...] HEMATURIA Outcomes Met? Yes Last Modified By: Florina Powell RN 08/02/24 13:29:42 Post-Care Text: The patient is [...] Verified (If Participants Florina Powell RN Applicable) Paxton Harper CST, Kimberly A Time Out Complete 08/02/24 13:35:00 Allergies Reviewed? [...] By: Florina Powell RN 08/02/24 13:48 Normal [facility] Main OR Preoperative Recordo n 08-02-2024 Main OR Preoperative Record Main OR Preoperative Record Holding Area Document Type FTURO Summary Primary Physician: Cam KEE MD Finalized Date/Time: 08/02/24 13:14:27 Pt. Name: SARINA JUSTICE /Sex: 1950 Male Med Rec #: [id number] Physician: Cam KEE MD Financial #: [id number] Pt. Type: O Room/Bed: / Admit/Disch: 08/02/24 [...] Complaints of Pain: No Skin Integrity Intact, [place], Warm, & Dry Vitals - EU Blood Pressure 132/78 Pulse 85 bpm Respirations 18 br/min SPO2 96 % Additional None Specimens Collected Last Modified By: Norma Mast LPN 08/02/24 13:14:19 Finalized By: Norma Mast LPN Document Signatures Signed By: Norma Mast LPN 08/02/24 13:14 Normal [facility] Operative Reporton Operative Report Operative Report Patient: [...] resection of prostate lesions and fulguration. Normal [facility] Comment on above: Result Comment: Elec tronically Signed By: Cam KEE MD\.br\Date and Time Signed: 08/02/24 13:56 EDT Reminderson 08-02-2024 Reminders Reminders From: Slime Ayala To: EU - Recalls [place]; Sent: 08/02/2024 14:51:32 EDT Show up: 05/09/2025 14:51:00 EDT Subject: KUB Due Date/Time: 06/05/2025 14:51:00 EDT Reminder/Recall Patient had Cysto 08/02/24, PRW wanted to check KUB 07/2025 due to kidney stone ([facility]) Normal [facility] Reminders Reminders From: Slime Ayala To: EU - Recalls Kee; Sent: 08/02/2024 14:50:44 EDT Show up: 11/09/2024 14:50:00 EST Subject: ct scan of chest Due Date/Time: 12/05/2024 14:50:00 EST Reminder/Recall Pt needs Ct scan of chest at [facility] due to lung nodule in January [address] [facility] CT Urogramon 07-08-2024 CT Urogram Exam [...] 300 Contrast amount in ml's: 100 Normal [facility] CHEMISTRYOrdered By: SYSTEM SYSTEM on 07-04-2024 Creatinine [Mass/Vol] 1.1 mg/dL Normal 0.5 - 1.3 mg/dL Remisol Chem eGFR 69 mL/min/1.73 m2 Normal >=59mL/min /1.73 m2 Rem[facility] Chem Creatinineon 07-04-2024 Creatinine [Mass/Vol] 1.1 mg/dL Normal 0.5-1.3 [facility] Comment on above: Performed By: #### [id number] #### [facility] [address] [place] [address] eGFRon 07-04-2024 eGFR 69 mL/min/1.73 m2 Normal >=59 [facility] Comment on above: Order Comment: Order added by Discern Expert. Performed By: #### 1 [id number] #### [facility] [address] [place] [address] UroVysion Fish and Urine Cyt o ([facility])on 07-01-2024 UVFISH & UC Diagnosis Info Invalid Interpretation Code [facility] Comment on above: Result Comment: A:Ur ine,Urine:Voided [...] on: 07/01/2024 16:16:49 Performed By: #### 1 [id number] #### [facility] [address] [place] [address] Ambulatory Visit Summaryon 0 06-24-2024 Ambulatory Visit Summary Ambulatory Visit Summary SARINA JUSTICE :1950 Visit Date:06/24/2024 Ambulatory Visit Instructions Your Diagnosis Frequency of urination Nocturia Gross hematuria Your Care Team Attending Physician - JOSE DE JESUS Keyes APRN, [place] X Primary Care Physician - Julia Patterson III, DO Referring Physician - Pascale Lucas CNP This Is Your Medications List Contact prescribing physician if questions or concerns acetaminophen-hydrocodone (Wilbur 325 mg-5 mg oral tablet) acetaminophen-hydrocodone (Wilbur 325 mg-5 mg oral tablet) albuterol (ProAir [...] How Much When Why Instructions Unchanged acetaminophen-hydrocodone (Wilbur 325 mg-5 mg oral tablet) See instructions Trigger finger, left middle finger 1-2 tab(s) Oral q4hr PRN Pain. Duration 7 days. Contact prescribing physician if questions or concerns Unchanged acetaminophen-hydrocodone (Wilbur 325 mg-5 mg oral tablet) See instructions [...] questions o (more content not included)... Normal [facility] UroVysion Fish and Urine Cyt o ([facility])on 06-24-2024 [facility] Method of Extraction Voided Normal [facility] Comment on above: Performed By: #### 1 [id number] #### [facility] [address] [place] [address] [facility] Number of Jars 1 Invalid Interpretation Code [facility] Comment on above: Performed By: #### 1 [id number] #### [facility] [address] [place] [address] [facility] Specimen Clean Catch Normal [facility] Comment on above: Performed By: #### 1 [id number] #### [facility] [address] [place] [address] [facility] Type of Service Technical Only [facility] Comment on above: Performed By: #### 1 [id number] #### [facility] [address] [place] [address] XR Abdomen 1 Viewon 05-31-20 24 XR [...] mGy = . DAP = . Normal [facility] CHEMISTRYOrdered By: SYSTEM SYSTEM on 09-07-2023 ALT [...] 10 mg/dL Normal 7 - 40 mg/dL FT [facility] CO2 [Moles/Vol] 26 mmol/L Normal 21 - 31 mmol/L FT [facility] Creatinine [Mass/Vol] 0.8 mg/dL Normal 0.5 - 1.3 mg/dL FT [facility] GFR/1.73 sq M.predicted among non-blacks MDRD (S/P/Bld) [Vol rate/Area] 92 mL/min/1.73 m2 Normal >=59mL/min /1.73 m2 [facility] Chem S Comment on above: Interpretive Data: C hronic kidney disease could be indicated at eGFR's of less than 60 mL/min/1.73m2. Kidney failure is indicated at less than 15 mL/min/1.73m2. Glucose [Mass/Vol] 110 mg/dL Normal 55 - 199 mg/dL FT Remisol Comment on above: Interpretive Data: I f this glucose result represents a fasting glucose, interpretation should refer to the following reference range: 55-99 mg/dL Potassium [Moles/Vol] 4.1 mmol/L Normal 3.5 - 5.3 mmol/L [facility]isol Sodium [Moles/Vol] 137 mmol/L Normal 135 - 145 mmol/L [facility] Triglyceride [Mass/Vol] 52 mg/dL Normal <=149mg/dL [facility] Urea nitrogen [Mass/Vol] 26 mg/dL High 5 - 21 mg/dL FT [facility] Urea nitrogen/Creatinine [Mass ratio] 32 mg/mg High 10 - 20 [facility] Remisol Office Visit (Cardiology)on 07-08-2023 Follow-up visit Diagnoses/Problems [...] in adult Healthy Weight Tips; Status:Complete; Done: [id number] Some eating tips that can help you lose weight.; Status:Complete; Done: [id number] SocHx: Never a smoker Tobacco Use Screening; Status:Complete; Done: [id number] Patient Instructions Please bring all medicines, vitamins, [...] negative for complaint. Vitals Vital Signs Recorded: [id number] 11:02AM Heart Rate82, R Radial Pfzpfxhj240, RUE, Sitting Jynssnufg95, RUE, Sitting Height5 ft 11 in Sndmae302 lb BMI Fbainwwjve41.22 kg/m2 BSA Calculated2.05 Tobacco Useb) No PHQ-2 [...] auscultation. Cardiovascu (more content not included)... Normal [employer] Tobacco Screening.on 023 Adult depression screening assessment No [facility] [employer] 600 DO Work Phone: Fall risk assessment a) No falls within the last year [facility] [place] 600 DO Work Phone: Tobacco use status CP b) No [facility] [place] 600 DO Work Phone: XR HIP 2-3 [...] Kay Jr., MD 07/09/22 Final result Normal [facility] Osteoarthritic changes mainly left hip. Femoral head remains rounded. [facility] RIS CONSOLIDATED EXAM: XR HIP 2-3 VW W PELVIS LEFT HISTORY: R52. Left hip pain. 72-year-old male. COMPARISON: None. TECHNIQUE: AP pelvis, 2 images. 2 views left hip. FINDINGS: Brachytherapy seed implants in the prostate. Mild degenerative change opposite right hip. Moderate degenerative change left hip with diffuse joint space narrowing. No erosion. Femoral head remains rounded. [facility] CON[facility] Angelo Kay Jr., MD [...] mainly left hip. Femoral head remains rounded. [employer] Phone: Radiology Study observation (narrative) [employer] Phone: XR HIP 2-3 VW W PELVIS LEFTO rdered By: Angelo Kay on 07-09-2022 ARUN SHEILA [employer] Phone: Tobacco Screening.on 022 Adult depression screening assessment No [facility] 600 DO Work Phone: Fall risk assessment a) No falls within the last year [facility] 600 DO Work Phone: Tobacco use status CPHS b) No [facility] 600 DO Work Phone: April 07-24-2021 AST [Catalytic activity/Vol] 17 U/L Normal <40 [facility] Comment on above: Performed By: #### Z FAST, AST #### [facility] [address] [place] [address] Lion Hunter: Godwin Salazar MD #### LIPR #### [facility] [employer] [address] [place], [place] [id number] Lion Hunter: Rashaad Nielsen MD ASTOrdered By: Jignesh lee on 07-24-2021 AST [Catalytic activity/Vol] 17 U/L <40 [facility] Phone: [facility] Phone: Lipid PanelOrdered By: Mateo Pizano on 07-24-2021 Cholesterol [Mass/Vol] 119 mg/dL <200 [facility] Phone: Comment on above: Cholesterol Guidelines: <200 Desirable 200-240 Borderline >240 Undesirable Cholesterol in HDL [Mass/Vol] 43 mg/dL >40 [facility] Phone: Comment on above: HDL Guidelines: <40 Undesirable 40-59 Borderline >59 Desirable Cholesterol in LDL [Mass/Vol] 63 mg/dL 0 - 130 mg/dL [employer] Phone: Comment on above: LDL Guidelines: <100 Desirable 100-129 Near to/above Desirable 130-159 Borderline >159 Undesirable Direct (measured) LDL and calculated LDL are not interchangeable tests. Cholesterol in VLDL [Mass/Vol] NOT REPORTED 1 - 30 mg/dL [facility] Phone: Cholesterol.total/Chol esterol in HDL [Mass ratio] 2.8 {ratio} <5 [employer] Phone: Triglyceride [Mass/Vol] 63 mg/dL <150 [facility] Phone: Comment on above: Triglyceride Guidelines: <150 Desirable 150-199 Borderline 200-499 High >499 Very high Based on AHA Guidelines for fasting triglyceride, August 2012. [employer] Phone: Lipid Profileon 07-24-2021 Cholesterol [Mass/Vol] 119 mg/dL Normal <200 [facility] Comment on above: Result Comment: Cholesterol Guidelines: <200 Desirable 200-240 Borderline >240 Undesirable Performed By: #### [place] FAST, AST #### [facility] [address] [place], [place] [id number] Lion Hunter: Godwin Salazar MD #### LIPR #### [facility] [employer] [address] [place] [id number] Lion Hunter: Rashaad Nielsen MD Cholesterol in HDL [Mass/Vol] 43 mg/dL Normal >40 [facility] Comment on above: Result Comment: HDL Guidelines: <40 Undesirable 40-59 Borderline >59 Desirable Performed By: #### [place] FAST, AST #### [facility] [address] [place], [place] [id number] Lion Hunter: Godwin Salazar MD #### LIPR #### [facility] [employer] [address] [place] [address] Lion Hunter: Rashaad Nielsen MD Cholesterol in LDL [Mass/Vol] 63 mg/dL Normal 0-130 [facility] Comment on above: Result Comment: LDL Guidelines: <100 Desirable 100-129 Near to/above Desirable 130-159 Borderline >159 Undesirable Direct (measured) LDL and calculated LDL are not interchangeable tests. Performed By: #### Z FAST, AST #### [facility] [address] [place], [place] [id number] Lion Hunter: Godwin Salazar MD #### LIPR #### [facility] [address] [place], [place] [id number] Lion Hunter: Rashaad Nielsen MD Cholesterol.total/Chol esterol in HDL [Mass ratio] 2.8 {ratio} Normal <5 [facility] Comment on above: Performed By: #### Z FAST, AST #### [facility] [address] [place], [place] [id number] Lion Hunter: Godwin Salazar MD #### LIPR #### [facility] [address] [place], [place] [id number] Lion Hunter: Rashaad Nielsen MD Triglyceride [Mass/Vol] 63 mg/dL Normal <150 [facility] Comment on above: Result Comment: Triglyceride Guidelines: <150 Desirable 150-199 Borderline 200-499 High >499 Very high Based on AHA Guidelines for fasting triglyceride, August 2012. Performed By: #### Z FAST, AST #### [facility] [address] [place] [address] Lion Hunter: Godwin Salazar MD #### LIPR #### [facility] [employer] [address] [place], [place] [id number] Lion Hunter: Rashaad Nielsen MD Cholesterol,VLDL NOT REPORTED Normal 30 [facility] Comment on above: Performed By: #### Z FAST, AST #### [facility] [address] [place], [place] [id number] Lion Hunter: Godwin Salazar MD #### LIPR #### [facility] [employer] [address] [place], [place] [id number] Lion Hunter: Rashaad Nielsen MD Patient Fasting?Ordered By: Jignesh Pizano on 07-24-2021 Patient Fasting? yes Roxane lafleur Work Phone: [facility] Work Phone: Patient fasting?on 1 Patient fasting? yes Normal [facility] Comment on above: Performed By: #### Z FAST, AST #### [facility] [address] [place] [address] Lion Hunter: Godwin Salazar MD #### LIPR #### [facility] [address] [place] [address] Lion Hunter: Rashaad Nielsen MD Glucose, randomon 09-26-2020 Glucose [Mass/Vol] 106 mg/dL High 70 - 99 mg/dL [place] Interpretation and review of laboratory results Abnormal [place] Basic Metabolic Panelon 03-0 Anion gap [Moles/Vol] 12 mmol/L 9 - 17 mmol/L [place] Bun/Cre Ratio 29 High [place] Calcium [Mass/Vol] 10.0 mg/dL 8.6 - 10. 4 mg/dL [place] Chloride [Moles/Vol] 105 mmol/L 98 - 10 7 mmol/L [place] CO2 [Moles/Vol] 24 mmol/L 20 - 31 mmol/L [place] Creatinine [Mass/Vol] 1.08 mg/dL 0.7 - 1.2 mg/dL [place] GFR >60 >60 mL/min [place] GFR Non- >60 >60 mL/min [place] GFR/1.73 sq M predicted among non-blacks MDRD (S/P/Bld) [Vol rate/Area] NOT REPORTED [place] GFR/1.73 sq M predicted among non-blacks MDRD (S/P/Bld) [Vol rate/Area] [place] Comment on above: Average GFR for 70 o r more years old: 75 mL/min/1.73sq m Chronic Kidney Disease: <60 mL/min/1.73sq m Kidney failure: <15 mL/min/1.73sq m eGFR calculated using average adult body mass. Additional eGFR calculator available at: http://www.jaja.tv/multiple_crcl_2012.htm Glucose [Mass/Vol] 141 mg/dL High 70 - 99 mg/dL [place] Interpretation and review of laboratory results Abnormal [place] Potassium [Moles/Vol] 4.3 mmol/L 3.7 - 5.3 mmol/L [place] Sodium [Moles/Vol] 141 mmol/L 135 - 144 mmol/L [place] Urea nitrogen [Mass/Vol] 31 mg/dL High 8 - 23 mg/dL [place] CBCon 01-12-2020 Erythrocyte distribution width (RBC) [Ratio] 14.1 % 12.1 - 15.2 % [place] Hematocrit (Bld) [Volume fraction] 45.8 % 41 - 53 % [place] Hemoglobin (Bld) [Mass/Vol] 15.1 g/dL 13.5 - 17.5 g/dL [place] MCH (RBC) [Entitic mass] 30.4 pg 26 - 34 pg [place] MCHC (RBC) [Mass/Vol] 33.0 g/dL 31 - 3 7 g/dL [place] MCV (RBC) [Entitic vol] 92.1 fL 80 - 100 fL [place] Platelet mean volume (Bld) [Entitic vol] NOT REPORTED 6 - 12 fL [place] Platelets (Bld) [#/Vol] 279 10*3/uL [place] RBC (Bld) [#/Vol] 4.97 10*6/uL 4.5 - 5.9 m/uL [place] WBC (Bld) [#/Vol] NOT REPORTED per 100 WBC [place] WBC (Bld) [#/Vol] 6.3 10*3/uL [place] XR CHEST STANDARD (2 VW)on 0 01-12-2020 No evidence of acute disease in the chest or change from 01/13/2018. [place] CHEST, 2 VIEWS, 2019: CLINICAL HISTORY: Pre-op [...] mild tortuosity of the thoracic aorta, unchanged. [place] Tye, Mhpn Incoming Radiant Results From [employer] - 01/12/2020 9:46 PM EST CHEST, 2 [...] in the chest or change from 01/13/2018. [place] XR HAND LEFT (MIN 3 VIEWS)on 01-11-2020 1. Subtle transverse lucency through the midpole of the scaphoid is suggestive of an underlying acute or subacute fracture without complete fracture healing. Clinical correlation for point tenderness is recommended. 2. Mild degenerative changes in the hand. [place] EXAM: XR HAND LEFT ( MIN 3 [...] tissues appear unremarkable. No radiopaque foreign body. [facility] [place], [place] Tye, Mhpn Incoming Radiant Results From [email or web address] - 01/11/2020 11:27 AM EST EXAM: XR [...] 2. Mild degenerative changes in the hand. [facility] [place], REJI Vital Signs Date Time Vital Sign Value Performing Clinician Chris marie 10-31-2024 10:10-0500 Blood Pressure Location Cam KEE [facility] 10-31-2024 10:10-0500 Body temperature 98.6 [degF] Cam KEE [facility] 10-31-2024 10:10-0500 Diastolic blood pressure 80 mm[Hg] Cam KEE [facility] 10-31-2024 10:10-0500 Heart rate 67 /min Cam KEE [facility] 10-31-2024 10:10-0500 Respiratory rate 17 /min Cam KEE [facility] 10-31-2024 10:10-0500 Systolic blood pressure 132 mm[Hg] Cam KEE [facility] 09-16-2024 14:01-0500 Diastolic blood pressure 76 mm[Hg] Froylan Castanon MD Work Phone: [facility] 09-16-2024 14:01-0500 Systolic blood pressure 134 mm[Hg] Froylan Castanon MD Work Phone: [facility] 09-16-2024 13:38-0500 Body height 180.3 cm Froylan Castanon MD Work Phone: [facility] 09-16-2024 13:38-0500 Body mass index (BMI) [Ratio] 28.17 kg/m2 Froylan Castanon MD Work Phone: [facility] 09-16-2024 13:38-0500 Body weight 91.63 kg Froylan Castanon MD Work Phone: [facility] 09-16-2024 13:38-0500 Heart rate 88 /min Froylan Castanon MD Work Phone: [facility] 08-25-2024 16:10-0400 Diastolic blood pressure 74 mm[Hg] DO Julia Patterson III Work Phone: [facility] 08-25-2024 16:10-0400 Heart rate 88 /min DO Julia Patterson III Work Phone: [facility] 08-25-2024 16:10-0400 Respiratory rate 16 /min DO Julia Patterson III Work Phone: [facility] 08-25-2024 16:10-0400 SaO2% (BldA) [Mass fraction] 97 % DO Julia Patterson III Work Phone: [facility] 08-25-2024 16:10-0400 Systolic blood pressure 142 mm[Hg] DO Julia Patterson III Work Phone: [facility] 08-25-2024 11:04-0400 Body height 180.34 cm DO Julia Patterson III Work Phone: [facility] 08-25-2024 11:04-0400 Body temperature 98.8 [degF] DO Julia Patterson III Work Phone: [facility] 08-25-2024 11:04-0400 Body weight 92 kg DO Julia Patterson III Work Phone: [facility] 08-11-2024 12:59-0400 Diastolic blood pressure 76 mm[Hg] [address] 08-11-2024 12:59-0400 Heart rate 73 /min [address] 08-11-2024 12:59-0400 Systolic blood pressure 124 mm[Hg] [address] 06-28-2024 14:03-0400 Body height 180.34 cm DO W Idris Alvin Work Phone: [facility] 06-28-2024 14:03-0400 Body mass index (BMI) [Ratio] 27.1 kg/m2 DO W Idris Alvin Work Phone: [facility] 06-28-2024 14:03-0400 Body temperature 98.8 [degF] DO W Idris Alvin Work Phone: [facility] 06-28-2024 14:03-0400 Body weight 88.45 kg DO W Idris Alvin Work Phone: [facility] 06-28-2024 14:03-0400 Diastolic blood pressure 74 mm[Hg] DO W Idris Alvin Work Phone: [facility] 06-28-2024 14:03-0400 Heart rate 99 /min DO W Idris Alvin Work Phone: [facility] 06-28-2024 14:03-0400 Respiratory rate 20 /min DO W Idris Alvin Work Phone: [facility] 06-28-2024 14:03-0400 SaO2% (BldA) [Mass fraction] 95 % DO W Idris Esquivel Work Phone: [facility] 06-28-2024 14:03-0400 Systolic blood pressure 116 mm[Hg] DO W Idris Esquivel Work Phone: [facility] 06-24-2024 12:59-0400 Blood Pressure Location Samantha Orzech [facility] 06-24-2024 12:59-0400 Diastolic blood pressure 80 mm[Hg] Samantha Orzech [facility] 06-24-2024 12:59-0400 Systolic blood pressure 126 mm[Hg] Samantha Orzech [facility] 07-08-2023 11:02-0400 Body height 180.34 cm Julia Patterson [facility] 600 DO Work Phone: 07-08-2023 11:02-0400 Body mass index (BMI) [Ratio] 26.22 kg/m2 Julia Patterson Work [facility]: [facility] 600 DO Work Phone: 07-08-2023 11:02-0400 Body surface area Derived from formula 2.05 m2 Julia Pinedaers [facility] [place] 600 DO Work Phone: 07-08-2023 11:02-0400 Body weight 85.28 kg Julia Pinedaers Work [facility]: [facility] 600 DO Work Phone: 07-08-2023 11:02-0400 Diastolic blood pressure 70 mm[Hg] Julia Pinedaers Work Phone: [facility] [employer] 600 DO Work Phone: 07-08-2023 11:02-0400 Heart rate 82 /min Julia Pinedaers Work Phone: [facility] [employer] 600 DO Work Phone: 07-08-2023 11:02-0400 Systolic blood pressure 130 mm[Hg] Julia Pinedaers Work Phone: [facility] [employer] 600 DO Work Phone: 07-04-2022 10:55-0400 Body height 180.34 cm Julia Pinedaers Work Phone: [facility] [employer] 600 DO Work Phone: 07-04-2022 10:55-0400 Body mass index (BMI) [Ratio] 26.36 kg/m2 Julia Pinedaers Work Phone: [facility] [employer] 600 DO Work Phone: 07-04-2022 10:55-0400 Body surface area Derived from formula 2.06 m2 Julia Pinedaers Work Phone: [facility] [employer] 600 DO Work Phone: 07-04-2022 10:55-0400 Body weight 85.73 kg Julia Pinedaers Work Phone: [facility] [employer] 600 DO Work Phone: 07-04-2022 10:55-0400 Diastolic blood pressure 78 mm[Hg] Julia Newby Patterson Work Phone: [facility] [employer] 600 DO Work Phone: 07-04-2022 10:55-0400 Heart rate 86 /min Julia Pinedaers Work Phone: [facility] [employer] 600 DO Work Phone: 07-04-2022 10:55-0400 Systolic blood pressure 126 mm[Hg] Julia Patterson Work Phone: [facility] [employer] 600 DO Work Phone: 04-22-2022 14:15-0400 Body height 177.8 cm Rigo Hassan Other [employer] Other 04-22-2022 14:15-0400 Body mass index (BMI) [Ratio] 27.26 kg/m2 Rigo Guerrerono Other [employer] Other 04-22-2022 14:15-0400 Body temperature 97.1 [degF] Rigo Guerrerono Other [employer] Other 04-22-2022 14:15-0400 Body weight 86.18 kg Rigo Vaughndano Other [employer] Other 04-22-2022 14:15-0400 Diastolic blood pressure 79 mm[Hg] Rigo Guerrerono Other [employer] Other 04-22-2022 14:15-0400 Respiratory rate 20 /min Rigo Guerrerono Other [employer] Other 04-22-2022 14:15-0400 SaO2% (BldA) [Mass fraction] 95 % Rigo Vaughndano Other [employer] Other 04-22-2022 14:15-0400 Systolic blood pressure 133 mm[Hg] Rgio Vaughndano Other [employer] Other Encounters Encounter Date Encounter Type Care Provider Facility Start: 12-12-2024 ambulatory Cam Palmeri ty:[facility] Start: 12-01-2024 ambulatory Cam Palmeri ty:[id number] Start: 10-31-2024 End: 10-31-2024 ambulatory Cam KEE Facility:[facility] Start: 10-31-2024 End: 10-31-2024 Patient encounter procedure Cam KEE [facility] Start: 10-21-2024 End: 10-21-2024 ambulatory Cam KEE Facility:[facility] [place] Start: 10-21-2024 End: 10-21-2024 Patient encounter procedure Cam KEE [facility] [place] Start: 10-18-2024 End: 10-18-2024 ambulatory Cam Kee Facility:[facility] Start: 10-18-2024 End: 10-18-2024 ambulatory Cam KEE Facility:[id number] Start: 09-26-2024 End: 09-26-2024 ambulatory Jojo Melendrez Facility:[facility] Start: 09-26-2024 End: 09-26-2024 Patient encounter procedure Jojo Melendrez [facility] Start: 09-16-2024 End: 09-16-2024 Office outpatient visit 25 minutes Frolyan Castanon MD Work Phone: [facility] Comment on above: ASCVD (arteriosclero tic cardiovascular disease); Essential hypertension; History of PTCA; Mixed hyperlipidemia; BMI 28.0-28.9,adult; Never smoked tobacco Start: 09-16-2024 End: 09-16-2024 ambulatory FROYLAN Wilkins [facility] Ambulatory Start: 09-09-2024 ambulatory Cam Palmeri ty:[facility] Start: 08-25-2024 End: 08-25-2024 Admission to same day surgery center DO Julia Patterson III Work Phone: [facility] [employer] Work Phone: Start: 08-25-2024 End: 08-25-2024 ambulatory DO Julia Patterson III Work Phone: [facility] Work Phone: Start: 08-22-2024 ambulatory Cam KEE Facili ty:[facility] Start: 08-11-2024 End: 08-11-2024 Patient encounter status Frida [address] [place] [address] Work Phone: Start: 08-11-2024 End: 08-11-2024 Subsequent hospital visit by physician Frida Gonzalez [place] [facility] Comment on above: Preop cardiovascular exam; ASCVD (arteriosclerotic cardiovascular disease); History of PTCA Start: 08-11-2024 End: 08-11-2024 ambulatory [facility] Start: 08-11-2024 End: 08-11-2024 Encounter for preprocedural cardiovascular examination [facility] Start: 08-02-2024 End: 08-02-2024 ambulatory Cam KEE Facility:[facility] Start: 08-02-2024 End: 08-02-2024 Patient encounter procedure Cam KEE [facility] Start: 07-04-2024 End: 07-04-2024 ambulatory Samantha X Orzech Facility:[facility] Start: 07-04-2024 End: 07-04-2024 Patient encounter procedure Samantha X Orzech [facility] Start: 06-28-2024 End: 06-28-2024 ambulatory DO Efrem Esquivel Work Phone: [facility] Work Phone: Start: 06-28-2024 End: 06-28-2024 Patient encounter procedure DO Efrem Esquivel Work Phone: [facility] Work Phone: Start: 06-24-2024 End: 06-24-2024 ambulatory Samantha X Orzech Facility:[facility] Start: 06-24-2024 End: 06-24-2024 Lab Drop off Samantha X Orzech [facility] Start: 06-24-2024 End: 06-24-2024 ambulatory Samantha X Orzech Facility:[facility] Start: 06-24-2024 End: 06-24-2024 Patient encounter procedure Samantha X Orzech [facility] Start: 05-27-2024 End: 05-27-2024 ambulatory Pascale Lucas Facility:[facility] Start: 05-27-2024 End: 05-27-2024 Patient encounter procedure Pascale Lucas [facility] Start: 09-07-2023 End: 09-07-2023 Patient encounter procedure JAJA MARTINEZ [facility] Start: 08-06-2023 AUDIT Julia harkins Work Phone: [facility] 600 DO Work Phone: Start: 07-08-[address] Julia Patterson III Facility: Start: 05-14-2023 Rx Renewal Julia Sher rs Work Phone: [facility] 250 DO Work Phone: Start: 12-30-2022 Rx Renewal Julia Sher rs Work Phone: [facility] 250 DO Work Phone: Start: 10-28-2022 Rx Renewal Julia Sher rs Work Phone: [facility] 250 DO Work Phone: Start: 07-09-2022 End: 07-12-2022 ambulatory PIERRE DEL ROSARIO [facility] Start: 07-09-2022 End: 07-12-2022 ambulatory PIERRE DEL ROSARIO [facility] Start: 07-09-2022 End: 07-11-2022 Subsequent hospital visit by physician [facility] Additional Xray At [facility] Comment on above: Pain Start: 07-09-2022 End: 07-11-2022 Subsequent hospital visit by physician Julia Patterson Work Phone: [facility] Start: 07-04-2022 Office outpatient vi sit 25 minutes Julia Patterson Work Phone: [facility] 600 DO Work Phone: Start: 06-23-2022 Rx Renewal Jignesh sage MD Work Phone: [facility] 250 DO Work Phone: Start: 04-22-2022 End: 04-22-2022 ambulatory Rigo Hassan Other [facility] Offerial Other Start: 04-22-2022 Office outpatient vi sit 15 minutes Rigo Hassan [facility] Start: 04-21-2022 Telephone encounter Jignesh Aguirre MD Work Phone: [facility] 250 DO Work Phone: Start: 02-18-2022 Rx Renewal Jignesh sage MD Work Phone: [facility] 250 DO Work Phone: Start: 07-24-2021 End: 07-25-2021 ambulatory JIGNESH PIZANO [facility] Start: 07-24-2021 End: 07-24-2021 Subsequent hospital visit by physician Julia Patterson Work Phone: [facility] Start: 09-26-2020 End: 09-26-2020 Subsequent hospital visit by physician Julia Patterson [facility] Start: 05-09-2020 End: 05-09-2020 Subsequent hospital visit by physician Julia Patterson [facility] Start: 01-12-2020 End: 01-14-2020 Subsequent hospital visit by physician Pipre Howard [facility]IR[facility]ORY THERAPY Comment on above: Arrived Pre-op chest exam Start: 01-11-2020 End: 01-13-2020 Subsequent hospital visit by physician Piper Additional Xray [facility] Comment on above: Trigger finger of le ft thumb; Trigger finger, left middle finger Start: 03-28-2019 End: 03-28-2019 Letter encounter Provider [facility] Start: 03-07-2019 Patient encounter procedure Daniela LEYVA [facility] Start: 01-21-2019 [facility] Start: 11-19-2018 Patient encounter procedure [facility] Start: 09-21-2018 Patient encounter procedure [facility] Start: 08-31-2018 Patient encounter procedure [facility] Start: 08-24-2018 Patient encounter procedure [facility] Start: 08-03-2018 Patient encounter procedure [facility] Start: 06-29-2018 Patient encounter procedure [facility] Start: 03-07-2005 Evaluation and management of inpatient DO Efrem Esquivel Work Phone: [facility] Short Stay Procedures Date Procedure Procedure Detail Performing Clinician Start: 10-18-2024 Transurethral prostatectomy Cam KEE Start: 08-25-2024 CL Coronary Angio DO Jennifer [...] Work Phone: Start: 05-09-2020 [object Object] Julia Leonardo Comment on above: The [facility] ECLIA as [...] JAJA MARTINEZ Start: 11-09-2004 heart stent JAJA CALIT [place] Bilateral inguinal h ernia repair JAJA MARTINEZ [...] shoulder Jignesh Garcia MD Work Phone: Tonsillectomy JAJATRISHA MARTINEZ Total colonoscopy Jignesh Aguirre MD Work Phone: Plan of Treatment Date Care Activity Detail Author Start: 06-15-2025 End: 06-15-2025 Patient encounter procedure 06/15/2025 10:00 AM EDT Office Visit [place] [address] [place] [id number] Froylan Castanon MD [address] [facility] [place] [address] [facility] Start: 09-16-2024 End: 09-16-2024 Patient encounter procedure 09/16/2024 1:40 PM EST Office Visit [facility] [address] [facility] [address] [place] [address] Froylan Castanon MD [address] [facility] [place] [address] [facility] Start: 08-25-2024 End: 08-25-2024 [facility] Start: 07-10-2024 COVID-19 Vaccine ( season) COVID-19 Vaccine ( season) [facility] Start: 07-10-2024 COVID-19 Vaccine ( season) COVID-19 Vaccine ( season) [facility] Start: 07-10-2024 Influenza vaccination Influenza Vacc ine (#1) [facility] Start: 07-06-2024 FUV, Provider: Jignesh Pizano, Status: Pen, Time: 11:40 AM FUV, Provider: Jignseh Pizano, Status: Pen, Time: 11:40 AM -[facility] [employer] 600 DO Work Phone: Start: 07-08-2023 FUV, Provider: Jignesh Pizano, Status: Pen, Time: 10:20 AM FUV, Provider: Jignesh Pizano, Status: Pen, Time: 10:20 AM [facility] Work [facility] Start: 2023 RSV High Risk: (Elde rly (60+) or Population) (1 - 1-dose 75+ series) RSV High Risk: (Elderly (60+) or Population) (1 - 1-dose 75+ series) [facility] Start: 07-24-2022 Lipid panel [facility] Start: 07-10-2022 Influenza vaccination Flu vaccine (# 1) [facility] Start: 07-04-2022 FUV, Provider: Jignesh Pizano, Status: Pen, Time: 10:30 AM FUV, Provider: Jignesh Pizano, Status: Pen, Time: 10:30 AM [facility] 250 DO Work Phone: Start: 06-11-2022 FUV, Provider: Jignesh Pizano, Status: Pen, Time: 11:00 AM FUV, Provider: Jignesh Pizano, Status: Pen, Time: 11:00 AM [facility] 250 DO Work Phone: Start: 02-26-2022 COVID-19 Vaccine (4 - Booster for Pfizer series) COVID-19 Vaccine (4 - Booster for Pfizer series) [facility] Start: 07-10-2021 Influenza vaccination Flu vaccine (# 1) [facility] Work Phone: Start: 01-11-2021 Creatinine measurement Creatinine mo nitoring [place], [place] Start: 01-11-2021 Creatinine monitoring Creatinine mon itoring [place] Start: 01-11-2021 Potassium monitoring Potassium monit [place]ing [place] Start: 07-10-2020 Influenza vaccination Flu vaccine (# 1) [place] Start: 01-25-2020 End: 01-25-2020 Hospital Encounter [facility] Comment on above: 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 Start: 07-10-2019 Influenza vaccination O [facility] Start: 06-17-2019 End: 06-17-2019 Office Visit 06/17/2019 Office Visit Anesthesiology Pain Mgt Yesenia Kimball, [employer] [address] [place] [address] [phone] [facility] Start: 05-01-2019 Annual Wellness Visi t (AWV) Annual Wellness Visit (AWV) [place] Start: 03-28-2019 End: 03-28-2019 Office Visit 03/28/2019 Office Visit Anesthesiology Pain Mgt Thang Gautam MD [address] [place] [id number] Arrived Olga Giang [facility] Comment on above: Arrived Start: 03-26-2016 Pneumococcal 65+ yea rs Vaccine (2 - PCV) Pneumococcal 65+ years Vaccine (2 - PCV) [facility] Start: 03-26-2016 Pneumococcal Vaccine : 65+ Years (2 of 2 - PCV) Pneumococcal Vaccine: 65+ Years (2 of 2 - PCV) [facility] Start: 08-07-2015 Lipid panel Lipid screen [place], [place] Start: 08-07-2015 Lipid screen Lipid screen [place] Start: 2013 Pneumococcal vaccination PNEUMOCOCCAL VACCINE SERIES (1 of 2 - PCV13) [facility] Start: 2008 RSV patient s and/or patients aged 60+ years (1 - 1-dose 60+ series) RSV patients and/or patients aged 60+ years (1 - 1-dose 60+ series) [facility] Start: 1998 Colon cancer screen colonoscopy Colon cancer screen colonoscopy [place], [place] Start: 1998 Prostate specific antigen measurement PROSTATE CANCER SCREENING DISCUSSION [facility] Start: 1998 Protein mass conc COLON CANCER SCREENING DISCUSSION [facility] Start: 1998 Screening for malign ant neoplasm of colon Colon cancer screen colonoscopy [place] Start: 1998 Shingles Vaccine (1 of 2) Shingles Vaccine (1 of 2) [facility] Start: 1998 Zoster vaccine hzv l ady for subcutaneous use ZOSTER (SHINGLES) VACCINE (1 of 2) [facility] Start: 1998 Zoster Vaccines (1 o f 2) Zoster Vaccines (1 of 2) [facility] Start: 1993 Screening for malign ant neoplasm of colon [facility] Start: 1988 Fasting lipid profile LIPID SCREENIN G [facility] Start: 1970 DTaP/Tdap/Td Vaccine s (1 - Tdap) DTaP/Tdap/Td Vaccines (1 - Tdap) [facility] Start: 1967 DTaP/Tdap/Td vaccine (1 - Tdap) DTaP/Tdap/Td vaccine (1 - Tdap) [facility] Start: 1967 Third diphtheria, tetanus and acellular pertussis (DTaP) vaccination TDAP (ADULT) [facility] Start: 1966 Hepatitis C screening Hepatitis C Sc reening [facility] Start: 1966 Tetanus vaccination TETANUS [facility] Start: 1960 COVID-19 Vaccine (1) COVID-19 Vaccin e (1) [facility] Work Phone: Start: 1960 Depression Screen Depression Screen [facility] Start: 1959 DTaP/Tdap/Td vaccine (1 - Tdap) DTaP/Tdap/Td vaccine (1 - Tdap) [facility] [place] Start: 1948 Annual Wellness Visi t (AWV) Annual Wellness Visit (AWV) [facility] Start: 1948 Hepatitis C antibody , confirmatory test HEPATITIS C VIRUS SCREENING [facility] Start: 1948 Lipid panel Lipid Panel [facility] Start: 1948 Medicare Annual Wellness Visit Medicare Annual Wellness Visit (AWV) [facility] EKG 12 lead EKG 12 lead ECG Routine 01/12/2020 11:28 AM EST [facility] [place] Patient Education Know your Meds [facility] Work Phone: Immunizations Immunization Date Immunization Notes Care Provider Cass reyes 08-06-2023 influenza virus vaccine, unspecified formulation Frida 1 [facility] Work Phone: 08-01-2022 Fluzone High-Dose Quadrivalent 0.7 ML Intramuscular Suspension Prefilled Syringe Julia Patterson Work Phone: -[facility] 600 DO Work Phone: 08-01-2022 influenza virus vaccine, unspecified formulation JAJA MARTINEZ [facility] 08-01-2022 influenza, high dose seasonal, preservative-free Frida [facility] Work Phone: 10-28-2021 COVID-19 Vaccine Pfi zer - Documentation Purposes Only Rigo Hassan Other [facility] 08-13-2021 influenza virus vaccine, unspecified formulation JAJA MARTINEZ [facility] 08-13-2021 influenza, high dose seasonal, preservative-free Jignesh Pizano MD Work Phone: [facility] 01-04-2021 Pfizer-BioNTIsagen COVID-19 Vacc 30 MCG/0.3ML Intramuscular Suspension Jignesh Pizano MD Work Phone: [facility] 12-14-2020 COVID-19 Vaccine Pfi zer - Documentation Purposes Only Rigo Hassan Other [facility] 08-07-2020 influenza virus vaccine, unspecified formulation JAJA MARTINEZ [facility] 08-07-2020 influenza, high dose seasonal, preservative-free Jignesh Pizano MD Work Phone: [facility] 08-03-2020 influenza virus vaccine, unspecified formulation JAJA MARTINEZ [facility] 07-10-2020 influenza virus vaccine, unspecified formulation Jignesh Pizano MD Work Phone: [facility] 09-23-2019 influenza, high dose seasonal, preservative-free Frida 1 [facility] Work Phone: 08-09-2019 influenza, high dose seasonal, preservative-free Jignesh Pizano MD Work Phone: [place] [address] DO Work Phone: 08-16-2018 influenza virus vaccine, unspecified formulation JAJA MARTINEZ [facility] 08-09-2018 influenza virus vaccine, unspecified formulation Jignesh Pizano MD Work Phone: [place] [address] DO Work Phone: 09-01-2017 influenza, injectabl e, quadrivalent, preservative free Jignesh Pizano MD Work Phone: [place] [address] DO Work Phone: 09-01-2017 influenza virus vaccine, unspecified formulation Provider [facility] 08-11-2017 influenza, high dose seasonal, preservative-free Jignesh Pizano MD Work Phone: [place] [address] DO Work Phone: 09-01-2016 influenza virus vaccine, unspecified formulation JAJA MARTINEZ [facility] 09-01-2016 influenza, injectabl e, quadrivalent, preservative free Jignesh Pizano MD Work Phone: [place] [address] DO Work Phone: 08-09-2016 influenza virus vaccine, unspecified formulation Jignesh Pizano MD Work Phone: [place] [address] DO Work Phone: 08-14-2015 influenza virus vaccine, unspecified formulation JAJA MARTINEZ [facility] 08-09-2015 influenza virus vaccine, unspecified formulation Jignesh Pizano MD Work Phone: [place] [address] DO Work Phone: 03-26-2015 pneumococcal conjuga te vaccine, 7 valent Jignesh Pizano MD Work Phone: [place] [address] DO Work Phone: 03-09-2015 pneumococcal conjuga te vaccine, 7 valmarcia Pizano MD Work Phone: [place] [address] DO Work Phone: 11-10-2014 pneumococcal polysaccharide vaccine, 23 valent Rigo Hassan Other [facility] 08-09-2014 influenza virus vaccine, unspecified formulation Jignesh Pizano MD Work Phone: [place] [address] DO Work Phone: 08-08-2014 influenza virus vaccine, unspecified formulation JAJA MARTINEZ [facility] 07-29-2013 influenza virus vaccine, unspecified formulation JAJA MARTINEZ [facility] 07-29-2013 influenza, injectabl e, quadrivalent, preservative free Jignesh Pizano MD Work Phone: [place] [address] DO Work Phone: 07-28-2012 influenza virus vaccine, unspecified formulation JAJA MARTINEZ [facility] 07-28-2012 influenza, injectabl e, quadrivalent, preservative free Jignesh Piznao MD Work Phone: [place] [address] DO Work Phone: 07-30-2011 influenza virus vaccine, unspecified formulation JAJA MARTINEZ [facility] 07-30-2011 influenza, injectabl e, quadrivalent, preservative free Jignesh Pizano MD Work Phone: [facility] 250 DO Work Phone: 10-30-2009 novel [id number], preservative-free, injectable Jignesh Pizano MD Work Phone: [facility] 250 DO Work Phone: influenza virus vaccine, unspecified formulation Jignesh Pizano MD Work Phone: [facility] 250 DO Work Phone: Comment on above: 2012Aug [id number] pneumococcal polysaccharide vaccine, 23 valent Jignesh Pizano MD Work Phone: [facility] 250 DO Work Phone: Comment on above: 2012 2007 2004 Payers Date Payer Category Payer Self-pay 2023 Medicare supplementa l policy (as second payer) [facility] [id number] 2023 Unknown 2013 Unknown [id number] 2013 Medicare [id number] 2013 Medicare xxxxxxxxxxx [id number] 2013 Medicare [id number]. [id number] 2013 Medicare [id number] 1948 Unknown [id number] 2.16.840.1.453351.3.579. 2.983 1948 Unknown [id number] 2.16.840.1.120158.3.579. 2.983 1948 Unknown [id number] 2.16.840.1.148547.3.579. 2.174 1948 Unknown [id number] 2.16.840.1.983581.3.579. 2.174 1948 Unknown [id number] 2.16.840.1.699974.3.579. 2.174 1948 Unknown [id number] 2.16.840.1.221143.3.579. 2.356 1948 Unknown [id number] 2.16.840.1.957097.3.579. 2.727 1948 Unknown [id number] 2.16.840.1.976943.3.579. 2.124 1948 Unknown [id number] 2.16.840.1.761084.3.579. 2.124 1948 Unknown [id number] 2.16.840.1.309611.3.579. 2.6 1948 Unknown [id number] 2.16.840.1.897813.3.579. 2.1246 1948 Unknown [id number] 2.16.840.1.548303.3.579. 2.1246 1948 Unknown [id number] 2.16.840.1.289487.3.579. 2.1244 1948 Unknown [id number] 2.16.840.1.734086.3.579. 2.727 1948 Unknown [id number] 2.16.840.1.995534.3.579. 2.727 1948 Unknown [id number] 2.16.840.1.167078.3.579. 2.727 1948 Unknown [id number] 2.16.840.1.333711.3.579. 2.727 1948 Unknown [id number] 2.16.840.1.831208.3.579. 2.727 1948 Unknown [id number] 2.16.840.1.388940.3.579. 2.727 1948 Unknown [id number] 2.16.840.1.113112.3.579. 2.72 1948 Unknown [id number] 2.16.840.1.144457.3.579. 2.727 1948 Unknown [id number] 2.16.840.1.609599.3.579. 2.727 1948 Unknown [id number] 2.16.840.1.230095.3.579. 2.727 1948 Unknown [id number] 2.16.840.1.009139.3.579. 2.727 Unknown [id number] 2.16.840.1.447265.3.579. 2.531 Unknown [id number] 2.16.840.1.183222.3.579. 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) [place] Start: 01-12-2020 End: 09-16-2024 Tobacco use and exposure Never used [place] Start: 09-16-2024 Alcohol use Alcohol use -[facility] 250 DO Work Phone: Start: 09-16-2024 Sex Assigned At F [facility] Tobacco smoking status Never [facility] Start: 1950 Sex Assigned At Male F [facility] Start: 02-01-2024 Tobacco smoking stat us NHIS Tobacco smoking consumption unknown [facility] Work Phone: Start: 08-01-2024 End: 09-16-2024 Exposure to SARS-CoV-2 (event) Not sure [facility] Start: 09-16-2024 Alcoholic beverage intake Ex-drinker (finding) [facility] Work Phone: Medical Equipment Procedure Code Equipment Code Equipment Origin al Text Equipment Identifier Dates [place] Suture Swivelock 4.75 X 19.1 Biocomposite Min 5ea [id number] Start: 01-27-2018 Goals Date Patient Goal Desired Activity /State Functional Status Date Assessment Result Facility 10-31-2024 Functional Status N/A [facility] 08-02-2024 Functional Status N/A [facility] 06-24-2024 Functional Status N/A [facility] Clinical Notes 04-22-2022 to 10-31-2024 Froylan Castanon MD - 09/16/2024 1:40 PM ESTPatient Instructions Note Date & Type Note Facility 10-31-2024 Hospital Discharge instructions Patient Education 10/31/2024 11:10:08 Transurethral Resection of Bladder Tumor Transurethral Resection of Bladder Tumor Transurethral resection of a bladder tumor is the removal (resection) of cancerous tissue (tumor) from the inside wall of the bladder. The bladder is the organ that holds urine. The tumor is removed through the tube that carries urine out of the body (urethra). In a transurethral resection, a thin telescope with a light, a tiny camera, and an electric cutting edge (resectoscope) is passed through the urethra. In men, the opening of the urethra is at the end of the penis. In women, it is just above the opening of the vagina. Tell a health care provider about: Any allergies you have. All medicines you are taking, including vitamins, herbs, eye drops, creams, and oiuy-ldw-ybbfumh medicines. Any problems you or family members have had with anesthetic medicines. Any bleeding problems you have. Any surgeries you have had. Any medical conditions you have, including recent urinary tract infections. Whether you are or may be . What are the risks? Generally, this is a safe procedure. However, problems may occur, including: Infection. Bleeding. Allergic reactions to medicines. Damage to nearby structures or organs. Difficulty urinating from blockage of the urethra or not being able to urinate (urinary retention). Deep vein thrombosis. This is a blood clot that can develop in your leg. Recurring cancer. What happens before the procedure? When to stop eating and drinking Follow instructions from your health care provider about what you may eat and drink before your procedure. These may include: 8 hours before your procedure ?Stop eating most foods. Do not eat meat, fried foods, or fatty foods. ?Eat only light foods, such as toast or crackers. ?All liquids are okay except energy drinks and alcohol. 6 hours before your procedure ?Stop eating. ?Drink only clear liquids, such as water, clear fruit juice, black coffee, plain tea, and sports drinks. ?Do not drink energy drinks or alcohol. 2 hours before your procedure ?Stop drinking all liquids. ?You may be allowed to take medicines with small sips of water. Medicines Ask your health care provider about: Changing or stopping your regular medicines. This is especially important if you are taking diabetes medicines or blood thinners. Taking medicines such as aspirin and ibuprofen. These medicines can thin your blood. Do not take these medicines unless your health care provider tells you to take them. Taking lcre-jnk-dcimtma medicines, vitamins, herbs, and supplements. General instructions If you will be going home right after the procedure, plan to have a responsible adult: ?Take you home from the hospital or clinic. You will not be allowed to drive. ?Care for you for the time you are told. Ask your health care provider what steps will be taken to help prevent infection. These steps may include: ? Washing skin with a germ-killing soap. ? Taking antibiotic medicine. Do not use any products that contain nicotine or tobacco for at least 4 weeks before the procedure. These products include cigarettes, chewing tobacco, and vaping devices, such as e-cigarettes. If you need help quitting, ask your health care provider. What happens during the procedure? An IV will be inserted into one of your veins. You will be given one or more of the following: ?A medicine to help you relax (sedative). ?A medicine that is injected into your spine to numb the area below and slightly above the injection site (spinal anesthetic). ?A medicine that is injected into an area of your body to numb everything below the injection site (regional anesthetic). ?A medicine to make you fall asleep (general anesthetic). Your legs will be placed in foot rests (stirrups) to open your legs and bend your knees. The resectoscope will be passed through your urethra and into your bladder. The part of your bladder with the tumor will be resected by the cutting edge of the resectoscope. Fluid will be passed to rinse out the cut tissues (irrigation). The resectoscope will then be taken out. A small, thin tube (catheter) will be passed through your urethra and into your bladder. The catheter will drain urine into a bag outside of your body. The procedure may vary among health care providers and hospitals. What happens after the procedure? Your blood pressure, heart rate, breathing rate, and blood oxygen level will be monitored until you leave the hospital or clinic. You may continue to receive fluids and medicines through an IV. You will be given pain medicine to relieve pain. You will have a catheter to drain your urine. ?The amount of urine will be measured. If you have blood in your urine, your bladder may be rinsed out by passing fluid through your catheter. You will be encouraged to walk as soon as you can. You may have to wear compression stockings. These stockings help to prevent blood clots and reduce swelling in your legs. If you were given a sedative during the procedure, it can affect you for several hours. Do not drive or operate machinery until your health care provider says that it is safe. Summary Transurethral resection of a bladder tumor is the removal (resection) of a cancerous growth (tumor) on the inside wall of the bladder. To do this procedure, your health care provider uses a thin telescope with a light, a tiny camera, and an electric cutting edge (resectoscope) that is guided to your bladder through your urethra. The part of your bladder that is affected by the tumor will be resected by the cutting edge of the resectoscope. A catheter will be passed through your urethra and into your bladder. The catheter will drain urine into a bag outside of your body. If you will be going home right after the procedure, plan to have a responsible adult take you home from the hospital or clinic. You will not be allowed to drive. This information is not intended to replace advice given to you by your health care provider. Make sure you discuss any questions you have with your health care provider. Document Revised: 10/31/2022 Document Reviewed: 10/31/2022 Short Fuze Patient Education 2023 NextGen Platform. 10/31/2024 11:10:07 Bladder Cancer Bladder Cancer Bladder cancer is a condition where abnormal tissue (a tumor) grows in the bladder. The bladder is the organ that holds urine. Two tubes (ureters) carry urine from the kidneys to the bladder. The bladder wall is made of layers of tissue. Cancer that spreads through these layers of the bladder wall becomes more difficult to treat. What increases the risk? The following factors may make you more likely to develop this condition: Smoking. Working where there are risks (occupational exposures), such as working with rubber, leather, clothing fabric, dyes, chemicals, or paint. Being 55 years of age or older. Being male. Having long-term bladder inflammation. Having a history of cancer. This includes: ?A family history of bladder cancer. ?Having had bladder cancer before. ?Having had certain treatments for cancer before, such as: ?Medicines to kill cancer cells (chemotherapy). ?Strong X-ray beams or high-energy capsules to kill cancer cells and shrink tumors (radiation therapy). Having been exposed to arsenic. This is a poisonous substance. What are the signs or symptoms? Early symptoms of this condition include: Blood in your urine. Pain when urinating. Infections of your urinary system (urinary tract infections or UTIs) that happen often. Having to urinate sooner or more often than normal. Late symptoms of this condition include: Not being able to urinate. Pain on one side of your lower back. Loss of appetite. Weight loss. Tiredness (fatigue). Swelling in your feet. Bone pain. How is this diagnosed? This condition is diagnosed based on: Your medical history. A physical exam. Lab tests, such as urine tests. Imaging tests. Your symptoms. You may also have other tests or procedures, such as: A cystoscopy. This involves putting a narrow tube into your urethra. The urethra is the organ that carries urine from your bladder to the outside of your body. This procedure is done to view the lining of your bladder for tumors. A biopsy. This involves removing a tissue sample to look at under a microscope to check for cancer. Blood tests or imaging tests may be needed. These show how far into the bladder wall cancer has grown, and if cancer has spread to any other parts of your body. Tests may include: CT scan. MRI. Bone scan. X-ray. How is this treated? Your health care provider may recommend one or more types of treatment based on the stage of your cancer. The most common treatments are: Surgery to remove the cancer. Types of surgeries include: ?Removing a tumor on the inside wall of the bladder (transurethral resection). ?Removing the bladder (cystectomy). Radiation therapy. This is often combined with chemotherapy. Chemotherapy. Immunotherapy. This uses medicines to help your body's disease-fighting system (immune system) destroy cancer cells. Follow these instructions at home: Take yieh-asj-fotpzbl and prescription medicines only as told by your health care provider. If you were prescribed an antibiotic medicine, take it as told by your health care provider. Do not stop using the antibiotic even if you start to feel better. Eat a healthy diet. Some treatments might affect your appetite. Do not use any products that contain nicotine or tobacco. These products include cigarettes, chewing tobacco, and vaping devices, such as e-cigarettes. If you need help quitting, ask your health care provider. Consider joining a support group. This may help you learn to deal with the stress of having bladder cancer. Tell your cancer care team if you develop side effects. Your team may be able to recommend ways to get relief. Keep all follow-up visits. This is important. Where to find more information [place] Cancer Society (ACS): cancer.org National Cancer [place] (NCI): cancer.gov Contact a health care provider if: You have symptoms of a UTI. These include: ?Fever. ?Chills. ?Weakness. ?Muscle aches. ?Pain in your abdomen. ?Urge to urinate that is stronger and happens more often than normal. ?Burning in the bladder or urethra when you urinate. Get help right away if: There is blood in your urine. You cannot urinate. You have severe pain or other symptoms that do not go away. Summary Bladder cancer is a condition where tumors grow in the bladder. Diagnosis is based on your medical history, a physical exam, lab tests, imaging tests, and your symptoms. Your health care provider may recommend one or more types of treatment based on the stage of your cancer. Consider joining a support group. This may help you learn to deal with the stress of having bladder cancer. This information is not intended to replace advice given to you by your health care provider. Make sure you discuss any questions you have with your health care provider. Document Revised: 10/06/2022 Document Reviewed: 10/06/2022 Short Fuze Patient Education 2023 NextGen Platform. Follow Up Care 09/16/2024 15:20:58 With:CHILANGO QUILES, Cam Newby, URL Address: [facility] [address], [place] [address] [phone] When: Unknown [facility] 10-31-2024 Note Patient Education Oncology Transurethral Resection of Bladder Tumor Transurethral resection of a bladder tumor is the removal (resection) of cancerous tissue (tumor) from the inside wall of the bladder. The bladder is the organ that holds urine. The tumor is removed through the tube that carries urine out of the body (urethra). In a transurethral resection, a thin telescope with a light, a tiny camera, and an electric cutting edge (resectoscope) is passed through the urethra. In men, the opening of the urethra is at the end of the penis. In women, it is just above the opening of the vagina. Tell a health care provider about: ??? Any allergies you have. ??? All medicines you are taking, including vitamins, herbs, eye drops, creams, and inec-uwv-nydamkq medicines. ??? Any problems you or family members have had with anesthetic medicines. ??? Any bleeding problems you have. ??? Any surgeries you have had. ??? Any medical conditions you have, including recent urinary tract infections. ??? Whether you are or may be . What are the risks? Generally, this is a safe procedure. However, problems may occur, including: ??? Infection. ??? Bleeding. ??? Allergic reactions to medicines. ??? Damage to nearby structures or organs. ??? Difficulty urinating from blockage of the urethra or not being able to urinate (urinary retention). ??? Deep vein thrombosis. This is a blood clot that can develop in your leg. ??? Recurring cancer. What happens before the procedure? When to stop eating and drinking Follow instructions from your health care provider about what you may eat and drink before your procedure. These may include: ??? 8 hours before your procedure ? Stop eating most foods. Do not eat meat, fried foods, or fatty foods. ? Eat only light foods, such as toast or crackers. ? All liquids are okay except energy drinks and alcohol. ??? 6 hours before your procedure ? Stop eating. ? Drink only clear liquids, such as water, clear fruit juice, black coffee, plain tea, and sports drinks. ? Do not drink energy drinks or alcohol. ??? 2 hours before your procedure ? Stop drinking all liquids. ? You may be allowed to take medicines with small sips of water. Medicines Ask your health care provider about: ??? Changing or stopping your regular medicines. This is especially important if you are taking diabetes medicines or blood thinners. ??? Taking medicines such as aspirin and ibuprofen. These medicines can thin your blood. Do not take these medicines unless your health care provider tells you to take them. ??? Taking xrms-qsu-dioqksa medicines, vitamins, herbs, and supplements. General instructions ??? If you will be going home right after the procedure, plan to have a responsible adult: ? Take you home from the hospital or clinic. You will not be allowed to drive. ? Care for you for the time you are told. ??? Ask your health care provider what steps will be taken to help prevent infection. These steps may include: ? Washing skin with a germ-killing soap. ? Taking antibiotic medicine. ??? Do not use any products that contain nicotine or tobacco for at least 4 weeks before the procedure. These products include cigarettes, chewing tobacco, and vaping devices, such as e-cigarettes. If you need help quitting, ask your health care provider. What happens during the procedure? An IV will be inserted into one of your veins. ??? You will be given one or more of the following: ? A medicine to help you relax (sedative). ? A medicine that is injected into your spine to numb the area below and slightly above the injection site (spinal anesthetic). ? A medicine that is injected into an area of your body to numb everything below the injection site (regional anesthetic). ? A medicine to make you fall asleep (general anesthetic). ??? Your legs will be placed in foot rests (stirrups) to open your legs and bend your knees. ??? The resectoscope will be passed through your urethra and into your bladder. ??? The part of your bladder with the tumor will be resected by the cutting edge of the resectoscope. ??? Fluid will be passed to rinse out the cut tissues (irrigation). ??? The resectoscope will then be taken out. ??? A small, thin tube (catheter) will be passed through your urethra and into your bladder. The catheter will drain urine into a bag outside of your body. The procedure may vary among health care providers and hospitals. What happens after the procedure? Your blood pressure, heart rate, breathing rate, and blood oxygen level will be monitored until you leave the hospital or clinic. ??? You may continue to receive fluids and medicines through an IV. ??? You will be given pain medicine to relieve pain. ??? You will have a catheter to drain your urine. ? The amount of urine will be measured. If you have blood in your urine, your bladder may be rinsed o (more content not included)... [facility] 09-16-2024 History of Present illness Narrative Subjective [...] acquired this past summer. They live in [facility]. Review of system is normal physical [...] discussion and plan. documented in this encounter [facility] Work Phone: 09-16-2024 Instructions Kimberly Oconnell LPN [...] visit Same medications documented in this encounter [facility] Work Phone: 08-25-2024 Discharge summary Note Date/Time August 25, 2024 1:28pm [facility] [address] [place] [address] Discharge Summary Signed Patient: Sarina Justice MR#: [id number] : 1950 Acct:[id number] Age/Sex: 74 / M Adm Date: 4 Loc: Room: Attending Dr: Froylan Castanon MD Copies to: Froylan Castanon MD, [facility] Julia Patterson III, DO~ Providers Date of Discharge: 08/25/24 Discharging Provider: Froylan Castanon Primary Care Provider: Julia R Patterson III Discharge Diagnosis Final Diagnosis Final [...] Low-Cholesterol Additional Instructions: 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 4. ACTIVITY: You are advised to [...] bottle, follow the instructions on the bottle. [facility] is not responsible for incorrect prescription [...] PO DAILY Rx Instructions: takes . and Th. ascorbic acid (vitamin C) 1,000 mg tablet [...] % (Auto) 66.3, Lymph % (Auto) 22.1, [place] % (Auto) 10.2, Eos % (Auto) 1.0, Baso % (Auto) 0.4, Nucleat RBC Rel Count 0.1, Neut # (Auto) 3.9, Lymph # (Auto) 1.3, [place] # (Auto) 0.6, Eos # (Auto) 0.1, [...] Ratio 2.4 Documented By: Froylan Castanon MD, [facility] 4 1328 Signed By: <Electronically signed by MD RADHAMES Castanon> 08/25/24 1328 [facility] Work Phone: [phone] 865-851310-17-2024 Procedure [facility]09-24-2024 Hospital Discharge instructions Patient Education [...] Up Care 07/15/2024 15:52:56 With:Cam KEE Address: [address] [place] [address]- Business (1) When: Unknown Comments:Office will call to schedule follow up [facility] 09-24-2024 NoteProgress Note-Physician Patient: SARINA JUSTICE [...] Tab Multi Vitamin+ 1 tab, Oral, Daily Wilbur 325 mg-5 mg oral tablet See Instructions, PRN Wilbur 325 mg-5 mg oral tablet See Instructions, PRN omeprazole 20 mg Cap-DR ProAir HFA 90 mcg/inh inhalation aerosol 2 puff(s), PRN, Inhalation, q4hr sildenafil 100 mg Tab 100 mg = 1 tab(s), Oral, As Directed Vitamin B12 2,500 microgram, SubLingual, MonWedFri Vitamin B6 100 mg, Oral, Daily Vitamin C 1,000 mg, Daily Vitamin D3 5,000 International_Unit, Oral, TueThu Xyzal 5 mg, Oral, qPM Problem list: All Problems Obesity / SNOMED CT [id number] / Possible HTN - Hypertension / SNOMED CT 4200728415 / Confirmed History of hypercholesterolemia / SNOMED CT 2047500357 / Confirmed CAD - Coronary artery disease / SNOMED CT 4810410239 / Confirmed H/O: arthritis / SNOMED CT 058143665 / Confirmed Acid reflux / SNOMED CT 362236369 / Confirmed Asthma / SNOMED CT 789009601 / Confirmed Pre diabetes / Confirmed controlle by diet Trigger finger / SNOMED CT 9423575679 / Confirmed left ring finger Enlarged prostate / SNOMED CT 865070212 / Confirmed Osteoarthritis / SNOMED CT 1613256010 / Confirmed Sacroiliitis / SNOMED CT 1692917444 / Confirmed Spondylosis of lumbar region without myelopathy or radiculopathy / SNOMED CT 40757503 / Confirmed Lumbar radiculitis / SNOMED CT 836723621 / Confirmed DDD (degenerative disc disease), lumbar / SNOMED CT 69073768 / Confirmed Lumbar stenosis / SNOMED CT 45390217 / Confirmed Chronic pain / SNOMED CT 061079358 / Confirmed Personal history of prostate cancer / SNOMED CT 3821224337 / Confirmed BMI 31.0-31.9,adult / SNOMED CT 491522345 / Confirmed Frequency of urination / SNOMED CT 241666333 / Confirmed Nocturia / SNOMED CT 234096499 / Confirmed BPH with urinary obstruction / SNOMED CT 1163956841 / Confirmed ED (erectile dysfunction) / SNOMED CT 0422042505 / Confirmed Erectile dysfunction following radiation therapy / SNOMED CT 5102017935 / Confirmed Gross hematuria / SNOMED CT 675499114 / Confirmed Histories Past Medical History: Active Pre diabetes: Onset on 01/08/2011 at 60 years. 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 History of kidney stone (2619326097): Resolved. Family History: Dementia Mother Asthma Brother Hypertension Father Congenital heart disease Father Diabetes mellitus type 2 Mother Osteoporosis Mother Heart failure Mother Migraine Mother Stroke Mother Hyperthyroidism Mother Acute myocardial infarction Father Hyperlipidemia Father Alzheimer's disease Mother Cardiac arrest Father Procedure history: Release of trigger finger (680900717) on 03/21/2020 at 69 Years. Comments: 03/21/2020 15:21 Mary Ann Stiles RN left middle Repair of rotator cuff of shoulder (7287898056) on 01/27/2018 at 67 Years. Comments: 02/02/2018 11:38 Rosita Magaña RN right shoulder transforaminal epidural steroid injection on 01/11/2018 at 67 Years. Comments: 02/02/2018 11:33 Rosita Magaña RN left L3+L4 80% relief for 2 weeks Left Transforaminal Epidural Steroid Injection on 12/21/2017 at 67 Years. Comments: 01/05/2018 9:39 Pascale Agee RN left approx 40-50 % relief Left L3 L4 Transforminal epidural steroid injection on 09/28/2017 at 67 Years. Comments: 10/06/2017 9:51 Kiki Corado RN 90% relief and still working [employer] on 06/17/2017 at 67 Years. 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 This gentleman's gross hematuria seems to be from the prostate itself and possibly the portion of the prostate which is protruding into the bladder. Plan: #1. He is getting scheduled for cystoscopy, fulguration of prostate, transurethral resection of bladder lesions and prostate regrowth under anesthesia. Future Appointments Appointment Date:08/22/2024 10:30:00 AM Scheduled Provider: Location:[facility] Appointment Type:URO Nurse Visit Appointment Date:09/09/2024 10:45:00 AM Scheduled Provider:Cam KEE MD Location:[facility] Appointment Type:URO Office Visit [facility] 09-24-2024 NotePatient Education Custom Cystoscopy ? Voiding after [...] if you have a fever over 100 degrees.[facility] 06-24-2024 Hospital Discharge instructions Patient Education 06/24/2024 [...] Follow these instructions at home: Medicines Take zkpg-agk-vnucaxt and prescription medicines only as told by [...] or the blood stops without treatment. Take aidd-wzk-bhvuphc and prescription medicines only as told by your health care provider. Drink enough fluid to keep your urine pale yellow. This information is not intended to replace advice given to you by your health care provider. Make sure you discuss any questions you have with your health care provider. Document Revised: 06/26/2021 Document Reviewed: 06/26/2021 Short Fuze Patient Education 2022 [employer] Platform. 06/24/2024 13:57:39 Benign Prostatic Hyperplasia Benign Prostatic [...] urethra. Follow these instructions at home: Take odhk-apo-jlppooz and prescription medicines only as told by [...] provider. Document Revised: 05/14/2022 Document Reviewed: 05/14/2022 Short Fuze Patient Education 2022 NextGen Platform. Follow Up Care 06/20/2024 16:12:54 With:CHILANGO QUILES, Cam Newby, URL Address: [address] [place], [place] [id number]- When: Unknown Comments:Cystoscopy [facility] 08-16-2024 Evaluation + Plan note Future Scheduled Tests Radiology* CT Urogram 06/24/24 [facility] 08-16-2024 Evaluation + Plan note Diagnostic Tests Pending * UroVysion Fish and Urine Cyto ([facility]) 06/24/24 Future Scheduled Tests Radiology* CT Urogram 06/24/24 [facility] 08-16-2024 NoteUrology Office/Clinic Note Chief Complaint [...] with voice recognition artificial intelligence software, specifically Suso, PayEase and or [employer]. Substitutions may have occurred due to the [...] understanding -Urine for FISH/cytology today -CTU at [facility] -Schedule cystoscopy with PRW Ordered: Body [...] Urnls Dip Stick Auto w/o Microscopy POC 76484 2. Personal history of prostate cancer (Z85.46: Personal history of malignant neoplasm of prostate) TRUS/bx 08/13/11 - [place] 6 (3+3) x 2 cores, about 10% [...] Information CHILANGO QUILES, Cam Newby, URL [address] [place] [address]- Additional Instructions (more content not included)...[facility] CenterComment on above:Result Comment: Electronically Signed By: JOSE DE JESUS Keyes APRN, [place] X\.br\Date and Time Signed: 06/24/24 13:58 [id number] Note Patient Education Urology Hematuria, Adult Hematuria [...] these instructions at home: Medicines ? Take vsgf-ibr-ijjbpiz and prescription medicines only as told by [...] the blood stops without treatment. ? Take uajg-cyz-irtkvel and prescription medicines only as told by your health care provider. ? Drink enough fluid to keep your urine pale yellow. This information is not intended to replace advice given to you by your health care provider. Make sure you discuss any questions you have with your health care provider. Document Revised: 06/26/2021 Document Reviewed: 06/26/2021 Short Fuze Patient Education ? 2022 NextGen Platform. Benign Prostatic Hyperplasia Benign prostatic hyperplasia (BPH) [...] include: ? Getting up (more content not included)...[facility]* Encounter Date Diagnosis Assessment Notes Treatment Notes Treatment Clinical Notes Apr, Asthma, moderate persistent (ICD-10 - J45.40) Apr, Allergic rhinitis (ICD-10 - J30.9) Apr, Gastroesophageal ref lux disease (ICD-10 - K21.9) sourceasy Other Evaluation + Plan note No data available for this section [facility] Future Appointments Appointment Date:10/21/2024 09:00:00 AM Scheduled Provider: Location:[facility] Appointment Type:URO Nurse Visit Appointment Date:10/31/2024 10:00:00 AM Scheduled Provider:Cam KEE MD Location:[facility] Appointment Type:URO Office Visit [facility] Evaluation + Plan note Future Appointments Appointment Date:10/31/2024 10:00:00 AM Scheduled Provider:Cam KEE MD Location:[facility] Appointment Type:URO Office Visit [facility] Evaluation + Plan note Future Appointments Appointment Date:12/12/2024 11:15:00 AM Scheduled Provider:Cam KEE MD Location:[facility] Appointment Type:URO Office Visit [facility] evaluation note* Diagnosis Pain Generalized pain documented in this encounter [facility] Work Phone: evaludeboa note* Diagnosis Onset Date Resolution Status Allergic rhinitis acute Asthma, moderate persistent acute Gastroesophageal reflux disease [facility] Work Phone: Evaluation note* Diagnosis Preop cardiovascular exam Pre-operative cardiovascular examination ASCVD (arteriosclerotic cardiovascular disease) Unspecified cardiovascular disease History of PTCA Postsurgical percutaneous transluminal coronary angioplasty status documented in this encounter [facility] Work Phone: Evaluation note* Diagnosis ASCVD (arteriosclerotic cardiovascular disease) Unspecified cardiovascular disease Essential hypertension Unspecified essential hypertension History of PTCA Postsurgical percutaneous transluminal coronary angioplasty status Mixed hyperlipidemia BMI 28.0-28.9,adult Never smoked tobacco documented in this encounter [facility] Work Phone: History general Narrative - Reported* [...] MTP 8 Surgical History LMF trigger release [facility] MTP Hospitalization History as above sourceasy Other History of Present illness NarrativePatient returns [...] us if a plan of surgery is implemented.[facility] 600 DO Work Phone: Hospital Discharge instructions No data available for this section [facility] Additional Instructions 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 4. ACTIVITY: You are advised to [...] bottle, follow the instructions on the bottle. [facility] is not responsible for incorrect prescription information provided by the patient during their visit. Do not stop your medications without consulting your health care provider. Please take the list with you to your next doctor's appointment.[facility] Work Phone: Progress note No data available for this section [facility] Summary Purpose Family History No Family [...] FoundDocuments on File Type Date Recorded Patient Producer Director Expl anation Advance Directives and Living Will Power of Coding Coordinator Latest Code Status on File Code Status Date Activated Date Inactivated Comments Full Code 06/16/2018 7:50 AM 06/16/2018 11:13 AM Full Code 06/16/2018 6:11 AM 06/16/2018 7:50 AM Full Code 01/27/2018 1:27 PM 01/27/2018 4:34 PM Full Code 01/27/2018 10:07 AM 01/27/2018 1:27 PM Full Code 02/06/2016 12:12 PM 02/06/2016 2:59 PM Documents on File Type Date Recorded Patient Producer Director Expl anation ACP-Advance Directive ACP-Power of Coding Coordinator Advance Directive Response Recorded Date/ Time Advance [...] Referral Specialty Diagnoses / Procedures Referred By Tio hawkins Referred To Contact Radiology Diagnoses Preop cardiovascular exam ASCVD (arteriosclerotic cardiovascular disease) History of PTCA Procedures Nuclear Stress Test CHG MYOCARDIAL SPECT MULTIPLE STUDIES Froylan Castanon MD [address] [facility] [address], [address] [address] Referral ID Status Reason Start Date Expiration Date V isits Requested Visits Authorized [id number] Authorized 08/03/2024 08/03/2025 5 5 Additional Source Comments (unrecognized sect ion and content) No Status Records FoundNo Status Records FoundNo Status Records FoundNo Status Records FoundNo Status Records FoundNo Status Records FoundNo Status Records FoundNo Status Records FoundNo Status Records FoundNo Status Records FoundNo Status Records FoundNo Status Records Found INFORMATION SOURCE (unrecogn ized section and content) DATE CREATED AUTHOR 01/22/2019 [facility] DATE CREATED AUTHOR AUTHOR'S ORGANIZ ATION 03/11/2019 [facility] DATE CREATED AUTHOR AUTHOR'S ORGANIZ ATION 07/12/2022 [facility] DATE CREATED AUTHOR AUTHOR'S ORGANIZ ATION 07/09/2023 [facility] DATE CREATED AUTHOR AUTHOR'S ORGANIZ ATION 07/09/2023 [facility] DATE CREATED AUTHOR AUTHOR'S ORGANIZ ATION 07/05/2024 [facility] DATE CREATED AUTHOR AUTHOR'S ORGANIZ ATION 08/25/2024 [facility] DATE CREATED AUTHOR AUTHOR'S ORGANIZ ATION 09/29/2024 [facility] DATE CREATED AUTHOR AUTHOR'S ORGANIZ ATION 10/22/2024 [facility] DATE CREATED AUTHOR AUTHOR'S ORGANIZ ATION 11/02/2024 [facility] REASON FOR VISIT (unrecogniz ed section and content) Specialty Diagnoses / Procedures Referred By Tio hawkins Referred To Contact Radiology Diagnoses Preop cardiovascular exam ASCVD (arteriosclerotic cardiovascular disease) History of PTCA Procedures Nuclear Stress Test CHG MYOCARDIAL SPECT MULTIPLE STUDIES Froylan Castanon MD [address] [facility] [address], [address] [address] Referral ID Status Reason Start Date Expiration Date V isits Requested Visits Authorized [id number] Authorized 08/03/2024 08/03/2025 5 5 Reason Comments Annual Exam Care Teams (unrecognized sec tion and content) Natural Resource Economist Relationship Specialty Start Date End Date Julia Patterson [address] [place] [id number] PCP - General 03/08/13 Natural Resource Economist Relationship Specialty Start Date End Date Julia Patterson [address] [facility] [place] [id number] PCP - General 03/08/13 Team Status: Active Member Role Status Dates Julia Patterson III, DO Primary Care Provider Active Team Status: Active Member Role Status Dates Efrem Esquivel DO Attending Provider Active S tart: March 07, 2005 Team Status: Inactive Member Role Status Dates Julia Patterson III, DO Primary Care Provider Active Start: June 28, 2024 End: June 28, 2024 Rigo Hassan MD Attending Provider Active Start: June 28, 2024 End: June 28, 2024 Natural Resource Economist Relationship Specialty Start Date End Date Julia Patterson DO [address] [place] [address] PCP - General Family Medicine 08/04/24 Natural Resource Economist Relationship Specialty Start Date End Date Julia Patterson DO [address] [place] [address] PCP - General Family Medicine 08/04/24 Natural Resource Economist Relationship Specialty Start Date End Date Julia Patterson DO [address] [place] [phone] PCP - [facility] 08/04/24 Natural Resource Economist Relationship Specialty Start Date End Date Julia Patterson DO [address] [place] [phone] PCP - [facility] 08/04/24 Team Status: Inactive Member Role Status Dates Julia Newby Leonardo BEAULIEU DO Primary Care Provider Active Start: August 25, 2024 End: August 25, 2024 Froylan Castanon MD Attending Provider Active St art: August 25, 2024 End: August 25, 2024 Natural Resource Economist Relationship Specialty Start Date End Date Julia Patterson DO [address] [place] [phone] PCP - [facility] 08/04/24 Goals (unrecognized section and content) Goals [...] BE BASED ON THE PRIMARY CLINICAL RECORDS. [employer] [facility]. provides no warranty or guarantee of the accuracy or completeness of information in this document.
[2024-11-11 13:54] LABS: Basophils Percent Auto 0.2 % (0.2-2.0); Eosinophils Percent Auto 0.4 % (0.9-7.0); Hematocrit 40.6 % (42.0-54.0); Hemoglobin 13.5 g/dL (14.0-18.0); Immature Granulocytes Abs Auto 0.01 10^3/uL (0.00-0.03); Immature Granulocytes Pct Auto 0.1 % (0.0-0.5); Lymphocytes Absolute Auto 1.5 10^3/uL (1.2-3.8); Lymphocytes Percent Auto 17.8 % (20.5-60.0); Mean Corpuscular HGB Conc 33.3 g/dL (29.9-35.2); Mean Corpuscular Volume 90.2 fL (80.0-94.0); Mean Platelet Volume 9.2 fL (9.5-13.5); Monocytes Absolute Auto 0.7 10^3/uL (0.3-0.8); Monocytes Percent Auto 8.2 % (1.7-12.0); Neutrophils Absolute Auto 6.2 10^3/uL (1.4-6.5); Neutrophils Percent Auto 73.3 % (43.0-75.0); Platelet Count 260 10^3/uL (150-450); White Blood Count 8.4 10^3/uL (4.0-11.0)
[2024-11-11 14:20] LABS: INR 1.03; Partial Thromboplastin Time 27.4 sec (22.3-36.2); Prothrombin Time 10.9 sec (9.0-11.6)
[2024-11-11 14:25] LABS: Anion Gap 12.3; Calcium 9.4 mg/dL (8.5-10.1); Carbon Dioxide 24.4 mmol/L (21.0-32.0); Chloride 108 mmol/L (98-107); Estimated GFR (African America >60 (>=60 mL/min/1.73m^2); Estimated GFR (Non-African Ame 58 (>=60 mL/min/1.73m^2); Glucose 107 mg/dL (74-106); Potassium 4.7 mmol/L (3.5-5.1); Sodium 140 mmol/L (136-145)
== END 2024-11-11 13:11 | disposition home or self-care (01) ==
LOC: PST 13:11
PROVIDERS: Visit Provider Urology
DX: Z01.812 Encounter for preprocedural laboratory examination (principal); D49.4 Neoplasm of unspecified behavior of bladder; C61 Malignant neoplasm of prostate; E78.49 Other hyperlipidemia
CPT/HCPCS: 80048; 85025; 85610; 85730

== ENCOUNTER 2024-11-24 10:07 | Day surgery (SDC) | payer MEDICARE, SELFPAY ==
[2024-11-11 13:26] VITALS: BP 154/79; PULSE 112; TEMP 36.5; O2SAT 94; BMI 27.4
[2024-11-24] VITALS (10 sets, daily range): BP systolic 144–161; BP diastolic 72–83; PULSE 64–99; TEMP 36.4; O2SAT 93–98; BMI 27.4
--- OUTSIDE RECORDS SUMMARY | 2024-11-24 10:17 | XMS_ITS | CCD ---
Author Organization [facility] Care Team Providers Care Corporate Wellness Coordinator Name Role Phone MAGO RODARTE Attending Unavailable [...] Unavailable Patterson, Julia R Primary Care Provider [phone] Patterson, Julia R Primary Care Provider [phone] Patterson, Julia R Primary Care Provider [phone] Patterson, Julia R Primary Care Provider [phone] Unavailable Unavailable Rigo Hassan Unavailable [phone] Patterson, Julia R Unavailable Patterson, Julia R Primary Care Provider [phone] JIGNESH PIZANO Referring Unavail able PATTERSON, JULIA [...] Patterson III, Julia R Primary Care Physician [phone] DO Efrem Esquivel Attending Provider Orzech, Samantha X Admitting Unavailable Orzech, Samantha X Attending Unavailable Orzech, Samantha X Referring Unavailable Patterson DO, Julia R Primary Care Provider [phone] FROYLAN CASTANON Referring Unavailable PATTERSON, JULIA R Primary Care Unavailable CASTANONFROYLAN SMITH Referring Unavailable PATTERSON, JULIA R Primary Care Unavailable Patterson III, DO Julia R Primary Care Provider MD Froylan Castanon Attending Provider Jojo Melendrez Primary Care Physician [phone] FORYLAN CASTANON Attending Unavailable PATTERSON, JULIA R Primary [...] Propensity to adverse reactions to substance 8 [facility] (3 sources) Hmg-Coa Reductase Inhibitors (Statins); Translations: [statins] Propensity to adverse reactions (disorder) [facility] Repository (1 source) ALLERGIES NOT ON FILE; Translations: [ALLERGIES NOT ON FILE] Propensity to adverse reactions (disorder) [facility] Repository Medications Current Medications Medication Drug Class(es) Dates Sig (Normalized) Sig (Original) [id number] 200 actuat albuterol 0.09 mg/actuat metered dose [...] daily. Active take 2 tablets by mo [facility] once daily Ascorbic Acid (VITAMIN C) 500 [...] take 1 capsule by mouth once daily [place]-3 Fatty Acids (FISH OIL) 1000 MG CAPS Take 1,000 mg by mouth daily 0 Active docosahexaenoic acid 1000 mg / omega-3 acid ethyl esters (group home) 300 mg delayed release oral capsule (1 source) [place]-3 Fatty Acids (FISH OIL) 1000 MG Cap [...] once daily. Active omega-3 acid ethyl esters (group home) 1000 mg oral capsule (7 sources) take 1 capsule by mouth once daily [place]-3 Fatty Acids (FISH OIL) 1000 MG CAPS [...] Orally Once a day Active Vitamin D 13849 U (1 source) Vitamin D 42658 U 1 null Orally for 30 day(s) 5000 MG Active Vitamin D3 (9 sources) Start: 12-30-2018 Vitamin D3 5,0 00 International_Unit, Oral, TueThu, Refills(s) 0 Start Date: 12/30/18 Status: Ordered Completed/Discontinued Medications Medication Drug Class(es) Dates Sig (Normalized) Sig (Original) acetaminophen 325 mg / HYDROcodone bitartrate 5 mg oral tablet (17 sources) Opioid Agonist Start: 03-20-2020 Moulton 325 mg-5 mg oral tablet See Instructions, for pain, 12 tab(s), Refill(s) 0, 1-2 tab(s) Oral q4hr PRN Pain. Duration 7 days., [facility], 167.8, cm, 03/21/20 10:17:00 EDT, Height/Length [...] procedure, # 2 tab(s), Refills(s) 0, Pharmacy: [facility], 167, cm, 06/24/24 13:03:00 EDT, Height/Length [...] hours., # 30 tab(s), Refills(s) 3, Pharmacy: [facility], 167, cm, 07/29/23 13:47:00 EDT, Height/Length [...] Cam KEE MD Where: [facility] [address] [facility] [place] [address]- You Need to Schedule the Following Appointments Follow Up with Cam KEE MD, URL When: Where: [facility] [address], [place] [address]- [phone] Medications What How Much When Instructions Unchanged [...] Inhalation Opal (more content not included)... Normal [facility] Urology Office/Clinic Noteon 10-31-2024 Urology Office/Clinic Note [...] this patient from Dr. Kee and Samantha Keyes NP. I have reviewed and verified the [...] malignant neoplasm of prostate) TRUS/bx 08/13/11 - [facility] (3+3) x 2 cores, about 10% [...] [facility] [address], [place] [address]- [phone] Additional Instructions: sched TURBT Patient Education Transurethral Resection of Bladder Tumor Bladder Cancer IAlly, personally scribed for Dr. Kee on 10/31/2024 11:11:44. . Doc (more content not included)... Normal [facility] Comment on above: Result Comment: Elec tronically [...] DO This Is Your Medications List acetaminophen-hydrocodone (Moul[place] 325 mg-5 mg oral tablet) acetaminophen-hydrocodone ([place]oul[place] 325 mg-5 mg oral tablet) albuterol (ProAir [...] QUILES, Cam Newby Where: [facility] [address] [address]- Medications What How Much When Why Instructions Unchanged acetaminophen-hydrocodone ([place]oul[place] 325 mg-5 mg oral tablet) See instructions Trigger finger, left middle finger 1-2 tab(s) Oral q4hr PRN Pain. Duration 7 days. Unchanged acetaminophen-hydrocodone ([place] 325 mg-5 mg oral tablet) See instructions [...] (erectile dysfunc (more content not included)... Normal [facility] 10-18-2024 L ----- Specimen: [id number] Received: 10/19/24 Status: ISABELLA Calvert Num: [id number] Spec Type: Surgical Subm Dr: Cam Kee MD Tissues: A Prostate - Tur (PROSTATE TISSUE) Procedures: SYNAP, S 100, HE/4, Gross/Micro L4, CHROM A, CK5 6, CK20, CK 7, p63, NKX3.1, GATA3, p40 Age/ Patient Sex Location Account Attending Physician Sarina Justice 74/M LABELL [id number] Cam Kee MD SPEC NUM: [id number] RECD: 10/19/24 STATUS: ISABELLA CALVERT NUM: [id number] INESSA: 10/18/[address]: Cam Kee MD ENTERED: 10/19/[address]: Ketan iSnclair SPEC TYPE: Surgical DEPT: RADHA SHANKAR ENTERED BY: [id number] RECV BY: [id number] ORDERED: SYNAP, S 100, HE/4, Gross/Micro L4, CHROM A, CK5 6, CK20, CK 7, p63, NKX3.1, GATA3, p40 ORDERED: SYNAP, S 100, HE/4, Gross/Micro L4, CHROM A, CK5 6, CK20, CK 7, p63, NKX3.1, GATA3, p40 COMMENTS: @ Previously cancelled by [id number] on 10/19/24 at 1607. @ Uncancelled by [id number] on 10/19/24 at 1609. @ Specimen Rejected [...] performed and yielded no additional findings.. Specimen: [id number] Received: 10/19/24 Status: ISABELLA Karina Num: [id number] Spec Type: Surgical Subm Dr: Cam Kee MD Tissues: A Prostate - Tur (PROSTATE TISSUE) Procedures: SYNAP, S 100, HE/4, Gross/Micro L4, CHROM A, CK5 6, CK20, CK 7, p63, NKX3.1, GATA3, p40 Patient: Sarina Justice [id number] (Continued) Specimen: [id number] Received: 10/19/24 (Continued) Signed (signature on file) Gene Carr MD 10/21/24 1351 Specimen: [id number] Received: 10/19/24 Status: ISABELLA Calvert Num: [id number] Spec Type: Surgical Subm Dr: Cam Kee MD Tissues: A Prostate - Tur (PROSTATE TISSUE) Procedures: SYNAP, S 100, HE/4, Gross/Micro L4, CHROM A, CK5 6, CK20, CK 7, p63, NKX3.1, GATA3, p40 Patient: Sarina Justice [id number] (Continued) Specimen: [id number] Received: 10/19/24 (Continued) Clinical Information Gross hematuria, bladder nodules Gross Description Part A is received in formalin labeled with the patients name, date of , and prostate tissue are 0.7 grams of ramirez-kahn to pink, rubbery tissue chips, 2.5 x 1.4 x 0.3 cm in aggregate. The specimen is filtered and entirely submitted in a single cassette. (1, ns, [id number] A) Microscopic Description Microscopic examination is performed. CPT Codes 34359, 87557, 06090 x9 Specimen: [id number] Received: 10/19/24 Status: ISABELLA Calvert Num: [id number] Spec Type: Surgical Subm Dr: Cam Kee MD Tissues: A Prostate - Tur (PROSTATE TISSUE) Procedures: SYNAP, S 100, HE/4, Gross/Micro L4, CHROM A, CK5 6, CK20, CK 7, p63, NKX3.1, GATA3, p40 Patient: Sarina Justice [id number] (Continued) Signed (signature on file) Gene Carr MD 10/21/24 1351 Normal [facility] XR Hip 2-3 Views Lefton [...] mGy = na DAP = na Normal [facility] XR Spine Lumbosacral Minimum 4 Viewson 09-28-2024 [...] mGy = na DAP = na Normal [facility] Activated partial thrombopla stin time (aPTT) in platelet poor plasma by coagulation aOrdered By: Froylan Castanon on 08-25-2024 aPTT Coag (PPP) [Time] 35.0 s 25.1-36.5 [facility] Comment on above: A hematocrit value g reater than 55% may lead to inaccurate results in coagulation testing. Patients having hematocrit values >55% require a special collection tube for coagulation studies. Please contact the laboratory at [phone] for redraw instructions. Automated basophil %Ordered By: Froylan Castanon on 08-25-2024 Basophils/100 WBC (Bld) 0.4 % Normal . [facility] Comment on above: Performed By: #### L YTES, LIPID, CREAT, PP, CBC, BUN #### [facility] [address] Automated basophil countOrde red By: Froylan Castanon on 08-25-2024 Basophils (Bld) [#/Vol] 0.0 10*3/uL Normal 0.0-0.2 [facility] Comment on above: Result Comment: PERF ORMED BY: [place] [address] PATHOLOGIST BENZENE WORKER REMY KENNEDY M.D. Performed By: #### L YTES, LIPID, CREAT, PP, CBC, BUN #### [address] Automated blood monocyte cou ntOrdered By: Froylan Castanon on 08-25-2024 Monocytes (Bld) [#/Vol] 0.6 10*3/uL Normal 0.0-0.8 [facility] Comment on above: Performed By: #### L YTES, LIPID, CREAT, PP, CBC, BUN #### [address] Automated eosinophil %Ordere d By: Froylan Castanon on 08-25-2024 Eosinophils/100 WBC (Bld) 1.0 % Normal . [facility] Comment on above: Performed By: #### L YTES, LIPID, CREAT, PP, CBC, BUN #### [address] Automated eosinophil countOr dered By: Froylan Castanon on 08-25-2024 Eosinophils (Bld) [#/Vol] 0.1 10*3/uL Normal 0.0-0.45 [facility] Comment on above: Performed By: #### L YTES, LIPID, CREAT, PP, CBC, BUN #### [address] Automated monocyte %Ordered By: Froylan Castanon on 08-25-2024 Monocytes/100 WBC (Bld) 10.2 % Normal . [facility] Comment on above: Performed By: #### L YTES, LIPID, CREAT, PP, CBC, BUN #### [address] [place] [address] [place] Automated neutrophil %Ordere d By: Froylan Castanon on 08-25-2024 Neutrophils/100 WBC (Bld) 66.3 % Normal . [facility] Comment on above: Performed By: #### L YTES, LIPID, CREAT, PP, CBC, BUN #### [address] Carbon dioxide, total [Moles /volume] in Serum or PlasmaOrdered By: Froylan Castanon on 08-25-2024 CO2 [Moles/Vol] 22.6 mmol/L Normal 21.0-31.0 [facility] Comment on above: Performed By: #### L YTES, LIPID, CREAT, PP, CBC, BUN #### [place] [address] [place] Chloride [Moles/volume] in S divina or PlasmaOrdered By: Froylan Castanon on 08-25-2024 Chloride [Moles/Vol] 110 mmol/L High 98-107 [facility] Comment on above: Performed By: #### L YTES, LIPID, CREAT, PP, CBC, BUN #### [facility] [address] [place] [address] [place] Cholesterol [Mass/volume] in Serum or PlasmaOrdered By: Froylan Castanon on 08-25-2024 Cholesterol [Mass/Vol] 115 mg/dL Low 140-200 [facility] Comment on above: Chol less than 200 m g/dl low riskChol 201-239 mg/dl borderline riskChol 240 mg/dl and greater high risk Result Comment: Chol less than 200 mg/dl low risk Chol 201-239 mg/dl borderline risk Chol 240 mg/dl and greater high risk Performed By: #### L YTES, LIPID, CREAT, PP, CBC, BUN #### [facility] [address] [place] [address] [place] Cholesterol in LDL Calc [Mas s/Vol]Ordered By: Froylan Castanon on 08-25-2024 Cholesterol in LDL [Mass/Vol] 57 mg/dL 0-100 [facility] Comment on above: LDL ATP III CLASSIFI CATIONLDL less than 100 mg/dL OptimalLDL 100-129 mg/dL Near or above optimalLDL 130-159 mg/dL Borderline highLDL 160-189 mg/dL HighLDL greater than 189 mg/dL Very high Cholesterol in VLDL Calc [Ma ss/Vol]Ordered By: Froylan Castanon on 08-25-2024 Cholesterol in VLDL [Mass/Vol] 10 mg/dL [facility] Coagulation Profileon 2023 aPTT Coag (Bld) [Time] 35.0 s Normal 25.1-36.5 [facility] Comment on above: Result Comment: A he matocrit value greater than 55% may lead to inaccurate results in coagulation testing. Patients having hematocrit values >55% require a special collection tube for coagulation studies. Please contact the laboratory at [phone] for redraw instructions. PERFORMED BY: [place] [address] PATHOLOGIST BENZENE WORKER REMY KENNEDY M.D. Performed By: #### L YTES, LIPID, CREAT, PP, CBC, BUN #### [address] Complete Blood Count Auto Di ffon 08-25-2024 Mean Corpuscular HGB Conc 33.7 g/dL Normal 32.5-35.6 [facility] Comment on above: Performed By: #### L YTES, LIPID, CREAT, PP, CBC, BUN #### [address] NRBC% 0.1 /100{WBC} Normal 0-0.5 [facility] Comment on above: Performed By: #### L YTES, LIPID, CREAT, PP, CBC, BUN #### [facility] [address] [place] [address] Creatinineon 08-25-2024 Creatinine Clr Calc Pharmacy 80.08 Normal [facility] Comment on above: Performed By: #### L YTES, LIPID, CREAT, PP, CBC, BUN #### [address] GFR/1.73 sq M.predicted MDRD (S/P/Bld) [Vol rate/Area] mL/min/{1.73_m2} Normal [facility] Comment on above: Performed By: #### L YTES, LIPID, CREAT, PP, CBC, BUN #### [facility] [address] Creatinine [Mass/volume] in Serum or PlasmaOrdered By: Froylan Castanon on 08-25-2024 Creatinine [Mass/Vol] 0.91 mg/dL Normal 0.70-1.30 [facility] Comment on above: Performed By: #### L YTES, LIPID, CREAT, PP, CBC, BUN #### [facility] [address] ECG 12 lead ECGon 08-25-2024 ECG 12 lead ECG [facility] [place] [address] [place] [address] Electrocardiograph Report Signed Patient: Sarina Justice MR#: [id number] : 1950 Acct:[id number] Age/Sex: 74 / M ADM Date: 08/25/24 Loc: Room: Type: [facility] Attending Dr: Froylan Castanon MD Ordering Provider: Froylan Castanon MD, [facility] Date of Service: 08/25/24 ECG/ECG 12 lead ECG: [facility] Copies to: Test Reason : Blood Pressure : */* mmHG Vent. Rate : 94 BPM Atrial Rate : 94 BPM P-R Int : 148 ms QRS Dur : 94 ms QT Int : 366 ms P-R-T Axes : 37 -20 20 degrees QTcB Int : 457 ms Normal sinus rhythm Normal ECG Confirmed by LG QUILES [facility], FROYLAN ([id number]) on 08/25/2024 4:36:04 PM Referred By: Electronically Signed By: FROYLAN CASTANON MD [facility] Transcribed By: MUS Signed By Froylan Castanon MD, [facility] 08/25/24 1636 Normal [facility] Erythrocyte distribution wid th [Ratio] by Automated countOrdered By: Froylan Castanon on 08-25-2024 Erythrocyte distribution width (RBC) [Ratio] 13.9 % Normal 12.0-14.8 [facility] Comment on above: Performed By: #### L YTES, LIPID, CREAT, PP, CBC, BUN #### [address] Erythrocytes [#/volume] in B lood by Automated countOrdered By: Froylan Castanon on 08-25-2024 RBC (Bld) [#/Vol] 4.55 10*6/uL Normal 3.90-5.60 [facility] Comment on above: Performed By: #### L YTES, LIPID, CREAT, PP, CBC, BUN #### [address] Hematocrit [Volume Fraction] of Blood by Automated countOrdered By: Froylan Castanon on 08-25-2024 Hematocrit (Bld) [Volume fraction] 41.1 % Normal 38.8-50.0 [facility] Comment on above: Performed By: #### L YTES, LIPID, CREAT, PP, CBC, BUN #### [address] Hemoglobin [Mass/volume] in BloodOrdered By: Froylan Castanon on 08-25-2024 Hemoglobin (Bld) [Mass/Vol] 13.8 g/dL Normal 13.0-17.0 [facility] Comment on above: Performed By: #### L YTES, LIPID, CREAT, PP, CBC, BUN #### [address] INR in Platelet poor plasma by Coagulation assayOrdered By: Froylan Castanon on 08-25-2024 INR Coag (PPP) [Relative time] 1.1 {INR} Normal [facility] Comment on above: INR Therapeutic Rang [...] YTES, LIPID, CREAT, PP, CBC, BUN #### [facility] [address] Leukocytes [#/volume] correc evie for nucleated erythrocytes in Blood by Automated counOrdered By: Froylan Castanon on 08-25-2024 WBC corrected for nucl RBC Auto (Bld) [#/Vol] 5.9 10*3/uL 4.1-10.5 [facility] Leukocytes [#/volume] in Blo od by Automated countOrdered By: Froylan Castanon on 08-25-2024 WBC (Bld) [#/Vol] 5.9 10*3/uL Normal 4.1-10.5 [facility] Comment on above: Performed By: #### L YTES, LIPID, CREAT, PP, CBC, BUN #### [facility] [address] Lipid Panelon 08-25-2024 LDL Cholesterol,Calculated 57 mg/dL Normal 0-100 [facility] Comment on above: Result Comment: LDL ATP III CLASSIFICATION LDL less than 100 mg/dL Optimal LDL 100-129 mg/dL Near or above optimal LDL 130-159 mg/dL Borderline high LDL 160-189 mg/dL High LDL greater than 189 mg/dL Very high Performed By: #### L YTES, LIPID, CREAT, PP, CBC, BUN #### [facility] [address] Triglyceride w/Reflex 53 mg/dL Normal 0-149 [facility] Comment on above: Result Comment: TRIG ATP III CLASSIFICATION TRIG less than 150 mg/dL Normal TRIG 150-199 mg/dL Borderline high TRIG 200-500 mg/dL High TRIG greater than 500 mg/dL Very high Standard traceable to the Center for Disease Conrtrol and Prevention (CDC) test method. Performed By: #### L YTES, LIPID, CREAT, PP, CBC, BUN #### [address] VLDL CHOLESTEROL 10 mg/dL Normal [facility] Comment on above: Performed By: #### L YTES, LIPID, CREAT, PP, CBC, BUN #### [address] Lymphocytes [#/volume] in Bl ood by Automated countOrdered By: Froylan Castanon on 08-25-2024 Lymphocytes (Bld) [#/Vol] 1.3 10*3/uL Normal 1.00-4.8 [facility] Comment on above: Performed By: #### L YTES, LIPID, CREAT, PP, CBC, BUN #### [address] Lymphocytes/100 leukocytes i n Blood by Automated countOrdered By: Froylan Castanon on 08-25-2024 Lymphocytes/100 WBC (Bld) 22.1 % Normal . [facility] Comment on above: Performed By: #### L YTES, LIPID, CREAT, PP, CBC, BUN #### [address] MCH [Entitic mass] by Automa evie countOrdered By: Froylan Castanon on 08-25-2024 MCH (RBC) [Entitic mass] 30.4 pg Normal 27.5-35.2 [facility] Comment on above: Performed By: #### L YTES, LIPID, CREAT, PP, CBC, BUN #### [address] MCHC Auto (RBC) [Mass/Vol]Or dered By: Froylan Castanon on 08-25-2024 MCHC (RBC) [Mass/Vol] 33.7 g/dL 32.5-35.6 [facility] MCV [Entitic volume] by Auto mated countOrdered By: Froylan Castanon on 08-25-2024 MCV (RBC) [Entitic vol] 90.3 fL Normal 83.5-101 [facility] Comment on above: Performed By: #### L YTES, LIPID, CREAT, PP, CBC, BUN #### [facility] [address] Neutrophils [#/volume] in Bl ood by Automated countOrdered By: Froylan Castanon on 08-25-2024 Neutrophils (Bld) [#/Vol] 3.9 10*3/uL Normal 1.8-7.7 [facility] Comment on above: Performed By: #### L YTES, LIPID, CREAT, PP, CBC, BUN #### [facility] [address] [place] [address] No Panel InformationOrdered By: Froylan Castanon on 08-25-2024 Estimated GFR (CKD-EPI) > 60.0 mL/Min [facility] Creatinine Clearance (Chem 80.08 [facility] Nucleated erythrocytes [Pres ence] in Blood by Automated countOrdered By: Froylan Castanon on 08-25-2024 Nucleated RBC Auto Ql (Bld) 0.1 /100{WBC} 0-0.5 [facility] Platelet mean volume [Entiti c volume] in Blood by Automated countOrdered By: Froylan Castanon on 08-25-2024 Platelet mean volume (Bld) [Entitic vol] 7.4 fL Normal 6.6-10.1 [facility] Comment on above: Performed By: #### L YTES, LIPID, CREAT, PP, CBC, BUN #### [facility] [address] [place] [address] Platelets [#/volume] in Bloo d by Automated countOrdered By: Froylan Castanon on 08-25-2024 Platelets (Bld) [#/Vol] 250 10*3/uL Normal 150-450 [facility] Comment on above: Performed By: #### L YTES, LIPID, CREAT, PP, CBC, BUN #### [facility] [address] [place] [address] Potassium [Moles/volume] in Serum or PlasmaOrdered By: Froylan Castanon on 08-25-2024 Potassium [Moles/Vol] 4.2 mmol/L Normal 3.5-5.1 [facility] Comment on above: Performed By: #### L YTES, LIPID, CREAT, PP, CBC, BUN #### [facility] [address] Prothrombin time (PT)Ordered By: Froylan Castanon on 08-25-2024 PT Coag (PPP) [Time] 12.0 s Normal 9.0-12.9 [facility] Comment on above: A hematocrit value g reater than 55% may lead to inaccurate results in coagulation testing. Patients having hematocrit values >55% require a special collection tube for coagulation studies. Please contact the laboratory at [phone] for redraw instructions. Result Comment: A he matocrit value greater than 55% may lead to inaccurate results in coagulation testing. Patients having hematocrit values >55% require a special collection tube for coagulation studies. Please contact the laboratory at [phone] for redraw instructions. Performed By: #### L YTES, LIPID, CREAT, PP, CBC, BUN #### [facility] [address] [place] [address] Serum or plasma anion gap de terminationOrdered By: Froylan Castanon on 08-25-2024 Anion gap [Moles/Vol] 10.6 mmol/L Normal 6.0-15.0 [facility] Comment on above: Performed By: #### L YTES, LIPID, CREAT, PP, CBC, BUN #### [facility] [address] [place] [address] Serum or plasma high density lipoprotein (HDL) cholesterol measurementOrdered By: Froylan Castanon on 08-25-2024 Cholesterol in HDL [Mass/Vol] 47 mg/dL Normal 23-92 [facility] Comment on above: HDL CHOL ATP-III CLA SSIFICATION Cardiovascular RiskHDL > or equal to 60 mg/dL LOWHDL < 40 mg/dL HIGH Result Comment: HDL CHOL ATP-III CLASSIFICATION Cardiovascular Risk HDL > or equal to 60 mg/dL LOW HDL < 40 mg/dL HIGH Performed By: #### L YTES, LIPID, CREAT, PP, CBC, BUN #### [facility] [address] Serum or plasma total choles terol/high density lipoprotein (HDL) cholesterol mass ratOrdered By: Froylan Castanon on 08-25-2024 Cholesterol.total/Chol esterol in HDL [Mass ratio] 2.4 {ratio} Normal <5.0 [facility] Comment on above: Result Comment: PERF ORMED BY: [place] [address] PATHOLOGIST BENZENE WORKER REMY KENNEDY M.D. Performed By: #### L YTES, LIPID, CREAT, PP, CBC, BUN #### [address] Sodium [Moles/volume] in Ser um or PlasmaOrdered By: Froylan Castanon on 08-25-2024 Sodium [Moles/Vol] 139 mmol/L Normal 136-145 [facility] Comment on above: Performed By: #### L YTES, LIPID, CREAT, PP, CBC, BUN #### [address] Triglyceride [Mass/volume] i n Serum or PlasmaOrdered By: Froylan Castanon on 08-25-2024 Triglyceride [Mass/Vol] 53 mg/dL 0-149 [facility] Comment on above: TRIG ATP III CLASSIF ICATIONTRIG less than 150 mg/dL NormalTRIG 150-199 mg/dL Borderline highTRIG 200-500 mg/dL High TRIG greater than 500 mg/dL Very highStandard traceable to the Center for Disease Conrtrol and Prevention (CDC) test method. Urea nitrogen [Mass/volume] in Serum or PlasmaOrdered By: Froylan Castanon on 08-25-2024 Urea nitrogen [Mass/Vol] 32 mg/dL High 7-25 [facility] Comment on above: Performed By: #### L YTES, LIPID, CREAT, PP, CBC, BUN #### [facility] [address] [place] Heart Perfusion W stress and [...] Sandro Blake 08/11/2024 5:56 PM Dictation workstation: [id number] Interpreted By: Sandro Blake and Beal Gina STUDY: MYOCARDIAL PERFUSION STRESS TEST WITH LEXISCAN Performing facility: [facility] Provider: Froylan Castanno MD, [facility] PCP: Dr. Etta PATTERSON Supervising provider: Sandro Blake MD INDICATION: Pre-operative risk assessment for TURP scheduled at [place] on 08/18/24. ASCVD, Hx PTCA HISTORY: Gender: M; Age: 74 y/o ; Height: HT 180.3 cm cm; Weight: WT 85.276 kg kg. CAD; High Cholesterol; HTN; Denies smoking. Cardiac catheterization 2004. PTCA 2004. COMPARISON: Previous nuclear testing completed 2007 at [facility]. ACCESSION NUMBER(S): [id number] ORDERING CLINICIAN: FROYLAN CASTANON TECHNIQUE: ONE DAY [...] There was evidence of diaphragmatic attenuation artifact. [facility] MD - 08/11/2024 Interpreted By: Sandro Blake and Beal Gina STUDY: MYOCARDIAL PERFUSION STRESS TEST WITH LEXISCAN Performing facility: [facility] Provider: Froylan Castanon MD, [facility] PCP: Dr. Etta PATTERSON Supervising provider: Sandro Blake MD INDICATION: Pre-operative risk assessment for TURP scheduled at [place] on 08/18/24. ASCVD, Hx PTCA HISTORY: Gender: M; Age: 74 y/o ; Height: HT 180.3 cm cm; Weight: WT 85.276 kg kg. CAD; High Cholesterol; HTN; Denies smoking. Cardiac catheterization 2004. PTCA 2004. COMPARISON: Previous nuclear testing completed 2007 at [facility]. ACCESSION NUMBER(S): [id number] ORDERING CLINICIAN: FROYLAN CASTANON TECHNIQUE: ONE DAY [...] Sandro Blake 08/11/2024 5:56 PM Dictation workstation: [id number] [facility] Work Phone: Radiology Study observation (narrative) [facility] Work Phone: NM Heart Perfusion W stress and W radionuclide IVOrdered By: Sandro Blake on 08-11-2024 [facility] Work Phone: NUCLEAR STRESS TESTon 2023 NUCLEAR STRESS TEST Interpreted By: Sandro Blake and Beal Gina STUDY: MYOCARDIAL PERFUSION STRESS TEST WITH LEXISCAN Performing facility: [facility] Provider: Froylan Castanon MD, FACC PCP: Dr. Etta PATTERSON Supervising provider: Sandro Blake MD INDICATION: Pre-operative risk assessment for TURP scheduled at [place] on 08/18/24. ASCVD, Hx PTCA HISTORY: Gender: M; Age: 74 y/o ; Height: HT 180.3 cm cm; Weight: WT 85.276 kg kg. CAD; High Cholesterol; HTN; Denies smoking. Cardiac catheterization 2004. PTCA 2004. COMPARISON: Previous nuclear testing completed 2007 at [facility]. ACCESSION NUMBER(S): [id number] ORDERING CLINICIAN: FROYLAN CASTANON TECHNIQUE: ONE DAY [...] Sandro Blake 08/11/2024 5:56 PM Dictation workstation: [id number] [facility] Main OR Intraoperative Recor thu 08-02-2024 Main OR Intraoperative Record Main OR Intraoperative Record IntraOp Document Type FTURO Summary Primary Physician: Cam KEE MD Finalized Date/Time: 08/02/24 13:48:04 Pt. Name: SARINA JUSTICE Herman Napier/Sex: 1950 Male Med Rec #: [id number] Physician: Cam KEE MD Financial #: [id number] Pt. Type: O Room/Bed: / Admit/Disch: 08/02/24 [...] Trinidad Sutton Role Performed Surgeon - Primary Information Management Specialist - Primary Scrub - Primary Time In [...] By: Florina Powell RN 08/02/24 13:48 Normal [facility] Main OR Preoperative Recordo n 08-02-2024 Main OR Preoperative Record Main OR Preoperative Record Holding Area Document Type FTURO Summary Primary Physician: Cam KEE MD Finalized Date/Time: 08/02/24 13:14:27 Pt. Name: SARINA JUSTICE /Sex: 1950 Male Med Rec #: [id number] Physician: Cam KEE MD Financial #: [id number] Pt. Type: O Room/Bed: / Admit/Disch: 08/02/24 [...] Complaints of Pain: No Skin Integrity Intact, Christopher, Warm, & Dry Vitals - EU Blood Pressure 132/78 Pulse 85 bpm Respirations 18 br/min SPO2 96 % Additional None Specimens Collected Last Modified By: Norma Mast LPN 08/02/24 13:14:19 Finalized By: Norma Mast LPN Document Signatures Signed By: Norma Mast LPN 08/02/24 13:14 Normal [facility] Operative Reporton Operative Report Operative Report Patient: [...] resection of prostate lesions and fulguration. Normal [facility] Comment on above: Result Comment: Elec tronically Signed By: Cam KEE MD\.br\Date and Time Signed: 08/02/24 13:56 EDT Reminderson 08-02-2024 Reminders Reminders From: Slime Ayala To: EU - Recalls [place]; Sent: 08/02/2024 14:51:32 EDT Show up: 05/09/2025 14:51:00 EDT Subject: KUB Due Date/Time: 06/05/2025 14:51:00 EDT Reminder/Recall Patient had Cysto 08/02/24, PRW wanted to check KUB 07/2025 due to kidney stone ([facility]) Normal [facility] Reminders Reminders From: Slime Ayala To: EU - Recalls Kee; Sent: 08/02/2024 14:50:44 EDT Show up: 11/09/2024 14:50:00 EST Subject: ct scan of chest Due Date/Time: 12/05/2024 14:50:00 EST Reminder/Recall Pt needs Ct scan of chest at [facility] due to lung nodule in January 2025 Normal [facility] CT Urogramon 07-08-2024 CT Urogram Exam Date/Time: [...] 300 Contrast amount in ml's: 100 Normal [facility] CHEMISTRYOrdered By: SYSTEM SYSTEM on 07-04-2024 Creatinine [Mass/Vol] 1.1 mg/dL Normal 0.5 - 1.3 mg/dL Rem[facility] Chem eGFR 69 mL/min/1.73 m2 Normal >=59mL/min /1.73 m2 [facility] Chem Creatinineon 07-04-2024 Creatinine [Mass/Vol] 1.1 mg/dL Normal 0.5-1.3 [facility] Comment on above: Performed By: #### 2 [id number] #### [facility] [address] [place] [address] eGFRon 07-04-2024 eGFR 69 mL/min/1.73 m2 Normal >=59 [facility] Comment on above: Order Comment: Order added by Discern Expert. Performed By: #### 1 [id number] #### [facility] [address] [place] [address] UroVys[facility] Fish and Urine Cyt o ([facility])on 07-01-2024 UVFISH & UC Diagnosis Info Invalid Interpretation Code [facility] Comment on above: Result Comment: A:Ur ine,Urine:Voided [...] on: 07/01/2024 16:16:49 Performed By: #### 1 [id number] #### [facility] [address] [place] [address] Ambulatory Visit Summaryon 0 06-24-2024 Ambulatory Visit [...] prescribing physician if questions or concerns acetaminophen-hydrocodone ([place]oul[place] 325 mg-5 mg oral tablet) acetaminophen-hydrocodone ([place] 325 mg-5 mg oral tablet) albuterol (ProAir [...] How Much When Why Instructions Unchanged acetaminophen-hydrocodone ([place] 325 mg-5 mg oral tablet) See instructions Trigger finger, left middle finger 1-2 tab(s) Oral q4hr PRN Pain. Duration 7 days. Contact prescribing physician if questions or concerns Unchanged acetaminophen-hydrocodone ([place] 325 mg-5 mg oral tablet) See instructions [...] questions o (more content not included)... Normal [facility] UroVysion Fish and Urine Cyt o ([facility])on 06-24-2024 UVUC Method of Extraction Voided Normal [facility] Comment on above: Performed By: #### 1 [id number] #### [facility] [address] [place] [address] [facility] Number of Jars 1 Invalid Interpretation Code [facility] Comment on above: Performed By: #### 1 [id number] #### [facility] [address] [place] [address] [facility] Specimen Clean Catch Normal [facility] Comment on above: Performed By: #### 1 [id number] #### [facility] [address] [place] [address] [facility] Type of Service Technical Only [facility] Comment on above: Performed By: #### 1 [id number] #### [facility] [address] [place] [address] XR Abdomen 1 Viewon 05-31-20 24 XR [...] mGy = . DAP = . Normal [facility] CHEMISTRYOrdered By: SYSTEM SYSTEM on 09-07-2023 ALT [...] 92 mL/min/1.73 m2 Normal >=59mL/min /1.73 m2 [facility] Chem S Comment on above: Interpretive Data: [...] in adult Healthy Weight Tips; Status:Complete; Done: [id number] Some eating tips that can help you lose weight.; Status:Complete; Done: [id number] SocHx: Never a smoker Tobacco Use Screening; Status:Complete; Done: [id number] Patient Instructions Please bring all medicines, vitamins, [...] negative for complaint. Vitals Vital Signs Recorded: [id number] 11:02AM Heart Rate82, R Radial Qvnvouyg194, RUE, Sitting Cvoygufmk72, RUE, Sitting Height5 ft 11 in Ydlmwk248 lb BMI Xlcnscxztl93.22 kg/m2 BSA Calculated2.05 Tobacco Useb) No PHQ-2 [...] auscultation. Cardiovascu (more content not included)... Normal [employer] Tobacco Screening.on 023 Adult depression screening assessment No [facility] [employer] 600 DO Work Phone: Fall risk assessment a) No falls within the last year [facility] [place] [address] DO Work Phone: Tobacco use status CP b) No [facility] 600 DO Work Phone: XR [...] Kay Jr., MD 07/09/22 Final result Normal [facility] Osteoarthritic changes mainly left hip. Femoral head remains rounded. [facility] RIS CONSOLIDATED EXAM: XR HIP 2-3 VW W PELVIS LEFT HISTORY: R52. Left hip pain. 72-year-old male. COMPARISON: None. TECHNIQUE: AP pelvis, 2 images. 2 views left hip. FINDINGS: Brachytherapy seed implants in the prostate. Mild degenerative change opposite right hip. Moderate degenerative change left hip with diffuse joint space narrowing. No erosion. Femoral head remains rounded. [facility] CONSOLID[facility] Angelo Kay Jr., MD - 07/09/2022 [...] mainly left hip. Femoral head remains rounded. [employer] Phone: Radiology Study observation (narrative) [employer] Phone: XR HIP 2-3 VW W PELVIS LEFTO rdered By: Angelo Kay on 07-09-2022 ARUN SHEILA [employer] Phone: Tobacco Screening.on 022 Adult depression screening assessment No [facility] 600 DO Work Phone: Fall risk assessment a) No falls within the last year [facility] 600 DO Work Phone: Tobacco use status CPHS b) No [facility] 600 DO Work Phone: April 07-24-2021 AST [Catalytic activity/Vol] 17 U/L Normal <40 [facility] Comment on above: Performed By: #### Z FAST, AST #### [facility] [address] [place] [address] Flower Picker: Godwin Salazar MD #### LIPR #### [facility] [employer] [address] [place], [place] [id number] Flower Picker: Rashaad Nielsen MD ASTOrdered By: Jignesh lee on 07-24-2021 AST [Catalytic activity/Vol] 17 U/L <40 [facility] Phone: [facility] Phone: Lipid PanelOrdered By: Mateo Pizano on 07-24-2021 Cholesterol [Mass/Vol] 119 mg/dL <200 [facility] Phone: Comment on above: Cholesterol Guidelines: <200 Desirable 200-240 Borderline >240 Undesirable Cholesterol in HDL [Mass/Vol] 43 mg/dL >40 [facility] Phone: Comment on above: HDL Guidelines: <40 Undesirable 40-59 Borderline >59 Desirable Cholesterol in LDL [Mass/Vol] 63 mg/dL 0 - 130 mg/dL [employer] Phone: Comment on above: LDL Guidelines: <100 Desirable 100-129 Near to/above Desirable 130-159 Borderline >159 Undesirable Direct (measured) LDL and calculated LDL are not interchangeable tests. Cholesterol in VLDL [Mass/Vol] NOT REPORTED 1 - 30 mg/dL [facility] Phone: Cholesterol.total/Chol esterol in HDL [Mass ratio] 2.8 {ratio} <5 [employer] Phone: Triglyceride [Mass/Vol] 63 mg/dL <150 [facility] Phone: Comment on above: Triglyceride Guidelines: <150 Desirable 150-199 Borderline 200-499 High >499 Very high Based on AHA Guidelines for fasting triglyceride, August 2012. [employer] Phone: Lipid Profileon 07-24-2021 Cholesterol [Mass/Vol] 119 mg/dL Normal <200 [facility] Comment on above: Result Comment: Cholesterol Guidelines: <200 Desirable 200-240 Borderline >240 Undesirable Performed By: #### Camden FAST, AST #### [facility] [address] [place], [place] [id number] Flower Picker: Godwin Salazar MD #### LIPR #### [facility] [address] [place] [id number] Flower Picker: Rashaad Nielsen MD Cholesterol in HDL [Mass/Vol] 43 mg/dL Normal >40 [facility] Comment on above: Result Comment: HDL Guidelines: <40 Undesirable 40-59 Borderline >59 Desirable Performed By: #### [place] FAST, AST #### [facility] [address] [place], [place] [id number] Flower Picker: Godwin Salazar MD #### LIPR #### [facility] [address] [place] [address] Flower Picker: Rashaad Nielsen MD Cholesterol in LDL [Mass/Vol] 63 mg/dL Normal 0-130 [facility] Comment on above: Result Comment: LDL Guidelines: <100 Desirable 100-129 Near to/above Desirable 130-159 Borderline >159 Undesirable Direct (measured) LDL and calculated LDL are not interchangeable tests. Performed By: #### Z FAST, AST #### [facility] [address] [place], [place] [address] Flower Picker: Godwin Salazar MD #### LIPR #### [facility] [address] [place], [place] [id number] Flower Picker: Rashaad Nielsen MD Cholesterol.total/Chol esterol in HDL [Mass ratio] 2.8 {ratio} Normal <5 [facility] Comment on above: Performed By: #### Z FAST, AST #### [facility] [address] [place], [place] [id number] Flower Picker: Godwin Salazar MD #### LIPR #### [facility] [address] [place], [place] [id number] Flower Picker: Rashaad Nielsen MD Triglyceride [Mass/Vol] 63 mg/dL Normal <150 [facility] Comment on above: Result Comment: Triglyceride Guidelines: <150 Desirable 150-199 Borderline 200-499 High >499 Very high Based on AHA Guidelines for fasting triglyceride, August 2012. Performed By: #### Z FAST, AST #### [facility] [address] [place] [address] Flower Picker: Godwin Salazar MD #### LIPR #### [facility] [employer] [address] [place], [place] [id number] Flower Picker: Rashaad Nielsen MD Cholesterol,VLDL NOT REPORTED Normal 30 [facility] Comment on above: Performed By: #### Z FAST, AST #### [facility] [address] [place], [place] [id number] Flower Picker: Godwin Salazar MD #### LIPR #### [facility] [address] [place], [place] [id number] Flower Picker: Rashaad Nielsen MD Patient Fasting?Ordered By: Jignesh Pizano on 07-24-2021 Patient Fasting? yes Roxane lafleur Work Phone: [facility] Work Phone: Patient fasting?on 1 Patient fasting? yes Normal [facility] Comment on above: Performed By: #### Z FAST, AST #### [facility] [address] [place] [address] Flower Picker: Godwin Salazar MD #### LIPR #### [facility] [address] [place] [address] Flower Picker: Rashaad Nielsen MD Glucose, randomon 09-26-2020 Glucose [Mass/Vol] 106 mg/dL High 70 - 99 mg/dL [place], [place] Interpretation and review of laboratory results Abnormal [place] Basic Metabolic Panelon 03-0 Anion gap [Moles/Vol] 12 mmol/L 9 - 17 mmol/L [place] Bun/Cre Ratio 29 High [place], [place] Calcium [Mass/Vol] 10.0 mg/dL 8.6 - 10. 4 mg/dL [place] Chloride [Moles/Vol] 105 mmol/L 98 - 10 7 mmol/L [place] CO2 [Moles/Vol] 24 mmol/L 20 - 31 mmol/L [place] Creatinine [Mass/Vol] 1.08 mg/dL 0.7 - 1.2 mg/dL [place] GFR >60 >60 mL/min [place] GFR Non- >60 >60 mL/min [place] GFR/1.73 sq M predicted among non-blacks MDRD (S/P/Bld) [Vol rate/Area] NOT REPORTED [place] GFR/1.73 sq M predicted among non-blacks MDRD (S/P/Bld) [Vol rate/Area] [place] Comment on above: Average GFR for 70 o r more years old: 75 mL/min/1.73sq m Chronic Kidney Disease: <60 mL/min/1.73sq m Kidney failure: <15 mL/min/1.73sq m eGFR calculated using average adult body mass. Additional eGFR calculator available at: http://www.[employer]/multiple_crcl_2012.htm Glucose [Mass/Vol] 141 mg/dL High 70 - 99 mg/dL [place] Interpretation and review of laboratory results Abnormal [place] Potassium [Moles/Vol] 4.3 mmol/L 3.7 - 5.3 mmol/L [place] Sodium [Moles/Vol] 141 mmol/L 135 - 144 mmol/L [place] Urea nitrogen [Mass/Vol] 31 mg/dL High 8 - 23 mg/dL [place] CBCon 01-12-2020 Erythrocyte distribution width (RBC) [Ratio] 14.1 % 12.1 - 15.2 % [place] Hematocrit (Bld) [Volume fraction] 45.8 % 41 - 53 % [place] Hemoglobin (Bld) [Mass/Vol] 15.1 g/dL 13.5 - 17.5 g/dL [place] MCH (RBC) [Entitic mass] 30.4 pg 26 - 34 pg [place] MCHC (RBC) [Mass/Vol] 33.0 g/dL 31 - 3 7 g/dL [place] MCV (RBC) [Entitic vol] 92.1 fL 80 - 100 fL [place] Platelet mean volume (Bld) [Entitic vol] NOT REPORTED 6 - 12 fL [place] Platelets (Bld) [#/Vol] 279 10*3/uL [place] RBC (Bld) [#/Vol] 4.97 10*6/uL 4.5 - 5.9 m/uL [place] WBC (Bld) [#/Vol] NOT REPORTED per 100 WBC [place] WBC (Bld) [#/Vol] 6.3 10*3/uL [place] XR CHEST STANDARD (2 VW)on 0 01-12-2020 No evidence of acute disease in the chest or change from 01/13/2018. [place] CHEST, 2 VIEWS, 2019: CLINICAL HISTORY: [...] mild tortuosity of the thoracic aorta, unchanged. [place], [place] Tye, Mh[employer] Incoming Radiant Results From [employer] - 01/12/2020 9:46 PM EST CHEST, 2 [...] in the chest or change from 01/13/2018. [place] XR HAND LEFT (MIN 3 VIEWS)on 01-11-2020 1. Subtle transverse lucency through the midpole of the scaphoid is suggestive of an underlying acute or subacute fracture without complete fracture healing. Clinical correlation for point tenderness is recommended. 2. Mild degenerative changes in the hand. [place], [place] EXAM: XR HAND LEFT ( MIN [...] tissues appear unremarkable. No radiopaque foreign body. [employer] [place], [place] Tye, Mhpn Incoming Radiant Results From [employer] - 01/11/2020 11:27 AM EST EXAM: XR [...] 2. Mild degenerative changes in the hand. [employer] [place], REJI Vital Signs Date Time Vital Sign Value Performing Clinician Chris marie 10-31-2024 10:10-0500 Blood Pressure Location Cam KEE [facility] 10-31-2024 10:10-0500 Body temperature 98.6 [degF] Cam KEE [facility] 10-31-2024 10:10-0500 Diastolic blood pressure 80 mm[Hg] Cam KEE [facility] 10-31-2024 10:10-0500 Heart rate 67 /min Cam KEE [facility] 10-31-2024 10:10-0500 Respiratory rate 17 /min Cam KEE [facility] 10-31-2024 10:10-0500 Systolic blood pressure 132 mm[Hg] Cam KEE [facility] 09-16-2024 14:01-0500 Diastolic blood pressure 76 mm[Hg] Froylan Castanon MD Work Phone: [facility] 09-16-2024 14:01-0500 Systolic blood pressure 134 mm[Hg] Froylan Castanon MD Work Phone: [facility] 09-16-2024 13:38-0500 Body height 180.3 cm Froylan Castanon MD Work Phone: [facility] 09-16-2024 13:38-0500 Body mass index (BMI) [Ratio] 28.17 kg/m2 Froylan Castanon MD Work Phone: [facility] 09-16-2024 13:38-0500 Body weight 91.63 kg Froylan Castanon MD Work Phone: [facility] 09-16-2024 13:38-0500 Heart rate 88 /min Froylan Castanon MD Work Phone: [facility] 08-25-2024 16:10-0400 Diastolic blood pressure 74 mm[Hg] DO Julia Patterson III Work Phone: [facility] 08-25-2024 16:10-0400 Heart rate 88 /min DO Julia Patterson III Work Phone: [facility] 08-25-2024 16:10-0400 Respiratory rate 16 /min DO Julia Patterson III Work Phone: [facility] 08-25-2024 16:10-0400 SaO2% (BldA) [Mass fraction] 97 % DO Julia Patterson III Work Phone: [facility] 08-25-2024 16:10-0400 Systolic blood pressure 142 mm[Hg] DO Julia Patterson III Work Phone: [facility] 08-25-2024 11:04-0400 Body height 180.34 cm DO Julia Patterson III Work Phone: [facility] 08-25-2024 11:04-0400 Body temperature 98.8 [degF] DO Julia Patterson III Work Phone: [facility] 08-25-2024 11:04-0400 Body weight 92 kg DO Julia Patterson III Work Phone: [facility] 08-11-2024 12:59-0400 Diastolic blood pressure 76 mm[Hg] [address] 08-11-2024 12:59-0400 Heart rate 73 /min [address] 08-11-2024 12:59-0400 Systolic blood pressure 124 mm[Hg] [address] 06-28-2024 14:03-0400 Body height 180.34 cm DO W Idris Alvin Work Phone: [facility] 06-28-2024 14:03-0400 Body mass index (BMI) [Ratio] 27.1 kg/m2 DO W Idris Alvin Work Phone: [facility] 06-28-2024 14:03-0400 Body temperature 98.8 [degF] DO W Idris Alvin Work Phone: [facility] 06-28-2024 14:03-0400 Body weight 88.45 kg DO W Idris Alvin Work Phone: [facility] 06-28-2024 14:03-0400 Diastolic blood pressure 74 mm[Hg] DO W Idris Alvin Work Phone: [facility] 06-28-2024 14:03-0400 Heart rate 99 /min DO W Idris Alvin Work Phone: [facility] 06-28-2024 14:03-0400 Respiratory rate 20 /min DO W Idris Alvin Work Phone: [facility] 06-28-2024 14:03-0400 SaO2% (BldA) [Mass fraction] 95 % DO W Idris Esquivel Work Phone: [facility] 06-28-2024 14:03-0400 Systolic blood pressure 116 mm[Hg] DO W Idris Esquivel Work Phone: [facility] 06-24-2024 12:59-0400 Blood Pressure Location Samantha Orzech [facility] 06-24-2024 12:59-0400 Diastolic blood pressure 80 mm[Hg] Samantha Orzech [facility] 06-24-2024 12:59-0400 Systolic blood pressure 126 mm[Hg] Samantha Orzech [facility] 07-08-2023 11:02-0400 Body height 180.34 cm [facility] DO Work Phone: 07-08-2023 11:02-0400 Body mass index (BMI) [Ratio] 26.22 kg/m2 Julia Patterson Work [facility] DO Work Phone: 07-08-2023 11:02-0400 Body surface area Derived from formula 2.05 m2 Julia Pinedaers Work Phone: [facility] [place] 600 DO Work Phone: 07-08-2023 11:02-0400 Body weight 85.28 kg Julia Pinedaers Work Phone: [employer] [employer] [place] 600 DO Work Phone: 07-08-2023 11:02-0400 Diastolic blood pressure 70 mm[Hg] Julia Pinedaers Work Phone: [facility] 600 DO Work Phone: 07-08-2023 11:02-0400 Heart rate 82 /min Julia Pinedaers Work Phone: [facility] 600 DO Work Phone: 07-08-2023 11:02-0400 Systolic blood pressure 130 mm[Hg] Julia Pinedaers Work Phone: [facility] 600 DO Work Phone: 07-04-2022 10:55-0400 Body height 180.34 cm Julia Pinedaers Work Phone: [facility] 600 DO Work Phone: 07-04-2022 10:55-0400 Body mass index (BMI) [Ratio] 26.36 kg/m2 Julia Pinedaers Work Phone: [facility] 600 DO Work Phone: 07-04-2022 10:55-0400 Body surface area Derived from formula 2.06 m2 Julia Pinedaers Work Phone: [facility] 600 DO Work Phone: 07-04-2022 10:55-0400 Body weight 85.73 kg Julia Pinedaers Work Phone: [facility] 600 DO Work Phone: 07-04-2022 10:55-0400 Diastolic blood pressure 78 mm[Hg] Julia Newby Patterson Work Phone: [facility] 600 DO Work Phone: 07-04-2022 10:55-0400 Heart rate 86 /min Julia Pinedaers Work Phone: [facility] [employer] 600 DO Work Phone: 07-04-2022 10:55-0400 Systolic blood pressure 126 mm[Hg] Julia Patterson Work Phone: [facility] [employer] 600 DO Work Phone: 04-22-2022 14:15-0400 Body height 177.8 cm Rigo Hassan Other [employer] Other 04-22-2022 14:15-0400 Body mass index (BMI) [Ratio] 27.26 kg/m2 Rigo Guerrerono Other [employer] Other 04-22-2022 14:15-0400 Body temperature 97.1 [degF] Rigo Guerrerono Other [employer] Other 04-22-2022 14:15-0400 Body weight 86.18 kg Rigo Vaughndano Other [employer] Other 04-22-2022 14:15-0400 Diastolic blood pressure 79 mm[Hg] Rigo Guerrerono Other [employer] Other 04-22-2022 14:15-0400 Respiratory rate 20 /min Rigo Guerrerono Other [employer] Other 04-22-2022 14:15-0400 SaO2% (BldA) [Mass fraction] 95 % Rigo Vaughndano Other [employer] Other 04-22-2022 14:15-0400 Systolic blood pressure 133 mm[Hg] Rigo Vaughndano Other [employer] Other Encounters Encounter Date Encounter Type Care Provider Facility Start: 12-12-2024 ambulatory Cam Palmeri ty:[facility] [place] Start: 12-01-2024 ambulatory Cam Palmeri ty:[id number] Start: 10-31-2024 End: 10-31-2024 ambulatory Cam KEE Facility:[facility] Start: 10-31-2024 End: 10-31-2024 Patient encounter procedure Cam KEE [facility] [place] Start: 10-21-2024 End: 10-21-2024 ambulatory Cam KEE Facility:[facility] [place] Start: 10-21-2024 End: 10-21-2024 Patient encounter procedure Cam KEE [facility] [place] Start: 10-18-2024 End: 10-18-2024 ambulatory Cam Kee Facility:[facility] Start: 10-18-2024 End: 10-18-2024 ambulatory Cam KEE Facility:[id number] Start: 09-26-2024 End: 09-26-2024 ambulatory Jojo Melendrez [facility] Start: 09-26-2024 End: 09-26-2024 Patient encounter procedure Jojo Melendrez [facility] Start: 09-16-2024 End: 09-16-2024 Office outpatient visit 25 minutes Froylan Castanon MD Work Phone: [facility] Comment on above: ASCVD (arteriosclero tic cardiovascular disease); Essential hypertension; History of PTCA; Mixed hyperlipidemia; BMI 28.0-28.9,adult; Never smoked tobacco Start: 09-16-2024 End: 09-16-[address] [facility] Start: 09-09-2024 ambulatory Cam Palmeri ty:EU Dwight Start: 08-25-2024 End: 08-25-2024 Admission to same day surgery center DO Julia Patterson III Work Phone: [facility] Work Phone: Start: 08-25-2024 End: 08-25-2024 ambulatory DO Julia Patterson III Work Phone: [facility] Work Phone: Start: 08-22-2024 ambulatory Cam KEE Facili ty:[facility] [place] Start: 08-11-2024 End: 08-11-2024 Patient encounter status Frida [address] [place] [address] Work Phone: Start: 08-11-2024 End: 08-11-2024 Subsequent hospital visit by physician Frida Gonzalez Ak 1 [facility] Comment on above: Preop cardiovascular exam; ASCVD (arteriosclerotic cardiovascular disease); History of PTCA Start: 08-11-2024 End: 08-11-2024 ambulatory [facility] Start: 08-11-2024 End: 08-11-2024 Encounter for preprocedural cardiovascular examination [facility] Start: 08-02-2024 End: 08-02-2024 ambulatory Cam KEE Facility:[facility] Start: 08-02-2024 End: 08-02-2024 Patient encounter procedure Cam KEE [facility] Start: 07-04-2024 End: 07-04-2024 ambulatory Samantha X Orzech Facility[facility] Start: 07-04-2024 End: 07-04-2024 Patient encounter procedure Samantha X Orzech [facility] Start: 06-28-2024 End: 06-28-2024 ambulatory DO Efrem Esquivel Work Phone: [facility] Work Phone: Start: 06-28-2024 End: 06-28-2024 Patient encounter procedure DO Efrem Esquivel Work Phone: [facility] Work Phone: Start: 06-24-2024 End: 06-24-2024 ambulatory Samantha X Orzech Facility[facility] Start: 06-24-2024 End: 06-24-2024 Lab Drop off Samantha X Orzech [facility] Start: 06-24-2024 End: 06-24-2024 ambulatory Samantha X Orzech Facility:[facility] Start: 06-24-2024 End: 06-24-2024 Patient encounter procedure Samantha X Orzech [facility] Start: 05-27-2024 End: 05-27-2024 ambulatory Pascale Lucas Facility[facility] Start: 05-27-2024 End: 05-27-2024 Patient encounter procedure Pascale Lucas [facility] Start: 09-07-2023 End: 09-07-2023 Patient encounter procedure JAJA MARTINEZ [facility] Start: 08-06-2023 AUDIT Julia harkins Work Phone: [facility] 600 DO Work Phone: Start: 07-08-[address] Julia Patterson III Facility: Start: 05-14-2023 Rx Renewal Julia Sher rs Work Phone: [facility] 250 DO Work Phone: Start: 12-30-2022 Rx Renewal Julia Sher rs Work Phone: [facility] 250 DO Work Phone: Start: 10-28-2022 Rx Renewal Julia Sher rs Work Phone: [facility] 250 DO Work Phone: Start: 07-09-2022 End: 07-12-2022 ambulatory PIERRE DEL ROSARIO [facility] Start: 07-09-2022 End: 07-12-2022 ambulatory PIERRE DEL ROSARIO [facility] Start: 07-09-2022 End: 07-11-2022 Subsequent hospital visit by physician [facility] Additional Xray At [facility] Comment on above: Pain Start: 07-09-2022 End: 07-11-2022 Subsequent hospital visit by physician Julia Patterson Work Phone: [facility] Start: 07-04-2022 Office outpatient vi sit 25 minutes Julia Patterson Work Phone: [facility] 600 DO Work Phone: Start: 06-23-2022 Rx Renewal Jignesh sage MD Work Phone: [facility] 250 DO Work Phone: Start: 04-22-2022 End: 04-22-2022 ambulatory Rigo Hassan Other [facility] [employer] Other Start: 04-22-2022 Office outpatient vi sit 15 minutes Rigo Hassan [facility] Start: 04-21-2022 Telephone encounter Jignesh Aguirre MD Work Phone: [facility] 250 DO Work Phone: Start: 02-18-2022 Rx Renewal Jignesh sage MD Work Phone: [facility] 250 DO Work Phone: Start: 07-24-2021 End: 07-25-2021 ambulatory JIGNESH PIZANO [facility] Start: 07-24-2021 End: 07-24-2021 Subsequent hospital visit by physician Julia Patterson Work Phone: [facility] Start: 09-26-2020 End: 09-26-2020 Subsequent hospital visit by physician Julia Patterson [facility] Start: 05-09-2020 End: 05-09-2020 Subsequent hospital visit by physician Julia Patterson [facility] Start: 01-12-2020 End: 01-14-2020 Subsequent hospital visit by physician Piper Howard [facility] Comment on above: Arrived Pre-op chest exam Start: 01-11-2020 End: 01-13-2020 Subsequent hospital visit by physician Piper Additional Xray At [facility] Comment on above: Trigger finger of le ft thumb; Trigger finger, left middle finger Start: 03-28-2019 End: 03-28-2019 Letter encounter Provider Elvia [facility] Start: 03-07-2019 Patient encounter procedure Daniela LEYVA [facility] Start: 01-21-2019 [facility] Start: 11-19-2018 Patient encounter procedure [facility] Start: 09-21-2018 Patient encounter procedure [facility] Start: 08-31-2018 Patient encounter procedure [facility] Start: 08-24-2018 Patient encounter procedure [facility] Start: 08-03-2018 Patient encounter procedure [facility] Start: 06-29-2018 Patient encounter procedure [facility] Start: 03-07-2005 Evaluation and management of inpatient DO Efrem Esquivel Work Phone: [facility] Short Stay Procedures Date [...] procedure 06/15/2025 10:00 AM EDT Office Visit [place] [address] [place] [id number] Froylan Castanon MD [address] [facility] [place] [address] [facility] Start: 09-16-2024 End: 09-16-2024 Patient encounter procedure 09/16/2024 1:40 PM EST Office Visit [facility] [address] [facility] [address] [place] [address] Froylan Castanon MD [facility] [address] [place] [address] [facility] Start: 08-25-2024 End: 08-25-2024 [facility] Start: 07-10-2024 COVID-19 Vaccine ( season) COVID-19 Vaccine ( season) [facility] Start: 07-10-2024 COVID-19 Vaccine ( season) COVID-19 Vaccine ( season) [facility] Start: 07-10-2024 Influenza vaccination Influenza Vacc ine (#1) [facility] Start: 07-06-2024 FUV, Provider: Jignesh Pizano, Status: Pen, Time: 11:40 AM FUV, Provider: Jignesh Pizano, Status: Pen, Time: 11:40 AM -[facility] [employer] 600 DO Work Phone: Start: 07-08-2023 FUV, Provider: Jignesh Pizano, Status: Pen, Time: 10:20 AM FUV, Provider: Jignesh Pizano, Status: Pen, Time: 10:[address] [facility] Work Phone: Start: 2023 RSV High Risk: (Elde rly (60+) or Population) (1 - 1-dose 75+ series) RSV High Risk: (Elderly (60+) or Population) (1 - 1-dose 75+ series) [facility] Start: 07-24-2022 Lipid panel [facility] Start: 07-10-2022 Influenza vaccination Flu vaccine (# 1) [facility] Start: 07-04-2022 FUV, Provider: Jignesh Pizano, Status: Pen, Time: 10:30 AM FUV, Provider: Jignesh Pizano, Status: Pen, Time: 10:30 AM [facility] 250 DO Work Phone: Start: 06-11-2022 FUV, Provider: Jignesh Pizano, Status: Pen, Time: 11:00 AM FUV, Provider: Jignesh Pizano, Status: Pen, Time: 11:00 AM [facility] 250 DO Work Phone: Start: 02-26-2022 COVID-19 Vaccine (4 - Booster for Pfizer series) COVID-19 Vaccine (4 - Booster for Pfizer series) [facility] Start: 07-10-2021 Influenza vaccination Flu vaccine (# 1) [facility] Work Phone: Start: 01-11-2021 Creatinine measurement Creatinine mo nitoring [place], [place] Start: 01-11-2021 Creatinine monitoring Creatinine mon itoring [place] Start: 01-11-2021 Potassium monitoring Potassium monit oring [place] Start: 07-10-2020 Influenza vaccination Flu vaccine (# 1) [place] Start: 01-25-2020 End: 01-25-2020 Hospital Encounter [facility] Comment on above: 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 Start: 07-10-2019 Influenza vaccination [facility] Start: 06-17-2019 End: 06-17-2019 Office Visit 06/17/2019 Office Visit Anesthesiology Pain Mgt Yesenia Kimball, SECURITY GUARD-PROTOTYPE ENGINEER MANAGER [address] [place] [address] [phone] [facility] Start: 05-01-2019 Annual Wellness Visi t (AWV) Annual Wellness Visit (AWV) [place] Start: 03-28-2019 End: 03-28-2019 Office Visit 03/28/2019 Office Visit Anesthesiology Pain Mgt Thang Gautam MD [address] [place] [id number] Arrived Olga Giang [facility] Comment on above: Arrived Start: 03-26-2016 Pneumococcal 65+ yea rs Vaccine (2 - PCV) Pneumococcal 65+ years Vaccine (2 - PCV) [facility] Start: 03-26-2016 Pneumococcal Vaccine : 65+ Years (2 of 2 - PCV) Pneumococcal Vaccine: 65+ Years (2 of 2 - PCV) [facility] Start: 08-07-2015 Lipid panel Lipid screen [place], [place] Start: 08-07-2015 Lipid screen Lipid screen [place], [place] Start: 2013 Pneumococcal vaccination PNEUMOCOCCAL VACCINE SERIES (1 of 2 - PCV13) [facility] Start: 2008 RSV patient s and/or patients aged 60+ years (1 - 1-dose 60+ series) RSV patients and/or patients aged 60+ years (1 - 1-dose 60+ series) [facility] Start: 1998 Colon cancer screen colonoscopy Colon cancer screen colonoscopy [place], [place] Start: 1998 Prostate specific antigen measurement PROSTATE CANCER SCREENING DISCUSSION [facility] Start: 1998 Protein mass conc COLON CANCER SCREENING DISCUSSION [facility] Start: 1998 Screening for malign ant neoplasm of colon Colon cancer screen colonoscopy [place], [place] Start: 1998 Shingles Vaccine (1 of 2) Shingles Vaccine (1 of 2) [facility] Start: 1998 Zoster vaccine hzv l ady for subcutaneous use ZOSTER (SHINGLES) VACCINE (1 of 2) [facility] Start: 1998 Zoster Vaccines (1 o f 2) Zoster Vaccines (1 of 2) [facility] Start: 1993 Screening for malign ant neoplasm of colon [facility] Start: 1988 Fasting lipid profile LIPID SCREENIN G [facility] Start: 1970 DTaP/Tdap/Td Vaccine s (1 - Tdap) DTaP/Tdap/Td Vaccines (1 - Tdap) [facility] Start: 1967 DTaP/Tdap/Td vaccine (1 - Tdap) DTaP/Tdap/Td vaccine (1 - Tdap) [facility] Start: 1967 Third diphtheria, tetanus and acellular pertussis (DTaP) vaccination TDAP (ADULT) [facility] Start: 1966 Hepatitis C screening Hepatitis C Sc reening [facility] Start: 1966 Tetanus vaccination TETANUS [facility] Start: 1960 COVID-19 Vaccine (1) COVID-19 Vaccin e (1) [facility] Work Phone: Start: 1960 Depression Screen Depression Screen [facility] Start: 1959 DTaP/Tdap/Td vaccine (1 - Tdap) DTaP/Tdap/Td vaccine (1 - Tdap) [facility] [place] Start: 1948 Annual Wellness Visi t (AWV) Annual Wellness Visit (AWV) [facility] Start: 1948 Hepatitis C antibody , confirmatory test HEPATITIS C VIRUS SCREENING [facility] Start: 1948 Lipid panel Lipid Panel [facility] Start: 1948 Medicare Annual Wellness Visit Medicare Annual Wellness Visit (AWV) [facility] EKG 12 lead EKG 12 lead ECG Routine 01/12/2020 11:28 AM EST [facility] [place] Patient Education Know your Meds [facility] Work Phone: Immunizations Immunization Date Immunization Notes Care Provider Cass reyes 08-06-2023 influenza virus vaccine, unspecified formulation Frida 1 [facility] Work Phone: 08-01-2022 Fluzone High-Dose Quadrivalent 0.7 ML Intramuscular Suspension Prefilled Syringe Julia Patterson Work Phone: -[facility] 600 DO Work Phone: 08-01-2022 influenza virus vaccine, unspecified formulation JAJA MARTINEZ [facility] 08-01-2022 influenza, high dose seasonal, preservative-free Frida [facility] Work Phone: 10-28-2021 COVID-19 Vaccine Pfi zer - Documentation Purposes Only Rigo Hassan Other [facility] 08-13-2021 influenza virus vaccine, unspecified formulation JAJA MARTINEZ [facility] 08-13-2021 influenza, high dose seasonal, preservative-free Jignesh Pizano MD Work Phone: [facility] 01-04-2021 Pfizer-BioNTi-Optics COVID-19 Vacc 30 MCG/0.3ML Intramuscular Suspension Jignesh Pizano MD Work Phone: [facility] 12-14-2020 COVID-19 Vaccine Pfi zer - Documentation Purposes Only Rigo Hassan Other [facility] 08-07-2020 influenza virus vaccine, unspecified formulation JAJA MARTINEZ [facility] 08-07-2020 influenza, high dose seasonal, preservative-free Jignesh Pizano MD Work Phone: [facility] 08-03-2020 influenza virus vaccine, unspecified formulation JAJA MARTINEZ [facility] 07-10-2020 influenza virus vaccine, unspecified formulation Jignesh Pizano MD Work Phone: [facility] 09-23-2019 influenza, high dose seasonal, preservative-free Frida 1 [facility] Work Phone: 08-09-2019 influenza, high dose seasonal, preservative-free Jignesh Pizano MD Work Phone: [place] [address] DO Work Phone: 08-16-2018 influenza virus vaccine, unspecified formulation JAJA MARTINEZ [facility] 08-09-2018 influenza virus vaccine, unspecified formulation Jignesh Pizano MD Work Phone: [place] [address] DO Work Phone: 09-01-2017 influenza, injectabl e, quadrivalent, preservative free Jignesh Pizano MD Work Phone: [place] [address] DO Work Phone: 09-01-2017 influenza virus vaccine, unspecified formulation Provider [facility] 08-11-2017 influenza, high dose seasonal, preservative-free Jignesh Pizano MD Work Phone: [place] [address] DO Work Phone: 09-01-2016 influenza virus vaccine, unspecified formulation JAJA MARTINZE [facility] 09-01-2016 influenza, injectabl e, quadrivalent, preservative free Jignesh Pizano MD Work Phone: [place] [address] DO Work Phone: 08-09-2016 influenza virus vaccine, unspecified formulation Jignesh Pizano MD Work Phone: [place] [address] DO Work Phone: 08-14-2015 influenza virus vaccine, unspecified formulation JAJA MARTINEZ [facility] 08-09-2015 influenza virus vaccine, unspecified formulation Jignesh Pizano MD Work Phone: [place] [address] DO Work Phone: 03-26-2015 pneumococcal conjuga te vaccine, 7 valent Jignesh Pizano MD Work Phone: [place] [address] DO Work Phone: 03-09-2015 pneumococcal conjuga te vaccine, 7 valmarcia Pizano MD Work Phone: [place] [address] DO Work Phone: 11-10-2014 pneumococcal polysaccharide vaccine, 23 valent Rigo Hassan Other [facility] 08-09-2014 influenza virus vaccine, unspecified formulation Jignesh Pizano MD Work Phone: [place] [address] DO Work Phone: 08-08-2014 influenza virus vaccine, unspecified formulation JAJA MARTINEZ [facility] 07-29-2013 influenza virus vaccine, unspecified formulation JAJA MARTINEZ [facility] 07-29-2013 influenza, injectabl e, quadrivalent, preservative free Jignesh Pizano MD Work Phone: [place] [address] DO Work Phone: 07-28-2012 influenza virus vaccine, unspecified formulation JAJA MARTINEZ [facility] 07-28-2012 influenza, injectabl e, quadrivalent, preservative free Jignesh Pizano MD Work Phone: [place] [address] DO Work Phone: 07-30-2011 influenza virus vaccine, unspecified formulation JAJA MARTINEZ [facility] 07-30-2011 influenza, injectabl e, quadrivalent, preservative free Jignesh Pizano MD Work Phone: [facility] 250 DO Work Phone: 10-30-2009 novel [id number], preservative-free, injectable Jignesh Pizano MD Work Phone: [facility] 250 DO Work Phone: influenza virus vaccine, unspecified formulation Jignesh Pizano MD Work Phone: [facility] 250 DO Work Phone: Comment on above: 2012Aug [id number] pneumococcal polysaccharide vaccine, 23 valent Jignesh Pizano MD Work Phone: [facility] 250 DO Work Phone: Comment on above: 2012 2007 2004 Payers Date Payer Category Payer Self-pay 2023 Medicare supplementa l policy (as second payer) [facility] [id number] 2023 Unknown 2013 Unknown [id number] 2013 Medicare [id number] 2013 Medicare [id number] 2013 Medicare [id number]. [id number] 2013 Medicare [id number] 1948 Unknown [id number] 2.16.840.1.970081.3.579. 2.983 1948 Unknown [id number] 2.16.840.1.767183.3.579. 2.983 1948 Unknown [id number] 2.16.840.1.455908.3.579. 2.174 1948 Unknown [id number] 2.16.840.1.504143.3.579. 2.174 1948 Unknown [id number] 2.16.840.1.714333.3.579. 2.174 1948 Unknown [id number] 2.16.840.1.593060.3.579. 2.356 1948 Unknown [id number] 2.16.840.1.653058.3.579. 2.727 1948 Unknown [id number] 2.16.840.1.864337.3.579. 2.124 1948 Unknown [id number] 2.16.840.1.704068.3.579. 2.124 1948 Unknown [id number] 2.16.840.1.931094.3.579. 2.6 1948 Unknown [id number] 2.16.840.1.802396.3.579. 2.1246 1948 Unknown [id number] 2.16.840.1.476235.3.579. 2.1246 1948 Unknown [id number] 2.16.840.1.573794.3.579. 2.1244 1948 Unknown [id number] 2.16.840.1.887610.3.579. 2.727 1948 Unknown [id number] 2.16.840.1.531300.3.579. 2.727 1948 Unknown [id number] 2.16.840.1.078867.3.579. 2.727 1948 Unknown [id number] 2.16.840.1.413567.3.579. 2.727 1948 Unknown [id number] 2.16.840.1.044939.3.579. 2.727 1948 Unknown [id number] 2.16.840.1.937381.3.579. 2.727 1948 Unknown [id number] 2.16.840.1.242339.3.579. 2.72 1948 Unknown [id number] 2.16.840.1.767065.3.579. 2.727 1948 Unknown [id number] 2.16.840.1.910771.3.579. 2.727 1948 Unknown [id number] 2.16.840.1.273313.3.579. 2.727 1948 Unknown [id number] 2.16.840.1.299239.3.579. 2.727 Unknown [id number] 2.16.840.1.151270.3.579. 2.531 Unknown [id number] 2.16.840.1.938562.3.579. 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 Start: 1950 Sex Assigned At Male F [facility] Start: 02-01-2024 Tobacco smoking stat us NHIS Tobacco smoking consumption unknown [facility] Work Phone: Start: 08-01-2024 End: 09-16-2024 Exposure to SARS-CoV-2 (event) Not sure [facility] Start: 09-16-2024 Alcoholic beverage intake Ex-drinker (finding) [facility] Work Phone: Medical Equipment Procedure Code Equipment Code Equipment Origin al Text Equipment Identifier Dates Patterson Suture Swivelock 4.75 X 19.1 Biocomposite Min 5ea [id number] Start: 01-27-2018 Goals Date Patient Goal Desired Activity /State Functional Status Date Assessment Result Facility 10-31-2024 Functional Status N/A [facility] 08-02-2024 Functional Status N/A [facility] 06-24-2024 Functional Status N/A [facility] Clinical Notes 04-22-2022 to 10-31-2024 Froylan Castanon [...] including vitamins, herbs, eye drops, creams, and kadp-yxy-andjscl medicines. Any problems you or family members [...] provider tells you to take them. Taking fhrn-hdw-fnvywox medicines, vitamins, herbs, and supplements. General instructions [...] provider. Document Revised: 10/31/2022 Document Reviewed: 10/31/2022 [employer] Patient Education 2023 [employer]. 10/31/2024 11:10:07 Bladder Cancer Bladder Cancer Bladder [...] cells. Follow these instructions at home: Take wisw-wwc-akarjhm and prescription medicines only as told by [...] is important. Where to find more information [place] [employer] (ACS): cancer.org National Cancer [place] (NCI): cancer.gov Contact a health care provider [...] provider. Document Revised: 10/06/2022 Document Reviewed: 10/06/2022 [employer] Patient Education 2023 [employer]. Follow Up Care 09/16/2024 15:20:58 With:CHILANGO QUILES, Cam Newby, URL Address: [facility] [address], [place] [address] [phone] When: Unknown [facility] 10-31-2024 Note Patient Education Oncology Transurethral [...] including vitamins, herbs, eye drops, creams, and vqel-tvt-bqygiql medicines. ??? Any problems you or family [...] tells you to take them. ??? Taking dgmn-rat-jjpkeqd medicines, vitamins, herbs, and supplements. General instructions [...] be rinsed o (more content not included)... [facility] 09-16-2024 History of Present illness Narrative Subjective [...] acquired this past summer. They live in [place]. Review of system is normal physical [...] discussion and plan. documented in this encounter [facility] Work Phone: 09-16-2024 Instructions Kimberly Oconnell LPN [...] visit Same medications documented in this encounter [facility] Work Phone: 08-25-2024 Discharge summary Note Date/Time August 25, 2024 1:28pm [facility] EN[facility] [address] [place] [address] Discharge Summary Signed Patient: Sarina Justice MR#: [id number] : 1950 Acct:[id number] Age/Sex: 74 / M Adm Date: 4 Loc: Room: Attending Dr: Froylan Castanon MD Copies to: Froylan Castanon MD, [facility] Julia Patterson III, DO~ Providers Date [...] Low-Cholesterol Additional Instructions: 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 4. ACTIVITY: You are advised to [...] bottle, follow the instructions on the bottle. [facility] is not responsible for incorrect prescription [...] % (Auto) 66.3, Lymph % (Auto) 22.1, Benson % (Auto) 10.2, Eos % (Auto) 1.0, Baso % (Auto) 0.4, Nucleat RBC Rel Count 0.1, Neut # (Auto) 3.9, Lymph # (Auto) 1.3, Benson # (Auto) 0.6, Eos # (Auto) 0.1, [...] 47, Cholesterol/HDL Ratio 2.4 Documented By: Froylan Casatnon MD, [facility] 4 1328 Signed By: <Electronically signed by MD RADHAMES Castanon> 08/25/24 1328 [facility] Work Phone: [phone] [facility]-2024 Hospital Discharge instructions Patient Education 08/02/2024 [...] Up Care 07/15/2024 15:52:56 With:Cam KEE Address: [address] [place] [address]- Business (1) When: Unknown Comments:Office will call to schedule follow up [facility] 09-24-2024 NoteProgress Note-Physician Patient: SARINA JUSTICE Age: [...] Tab Multi Vitamin+ 1 tab, Oral, Daily Moulton 325 mg-5 mg oral tablet See Instructions, PRN Moulton 325 mg-5 mg oral tablet See Instructions, [...] list: All Problems Obesity / SNOMED CT [id number] / Possible HTN - Hypertension / SNOMED CT 6514846263 / Confirmed History of hypercholesterolemia / SNOMED CT 4312366486 / Confirmed CAD - Coronary artery disease / SNOMED CT 2877690673 / Confirmed H/O: arthritis / SNOMED CT 321833566 / Confirmed Acid reflux / SNOMED CT 209449150 / Confirmed Asthma / SNOMED CT 894484625 / Confirmed Pre diabetes / Confirmed controlle by diet Trigger finger / SNOMED CT 6611815011 / Confirmed left ring finger Enlarged prostate / SNOMED CT 937276080 / Confirmed Osteoarthritis / SNOMED CT 5994589761 / Confirmed Sacroiliitis / SNOMED CT 3389819448 / Confirmed Spondylosis of lumbar region without myelopathy or radiculopathy / SNOMED CT 01227537 / Confirmed Lumbar radiculitis / SNOMED CT 106834476 / Confirmed DDD (degenerative disc disease), lumbar / SNOMED CT 25222977 / Confirmed Lumbar stenosis / SNOMED CT 96963965 / Confirmed Chronic pain / SNOMED CT 464572759 / Confirmed Personal history of prostate cancer / SNOMED CT 4830007089 / Confirmed BMI 31.0-31.9,adult / SNOMED CT 024431373 / Confirmed Frequency of urination / SNOMED CT 119188217 / Confirmed Nocturia / SNOMED CT 387722968 / Confirmed BPH with urinary obstruction / SNOMED CT 4364132542 / Confirmed ED (erectile dysfunction) / SNOMED CT 3541965411 / Confirmed Erectile dysfunction following radiation therapy / SNOMED CT 9939937943 / Confirmed Gross hematuria / SNOMED CT 308403165 / Confirmed Histories Past Medical History: Active Pre diabetes: Onset on 01/08/2011 at 60 years. 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 History of kidney stone (7685126740): Resolved. Family History: Dementia Mother Asthma Brother Hypertension Father Congenital heart disease Father Diabetes mellitus type 2 Mother Osteoporosis Mother Heart failure Mother Migraine Mother Stroke Mother Hyperthyroidism Mother Acute myocardial infarction Father Hyperlipidemia Father Alzheimer's disease Mother Cardiac arrest Father Procedure history: Release of trigger finger (862804986) on 03/21/2020 at 69 Years. Comments: 03/21/2020 15:21 Mary Ann Stiles RN left middle Repair of rotator cuff of shoulder (0421787417) on 01/27/2018 at 67 Years. Comments: 02/02/2018 [...] Years. 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., (more content not included)...[facility] Clinic[facility] above:Result Comment: Electronically Signed By: Cam KEE MD\.br\Date and Time Signed: 08/02/24 14:00 [id number] Evaluation + Plan noteExtracted from: Title:Urology Progress [...] Appointments Appointment Date:08/22/2024 10:30:00 AM Scheduled Provider: Location:[facility] Appointment Type:URO Nurse Visit Appointment Date:09/09/2024 10:45:00 AM Scheduled Provider:Cam KEE MD Location:[facility] Appointment Type:URO Office Visit [facility] 09-24-2024 NotePatient Education Custom Cystoscopy ? Voiding [...] if you have a fever over 100 degrees.[facility] 06-24-2024 Hospital Discharge instructions Patient Education 06/24/2024 [...] Follow these instructions at home: Medicines Take pfmb-tep-uomtlfs and prescription medicines only as told by [...] or the blood stops without treatment. Take essl-ker-vmexbcw and prescription medicines only as told by your health care provider. Drink enough fluid to keep your urine pale yellow. This information is not intended to replace advice given to you by your health care provider. Make sure you discuss any questions you have with your health care provider. Document Revised: 06/26/2021 Document Reviewed: 06/26/2021 [employer] Patient Education 2022 [employer]. 06/24/2024 13:57:39 Benign Prostatic Hyperplasia Benign Prostatic [...] urethra. Follow these instructions at home: Take gsnc-lwt-fhxxzfm and prescription medicines only as told by [...] provider. Document Revised: 05/14/2022 Document Reviewed: 05/14/2022 [employer] Patient Education 2022 [employer]. Follow Up Care 06/20/2024 16:12:54 With:CHILANGO QUILES, Cam Newby, URL Address: [address] [place], [place] [id number]- When: Unknown Comments:Cystoscopy [facility] 08-16-2024 Evaluation + Plan note Future Scheduled Tests Radiology* CT Urogram 06/24/24 [facility] 08-16-2024 Evaluation + Plan note Diagnostic Tests Pending * UroVysion Fish and Urine Cyto ([facility]) 06/24/24 Future Scheduled Tests Radiology* CT Urogram 06/24/24 [facility] 08-16-2024 NoteUrology Office/Clinic Note Chief Complaint referral [...] with voice recognition artificial intelligence software, specifically [employer], [employer] and or [employer]. Substitutions may have occurred due to the [...] understanding -Urine for FISH/cytology today -CTU at [facility] -Schedule cystoscopy with PRW Ordered: Body [...] Urnls Dip Stick Auto w/o Microscopy POC [id number] 2. Personal history of prostate cancer (Z85.46: [...] Information CHILANGO QUILES, Cam Newby, URL [address] [place] [address]- Additional Instructions (more content not included)...[facility] ClinicComment on above:Result Comment: Electronically Signed By: JOSE DE JESUS Keyes APRN, [place] X\.br\Date and Time Signed: 06/24/24 13:58 [id number] Note Patient Education Urology Hematuria, Adult Hematuria [...] these instructions at home: Medicines ? Take amnb-nqm-hxweymj and prescription medicines only as told by [...] the blood stops without treatment. ? Take murc-ilo-lrekehi and prescription medicines only as told by your health care provider. ? Drink enough fluid to keep your urine pale yellow. This information is not intended to replace advice given to you by your health care provider. Make sure you discuss any questions you have with your health care provider. Document Revised: 06/26/2021 Document Reviewed: 06/26/2021 [employer] Patient Education ? 2022 [employer]. Benign Prostatic Hyperplasia Benign prostatic hyperplasia (BPH) [...] include: ? Getting up (more content not included)...[facility] Evaluation note* Encounter Date Diagnosis Assessment Notes Treatment Notes Treatment Clinical Notes Apr, Asthma, moderate persistent (ICD-10 - J45.40) Apr, Allergic rhinitis (ICD-10 - J30.9) Apr, Gastroesophageal ref lux disease (ICD-10 - K21.9) [facility] Other Evaluation + Plan note No data available for this section [facility] Future Appointments Appointment Date:10/21/2024 09:00:00 AM Scheduled Provider: Location:[facility] Appointment Type:URO Nurse Visit Appointment Date:10/31/2024 10:00:00 AM Scheduled Provider:Cam KEE MD Location:[facility] Appointment Type:URO Office Visit [facility] Evaluation + Plan note Future Appointments Appointment Date:10/31/2024 10:00:00 AM Scheduled Provider:Cam KEE MD Location:[facility] Appointment Type:URO Office Visit [facility] Evaluation + Plan note Future Appointments Appointment Date:12/12/2024 11:15:00 AM Scheduled Provider:Cam KEE MD Location:[facility] Appointment Type:URO Office Visit [facility] evaluation note* Diagnosis Pain Generalized pain documented in this encounter [facility] Work Phone: evalsildcl note* Diagnosis Onset Date Resolution Status Allergic rhinitis acute Asthma, moderate persistent acute Gastroesophageal reflux disease [facility] Work Phone: Evaluation note* Diagnosis Preop cardiovascular exam Pre-operative cardiovascular examination ASCVD (arteriosclerotic cardiovascular disease) Unspecified cardiovascular disease History of PTCA Postsurgical percutaneous transluminal coronary angioplasty status documented in this encounter [facility] Work Phone: Evaluation note* Diagnosis ASCVD (arteriosclerotic cardiovascular disease) Unspecified cardiovascular disease Essential hypertension Unspecified essential hypertension History of PTCA Postsurgical percutaneous transluminal coronary angioplasty status Mixed hyperlipidemia BMI 28.0-28.9,adult Never smoked tobacco documented in this encounter [facility] Work Phone: History general Narrative - Reported* [...] MTP 8 Surgical History LMF trigger release [facility] MTP Hospitalization History as above [facility] Other History of Present illness NarrativePatient returns [...] us if a plan of surgery is implemented.[facility] 600 DO Work Phone: Hospital Discharge instructions No data available for this section [facility] Additional Instructions 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 4. ACTIVITY: You are advised to [...] bottle, follow the instructions on the bottle. [facility] is not responsible for incorrect prescription information provided by the patient during their visit. Do not stop your medications without consulting your health care provider. Please take the list with you to your next doctor's appointment.[facility] Work Phone: Progress note No data available for this section [facility] Summary Purpose Family History No Family History [...] FoundDocuments on File Type Date Recorded Patient Skein Yarn Drier Expl anation Advance Directives and Living Will Power of Slurry Control Tender Latest Code Status on File Code Status Date Activated Date Inactivated Comments Full Code 06/16/2018 7:50 AM 06/16/2018 11:13 AM Full Code 06/16/2018 6:11 AM 06/16/2018 7:50 AM Full Code 01/27/2018 1:27 PM 01/27/2018 4:34 PM Full Code 01/27/2018 10:07 AM 01/27/2018 1:27 PM Full Code 02/06/2016 12:12 PM 02/06/2016 2:59 PM Documents on File Type Date Recorded Patient Skein Yarn Drier Expl anation ACP-Advance Directive ACP-Power of Slurry Control Tender Advance Directive Response Recorded Date/ Time Advance [...] SPECT MULTIPLE STUDIES Froylan Castanon MD [address] [facility] [address], [address] [address] Referral ID Status Reason Start Date Expiration Date V isits Requested Visits Authorized [id number] Authorized 08/03/2024 08/03/2025 5 5 Additional Source Comments (unrecognized sect ion and content) No Status Records FoundNo Status Records FoundNo Status Records FoundNo Status Records FoundNo Status Records FoundNo Status Records FoundNo Status Records FoundNo Status Records FoundNo Status Records FoundNo Status Records FoundNo Status Records FoundNo Status Records Found INFORMATION SOURCE (unrecogn ized section and content) DATE CREATED AUTHOR 01/22/2019 [facility] DATE CREATED AUTHOR AUTHOR'S ORGANIZ ATION 03/11/2019 [facility] DATE CREATED AUTHOR AUTHOR'S ORGANIZ ATION 07/12/2022 [facility] DATE CREATED AUTHOR AUTHOR'S ORGANIZ ATION 07/09/2023 [facility] DATE CREATED AUTHOR AUTHOR'S ORGANIZ ATION 07/09/2023 [employer] DATE CREATED AUTHOR AUTHOR'S ORGANIZ ATION 07/05/2024 [facility] DATE CREATED AUTHOR AUTHOR'S ORGANIZ ATION 08/25/2024 [facility] DATE CREATED AUTHOR AUTHOR'S ORGANIZ ATION 09/29/2024 [facility] DATE CREATED AUTHOR AUTHOR'S ORGANIZ ATION 10/22/2024 [facility] DATE CREATED AUTHOR AUTHOR'S ORGANIZ ATION 11/02/2024 [facility] REASON FOR VISIT (unrecogniz ed section and content) Specialty Diagnoses / Procedures Referred By Tio hawkins Referred To Contact Radiology Diagnoses Preop cardiovascular exam ASCVD (arteriosclerotic cardiovascular disease) History of PTCA Procedures Nuclear Stress Test CHG MYOCARDIAL SPECT MULTIPLE STUDIES Froylan Castanon MD [address] [facility] [address], [address] [address] Referral ID Status Reason Start Date Expiration Date V isits Requested Visits Authorized [id number] Authorized 08/03/2024 08/03/2025 5 5 Reason Comments Annual Exam Care Teams (unrecognized sec tion and content) Corporate Wellness Coordinator Relationship Specialty Start Date End Date Julia Patterson [address] [place] [phone] PCP - General 03/08/13 Corporate Wellness Coordinator Relationship Specialty Start Date End Date Julia Patterson [address] [place] [phone] PCP - General 03/08/13 Team Status: Active [...] June 28, 2024 End: June 28, 2024 Corporate Wellness Coordinator Relationship Specialty Start Date End Date Julia Patterson DO [address] [place] [address] PCP - General Family Medicine 08/04/24 Corporate Wellness Coordinator Relationship Specialty Start Date End Date Julia Patterson DO [address] [place] [address] PCP - General Family Medicine 08/04/24 Corporate Wellness Coordinator Relationship Specialty Start Date End Date Julia Patterson DO [address] [place] [address] PCP - [facility] 08/04/24 Corporate Wellness Coordinator Relationship Specialty Start Date End Date Julia Patterson DO [address] [place] [address] PCP - [facility] 08/04/24 Team Status: Inactive Member Role Status Dates Julia Newby Leonardo BEAULIEU DO Primary Care Provider Active Start: August 25, 2024 End: August 25, 2024 Froylan Castanon MD Attending Provider Active St art: August 25, 2024 End: August 25, 2024 Corporate Wellness Coordinator Relationship Specialty Start Date End Date Julia Patterson DO [address] [place] [address] PCP - [facility] 08/04/24 Goals (unrecognized section and content) Goals [...] BE BASED ON THE PRIMARY CLINICAL RECORDS. [employer] [facility]. provides no warranty or guarantee of the accuracy or completeness of information in this document.
[2024-11-24] MEDS: LACTATED RINGER'S SOLUTION 1,000 ML 50 ML IV (10:35)
[2024-11-24] MEDS: CEFAZOLIN SODIUM 2 GM/50 ML D5W PREMIX IV (12:09)
[2024-11-24] MEDS: LACTATED RINGER'S SOLUTION 1,000 ML 1000 ML IV (12:56)
--- NOTE | 2024-11-24 12:58 | P.URON_ITS ---
Urology Surgery Operative Note Operative Note Procedure Date: 11/24/24 Time Out Performed: yes Pre-op Diagnosis: High-grade invasive bladder cancer Post-op Diagnosis: same as pre-op Procedures performed: 1. Cystoscopy. 2. Transurethral reresection of bladder tumor bed Anesthesia: DARNELL Primary Surgeon: Cam Grey Complications: None Estimated blood loss (mL): 5 Specimens: Bladder tumor bed pieces Drains: 20 Barbadian Buenrostro catheter to gravity Indications for Procedures: This gentleman has high-grade invasive TCC of the bladder which was just recently diagnosed. No muscle was found in the specimen. He now presents for reresection of his tumor bed for accurate staging. He has signed an informed consent after risks were explained. Detailed description of Procedure: The patient was brought to the operating room and placed on the operating room table in the supine position. SCDs were placed on the lower extremities and turned on and functioning during the entire case. Timeout was done by all parties in the room. We all agreed upon the patient's identification and the planned procedures for this patient. Genn. anesthesia was then administered. The patient was then repositioned into the modified dorsal lithotomy position. All pressure points were satisfactorily padded. Genitalia were sterilely prepped and draped in usual fashion. I started by passing a 26 Barbadian Olympus resectoscope with a standard bipolar loop electrode per urethra and into the bladder. The ureteral orifices were identified and they were fair distance away from the resection bed. No new tumor was identified. I then deeply resected into the already resected tumor bed along the mid trigone to the bladder neck level. I found the bladder neck fibers. There was also necrotic tissue. I felt it was unsafe to go any deeper. The resection bed was then coagulated fully. The Ilich was used to get all the pieces out of the bladder and these were sent for permanent sections. Upon completion, there was no evidence of bleeding. Both ureters effluxed clear urine. The scope was then removed. I then placed a 20 Barbadian two-way Buenrostro catheter in the bladder. 10 cc was placed in the balloon. It drained clear. The anesthetic was then reversed. He was then transferred to a [facility] bed and wheeled to PACU in stable condition. Urinary Catheter Management Urinary Catheter Management Urethral: Cath placed during this visit: no
== END 2024-11-24 14:15 | disposition home or self-care (01) ==
PROVIDERS: Visit Provider Urology
PROC: (CPT 52235; principal; 2024-11-24 11:35)
DX: C67.9 Malignant neoplasm of bladder, unspecified (principal); K21.9 Gastro-esophageal reflux disease without esophagitis; J45.909 Unspecified asthma, uncomplicated; I25.10 Atherosclerotic heart disease of native coronary artery without angina pectoris; N40.0 Benign prostatic hyperplasia without lower urinary tract symptoms; I10 Essential (primary) hypertension; Z85.46 Personal history of malignant neoplasm of prostate; Z87.442 Personal history of urinary calculi; E78.5 Hyperlipidemia, unspecified; Z95.5 Presence of coronary angioplasty implant and graft
CPT/HCPCS: 52235; 36415; 88307; 88341; 88342; J0690; J1100; J1805; J2250; J2405; J2704; J3010